=== PATIENT | male | born 1940 | race Caucasian/White ===

== ENCOUNTER 2020-06-06 09:36 | Observation (INO) | payer MEDICARE, OTHER, SELFPAY ==
[2020-06-06] VITALS (10 sets, daily range): BP systolic 130–154; BP diastolic 60–77; PULSE 53–58; RESP 15–18; TEMP 36.5–36.8; O2SAT 95–100; BMI 28.3; BMI 27.9
--- NOTE | 2020-06-06 10:01 | ED_ITS ---
HPI - Neuro Symptoms/Deficit General Chief Complaint: Eye Problems Stated Complaint: [facility]ST TIA Time Seen by Provider: 06/06/20 10:01 Source: patient Mode of arrival: ambulatory Limitations: no limitations History of Present Illness HPI Narrative: at home around 9am the patient noted he could not read the hour part on digital clock/watches, it lasted 5 minutes and it reminded him of a prior TIA, he took 324mg ASA prior to arrival, he denies any complaints now Onset (ago): hour(s) (1) Location: other (could not read the hour part on clocks) History of same: Yes Severity: moderate Relieving factors: none Exacerbating factors: none Context: sudden onset On Anticoagulants: No Associated symptoms: denies other symptoms Treatments Prior to Arrival: Aspirin (324mg) Related Data Allergies Allergy/AdvReac Type Severity Reaction Status Date / Time codeine Allergy Unknown Verified 06/25/19 00:00 No Known Allergies Allergy Unverified 05/18/20 19:02 [No Known Allergies*] Review of Systems Review of Systems: Constitutional : No Fever, No Chills, No Fatigue ENT/Mouth : No sore throat, No Rhinorrhea Eyes: No Eye Pain, No Swelling, No Redness, brief loss of vision Cardiovascular : No Chest Pain, No SOB, No Dyspnea on Exertion Respiratory : No Cough, No Sputum Gastrointestinal : No Nausea, No Vomiting, No Diarrhea, No abdominal Pain Genitourinary : No Dysuria, No Urinary Frequency, No Hematuria, Musculoskeletal : No joint pain, No Myalgias, No Joint Swelling Skin : No Skin Lesions, No rash Neuro : No Weakness, No Numbness, No Dizziness, no Headache Psych : No Anxiety/Panic, No Depression Heme/Lymph: No Bruising, No Bleeding,No Lymphadenopathy Endocrine : No Polyuria, No Polydipsia All other systems reviewed and are negative PMFSH Past Medical History Attestation statement: The following information was validated with the patient. Medical History (Updated 06/06/20 @ 11:49 by Ghada Soria DO) HTN (hypertension) Hx of cataract Migraine Prostate cancer TIA (transient ischemic attack) Surgical History (Updated 06/06/20 @ 09:48 by Teena Hernandez) Hx of bilateral hip replacements Hx of hernia repair Hx of right knee surgery Social History Social History (Updated 06/06/20 @ 10:05 by Ghada Soria DO) Alcohol intake: current Alcohol intake frequency: a few times a month Smoking Status: Never smoker Smoked in Last 30 Days: No Use of substances other than those prescribed or required for medical reasons: No Advance Directives: No Advance Directives Information Provided: Yes Physical Exam Vital Signs and I&O and Narrative: Vital Signs and I&O: Vital Signs Temp 97.7 F 06/06/20 11:20 Pulse 55 06/06/20 11:20 Resp 15 06/06/20 11:20 BP 130/66 06/06/20 11:20 Pulse Ox 95 06/06/20 11:20 Intake & Output 06/05/20 06/06/20 06/06/20 18:59 06:59 18:59 Weight 97.522 kg Body Mass Index 28.3 Appearance: Alert. Oriented X3. No acute distress. Eyes: Pupils equal, round and reactive to light. ENT: Pharynx normal. Neck: Normal inspection. Neck supple. CVS: Normal heart rate and rhythm. Pulses normal. Respiratory: No respiratory distress. Breath sounds normal. Abdomen: Soft and nontender. Skin: Skin warm and dry. Normal skin color. Normal skin turgor. Extremities: No lower extremity edema. Normal range of motion Neuro: Oriented X 3. No motor deficit. No sensory deficit. Course Course Course Narrative: no complaints now no neuro symptoms, already took 324 mg ASA prior to arrival , spoke to hospitalist - Kelly Weldon to admit MDM - Neuro Symptoms/Deficit MDM Narrative Medical decision making narrative: hx of TIA remotely here with loss of vision where he couldn't see the hour on digital watches but could read minutes, no other symptoms, only lasted 5 minutes and reminded him of a prior TIA, doing well recently, took 324mg ASA prior to arrival, all symptoms started at 9am Lab Data Result diagrams: 06/06/20 10:29 06/06/20 10:29 Labs: Lab Results 06/06/20 06/06/20 06/06/20 Range/Units 10:29 10:29 10:29 WBC 5.9 (4.8-10.8) X10*3/uL RBC 4.36 L (4.60-5.80) X10*6/uL Hgb 12.9 L (14.0-18.0) g/dl Hct 39.3 L (42-52) % MCV 90.1 (80-98) fL MCH 29.6 (27.0-33.0) pg MCHC 32.8 (31.0-36.0) g/dl RDW 12.7 (11.0-16.0) % Plt Count 189 (160-400) X10*3/uL MPV 10.5 (9.4-12.4) fL Immature Gran % (Auto) 0.2 (0.0-0.4) % Neut % (Auto) 72.1 (45-73) % Lymph % (Auto) 14.5 L (20-40) % [place] % (Auto) 7.8 (2-11) % Eos % (Auto) 4.9 H (0-4) % Baso % (Auto) 0.5 (0-2) % Neut # (Auto) 4.2 (2.0-8.3) X10*3/uL Lymph # (Auto) 0.9 L (1.2-4.9) X10*3/uL [place] # (Auto) 0.5 (0.1-1.2) X10*3/uL Eos # (Auto) 0.3 (0.0-0.4) X10*3/uL Baso # (Auto) 0.0 (0.0-0.2) X10*3/uL Abs Immat Gran (auto) 0.01 (0.00-0.03) X10*3/uL Absolute Nucleated RBC 0.000 (0.0-0.012) X10*3/uL Nucleated RBC % (auto) 0.0 (0.0-0.2) /100WBC PT 11.9 (10.8-13.0) SEC INR 1.0 (0.9-1.1) APTT 33.2 (24.1-38.0) SEC Sodium 140 (135-145) mmol/L Potassium 4.6 (3.3-5.1) mmol/l Chloride 107 (96-108) mmol/L Carbon Dioxide 24 (22-29) mmol/L Anion Gap 14 (12-20) BUN 23 H (9-16) mg/dL Creatinine 1.17 (0.5-1.4) mg/dL Estim Creat Clear Calc 65.0 Estimated GFR > 60 Random Glucose 134 H (60-115) mg/dL Calcium 9.0 (8.4-10.2) mg/dL Magnesium 2.0 (1.6-2.6) mg/dL Total Bilirubin 0.4 (0.0-1.0) mg/dL Direct Bilirubin 0.2 (0.0-0.5) mg/dL AST 34 (5-37) U/L ALT 43 H (0-40) U/L Alkaline Phosphatase 71 (39-117) U/L Troponin I High Sens (<3.5-35.0) ng/L Total Protein 7.0 (6.5-8.0) g/dL Albumin 4.1 (3.5-5.0) g/dL 06/06/20 Range/Units 10:29 WBC (4.8-10.8) X10*3/uL RBC (4.60-5.80) X10*6/uL Hgb (14.0-18.0) g/dl Hct (42-52) % MCV (80-98) fL MCH (27.0-33.0) pg MCHC (31.0-36.0) g/dl RDW (11.0-16.0) % Plt Count (160-400) X10*3/uL MPV (9.4-12.4) fL Immature Gran % (Auto) (0.0-0.4) % Neut % (Auto) (45-73) % Lymph % (Auto) (20-40) % [place] % (Auto) (2-11) % Eos % (Auto) (0-4) % Baso % (Auto) (0-2) % Neut # (Auto) (2.0-8.3) X10*3/uL Lymph # (Auto) (1.2-4.9) X10*3/uL [place] # (Auto) (0.1-1.2) X10*3/uL Eos # (Auto) (0.0-0.4) X10*3/uL Baso # (Auto) (0.0-0.2) X10*3/uL Abs Immat Gran (auto) (0.00-0.03) X10*3/uL Absolute Nucleated RBC (0.0-0.012) X10*3/uL Nucleated RBC % (auto) (0.0-0.2) /100WBC PT (10.8-13.0) SEC INR (0.9-1.1) APTT (24.1-38.0) SEC Sodium (135-145) mmol/L Potassium (3.3-5.1) mmol/l Chloride (96-108) mmol/L Carbon Dioxide (22-29) mmol/L Anion Gap (12-20) BUN (9-16) mg/dL Creatinine (0.5-1.4) mg/dL Estim Creat Clear Calc Estimated GFR Random Glucose (60-115) mg/dL Calcium (8.4-10.2) mg/dL Magnesium (1.6-2.6) mg/dL Total Bilirubin (0.0-1.0) mg/dL Direct Bilirubin (0.0-0.5) mg/dL AST (5-37) U/L ALT (0-40) U/L Alkaline Phosphatase (39-117) U/L Troponin I High Sens 8.6 (<3.5-35.0) ng/L Total Protein (6.5-8.0) g/dL Albumin (3.5-5.0) g/dL ECG Data ECG interpretation date: 06/06/20 ECG interpretation time: 10:23 Interpretation: Rate: 55 Rhythm: sinus bradycardia Baldwin: normal Normal P waves. 1st degree AVB Normal QRS complex. ST T wave : nonspecific qTC: normal The study has been interpreted contemporaneously by me. . Discharge Plan Discharge Clinical Impression: TIA (transient ischemic attack)
--- NOTE | 2020-06-06 10:01 | CT_ITS ---
EXAMINATION: CT HEAD WITHOUT CONTRAST CLINICAL INFORMATION: Resolved left side visual loss COMPARISON: None TECHNIQUE: Contiguous axial imaging was performed from the skull base to vertex without intravenous administration of contrast. This CT examination was performed using dose optimization techniques as appropriate, variously including the following: *Automated exposure control *Adjustment of mA and/or kV according to patient size (this includes techniques or standardized protocols for targeted exams where dose is matched to indication/reason for exam; i.e. extremities or head) *Use of iterative reconstruction technique DLP: 846 mGy-cm FINDINGS: There is no evidence of acute intracranial hemorrhage or territorial infarction. No abnormal mass effect or midline shift is seen. Kay to white matter differentiation is well preserved. No extra-axial fluid collections are identified. Mild periventricular deep white matter hypodensities most suggestive of chronic microangiopathic changes. No acute calvarial fracture. The mastoid air cells and visualized portions of the paranasal sinuses are well aerated. IMPRESSION: No CT evidence of acute intracranial pathology.
--- NOTE | 2020-06-06 10:02 | ECG_ITS ---
Test Reason : DIZZ Blood Pressure : / mmHG Vent. Rate : 055 BPM Atrial Rate : 055 BPM P-R Int : 268 ms QRS Dur : 096 ms QT Int : 400 ms P-R-T Axes : 065 014 068 degrees QTc Int : 382 ms Sinus bradycardia with 1st degree A-V block Nonspecific T wave abnormality Abnormal ECG When compared with ECG of 24-NOV-2017 06:57, T wave inversion now evident in Anterior leads Referred By: Ghada Soria Electronically Signed By:FABIÁN CHU
[2020-06-06 10:41] LABS: MANUAL DIFF FLAG NO
[2020-06-06 10:48] LABS: Basophils Percent Auto 0.5 % (0-2); Eosinophils Absolute Auto 0.3 X10*3/uL (0.0-0.4); Eosinophils Percent Auto 4.9 % (0-4); Hematocrit 39.3 % (42-52); Hemoglobin 12.9 g/dl (14.0-18.0); Imm Gran Abs Auto 0.01 X10*3/uL (0.00-0.03); Imm Gran Pct Auto 0.2 % (0.0-0.4); Lymphocytes Absolute Auto 0.9 X10*3/uL (1.2-4.9); Lymphocytes Percent Auto 14.5 % (20-40); Mean Corpuscular HGB Conc 32.8 g/dl (31.0-36.0); Mean Corpuscular Hemoglobin 29.6 pg (27.0-33.0); Mean Corpuscular Volume 90.1 fL (80-98); Mean Platelet Volume 10.5 fL (9.4-12.4); Monocytes Absolute Auto 0.5 X10*3/uL (0.1-1.2); Monocytes Percent Auto 7.8 % (2-11); Neutrophils Absolute Auto 4.2 X10*3/uL (2.0-8.3); Neutrophils Percent Auto 72.1 % (45-73); Platelet Count 189 X10*3/uL (160-400); Red Blood Count 4.36 X10*6/uL (4.60-5.80); Red Cell Distribution Width 12.7 % (11.0-16.0); White Blood Count 5.9 X10*3/uL (4.8-10.8)
[2020-06-06 11:04] LABS: Prothrombin Time 11.9 SEC (10.8-13.0)
[2020-06-06 11:07] LABS: Partial Thromboplastin Time 33.2 SEC (24.1-38.0)
[2020-06-06 11:15] LABS: Alanine Aminotransferase 43 U/L (0-40); Albumin Level 4.1 g/dL (3.5-5.0); Alkaline Phosphatase 71 U/L (39-117); Anion Gap 14 (12-20); Aspartate Amino Transferase 34 U/L (5-37); Bilirubin Direct 0.2 mg/dL (0.0-0.5); Bilirubin Total 0.4 mg/dL (0.0-1.0); Blood Urea Nitrogen 23 mg/dL (9-16); Carbon Dioxide 24 mmol/L (22-29); Chloride 107 mmol/L (96-108); Estimated Glomerular Filt Rate > 60; Glucose Random 134 mg/dL (60-115); Potassium 4.6 mmol/l (3.3-5.1); Sodium 140 mmol/L (135-145)
[2020-06-06 11:18] LABS: Troponin-I High Sensitivity 8.6 ng/L (<3.5-35.0)
--- NOTE | 2020-06-06 11:55 | PC.NURSE ---
PT UPRIGHT IN BED WATCHING TV, RR EVEN UNLABORED, SKIN PWD, AOX3. PT REPORTS ACUTE ONSET OF DIFFICULTY SEEING WATCH HANDS THIS AM WHILE AT REST AT HOME, STS EPISODE LASTED ~10 MIN W/ FULL RESOLUTION, DENIES ANY ASSOCIATED SX, NEUROS GROSSLY INTACT UPON THIS RN'S INITIAL EVAL. PT STS HAD SIMILAR EPISODE ~35 YEARS AGO W/ NO FINDINGS. PT SB ON TELE, VSS, NAD. PROVIDER AT BEDSIDE, PT AWARE/AGREEABLE TO PENDING ADMISSION.
--- NOTE | 2020-06-06 13:53 | PC.NURSE ---
[facility] CALLED FOR REPORT
--- NOTE | 2020-06-06 13:58 | PC.NURSE ---
REPORT GIVEN TO C YUMIKO BAGLEY
--- NOTE | 2020-06-06 14:58 | HP_ITS ---
DATE OF SERVICE: 06/06/2020 CHIEF COMPLAINT: Visual change. HISTORY OF PRESENT ILLNESS: 79-year-old man, presented to the ER with complaints of left-sided peripheral vision change. He reports that he woke up at 7 fine and then around 9 a.m., he was looking at his watch and he could only see the minute hand and not the hour or numbers. He reports this went on for about 5 to 10 minutes. In between that time, he took a full dose of aspirin and because of his history of TIA approximately 30 years ago, he decided to come in to be evaluated. He also reports a headache, but denies any nausea, vomiting, or diarrhea. He denied any chest pain, shortness of breath. He reports that he is pretty active at home. In the ER, his vital signs were stable. All labs within acceptable limits including normal troponin. He also had a brain CT, which was negative for any acute abnormality. He is currently resting comfortably in bed and will be placed on observation for possible TIA. PAST MEDICAL HISTORY: 1. TIA 30 years ago. 2. Hypertension. 3. Hyperlipidemia. 4. Prostate cancer, status post prostatectomy. 5. Hernia repair. 6. Knee surgery. 7. Bilateral hip repair. 8. Cataract extraction. 9. Sphincterotomy. 10. Migraine headaches. FAMILY HISTORY: Father had a fatal stroke at age of 77. Mother lived to the age of 103. SOCIAL HISTORY: Lives with his . Denies any alcohol, tobacco, or illicit drug use. Is retired and quite active at home. ALLERGIES: TO CODEINE. MEDICATIONS: 1. Amlodipine 10 mg p.o. daily. 2. Lorazepam 0.5 mg q.8 hours as needed for anxiety. 3. Losartan 50 mg p.o. daily. 4. Metoprolol 25 mg p.o. daily. 5. Simvastatin 20 mg p.o. at bedtime. 6. Aimovig 1 injection subcu monthly. REVIEW OF SYSTEMS: CONSTITUTIONAL: Denies any recent fever, chills, or decrease in appetite. RESPIRATORY: Denies any shortness of breath, cough, or sputum production. CARDIOVASCULAR: Denies any chest pain, orthopnea, PND, or edema. GASTROINTESTINAL: Denies any dysphagia, abdominal pain, nausea, vomiting, or diarrhea. GENITOURINARY: Denies any dysuria, frequency, or hematuria. MUSCULOSKELETAL: Denies any joint pain or swelling. NEUROPSYCH: Denies any weakness or seizures. See HPI. All other systems are reviewed and are negative. PHYSICAL EXAMINATION: CONSTITUTIONAL: Resting in bed, appearing in no acute distress. VITAL SIGNS: 97.7, 55, 15, 130/66, 95% on room air. SKIN: Intact without rash or open sores. HEENT: Head is normocephalic, atraumatic. Eyes: Pupils are PERRLA. Sclerae anicteric. Mouth: Mucous membranes are intact and moist. NECK: Supple. No lymphadenopathy. No JVD noted. CHEST: Clear to auscultation without wheezes, rhonchi, or rales. HEART: Regular rate and rhythm. Clear S1, S2. No murmurs, rubs, or gallops. ABDOMEN: Positive bowel sounds. Soft, nontender. No hepatomegaly or splenomegaly noted. NEURO: The patient is alert and oriented x3. No focal deficits noted. LABORATORY DATA: WBC 5.9, hemoglobin 12.9, hematocrit 39.3, platelets 189. Sodium is 140, potassium 4.6, chloride is 107, BUN is 23, creatinine is 1.17, glucose is 134. Troponin is 8.6. ASSESSMENT AND PLAN: A 79-year-old man, admitted with possible symptoms of transient ischemic attack with previous transient ischemic attack in the past. 1. Transient ischemic attack. We will obtain MRI, Neurology consultation, monitor on telemetry, continue aspirin and statin. Place physical therapy evaluation if needed. 2. Hypertension. Continue home medications. 3. Hyperlipidemia. Continue aspirin and statin. 4. Deep vein thrombosis prophylaxis with Lovenox. 5. Case discussed with Dr. Valadez. 6. Full code. NINI Yun MD JR/GEORGIE / [id number]
--- NOTE | 2020-06-06 15:18 | MR_ITS ---
EXAMINATION: MR BRAIN WITHOUT CONTRAST CLINICAL INFORMATION: Transient ischemic attack. COMPARISON: CT head from 06/06/2020. TECHNIQUE: MRI of the brain was obtained using routine sequences without contrast. FINDINGS: No focal restricted diffusion is demonstrated to suggest acute or subacute cerebral ischemia. No evidence of acute or chronic hemorrhagic products on heme-sensitive imaging. Scattered periventricular and deep white matter T2 FLAIR hyperintensities consistent with mild to moderate underlying microangiopathy. Proportional prominence of the ventricles and sulcal spaces without evidence of obstructive hydrocephalus. No abnormal mass effect. No midline shift. Normal appearance of the pituitary gland. No abnormalities of the posterior fossa with normal appearance of the brainstem and cerebellum. Normal arterial and venous vascular flow voids are present. Normal, homogeneous marrow signal. Mild mucosal thickening of the paranasal sinuses. Rightward nasal septal deviation. No signal abnormalities within the mastoids. Bilateral lens extractions. IMPRESSION: 1. No acute intracranial abnormalities. 2. Mild to moderate underlying microangiopathy and generalized cerebral volume loss.
[2020-06-06] MEDS: Enoxaparin Sodium 40 MG/0.4 ML SYRINGE SUBCUT (15:51)
--- NOTE | 2020-06-06 19:04 | PM.EVENT ---
Event Note Event Note: Patient seen and examined independently and was present during salcedo portion of E/M service. Agree with midlevel's history, physical, assessment, and plan. 79-year-old gentleman presented with transient left-sided vision loss lasting 5-10 minutes all symptoms resolved prior to coming to the emergency room due to multiple risk factors for stroke including hypertension hyperlipidemia H and prior history of TIA patient was admitted for close neurological monitoring. On exam patient is resting comfortably neuro examination is unremarkable assessment and plan transient neurological deficit all symptoms resolved CT brain negative will await neurological evaluation likely patient has migraine related symptoms with prior history of migraine.
[2020-06-06] MEDS: Atorvastatin Calcium 10 MG TABLET PO (21:39)
[2020-06-07 03:57] VITALS: BP 126/62; PULSE 67; RESP 18; TEMP 37; O2SAT 96
[2020-06-07 04:00] VITALS: O2SAT 96
[2020-06-07] MEDS: Omeprazole 20 MG CAPSULE.DR PO (06:33)
[2020-06-07 06:37] LABS: MANUAL DIFF FLAG NO
[2020-06-07 06:52] LABS: Basophils Percent Auto 0.6 % (0-2); Eosinophils Absolute Auto 0.3 X10*3/uL (0.0-0.4); Eosinophils Percent Auto 5.2 % (0-4); Hematocrit 39.2 % (42-52); Hemoglobin 12.8 g/dl (14.0-18.0); Imm Gran Abs Auto 0.03 X10*3/uL (0.00-0.03); Imm Gran Pct Auto 0.5 % (0.0-0.4); Lymphocytes Absolute Auto 1.4 X10*3/uL (1.2-4.9); Lymphocytes Percent Auto 21.6 % (20-40); Mean Corpuscular HGB Conc 32.7 g/dl (31.0-36.0); Mean Corpuscular Hemoglobin 29.2 pg (27.0-33.0); Mean Corpuscular Volume 89.5 fL (80-98); Mean Platelet Volume 10.8 fL (9.4-12.4); Monocytes Absolute Auto 0.7 X10*3/uL (0.1-1.2); Monocytes Percent Auto 10.3 % (2-11); Neutrophils Percent Auto 61.8 % (45-73); Platelet Count 190 X10*3/uL (160-400); Red Blood Count 4.38 X10*6/uL (4.60-5.80); Red Cell Distribution Width 12.6 % (11.0-16.0); White Blood Count 6.5 X10*3/uL (4.8-10.8)
[2020-06-07 07:16] LABS: Cholesterol 139 mg/dL; HDL Cholesterol 39 mg/dL; LDL Cholesterol Calculated 86 mg/dl; Triglycerides 73 mg/dL
[2020-06-07 07:20] LABS: Anion Gap 11 (12-20); Blood Urea Nitrogen 20 mg/dL (9-16); Calcium 8.7 mg/dL (8.4-10.2); Carbon Dioxide 27 mmol/L (22-29); Chloride 107 mmol/L (96-108); Creatinine Clr Calc Pharmacy 71.3; Estimated Glomerular Filt Rate > 60; Glucose Random 87 mg/dL (60-115); Sodium 141 mmol/L (135-145)
[2020-06-07 07:26] VITALS: BP 154/73; PULSE 64; RESP 18; TEMP 37.1; O2SAT 96
[2020-06-07 08:00] VITALS: O2SAT 96
[2020-06-07] MEDS: Aspirin 81 MG TAB.CHEW PO (08:58)
--- NOTE | 2020-06-07 09:08 | PM.NEUROCN ---
History of Present Illness Data of Consult Primary Care Provider: Azar Griffin MD Review of Systems Review of Systems: General: no loss of weight, or fever Neuro: no active issue reported Psych: no active issues reported Heart: no SOB or chest pain Lungs: no cough or SOB Extremiteis: no edema Musculoskeletal: no joint pains Sleep: no sleep issues reported skin: no rashes ENT: no URI symptoms Neck: no neck pain PMFSH Past Medical History Medical History (Updated 06/07/20 @ 09:19 by Jennifer Hammond MD) HTN (hypertension) Hx of cataract Migraine Prostate cancer TIA (transient ischemic attack) Surgical History Surgical History (Updated 06/06/20 @ 09:48 by Teena Hernandez) Hx of bilateral hip replacements Hx of hernia repair Hx of right knee surgery Social History Social History (Updated 06/06/20 @ 10:05 by Ghada Soria DO) Household Members: Spouse Housing: [facility] Do you presently have visiting nurse or other home services: No Alcohol intake: current Alcohol intake frequency: a few times a month Smoking Status: Never smoker Smoked in Last 30 Days: No Use of substances other than those prescribed or required for medical reasons: No Have you been hit, kicked, punched, or otherwise hurt by someone within the past year? If so, by whom?: No Do you feel safe in your current relationship?: Yes Is there a partner from a previous relationship who is making you feel unsafe now?: No Are you made to feel afraid or neglected: No Advance Directives: No Advance Directives Information Provided: Yes Do you have thoughts of harming others: None Do you have a plan to hurt others: No Plan Recently lost weight without trying: No Meds Allergies Allergy/AdvReac Type Severity Reaction Status Date / Time codeine Allergy Unknown Verified 06/25/19 00:00 No Known Allergies Allergy Unverified 05/18/20 19:02 [No Known Allergies*] Home Medications Medication Instructions Recorded Confirmed Type Aimovig Autoinjector 06/06/20 History amlodipine 10 mg PO DAILY 06/06/20 06/06/20 History aspirin [Adult Aspirin] 81 mg PO DAILY 06/06/20 06/06/20 History losartan 50 mg PO DAILY 06/06/20 06/06/20 History metoprolol tartrate 25 mg PO BID 06/06/20 06/06/20 History multivitamin 1 tab PO DAILY 06/06/20 06/06/20 History omeprazole [Prilosec] 20 mg PO DAILY 06/06/20 06/06/20 History simvastatin 20 mg PO BEDTIME 06/06/20 06/06/20 History Physical Exam Vital Signs and I&O and Narrative: Vital Signs and I&O: Vital Signs Temp 98.7 F 06/07/20 07:26 Pulse 64 06/07/20 07:26 Resp 18 06/07/20 07:26 BP 154/73 H 06/07/20 07:26 Pulse Ox 96 06/07/20 07:26 Intake & Output 06/06/20 06/07/20 06/07/20 18:59 06:59 18:59 Output Total Balance - Urine Output (Aver age ml/kg/hr) 0.00 Weight 96.162 kg Output: Output, Urine Am ount Other: Meal Refused No NPO No Dinner % Eaten 75% Urine Bathroom Stool Bathroom Body Mass Index 27.9 Mental status examination: Normal attention, orientation, memory and affect Cranial Nerve examination: Pupils are equal, round and reactive to light. External ocular muscles are intact. Visual munguia are full. Face is symmetrical. Facial sensations are normal. Tongue is midline. Palate elevates symmetrically. Shoulder shrugging is normal. Hearing to bedside conversation is normal. Motor examination: Normal muscle tone, bulk and strength, Deep tendon reflexes are 2+. Plantar reflexes are flexor bilaterally. Sensory examination: Normal light touch, pain, vibration and joint position senses. Cerebellar examination: Finger to nose is normal. Gait: Within normal limits. Speech: Normal. Extrapyramidal system: Within normal limits. Involuntary movements: None. Results Labs CBC & Chem 7: 06/07/20 05:38 06/07/20 05:38 Labs: Short CBC 06/06/20 06/07/20 Range/Units 10:29 05:38 WBC 5.9 6.5 (4.8-10.8) X10*3/uL Hgb 12.9 L 12.8 L (14.0-18.0) g/dl Hct 39.3 L 39.2 L (42-52) % Plt Count 189 190 (160-400) X10*3/uL BMP 06/06/20 06/07/20 10:29 05:38 Sodium 140 141 Potassium 4.6 4.0 Chloride 107 107 Carbon Dioxide 24 27 BUN 23 H 20 H Creatinine 1.17 1.06 Calcium 9.0 8.7 Liver Function 06/06/20 Range/Units 10:29 Total Bilirubin 0.4 (0.0-1.0) mg/dL Direct Bilirubin 0.2 (0.0-0.5) mg/dL AST 34 (5-37) U/L ALT 43 H (0-40) U/L Alkaline Phosphatase 71 (39-117) U/L Albumin 4.1 (3.5-5.0) g/dL Assessment and Plan (1) Migraine: Status: Acute Impression: a: 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
--- NOTE | 2020-06-07 09:23 | MHC.CM.PN ---
met with pt dc plan is to return home no servceis are indicated pts will transport pt home
--- NOTE | 2020-06-07 10:08 | MHC.CM.PN ---
dc plan home no servceis
--- NOTE | 2020-06-07 12:08 | PM.DS ---
DS: Providers Provider Date of admission: 06/06/20 12:33 Primary care physician: Azar Griffin MD Consults: 06/06/20 15:18 Consult to Neurology Routine Consulting Provider: [facility] Reason for consultation: tia Has provider been notified: No DS: Diagnosis Discharge Diagnosis (1) Migraine: Status: Acute (2) Cerebral microvascular disease: Status: Acute DS: Summary Hospital Course Hospital Course: 79-year-old gentleman with past medical history significant for hypertension, hyperlipidemia, prostate cancer status post prostatectomy, history of migraine presented to [facility] with left-sided a peripheral vision loss symptoms lasting for 5 minutes without any associated weakness numbness loss of vision nausea vomiting he did admit he had some arm headache with it, patient took full-dose of aspirin because of a prior history of TIA approximately 30 years ago with negative workup in the emergency room CT scan of the brain was unremarkable patient all symptoms were resolved prior to coming to the hospital patient was admitted to [facility] due to transient neurological deficit. Transient neurological deficit. During the course of hospitalization patient did not have recurrence of symptoms is speech remain clear neuro examination remained benign patient blood pressure was stable a lipid profile showed an LDL of 86 with a total cholesterol of 139 patient was evaluated by Dr. Hammond he felt patient's symptoms were related to migraine therefore he recommended patient to be placed on verapamil 40 mg twice daily and metoprolol has been discontinued since patient is on simvastatin there is interaction between simvastatin and calcium channel nia so recommended patient to follow-up with PCP and switch Zocor to Pravachol, all other baseline medications has been continued. Patient and has been informed about above plan patient will be seen by neurology in next 2-3 weeks. Time Spent with Patient Time attestation: Total time spent providing and/or coordinating discharge services: Time spent: Greater than 30 minutes Physical Exam Vital Signs and I&O and Narrative: Vital Signs and I&O: Vital Signs Temp 98.7 F 06/07/20 07:26 Pulse 64 06/07/20 07:26 Resp 18 06/07/20 07:26 BP 154/73 H 06/07/20 07:26 Pulse Ox 96 06/07/20 08:00 Intake & Output 06/06/20 06/07/20 06/07/20 18:59 06:59 18:59 Intake Total 240 / 240 Output Total Balance - 240 / 240 Urine Output (Aver age ml/kg/hr) 0.00 0.00 Weight 96.162 kg Intake: Intake, Oral [place] unt 240 / 240 Output: Output, Urine Am ount Other: Meal Refused No NPO No Breakfast % Eate n 100% Dinner % Eaten 75% Urine Bathroom Stool Bathroom Body Mass Index 27.9 General patient resting comfortably in no acute distress. Neck is supple no JVD. CVS regular rate rhythm, Respiratory lungs clear to auscultation, no respiratory distress, no wheeze, no rhonchi. Gastrointestinal abdomen soft, nontender, bowel sounds audible, no no guarding , no rigidity. Extremities no clubbing cyanosis or edema. Neuro nonfocal patient moving all 4 extremity speech clear. Skin no rash DS: Data Data Completed and Pending Labs on day of discharge: Labs from last 24 hours 06/07/20 06/07/20 06/07/20 05:38 05:38 05:38 WBC 6.5 RBC 4.38 L Hgb 12.8 L Hct 39.2 L MCV 89.5 MCH 29.2 MCHC 32.7 RDW 12.6 Plt Count 190 MPV 10.8 Immature Gran % (Auto) 0.5 H Neut % (Auto) 61.8 Lymph % (Auto) 21.6 Bates % (Auto) 10.3 Eos % (Auto) 5.2 H Baso % (Auto) 0.6 Neut # (Auto) 4.0 Lymph # (Auto) 1.4 Bates # (Auto) 0.7 Eos # (Auto) 0.3 Baso # (Auto) 0.0 Abs Immat Gran (auto) 0.03 Absolute Nucleated RBC 0.000 Nucleated RBC % (auto) 0.0 Sodium 141 Potassium 4.0 Chloride 107 Carbon Dioxide 27 Anion Gap 11 L BUN 20 H Creatinine 1.06 Estim Creat Clear Calc 71.3 Estimated GFR > 60 Random Glucose 87 D Calcium 8.7 Triglycerides 73 Cholesterol 139 LDL Cholesterol, Calc 86 HDL Cholesterol 39 Discharge Plan Discharge Patient Disposition: Home, Self-Care Referrals: Azar Griffin MD [Primary Care Provider] - Discharge Medications: New verapamil 40 mg tablet 40 mg PO BID Qty: 60 RF: 0 Continued losartan 50 mg Tablet 50 mg PO DAILY RF: 0 omeprazole 20 mg Capsule,Delayed Release(Dr/Ec) 20 mg PO DAILY RF: 0 Aimovig Autoinjector 70 mg/mL auto-injector 1 ml subcut QMONTH RF: 0 multivitamin Tablet 1 tab PO DAILY RF: 0 simvastatin 20 mg Tablet 20 mg PO BEDTIME RF: 0 aspirin 81 mg Tablet 81 mg PO DAILY RF: 0 Changed amlodipine 5 mg Tablet 5 mg PO DAILY Qty: 0 RF: 0 Discontinued metoprolol tartrate 25 mg Tablet 25 mg PO BID RF: 0 Discharge Orders: Discharge Order (Routine); Ordered 06/07/20 Ordered By: Dick Valadez Activity on Discharge: As tolerated Discharge Date/Time: 06/07/20 11:15 Visit Report Forms: Patient Portal Discharge page Care Plan Goals: As per discharge plan Health Concerns: as per discharge plan Plan of Treatment: close outpatient follow-up with Neurology is stop taking metoprolol twice daily and take verapamil in place 40 mg twice daily follow-up with primary care physician.
== END 2020-06-07 11:15 | disposition home or self-care (01) ==
LOC: HO.ED 12:32 → HO.IMC 14:19
PROVIDERS: Admitting Provider Nurse Practitioner Acute Care; Emergency Provider Emergency Medicine; PCP Family Medicine; Visit Provider Hospitalist
DX: G43.909 Migraine, unspecified, not intractable, without status migrainosus (principal); I10 Essential (primary) hypertension; E78.5 Hyperlipidemia, unspecified; R00.1 Bradycardia, unspecified; I44.0 Atrioventricular block, first degree; H54.61 Unqualified visual loss, right eye, normal vision left eye; C61 Malignant neoplasm of prostate; Z88.8 Allergy status to other drugs, medicaments and biological substances; Z79.82 Long term (current) use of aspirin; Z79.899 Other long term (current) drug therapy
CPT/HCPCS: 36415; 70450; 70551; 80048; 80061; 80076; 83735; 84484; 85025; 85610; 85730; 93005; 93010; 96372; 96374; 99219; 99284; 99285; J1650

== ENCOUNTER 2020-07-26 12:48 | Outpatient (REF) | payer SELFPAY ==
[2020-07-26 13:19] LABS: Cholesterol 153 mg/dL
[2020-07-26 13:39] LABS: SARS COV2 IgG Negative (Negative)
== END 2020-07-26 12:49 | disposition home or self-care (01) ==
LOC: HO.LNC 12:48
PROVIDERS: Visit Provider Pathology Anatomic Pathology & Clinical Pathology
DX: Z20.828 Contact with and (suspected) exposure to other viral communicable diseases (principal)
CPT/HCPCS: 82465; 86769

== ENCOUNTER → 2020-09-11 09:00 | Outpatient (REF) | payer MEDICARE, OTHER, SELFPAY ==
--- NOTE | 2020-09-11 09:07 | ECG_ITS ---
Test Reason : HTN Blood Pressure : / mmHG Vent. Rate : 067 BPM Atrial Rate : 067 BPM P-R Int : 328 ms QRS Dur : 102 ms QT Int : 394 ms P-R-T Axes : 054 031 066 degrees QTc Int : 416 ms Sinus rhythm with 1st degree A-V block Minimal voltage criteria for LVH, may be normal variant Nonspecific T wave abnormality Abnormal ECG When compared with ECG of 06-JUN-2020 10:18, No significant change was found Referred By: Jennifer Hammond Electronically Signed By:CARLOS JONES MD
== END ==
LOC: HO.CARD 09:00
PROVIDERS: PCP Family Medicine; Visit Provider Psychiatry & Neurology Neurology
DX: I10 Essential (primary) hypertension (principal)
CPT/HCPCS: 93005

== ENCOUNTER 2020-09-20 11:39 | Outpatient (REF) | payer SELFPAY ==
[2020-09-20 13:15] LABS: Cholesterol 158 mg/dL
== END 2020-09-20 11:40 | disposition home or self-care (01) ==
LOC: HO.LNC 11:39
PROVIDERS: Visit Provider Pathology Anatomic Pathology & Clinical Pathology
DX: Z13.89 Encounter for screening for other disorder (principal)
CPT/HCPCS: 36415; 82465

== ENCOUNTER 2020-11-13 16:32 | Outpatient (REF) | payer MEDICARE, OTHER, SELFPAY | END 2020-11-13 16:33 | disposition home or self-care (01) | LOC: HO.LNP 16:32 | PROVIDERS: Visit Provider Hospitalist | DX: R30.0 Dysuria (principal) | CPT/HCPCS: 87086 ==

== ENCOUNTER → 2021-06-29 09:35 | Outpatient (BNVA) | payer MEDICARE, OTHER, SELFPAY | PROVIDERS: PCP Family Medicine; Visit Provider Nurse Practitioner Family | DX: M51.36 Other intervertebral disc degeneration, lumbar region (principal); M54.16 Radiculopathy, lumbar region | CPT/HCPCS: 99202 ==

== ENCOUNTER 2021-07-11 08:37 | Outpatient (REF) | payer MEDICARE, OTHER, SELFPAY ==
--- NOTE | ~2021-07-11 | MR_ITS ---
EXAMINATION: MR LUMBAR SPINE WITHOUT CONTRAST CLINICAL INFORMATION: Radiculopathy, lumbar region. COMPARISON: None TECHNIQUE: MRI of the lumbar spine was obtained using routine sequences without contrast. FINDINGS: Lumbar vertebral bodies maintain normal height. There is mild grade 1 anterolisthesis of L4 on L5. No moderate or severe disc height loss is seen. In the lower thoracic spine there is partial fusion across the T11-T12 disc. An inferior endplate Schmorl's node with mild amount of edema is seen at L2. The distal spinal cord appears normal. The conus medullaris terminates normally at the L1 level. The extraspinal soft tissues are within normal limits. SPINAL LEVELS: L1-L2: No posterior disc abnormality. No spinal canal or neural foraminal stenosis. L2-L3: Mild disc bulging with mild facet arthropathy. No spinal canal stenosis. No significant neural foraminal stenosis. L3-L4: Disc bulging with central protrusion, ligamentum flavum infolding, and severe facet arthropathy results in severe spinal canal stenosis with thecal sac compression and compression of the traversing L4 nerve roots. Moderate to severe left neural foraminal stenosis with compression of the exiting left L3 nerve root. Mild to moderate right neural foraminal stenosis with mild compression of exiting right L3 nerve root. L4-L5: Disc bulging with ligamentum flavum infolding and severe facet arthropathy result in moderate spinal canal stenosis and compression of the bilateral traversing L5 nerve roots. Moderate left and mild right neural foraminal stenosis with mild compression of the exiting left L4 nerve root. L5-S1: Disc bulging with severe facet arthropathy. Left annular fissuring. No spinal canal or neural foraminal stenosis. MR/MR lumbar spine wo con IMPRESSION: At L3-L4 there are multifactorial degenerative changes resulting in severe spinal canal stenosis with thecal sac compression and compression of the traversing L4 nerve root. Moderate to severe left and [id number] right neural foraminal stenosis with compression of the exiting left more than right L3 nerve roots. At L4-L5 there is moderate spinal canal stenosis with compression of the traversing L5 nerve roots in mild compression of the exiting left L4 nerve root.
== END 2021-07-11 08:38 | disposition home or self-care (01) ==
LOC: HO.MRI 08:37
PROVIDERS: Visit Provider Nurse Practitioner Family
DX: M54.16 Radiculopathy, lumbar region (principal); M51.36 Other intervertebral disc degeneration, lumbar region
CPT/HCPCS: 72148

== ENCOUNTER → 2021-07-25 11:45 | Outpatient (BNVA) | payer MEDICARE, OTHER, SELFPAY | PROVIDERS: PCP Family Medicine; Visit Provider Nurse Practitioner Family | DX: M51.36 Other intervertebral disc degeneration, lumbar region (principal); M54.16 Radiculopathy, lumbar region; M48.061 Spinal stenosis, lumbar region without neurogenic claudication | CPT/HCPCS: Q3014 ==

== ENCOUNTER → 2021-08-20 12:24 | Outpatient (BNVA) | payer OTHER, SELFPAY | PROVIDERS: PCP Family Medicine; Visit Provider Physician Assistant Medical | DX: S60.572D Other superficial bite of hand of left hand, subsequent encounter (principal); W54.0XXD Bitten by dog, subsequent encounter; Z23 Encounter for immunization | CPT/HCPCS: 90715; 99203 ==

== ENCOUNTER → 2021-08-23 14:23 | Outpatient (BNVA) | payer OTHER, SELFPAY | PROVIDERS: PCP Family Medicine; Visit Provider Physician Assistant | DX: S60.572A Other superficial bite of hand of left hand, initial encounter (principal); W54.0XXA Bitten by dog, initial encounter | CPT/HCPCS: 99213 ==

== ENCOUNTER 2021-09-25 11:53 | Outpatient (REF) | payer MEDICARE, OTHER, SELFPAY ==
[2021-09-25 13:07] LABS: MANUAL DIFF FLAG NO
[2021-09-25 13:28] LABS: Basophils Percent Auto 0.4 % (0-2); Eosinophils Absolute Auto 0.3 X10*3/uL (0.0-0.4); Eosinophils Percent Auto 3.6 % (0-4); Hematocrit 42.8 % (42.0-52.0); Hemoglobin 14.2 g/dl (14.0-18.0); Imm Gran Abs Auto 0.01 X10*3/uL (0.00-0.03); Imm Gran Pct Auto 0.1 % (0.0-0.4); Lymphocytes Absolute Auto 1.2 X10*3/uL (1.2-4.9); Lymphocytes Percent Auto 16.6 % (20-40); Mean Corpuscular HGB Conc 33.2 g/dl (31.0-36.0); Mean Corpuscular Hemoglobin 29.8 pg (27.0-33.0); Mean Corpuscular Volume 89.7 fL (80.0-98.0); Mean Platelet Volume 10.1 fL (9.4-12.4); Monocytes Absolute Auto 0.9 X10*3/uL (0.1-1.2); Monocytes Percent Auto 12.3 % (2-11); Neutrophils Absolute Auto 4.7 x10*3/uL (2.0-8.3); Platelet Count 197 X10*3/uL (160-400); Red Blood Count 4.77 X10*6/uL (4.60-5.80); Red Cell Distribution Width 11.9 % (11.0-16.0)
[2021-09-25 13:30] LABS: Appearance Urine CLOUDY; Color Urine YELLOW; Glucose Urine UA NEG (NEG); Leukocyte Esterase Urine 3+ (NEG); Nitrite Urine POS (NEG); PH 7.5 (5.0-8.0); UACC Culture Trigger YES; Urine Blood NEG (NEG); Urine Ketones NEG (NEG); Urine Protein TRACE MG/DL (NEG-TRACE)
[2021-09-25 14:01] LABS: Alanine Aminotransferase 28 U/L (0-40); Albumin Level 4.4 g/dL (3.5-5.0); Alkaline Phosphatase 99 U/L (39-117); Anion Gap 12 (12-20); Aspartate Amino Transferase 26 U/L (5-37); Bilirubin Total 0.3 mg/dL (0.0-1.0); Blood Urea Nitrogen 19 mg/dL (9-16); Calcium 9.9 mg/dL (8.4-10.2); Carbon Dioxide 27 mmol/L (22-29); Chloride 104 mmol/L (96-108); Estimated Glomerular Filt Rate > 60; Glucose Random 108 mg/dL (60-115); Potassium 4.4 mmol/L (3.3-5.1); Sodium 139 mmol/L (135-145); Total Protein 7.6 g/dL (6.5-8.0)
[2021-09-25 14:23] LABS: Bacteria Urine 3+ /LPF; RBC Urine 0 /HPF (0); WBC Clumps Urine NOTED; WBC Urine 30-49 /HPF (0-4)
== END 2021-09-25 11:54 | disposition home or self-care (01) ==
LOC: HO.LAB 11:53
PROVIDERS: PCP Family Medicine; Referring Provider Family Medicine; Visit Provider Nurse Practitioner
DX: R35.0 Frequency of micturition (principal); D12.6 Benign neoplasm of colon, unspecified
CPT/HCPCS: 36415; 80053; 81001; 85025; 87086; 87088; 87186; 99202

== ENCOUNTER 2021-11-05 11:05 | Day surgery (SDC) | payer MEDICARE, OTHER, SELFPAY ==
[2021-10-30 14:42] VITALS: BMI 28.3
[2021-11-05 11:18] VITALS: BMI 27.7
--- NOTE | 2021-11-05 11:25 | P.CONAN_ITS ---
[facility] Active Problems Active Problems: All Active Problems (Updated 10/30/21 @ 14:35 by Ariane Crawford RN) Dysuria (Acute) Left lumbar radiculopathy (Acute) Disc degeneration, lumbar (Acute) Stenosis, spinal, lumbar (Acute) Tubular adenoma of colon (Acute) Urinary frequency (Acute) Mitral murmur (Acute) Migraine (Acute) Past Medical History Medical History (Updated 10/30/21 @ 14:35 by Ariane Crawford RN) COVID-19 vaccine series completed HTN (hypertension) Migraine Prostate cancer TIA (transient ischemic attack) Family History Family history of problems with anesthesia: No Surgical History Surgical History (Updated 10/30/21 @ 14:37 by Ariane Crawford RN) H/O colonoscopy H/O lumbar discectomy History of bladder suspension procedure History of esophagogastroduodenoscopy (EGD) Hx of bilateral hip replacements Hx of cataract extraction Hx of hernia repair Hx of prostatectomy Status post total right knee replacement History of Problems with Anesthesia: No Social History Social History (System 08/03/21 @ 09:04 by Susie Maldonado) Household Members: Spouse Housing: Condominium Do you presently have visiting nurse or other home services: No Alcohol intake: current Alcohol intake frequency: a few times a month Patient Tobacco Use Status: Tobacco use Unknown Advance Directives Information Provided: Yes (brochure mailed) Advance Directives on File: No Nutrition Risks: Surgical patient >75years Meds Allergies Allergy/AdvReac Type Severity Reaction Status Date / Time codeine Allergy Unknown unknown Verified 09/25/21 11:58 Home Medications Medication Instructions Recorded Confirmed Last Taken Type aspirin 81 mg tablet 81 mg PO DAILY 06/07/20 10/30/21 Unknown History multivitamin 1 tab PO DAILY 06/07/20 10/30/21 Unknown History simvastatin 20 mg tablet 20 mg PO BEDTIME 06/07/20 10/30/21 Unknown History amlodipine 10 mg tablet 10 mg PO DAILY 11/13/20 10/30/21 Unknown History atorvastatin 10 mg tablet 10 mg PO DAILY 11/13/20 10/30/21 Unknown History losartan 50 mg tablet 50 mg PO DAILY 11/13/20 10/30/21 Unknown History omeprazole magnesium 20 mg 20 mg PO DAILY 11/13/20 10/30/21 Unknown History tablet,delayed release (Prilosec OTC) verapamil 120 mg 24 hr 120 mg PO DAILY 11/13/20 10/30/21 Unknown History capsule,extended release Exam Exam Date and Time: November 05, 2021 1125 Height,Weight and Vital Signs: Height 6 ft 1 in Weight 97.522 kg Airway Mallampati Class: II TM Dist: >3cm Neck ROM: Full Heart: rrr Lungs: cta Assessment and Plan Assessment Anesthesia Assessment: Anesthesia Plan Discussed and Chart Reviewed Final Anesthetic Review Family History of Problems with Anesthesia: No History of Problems with Anesthesia: No NPO: Yes ASA Class: II Final Preanesthetic Review: No Changes in Pt Med Stat, Meds/Allgs Chart Reviewed and Consent Obtained/Reviewed Patient Risk: Intermediate Procedure Risk: Intermediate Anesthetic Plan Anesthetic Plan: MAC: Disposition: Standard PACU
[2021-11-05 11:44] VITALS: BP 143/75; PULSE 60; RESP 16; TEMP 36.4; O2SAT 96
--- NOTE | 2021-11-05 11:55 | MHC.SHP ---
Pre-Procedural Eval Section A Date of Service: 11/05/21 The patient is an INPATIENT: No The History & Physical has been completed within 30 days and I have reviewed it.: No Section B Chief Complaint: benign neoplasm of colon Relevant Family History (Specify if Yes): No Relevant Social History: None Present Medications: see Short Stay Collaborative assessment Medical History: Significant History (HTN (hypertension) Hx of cataract Migraine Prostate cancer TIA (transient ischemic attack)) History of Previous Operations: Relevant previous surgery/procedure and date(s) (H/O lumbar discectomy History of bladder suspension procedure Hx of bilateral hip replacements Hx of hernia repair Status post total right knee replacement) Allergies: Allergies Allergy/AdvReac Type Severity Reaction Status Date / Time codeine Allergy Unknown unknown Verified 09/25/21 11:58 Review of Systems Sugical H&P ROS: Negative: Cardiovascular, Respiratory and Gastrointestinal Exam Surgical H&P Exam: Normal: Heart, Normal: Lungs and Normal: Extremities Plan Diagnosis/Plan: Unchanged I have reviewed the history and physical and performed a pertinent physical examination on my patient. No changes have occurred unless specified.
--- NOTE | 2021-11-05 11:57 | P.OP_ITS ---
Operative Note Operative Note Date of Service: 11/05/21 Narrative: Pre-op diagnosis: Colon cancer screening, follow-up of colon polyps - (01/2021 30 mm flat polyp removed piecemeal from proximal AC and polypectomy site closed with hemoclips) Post-op diagnosis:?other (Colon polyp, diverticulosis, hemorrhoids) Procedure: COLONOSCOPY TILL CECUM WITH SNARE POLYPECTOMY,? SUBMUCOSAL INJECTION AND APC TREATMENT Consent: Indications for the procedure and potential complications of bleeding, perforation, reaction to medications and missed diagnosis were discussed with the patient and informed consent was obtained. Instrument: Olympus PCF H 190 L variable stiffness pediatric colonoscope Monitoring: Vital signs and clinical assessment, intermittent blood pressure monitoring, continuous EKG monitoring, Pulse oximetry and Carbon Dioxide monitoring were done throughout the procedure. Colon withdrawl time was 50 minutes. Procedure: The patient was placed in the left lateral decubitis position and pre-procedure medications were administered. After a digital rectal examination of the ano-rectum, the video colonoscope was inserted into the rectum and advanced through the colon to the cecum. The colonoscope was slowly withdrawn in a retrograde panoramic fashion and the colon mucosa was carefully examined including a retroflexed view of the rectum. Findings and interventions are described below. Procedure Difficulty:? Colon was long and tortuous and there was some loop formation.? LLQ pressure applied to intubate the ascending colon/cecum Pt was placed in a supine position during removal of AC polyp. Findings: Terminal Ileum: Not evaluated Cecum:? Normal Ascending Colon:? A 3 cms elongated polyp overlying a fold in the proximnal AC (Likely recurrent at the site of the previous polyp).? Polyp was raised with 3 cc of Orise solution and removed piecemeal with a hot snare.? Polypectomy site was treated with cautery using APC and marked with Carole ink. Transverse Colon:? Normal Descending Colon:? Moderate diverticulosis Sigmoid Colon:? Moderate diverticulosis Rectum:? Normal Ano-rectum:? Moderate internal hemorrhoids Colon preparation:? Good after some irrigation Impression and Post Procedure Diagnosis: Colonoscopy Findings: A 3 cms elongated polyp overlying a fold in the proximnal AC (Likely recurrent at the site of the previous polyp).? Polyp was raised with 3 cc of Orise solution and removed piecemeal with a hot snare.? Polypectomy site was treated with cautery using APC and marked with Carole ink. Moderate diverticulosis seen in the left colon Moderate hemorrhoids on retroflexed exam. Plan: Await pathology results Patient has an appointment on 11/19/21 in the GI Clinic with? Ingrid Cotto NP . Repeat Colonoscopy interval based on path results - in 6 months to check polypectomy site in the proximal AC (adult colonoscopy for future colonoscopies). Above findings were reviewed with the patient and colon polyps and diverticulosis handouts were given in the discharge area Surgeon: Analy Lyons MD Anesthesia:?MAC (Dr Rizo) Was an Design Engineering Intern used for this Procedure?:?Yes Design Engineering Intern:?Aleena Livingston Estimated blood loss (mL):?0 Pathology:?other (A. ascending colon polyp with Orise) Condition:?stable Disposition:?PACU
[2021-11-05 13:47] VITALS: BP 105/52; PULSE 52; RESP 16; TEMP 36.4; O2SAT 97
[2021-11-05 14:00] VITALS: BP 122/62; PULSE 57; RESP 18; TEMP 36.2; O2SAT 98
== END 2021-11-05 14:47 | disposition home or self-care (01) ==
PROVIDERS: PCP Family Medicine; Visit Provider Internal Medicine Gastroenterology
PROC: 0DJD8ZZ Inspection of Lower Intestinal Tract, Via Natural or Artificial Opening Endoscopic (ICD-10-PCS; CPT 45378; principal; 2021-11-05 12:20)
DX: Z12.11 Encounter for screening for malignant neoplasm of colon (principal); Z86.010 Personal history of colon polyps; D12.2 Benign neoplasm of ascending colon; K57.30 Diverticulosis of large intestine without perforation or abscess without bleeding; K64.8 Other hemorrhoids; I10 Essential (primary) hypertension; Z86.73 Personal history of transient ischemic attack (TIA), and cerebral infarction without residual deficits; Z85.46 Personal history of malignant neoplasm of prostate; Z96.643 Presence of artificial hip joint, bilateral; Z96.651 Presence of right artificial knee joint
CPT/HCPCS: 45385; 45381; 88305

== ENCOUNTER → 2021-11-19 13:54 | Outpatient (BNVA) | payer MEDICARE, OTHER, SELFPAY | PROVIDERS: PCP Family Medicine; Referring Provider Family Medicine; Visit Provider Nurse Practitioner | DX: D12.6 Benign neoplasm of colon, unspecified (principal); R35.0 Frequency of micturition; I10 Essential (primary) hypertension; C61 Malignant neoplasm of prostate; Z86.73 Personal history of transient ischemic attack (TIA), and cerebral infarction without residual deficits; Z09 Encounter for follow-up examination after completed treatment for conditions other than malignant neoplasm; Z98.890 Other specified postprocedural states | CPT/HCPCS: 99212 ==

== ENCOUNTER → 2022-06-18 12:53 | Outpatient (BNVA) | payer MEDICARE, OTHER, SELFPAY | PROVIDERS: PCP Family Medicine; Visit Provider Nurse Practitioner | DX: D12.6 Benign neoplasm of colon, unspecified (principal) | CPT/HCPCS: 99212 ==

== ENCOUNTER 2022-06-27 08:30 | Outpatient (RCR) | payer MEDICARE, OTHER, SELFPAY ==
[2022-06-26 10:04] VITALS: BP 124/60; PULSE 54
== END 2022-07-30 08:46 | disposition home or self-care (01) ==
LOC: HO.PT 08:30
PROVIDERS: PCP Family Medicine; Visit Provider Family Medicine
DX: R42 Dizziness and giddiness (principal)
CPT/HCPCS: 95992; 97112; 97161

== ENCOUNTER → 2022-11-29 08:20 | Outpatient (BNVA) | payer MEDICARE, OTHER, SELFPAY | PROVIDERS: PCP Family Medicine; Visit Provider Nurse Practitioner Family | DX: M96.1 Postlaminectomy syndrome, not elsewhere classified (principal); M51.36 Other intervertebral disc degeneration, lumbar region; M47.816 Spondylosis without myelopathy or radiculopathy, lumbar region; M25.562 Pain in left knee; M19.049 Primary osteoarthritis, unspecified hand | CPT/HCPCS: 99212 ==

== ENCOUNTER 2022-12-03 12:01 | Outpatient (REF) | payer MEDICARE, OTHER, SELFPAY ==
--- NOTE | ~2022-12-03 | XR_ITS ---
EXAMINATION: XR LUMBOSACRAL SPINE WITH OBLIQUES CLINICAL INFORMATION: Postlaminectomy syndrome. COMPARISON: Portions of the MRI lumbar spine dated 07/11/2021. TECHNIQUE: AP, both oblique, and lateral (neutral, flexion and extension) views of the lumbar spine. Lateral view of the lumbosacral junction. FINDINGS: There is bony demineralization. There is a mild to moderate lumbar dextroscoliosis. There is mild disc space narrowing at L3-L4. At L4-L5, there is a 6 mm anterolisthesis. At L5-S1, there is mild disc space narrowing. No acute fracture or spondylolisthesis is seen. There is no significant instability with flexion or extension. There is multi-level thoracolumbar spondylosis and facet arthropathy. There are aortoiliac atherosclerotic calcifications. XR/XR lumbar spine 6V w bending IMPRESSION: 1. There is moderate degenerative disc disease at L4-L5, and mild degenerative disease is seen at L3-L4 and L5-S1. 2. There is multi-level thoracolumbar spondylosis and facet arthropathy. 3. There is no significant instability with flexion or extension.
== END 2022-12-03 12:02 | disposition home or self-care (01) ==
LOC: HO.XRAY 12:01
PROVIDERS: Visit Provider Nurse Practitioner Family
DX: M51.36 Other intervertebral disc degeneration, lumbar region (principal); M96.1 Postlaminectomy syndrome, not elsewhere classified; M47.816 Spondylosis without myelopathy or radiculopathy, lumbar region
CPT/HCPCS: 72114

== ENCOUNTER 2022-12-06 06:24 | Day surgery (SDC) | payer MEDICARE, OTHER, SELFPAY ==
[2022-12-06 06:39] VITALS: BP 130/69; PULSE 58; RESP 18; TEMP 36.5; BMI 28.3
[2022-12-06 06:43] VITALS: BMI 28.3
[2022-12-06] MEDS: Lactated Ringers 1,000 ML 50 ML IVCONT (07:06)
[2022-12-06] MEDS: Sodium Phosphate,Mono-Dibasic 133 ML ENEMA PR (07:07)
--- NOTE | 2022-12-06 07:12 | MHC.SHP ---
Pre-Procedural Eval Section A Date of Service: 12/06/22 The patient is an INPATIENT: No The History & Physical has been completed within 30 days and I have reviewed it.: No Section B Chief Complaint: screening, Benign neoplasm of colon Details of Present Illness: Colon cancer screening, fu of colon polyps Relevant Family History (Specify if Yes): No Relevant Social History: None Present Medications: see Short Stay Collaborative assessment Medical History: Significant History (HTN (hypertension) Migraine Prostate cancer TIA (transient ischemic attack)) History of Previous Operations: Relevant previous surgery/procedure and date(s) (H/O colonoscopy H/O lumbar discectomy History of bladder suspension procedure History of esophagogastroduodenoscopy (EGD) Hx of bilateral hip replacements Hx of cataract extraction Hx of hernia repair Hx of prostatectomy Status post total right knee replacement) Allergies: Allergies Allergy/AdvReac Type Severity Reaction Status Date / Time codeine Allergy Unknown unknown Verified 11/29/22 08:29 Review of Systems Sugical H&P ROS: Negative: Constitution, Cardiovascular, Respiratory and Gastrointestinal Exam Surgical H&P Exam: Normal: Heart, Normal: Lungs, Normal: Extremities and Normal: Abdomen Plan Diagnosis/Plan: Unchanged I have reviewed the history and physical and performed a pertinent physical examination on my patient. No changes have occurred unless specified. Time Spent With Patient Time: Total time managing care of this patient today ____ minutes.
--- NOTE | 2022-12-06 07:19 | HO.ANESPROP2 ---
[facility] Active Problems Active Problems: All Active Problems (Updated 11/29/22 @ 09:06 by MIKE Lopez) Arthritis pain of hand (Acute) Left knee pain (Acute) Lumbar spondylosis (Acute) Disc degeneration, lumbar (Acute) Lumbar post-laminectomy syndrome (Acute) Dysuria (Acute) Left lumbar radiculopathy (Acute) Stenosis, spinal, lumbar (Acute) Tubular adenoma of colon (Acute) Urinary frequency (Acute) Mitral murmur (Acute) Migraine (Acute) Past Medical History Medical History (Updated 11/29/22 @ 09:06 by MIKE Lopez) COVID-19 vaccine series completed HTN (hypertension) Migraine Prostate cancer TIA (transient ischemic attack) Family History Family history of problems with anesthesia: No Surgical History Surgical History (Updated 11/29/22 @ 20:22 by MIKE Lopez) H/O colonoscopy H/O lumbar discectomy History of bladder suspension procedure History of esophagogastroduodenoscopy (EGD) Hx of bilateral hip replacements Hx of cataract extraction Hx of hernia repair Hx of prostatectomy Status post total right knee replacement History of Problems with Anesthesia: No Social History Social History Household Members: Spouse Housing: Condominium Do you presently have visiting nurse or other home services: No Alcohol intake: current Alcohol intake frequency: holidays/special occasions only Patient Tobacco Use Status: Never used Tobacco Use of substances other than those prescribed or required for medical reasons: No Are you DNR?: No Advance Directives: No Advance Directives Information Provided: No Meds Allergies Allergy/AdvReac Type Severity Reaction Status Date / Time codeine Allergy Unknown unknown Verified 11/29/22 08:29 Active Medications: Current Medications Lactated Ringer's (Lr) 1,000 mls @ 50 mls/hr IVCONT .Q20H MUMTAZ Last Admin: 12/06/22 07:06 Dose: 50 mls/hr Sodium Biphosphate/Sodium Phosphate (Sodium Phosphate,Mchenry-Dibasic 133 Ml Enema) 133 ml NM ONCE PRN PRN Reason: Poor Colonoscopy Prep Results Last Admin: 12/06/22 07:07 Dose: 133 ml Home Medications Medication Instructions Recorded Confirmed Last Taken Type amlodipine 10 mg tablet 10 mg PO DAILY 11/13/20 12/06/2223 History atorvastatin 10 mg tablet 10 mg PO DAILY 11/13/20 12/06/22 12/05/22 History losartan 50 mg tablet 50 mg PO DAILY 11/13/20 12/06/22 12/05/22 History omeprazole magnesium 20 mg 20 mg PO DAILY 11/13/20 12/06/22 12/05/22 History tablet,delayed release (Prilosec OTC) verapamil 360 mg 24 hr 360 mg PO DAILY 06/18/22 12/06/22 12/05/22 History capsule,extended release Exam Exam Date and Time: December 06, [id number] Height,Weight and Vital Signs: Height 6 ft 1 in Weight 97.522 kg Last Vital Signs Temp 97.7 F 12/06/22 06:39 Pulse 58 12/06/22 06:39 Resp 18 12/06/22 06:39 BP 130/69 12/06/22 06:39 Airway Mallampati Class: II TM Dist: >3cm Neck ROM: Limited Heart: rrr Lungs: cta Assessment and Plan Assessment Anesthesia Assessment: Anesthesia Plan Discussed and Chart Reviewed Final Anesthetic Review Family History of Problems with Anesthesia: No History of Problems with Anesthesia: No NPO: Yes ASA Class: II Final Preanesthetic Review: No Changes in Pt Med Stat, Meds/Allgs Chart Reviewed, Consent Obtained/Reviewed and Anes Risks/Benef Reviewed Patient Risk: Low Procedure Risk: Low Anesthetic Plan Anesthetic Plan: MAC: Disposition: Standard PACU
--- NOTE | 2022-12-06 07:41 | P.OP_ITS ---
Operative Note Operative Note Date of Service: 12/06/22 Narrative: COLONOSCOPY TILL CECUM WITH SNARE POLYPECTOMY AND SUBMUCOSAL INJECTION Pre-op diagnosis: Colon cancer screening, follow-up of colon polyps Post-op diagnosis:? Colon polyp, diverticulosis, hemorrhoids Endoscopist:? Analy Lyons MD Anesthesia:?MAC Consent: Indications for the procedure and potential complications of bleeding, perforation, reaction to medications and missed diagnosis were discussed with the patient and informed consent was obtained. Instrument: Olympus CF H 190 L variable stiffness adult colonoscope Monitoring: Vital signs and clinical assessment, intermittent blood pressure monitoring, continuous EKG monitoring, Pulse oximetry and Carbon Dioxide monitoring were done throughout the procedure. Please see anesthesia flowsheet. Colon withdrawl time was 25 minutes. Procedure: The patient was placed in the left lateral decubitis position and pre-procedure medications were administered. After a digital rectal examination of the ano-rectum, the video colonoscope was inserted into the rectum and advanced through the colon to the cecum. The colonoscope was slowly withdrawn in a retrograde panoramic fashion and the colon mucosa was carefully examined including a retroflexed view of the rectum. Findings and interventions are described below. Procedure Difficulty: Colon was long and tortuous and there was some loop formation. LLQ pressure applied to intubate the ascending colon Findings: Terminal Ileum: Not evaluated Cecum: Partially evaluated due to poor prep Ascending Colon: A 10-12 mm sessile polyp in the proximal AC raised with 3 cc of normal saline and removed with a hot snare. Previous polypectomy site could not be visualized due to poor prep despite copious irrigation. Partially evaluated due to poor prep despite copious irrigation Transverse Colon: Normal- Partially evaluated due to fair prep despite copious irrigation Descending Colon: Partially evaluated due to fair prep despite copious irrigation Moderate diverticulosis Sigmoid Colon: Partially evaluated due to fair prep despite copious irrigation. Moderate diverticulosis Rectum: Normal Ano-rectum: Moderate internal hemorrhoids Colon preparation: Fair despite copious irrigation and poor in the right colon Impression and Post Procedure Diagnosis: Colonoscopy Findings: one medium sized polyp removed Moderate diverticulosis seen in the left colon Moderate hemorrhoids on retroflexed exam. Partially evaluated due to fair prep despite copious irrigation Plan: I will send a letter with pathology results Repeat Colonoscopy interval based on path results - in 6 to 12 months for FU of large colon polyps. Needs adult colonoscope and dulcolax 2 tablets daily starting 3 days (in addition to Miralax or GoLYTELY prep) before colonoscopy for colon prep. Above findings were reviewed with the patient and colon polyps handouts was giv en in the discharge area
[2022-12-06 08:44] VITALS: BP 127/73; PULSE 56; RESP 16; TEMP 36.5; O2SAT 96
[2022-12-06 08:59] VITALS: BP 136/71; PULSE 54; RESP 18; TEMP 36.5; O2SAT 96
== END 2022-12-06 09:31 | disposition home or self-care (01) ==
PROVIDERS: PCP Family Medicine; Visit Provider Internal Medicine Gastroenterology
PROC: 0DJD8ZZ Inspection of Lower Intestinal Tract, Via Natural or Artificial Opening Endoscopic (ICD-10-PCS; CPT 45378; principal; 2022-12-06 07:30)
DX: Z12.11 Encounter for screening for malignant neoplasm of colon (principal); Z86.010 Personal history of colon polyps; K63.5 Polyp of colon; K57.30 Diverticulosis of large intestine without perforation or abscess without bleeding; K64.8 Other hemorrhoids; I10 Essential (primary) hypertension; G43.909 Migraine, unspecified, not intractable, without status migrainosus; Z79.899 Other long term (current) drug therapy; Z88.8 Allergy status to other drugs, medicaments and biological substances; Z85.46 Personal history of malignant neoplasm of prostate; Z86.73 Personal history of transient ischemic attack (TIA), and cerebral infarction without residual deficits
CPT/HCPCS: 45385; 45381; 88305; 88341; 88342; 88360

== ENCOUNTER → 2022-12-24 15:11 | Outpatient (BNVA) | payer MEDICARE, OTHER, SELFPAY | PROVIDERS: PCP Internal Medicine; Visit Provider Nurse Practitioner Family | DX: M19.049 Primary osteoarthritis, unspecified hand (principal); M47.816 Spondylosis without myelopathy or radiculopathy, lumbar region; M51.36 Other intervertebral disc degeneration, lumbar region; M96.1 Postlaminectomy syndrome, not elsewhere classified; M25.511 Pain in right shoulder; I70.0 Atherosclerosis of aorta; I70.8 Atherosclerosis of other arteries | CPT/HCPCS: 99212 ==

== ENCOUNTER 2022-12-31 10:46 | Outpatient (REF) | payer MEDICARE, OTHER, SELFPAY ==
[2022-12-31 13:17] LABS: C Reactive Protein < 0.10 mg/dL (< or = 0.50); Rheumatoid Factor < 13.0 IU/mL (<15.0)
[2022-12-31 13:29] LABS: Erythrocyte Sedimentation Rate 6 MM/HR (0-15)
[2023-01-06 12:53] LABS: Cyclic Citrullinated Peptide <16 UNITS
== END 2022-12-31 10:47 | disposition home or self-care (01) ==
LOC: HO.LAB 10:46
PROVIDERS: PCP Internal Medicine; Visit Provider Internal Medicine Rheumatology
DX: M19.041 Primary osteoarthritis, right hand (principal); M19.042 Primary osteoarthritis, left hand; M17.12 Unilateral primary osteoarthritis, left knee; M48.061 Spinal stenosis, lumbar region without neurogenic claudication; G89.29 Other chronic pain; Z96.651 Presence of right artificial knee joint; Z96.643 Presence of artificial hip joint, bilateral; Z79.899 Other long term (current) drug therapy
CPT/HCPCS: 36415; 85652; 86140; 86200; 86431; 99202

== ENCOUNTER 2023-01-17 10:59 | Outpatient (REF) | payer MEDICARE, OTHER, SELFPAY ==
--- NOTE | ~2023-01-17 | US_ITS ---
EXAMINATION: US RETROPERITONEAL LIMITED (AORTA) CLINICAL INFORMATION: Atherosclerotic disease. COMPARISON: None available. TECHNIQUE: Kay-scale, color Doppler and spectral Doppler evaluation of the abdominal aorta. FINDINGS: The abdominal aorta is difficult to visualize due to overlying bowel gas and patient body habitus. There is evidence of atherosclerotic disease with vessel wall. The measurements of the aorta in maximum AP and transverse dimensions respectively are as follows: Proximal : 3.5 x 3.5 cm. Mid: 2.1 x 2.7 cm. Distal: 2 x 2.7 cm. PSV: 119 cm/s. The measurements of the common iliac arteries in maximum AP and TRV dimensions are as follows: Right Common Iliac Artery: 1.6 cm. Left Common Iliac Artery: 2 cm. 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 Ultrasound follow-up every 2 years recommended.
--- NOTE | ~2023-01-17 | XR_ITS ---
EXAMINATION: XR SHOULDER, RIGHT CLINICAL INFORMATION: Right shoulder pain. COMPARISON: None available. TECHNIQUE: AP external rotation, Grashey, scapular Y, and axillary views of the right shoulder. FINDINGS: Mild hypertrophic changes of the acromioclavicular joint. Glenohumeral joint space is maintained. No displaced fracture or dislocation. No abnormal soft tissue calcifications. XR/XR shoulder RT min 2V IMPRESSION: No acute abnormality.
== END 2023-01-17 11:00 | disposition home or self-care (01) ==
LOC: HO.US 10:59
PROVIDERS: PCP Internal Medicine; Visit Provider Nurse Practitioner Family
DX: M25.511 Pain in right shoulder (principal); I70.0 Atherosclerosis of aorta; I70.8 Atherosclerosis of other arteries
CPT/HCPCS: 73030; 76775

== ENCOUNTER 2023-02-03 14:30 | Outpatient (RCR) | payer MEDICARE, OTHER, SELFPAY ==
--- NOTE | 2023-02-03 15:40 | MHC.OT.DC ---
[address] [phone] F: [phone] Occupational Therapy Discharge Note Patient Name: Reyes Claire Pascual Provider: Myles Santos Diagnosis: Bilateral hand OA Date of Surgery: Date of Evaluation: 01/15/23 Date of Discharge: Treatments to Date: 2 Cancellations to Date: No Shows to Date: 1 Discharge Status: Achieved Goals Improved Function Independent with HEP Discharge Summary: Good improvement in pain and ROM. Good improvement in ROM with heat and passive stretch Pt is indep in use of thermal modalities for pain and softening tissue prior to ther ex and demonstrate awareness of joint protection techniques Pt is unavailable for further treatment Electronically Signed By: Nikki Rausch OT CHT CLT Reviewed/agree with student documentation: Therapist: Please Sign and return to therapist, thank you for your referral.
== END 2024-01-27 14:52 | disposition home or self-care (01) ==
LOC: HO.OT 14:30
PROVIDERS: PCP Internal Medicine; Visit Provider Internal Medicine Rheumatology
DX: M19.041 Primary osteoarthritis, right hand (principal); G89.29 Other chronic pain
CPT/HCPCS: 29130; 97035; 97110; 97166; 97760

== ENCOUNTER 2023-06-23 10:10 | Outpatient (AMB) | payer MEDICARE, OTHER, SELFPAY ==
[2023-06-23 10:11] VITALS: BP 140/60; PULSE 69; O2SAT 98; BMI 27.2
--- NOTE | 2023-06-23 10:11 | MHC.PC.OV ---
Vital Signs 06/23/23 10:11 Height 6 ft 1 in Weight 206 lb BMI 27.2 BP 140/60 H Blood Pressure Location Lt brachial Position Sitting Pulse 69 Pulse Source Pulse Oximeter Pulse Oximetry (%) 98 Oxygen Delivery Method Room Air Intake Visit Reasons: New patient-High BP, Chronic back pain Allergies codeine Allergy (Unknown, Verified 06/23/23 10:19) Nausea Medication List - Last Reconciled 06/23/23 by Sujatha Triana MD amlodipine 10 mg PO DAILY atorvastatin 10 mg PO DAILY lidocaine 5% 2 patches topical DAILY PRN losartan 50 mg PO DAILY omega 8-eev-kut-fish oil 60-90-500 mg (Fish Oil) 1 cap PO DAILY omeprazole magnesium (Prilosec OTC) 20 mg PO DAILY verapamil ER 360 mg PO DAILY Tobacco use date assessed: 06/23/23 Fall risk assessment: No Falls in past year Last assessed Fall Risk: 06/23/23 Dental Screening Dental Screen Date: 06/23/23 Did you have a dental visit in the last 12 months?: Yes Did you have a dental problem in the last 6 months where you did not have access to dental care?: No Was dental information given to patient?: Patient has dentist HPI New patient-High BP, Chronic back pain HPI Details Patient presents for new patient visit. Past medical history includes hypertension hyperlipidemia and chronic lower back pain. [facility] Medical History COVID-19 vaccine series completed HTN (hypertension) Migraine Prostate cancer TIA (transient ischemic attack) Surgical History History of esophagogastroduodenoscopy (EGD) Hx of cataract extraction H/O colonoscopy Hx of prostatectomy Status post total right knee replacement H/O lumbar discectomy History of bladder suspension procedure Hx of hernia repair Hx of bilateral hip replacements Family History Mother Arthritis Father Hypertension Sister Breast cancer Social History (Updated 06/23/23 @ 10:51 by Sujatha Triana MD) Household Members: Spouse Household Members Other:: , rides a bike 12-14 mile a day, Housing: Condominium Do you presently have visiting nurse or other home services: No Alcohol intake: current Alcohol intake frequency: holidays/special occasions only Patient Tobacco Use Status: Never used Tobacco e-Cigarette/Vaping Use: Never Used Current occupational status: retired Cognitive needs: No Hearing needs: No Vision needs: No Questionnaire PHQ-9 Over the last 2 weeks, how often have you been bothered by any of the following problems? 1. Little interest or pleasure in doing things: not at all 2. Feeling down, depressed, or hopeless: not at all 3. Trouble falling or staying asleep, or sleeping too much: not at all 4. Feeling tired or having little energy: not at all 5. Poor appetite or overeating: not at all 6. Feeling bad about yourself - or that you are a failure or have let yourself or your family down: not at all 7. Trouble concentrating on things, such as reading the newspaper or watching television: not at all 8. Moving or speaking so slowly that other people could have noticed. Or the opposite - being so fidgety or restless that you have been moving around a lot more than usual: not at all 9. Thoughts that you would be better off or of hurting yourself in some way: not at all Total score: 0 Depression Screening Interpretation: Negative Depression Screening Done: Yes Source: Developed by Drs. Jacobo Rene, Annabelle Fierro, Luigi Fonseca and colleagues, with an educational lindsay from [employer]. AUDIT C Alcohol Use Questionnaire (AUDIT-C) 1. How often do you have a drink containing alcohol?: 2-3 times a week 2. How many drinks containing alcohol do you have on a typical day when you are drinking?: 1 or 2 3. How often do you have six or more drinks on one occasion?: Never Total Score: 3 AKASH-7 AMB Questionnaire AKASH-7 Feeling nervous, anxious, or on edge: 0 = Not at all Not being able to stop or control worryin = Not at all Worrying too much about different things: 0 = Not at all Trouble relaxin = Not at all Being so restless that it is hard to sit still: 0 = Not at all Becoming easily annoyed or irritable: 0 = Not at all Feeling afraid as if something awful might happen: 0 = Not at all Total AKASH-7 score (0-4 normal; 5-9 mild; 10-14 moderate; 15-21 severe): 0 Source: Developed by Drs. Jacobo Rene, Annabelle Fierro, Luigi Fonseca and colleagues, with an educational lindsay from [employer]. Review of Systems Const All systems reviewed & are unremarkable except as noted in HPI and below Reports no additional complaints Eyes Reports no additional complaints ENT Reports no additional complaints Card Reports no additional complaints Resp Reports no additional complaints GI Reports no additional complaints Reports no additional complaints Physical exam (Primary Care) Vital Signs: Last Vital Signs Pulse 69 06/23/23 10:11 BP 140/60 H 06/23/23 10:11 Pulse Ox 98 06/23/23 10:11 Oxygen Delivery Method Room Air 06/23/23 10:11 BMI result Body Mass Index 27.2 Tobacco/Smoking Status: Tobacco use Status Tobacco use date assessed 06/23/23 06/23/23 10:25 Patient Tobacco Use Status Never used Tobacco 06/23/23 10:51 e-Cigarette/Vaping Use Never Used 06/23/23 10:51 PHQ-9: PHQ-9 Score PHQ-9: Total score 0 06/23/23 10:51 Depression Screening Interpretation: Negative Const General: no acute distress HENMT Head: Yes normal to inspection General nose exam: Normal external nose present Face and sinus: Yes normal facial exam Mouth: Normal oral and palatal mucosa present Throat: Yes posterior oropharynx normal Neck Neck: Yes no lymphadenopathy and Yes supple Resp Effort & Inspection: normal respiratory effort Auscultation: clear to auscultation bilaterally Cardio Rhythm: regular rhythm Heart sounds: S1 normal heart sound present and S2 normal heart sound present GI Inspection: Yes normal to inspection Palpation (GI): Soft to palpation Percussion: Yes normal to percussion Auscultation: normal bowel sounds Assessment and Plan Assessment & Plan (1) Migraine: Comment: f/u Dr. Hammond, on Verapamil prophylaxis Code(s): G43.909 - Migraine, unspecified, not intractable, without status migrainosus (2) Tubular adenoma of colon: Comment: 10/2021 TA repeat 6 mos as was quite large, 12/22 ?polyps, recheck [address] Lyons Code(s): D12.6 - Benign neoplasm of colon, unspecified (3) Hx of prostatectomy: Comment: 2011, prostate ca, Dr. Becerra Code(s): Z90.79 - Acquired absence of other genital organ(s) (4) Hyperlipemia: Code(s): E78.5 - Hyperlipidemia, unspecified Plan: cont statin (5) HTN (hypertension): Code(s): I10 - Essential (primary) hypertension Plan: cont meds, f/u 6 months, check Echo result from [facility] (6) Dysplastic nevi: Comment: back Code(s): D23.9 - Other benign neoplasm of skin, unspecified Orders: Orders Lipid Panel Today D23.9 - Other benign neoplasm of skin, unspecified, E78.5 - Hyperlipidemia, unspecified, I10 - Essential (primary) hypertension Complete Blood Count Auto Diff Today D23.9 - Other benign neoplasm of skin, unspecified, E78.5 - Hyperlipidemia, unspecified, I10 - Essential (primary) hypertension Comprehensive Dwight. Panel Fast Today D23.9 - Other benign neoplasm of skin, unspecified, E78.5 - Hyperlipidemia, unspecified, I10 - Essential (primary) hypertension, Z90.79 - Acquired absence of other genital organ(s) PSA,Total (Free>4and<10) Today D23.9 - Other benign neoplasm of skin, unspecified, E78.5 - Hyperlipidemia, unspecified, I10 - Essential (primary) hypertension Referrals Urology Referral Z90.79 - Acquired absence of other genital organ(s) Dermatology Referral D23.9 - Other benign neoplasm of skin, unspecified Medications: Changed From lidocaine 5% 2 patches topical DAILY 30 days 60 ea 1RF pain M25.562 - Pain in left knee, M47.816 - Spondylosis without myelopathy or radiculopathy, lumbar region, M51.36 - Other intervertebral disc degeneration, lumbar region, M96.1 - Postlaminectomy syndrome, not elsewhere classified To lidocaine 5% 2 patches topical DAILY PRN M25.562 - Pain in left knee, M47.816 - Spondylosis without myelopathy or radiculopathy, lumbar region, M51.36 - Other intervertebral disc degeneration, lumbar region, M96.1 - Postlaminectomy syndrome, not elsewhere classified Coding Level of Care Code New Pt Level 4 (39916) Diagnoses Migraine G43.909 Tubular adenoma of colon D12.6 Hx of prostatectomy Z90.79 Hyperlipemia E78.5 HTN (hypertension) I10 Dysplastic nevi D23.9
== END 2023-06-23 11:25 | disposition home or self-care (01) ==
PROVIDERS: Visit Provider Internal Medicine
DX: G43.909 Migraine, unspecified, not intractable, without status migrainosus (principal); D12.6 Benign neoplasm of colon, unspecified; Z90.79 Acquired absence of other genital organ(s); E78.5 Hyperlipidemia, unspecified; I10 Essential (primary) hypertension; D23.9 Other benign neoplasm of skin, unspecified
CPT/HCPCS: 99204; 99214

== ENCOUNTER 2023-06-24 07:29 | Outpatient (REF) | payer MEDICARE, OTHER, SELFPAY ==
[2023-06-24 11:27] LABS: MANUAL DIFF FLAG NO
[2023-06-24 11:40] LABS: Basophils Percent Auto 0.6 % (0-2); Eosinophils Absolute Auto 0.3 X10*3/uL (0.0-0.4); Eosinophils Percent Auto 4.8 % (0-4); Hematocrit 45.3 % (42.0-52.0); Hemoglobin 14.9 g/dl (14.0-18.0); Imm Gran Abs Auto 0.01 X10*3/uL (0.00-0.03); Imm Gran Pct Auto 0.2 % (0.0-0.4); Lymphocytes Absolute Auto 1.4 X10*3/uL (1.2-4.9); Lymphocytes Percent Auto 26.5 % (20-40); Mean Corpuscular HGB Conc 32.9 g/dl (31.0-36.0); Mean Corpuscular Hemoglobin 30.4 pg (27.0-33.0); Mean Corpuscular Volume 92.4 fL (80.0-98.0); Mean Platelet Volume 10.5 fL (9.4-12.4); Monocytes Absolute Auto 0.7 X10*3/uL (0.1-1.2); Monocytes Percent Auto 13.5 % (2-11); Neutrophils Absolute Auto 2.9 x10*3/uL (2.0-8.3); Neutrophils Percent Auto 54.4 % (45-73); Platelet Count 194 X10*3/uL (160-400); Red Cell Distribution Width 11.9 % (11.0-16.0); White Blood Count 5.4 X10*3/uL (4.8-10.8)
[2023-06-24 12:09] LABS: Alanine Aminotransferase 33 U/L (0-40); Albumin Level 4.3 g/dL (3.5-5.0); Alkaline Phosphatase 89 U/L (39-117); Anion Gap 12 (12-20); Aspartate Amino Transferase 25 U/L (5-37); Bilirubin Total 0.4 mg/dL (0.0-1.0); Blood Urea Nitrogen 21 mg/dL (9-16); Calcium 9.8 mg/dL (8.4-10.2); Carbon Dioxide 27 mmol/L (22-29); Chloride 107 mmol/L (96-108); Cholesterol 155 mg/dL (<200); Estimated Glomerular Filt Rate > 60; Glucose Fasting 88 mg/dL (60-99); HDL Cholesterol 44 mg/dL (>40); LDL Cholesterol Calculated 95 mg/dL (<100); Potassium 4.1 mmol/L (3.3-5.1); Sodium 142 mmol/L (135-145); Total Protein 7.4 g/dL (6.5-8.0); Triglycerides 80 mg/dL (<150)
[2023-06-24 12:21] LABS: PSA,Total (Free>4and<10) < 0.10 ng/mL (0.00-4.00)
== END 2023-06-24 07:30 | disposition home or self-care (01) ==
LOC: HO.HMGCLDS 07:29
PROVIDERS: PCP Internal Medicine; Visit Provider Internal Medicine
DX: D23.9 Other benign neoplasm of skin, unspecified (principal); E78.5 Hyperlipidemia, unspecified; I10 Essential (primary) hypertension; Z12.5 Encounter for screening for malignant neoplasm of prostate; Z90.79 Acquired absence of other genital organ(s)
CPT/HCPCS: 36415; 80053; 80061; 84153; 85025

== ENCOUNTER 2023-08-12 12:48 | Outpatient (AMB) | payer MEDICARE, OTHER, SELFPAY ==
--- NOTE | 2023-08-12 13:08 | A.OFFVIS_ITS ---
Intake Intake Visit Reasons: Acquired absence of other genital organ Intake Note: New Patient presents for initial visit for history of prostate cancer/erectile disfunction Urology Medications: none Blood Thinner: none Furnace Fitter Required: No Accompanied by: Self / Same As Patient Allergies codeine Allergy (Unknown, Verified 08/12/23 15:23) Nausea Medication List - Last Reconciled 08/12/23 by BRAD Rendon amlodipine 10 mg PO DAILY atorvastatin 10 mg PO DAILY losartan 50 mg PO DAILY omega 5-wte-bdm-fish oil 60-90-500 mg (Fish Oil) 1 cap PO DAILY omeprazole magnesium (Prilosec OTC) 20 mg PO DAILY tadalafil (Cialis) 5 mg PO DAILY 90 days verapamil ER 360 mg PO DAILY HPI HPI Comments History of Present Illness Details Reyes is a very pleasant 82-year-old male patient of Dr. Mcfarland. He has a past medical history of hypertension, migraines, prostate cancer, and TIAs. He presents to the office today as a new patient for his longstanding history of erectile dysfunction in the setting of previous prostatectomy over 12 years ago. He reports having followed up with a urologist in the past regarding his erectile dysfunction and has currently been on TriMix injectable therapy for ED. He reports having failed off of oral therapies having tried Cialis and Viagra in the past with no improvement and or success. He reports having had great improvement with ED on his TriMix therapy however has noticed over the last few months and or year erections have weakened He reports noting at times he will obtain erection upon administration of TriMix however than with position changing erection will diminish. When asked he does report a longstanding history of urinary incontinence at which time he underwent a sling procedure with Dr. Boyd in the past and has had significant improvement in urinary incontinence however he does at times have urinary dribbling. However, he does not find this bothersome at this time. He discusses having trialed extensive pelvic floor therapy in the past with no improvement. In office urinalysis results reviewed with the patient today. He otherwise denies any bothersome issues or concerns at this time. PSA 06/23 <0.10. PFSH Medical History COVID-19 vaccine series completed HTN (hypertension) Migraine Prostate cancer TIA (transient ischemic attack) Surgical History History of esophagogastroduodenoscopy (EGD) Hx of cataract extraction H/O colonoscopy Hx of prostatectomy Status post total right knee replacement H/O lumbar discectomy History of bladder suspension procedure Hx of hernia repair Hx of bilateral hip replacements Family History Mother Arthritis Father Hypertension Sister Breast cancer Social History Household Members: Spouse Household Members Other:: , rides a bike 12-14 mile a day, Housing: Condominium Do you presently have visiting nurse or other home services: No Alcohol intake: current Alcohol intake frequency: holidays/special occasions only Patient Tobacco Use Status: Never used Tobacco e-Cigarette/Vaping Use: Never Used Current occupational status: retired Cognitive needs: No Hearing needs: No Vision needs: No Review of Systems Const Reports as per HPI Eyes Reports no additional complaints ENT Reports no additional complaints Card Reports as per HPI Resp Reports no additional complaints GI Reports no additional complaints Reports as per HPI Musc Reports no additional complaints Neuro Reports as per HPI Psych Reports no additional complaints Endo Reports no additional complaints Jairo/Lymph Reports no additional complaints Aller/Immun Reports no additional complaints Physical Exam Const General: cooperative, healthy appearing, comfortable, no acute distress, well developed, alert and awake Orientation/consciousness: patient oriented x3 Limitations: no limitations HEENT Head: Yes normal to inspection, Yes normocephalic and Yes atraumatic Ears: hearing grossly normal bilaterally Eyes General: appearance normal, both eyes and all related structures Neck Neck: Yes normal visual inspection and Yes trachea midline Chest Chest palpation & inspection: normal inspection of the chest Resp Effort & Inspection: normal respiratory effort and able to speak in complete sentences Cardio Rate: regular rate GI Inspection: Yes normal to inspection General: Yes no CVA tenderness Back/Spine/Pelvis Back: no CVA tenderness Skin General skin exam: no rashes or lesions noted Neuro General: patient oriented x3 Extrem General: Yes normal to inspection Psych Appearance: grossly normal and well kempt Mental Status: mental status grossly normal Speech and movement: Normal speech and movement present and Clear speech present Affect: normal affect Attitude: cooperative Thought process: Normal thought process present Thought content: Normal thought content present Insight: Fair insight present (Psych) Judgement: Fair judgement present (Psych) Results AMB Urinalysis, Automated UA Leukoctes 0 Bora/uL Last Edit by Veronique Finch on 08/12/23 13:24 UA Nitrite Negative Last Edit by Veronique Finch on 08/12/23 13:24 UA Urobilinogen 0.2 mg/dL Last Edit by Veronique Finch on 08/12/23 13:24 UA Protein 15 mg/dL Last Edit by Veronique Finch on 08/12/23 13:24 UA pH 6.5 Last Edit by Veronique Finch on 08/12/23 13:24 UA Blood 0 Kaiden/uL Last Edit by Veronique Finch on 08/12/23 13:24 UA Specific [place] 1.010 Last Edit by Veronique Finch on 08/12/23 13:24 UA Ketone Negative Last Edit by Veronique Finch on 08/12/23 13:24 UA Bilirubin 0 mg/dL Last Edit by Veronique Finch on 08/12/23 13:24 UA Glucose 0 mg/dL Last Edit by Veronique Finch on 08/12/23 13:24 Results Reviewed Results Reviewed: Laboratory Last Values Urine pH (Auto) 6.5 08/12/23 13:11 Specific [place] (Auto) 1.010 08/12/23 13:11 Urine Protein (Auto) 15 mg/dL 08/12/23 13:11 Glucose (UA)(Auto) 0 mg/dL 08/12/23 13:11 Urine Ketones (Auto) Negative 08/12/23 13:11 Urine Blood (Auto) 0 Kaiden/uL 08/12/23 13:11 Urine Nitrite (Auto) Negative 08/12/23 13:11 Urine Bilirubin (Auto) 0 mg/dL 08/12/23 13:11 Urine Urobilinogen (Auto) 0.2 mg/dL 08/12/23 13:11 Leukocyte Esterase (Auto) 0 Bora/uL 08/12/23 13:11 Assessment & Plan Assessment & Plan (1) Erectile dysfunction: Code(s): N52.9 - Male erectile dysfunction, unspecified (2) History of prostate cancer: Code(s): Z85.46 - Personal history of malignant neoplasm of prostate (3) Urinary incontinence: Code(s): R32 - Unspecified urinary incontinence Plan In office urinalysis results reviewed with the patient today; as noted above. Recent PSA results reviewed with the patient today; as noted above. Prescription provided for TriMix therapy Educational pamphlet provided for penile injection therapy Start 5 mg Cialis daily as discussed and prescribed. Discussed at length lifestyle modifications to assist with erectile dysfunction Patient denies any bothersome urinary issues or concerns at this time. Follow-up in 3 months if not sooner with any issues, concerns, and or questions. Orders: Orders AMB Urinalysis Automated Today Z13.9 - Encounter for screening, unspecified Medications: New tadalafil (Cialis) [id number] [facility] [id number] Member [id number] 5 mg PO DAILY 90 days 90 tabs 0RF Patient Instructions: The patient had an opportunity to ask questions regarding the treatment plan. All questions were answered. Physical exam, labs, and imaging were discussed and reviewed in detail. As well as risks, benefits, and discussion of treatment ch oices. No major barriers to understanding were identified. The patient expressed understanding and agreement with the above treatment plan. The patient was made aware they should contact our office by phone for worsening of their current condition, the appearance of new symptoms, or with any questions or concerns. Compliance is encouraged with any medications and follow up testing that is ordered. It is a privilege to be allowed the opportunity to participate in? your urological care.? Again, if you have any questions or concerns If you have any questions or concerns please do not hesitate to contact me. The office is [phone]. This note is constructed using voice recognition software. While every effort has been made to ensure accuracy pediatric psychiatrist errors may have been included. Yours sincerely, BRAD Rendon Coding Level of Care Code New Pt Level 4 (35635) Diagnoses Erectile dysfunction N52.9 History of prostate cancer Z85.46 Urinary incontinence R32
== END 2023-08-12 14:07 | disposition home or self-care (01) ==
PROVIDERS: PCP Internal Medicine; Visit Provider Nurse Practitioner Family
DX: N52.9 Male erectile dysfunction, unspecified (principal); Z85.46 Personal history of malignant neoplasm of prostate; R32 Unspecified urinary incontinence
CPT/HCPCS: 99204; 99214

== ENCOUNTER → 2023-08-12 12:48 | Outpatient (BNVA) | payer MEDICARE, OTHER, SELFPAY | PROVIDERS: PCP Internal Medicine; Visit Provider Nurse Practitioner Family | DX: N52.9 Male erectile dysfunction, unspecified (principal); R32 Unspecified urinary incontinence; Z85.46 Personal history of malignant neoplasm of prostate | CPT/HCPCS: 81003; 99202 ==

== ENCOUNTER 2023-10-03 11:40 | Outpatient (AMB) | payer MEDICARE, OTHER, SELFPAY ==
[2023-10-03 12:19] VITALS: BP 140/66; PULSE 64; O2SAT 97; BMI 28.6
--- NOTE | 2023-10-03 12:19 | A.OFFPC_ITS ---
Vital Signs 10/03/23 12:19 Height 6 ft 1 in Weight 217 lb BMI 28.6 BP 140/66 H Blood Pressure Location Lt brachial Position Sitting Pulse 64 Pulse Source Pulse Oximeter Pulse Oximetry (%) 97 Oxygen Delivery Method Room Air Intake Visit Reasons: Followup chronic headaches, GERD Intake Note: Pt is here today for a follow up visit. Pt c/o headaches, chest pain arm pain. Allergies codeine Allergy (Unknown, Verified 10/03/23 12:22) Nausea Medication List - Last Reconciled 10/03/23 by Sujatha Triana MD amlodipine 10 mg PO DAILY atorvastatin 10 mg PO DAILY losartan 50 mg PO DAILY omega 3-ojw-eud-fish oil 60-90-500 mg (Fish Oil) 1 cap PO DAILY omeprazole magnesium (Prilosec OTC) 20 mg PO DAILY tadalafil (Cialis) 5 mg PO DAILY 90 days verapamil ER 360 mg PO DAILY Tobacco use date assessed: 10/03/23 Fall risk assessment: No Falls in past year Last assessed Fall Risk: 10/03/23 Dental Screening Dental Screen Date: 10/03/23 Did you have a dental visit in the last 12 months?: Yes Did you have a dental problem in the last 6 months where you did not have access to dental care?: No Was dental information given to patient?: Patient has dentist HPI Followup chronic headaches, GERD HPI Details PATIENT PRESENTS FOR THE FOLLOW-UP ON HYPERTENSION HYPERLIPIDEMIA CHRONIC GERD STABLE ON CURRENT MEDICATIONS. Patient is due for repeat colonoscopy in November for the history of large colon polyp and has not current appointment with GI yet. Patient is going to [place] on a biking trip in November and then spends the summer in [place]. [facility] Medical History COVID-19 vaccine series completed HTN (hypertension) Migraine Prostate cancer TIA (transient ischemic attack) Surgical History History of esophagogastroduodenoscopy (EGD) Hx of cataract extraction H/O colonoscopy Hx of prostatectomy Status post total right knee replacement H/O lumbar discectomy History of bladder suspension procedure Hx of hernia repair Hx of bilateral hip replacements Family History Mother Arthritis Father Hypertension Sister Breast cancer Social History Household Members: Spouse Household Members Other:: , rides a bike 12-14 mile a day, [facility] Do you presently have visiting nurse or other home services: No Alcohol intake: current Alcohol intake frequency: holidays/special occasions only Patient Tobacco Use Status: Never used Tobacco e-Cigarette/Vaping Use: Never Used Current occupational status: retired Cognitive needs: No Hearing needs: No Vision needs: Yes Questionnaire PHQ-9 Over the last 2 weeks, how often have you been bothered by any of the following problems? 1. Little interest or pleasure in doing things: not at all 2. Feeling down, depressed, or hopeless: not at all 3. Trouble falling or staying asleep, or sleeping too much: not at all 4. Feeling tired or having little energy: not at all 5. Poor appetite or overeating: not at all 6. Feeling bad about yourself - or that you are a failure or have let yourself or your family down: not at all 7. Trouble concentrating on things, such as reading the newspaper or watching television: not at all 8. Moving or speaking so slowly that other people could have noticed. Or the opposite - being so fidgety or restless that you have been moving around a lot more than usual: not at all 9. Thoughts that you would be better off or of hurting yourself in some way: not at all Total score: 0 Depression Screening Interpretation: Negative Depression Screening Done: Yes Source: Developed by Drs. Jacobo Rene, Annabelle Fierro, Luigi Fonseca and colleagues, with an educational lindsay from [employer]. AUDIT C Alcohol Use Questionnaire (AUDIT-C) 1. How often do you have a drink containing alcohol?: 2-4 times a month 2. How many drinks containing alcohol do you have on a typical day when you are drinking?: 1 or 2 3. How often do you have six or more drinks on one occasion?: Never Total Score: 2 AKASH-7 AMB Questionnaire AKASH-7 Feeling nervous, anxious, or on edge: 0 = Not at all Not being able to stop or control worryin = Not at all Worrying too much about different things: 0 = Not at all Trouble relaxin = Not at all Being so restless that it is hard to sit still: 0 = Not at all Becoming easily annoyed or irritable: 0 = Not at all Feeling afraid as if something awful might happen: 0 = Not at all Total AKASH-7 score (0-4 normal; 5-9 mild; 10-14 moderate; 15-21 severe): 0 Source: Developed by Drs. Jacobo Rene, Annabelle Fierro, Luigi Fonseca and colleagues, with an educational lindsay from [employer]. Review of Systems Const All systems reviewed & are unremarkable except as noted in HPI and below Reports no additional complaints Eyes Reports no additional complaints ENT Reports no additional complaints Card Reports no additional complaints Resp Reports no additional complaints GI Reports no additional complaints Reports no additional complaints Physical exam (Primary Care) Vital Signs: Last Vital Signs Pulse 64 10/03/23 12:19 BP 140/66 H 10/03/23 12:19 Pulse Ox 97 10/03/23 12:19 Oxygen Delivery Method Room Air 10/03/23 12:19 BMI result Body Mass Index 28.6 Tobacco/Smoking Status: Tobacco use Status Tobacco use date assessed 10/03/23 10/03/23 12:25 Patient Tobacco Use Status Never used Tobacco 10/03/23 12:25 e-Cigarette/Vaping Use Never Used 10/03/23 12:25 Depression Screening Interpretation: Negative Const General: no acute distress HENMT Throat: Yes posterior oropharynx normal Resp Effort & Inspection: normal respiratory effort Auscultation: clear to auscultation bilaterally Cardio Rhythm: regular rhythm Heart sounds: S1 normal heart sound present and S2 normal heart sound present GI Inspection: Yes normal to inspection Palpation (GI): Soft to palpation Auscultation: normal bowel sounds Assessment and Plan Assessment & Plan (1) Tubular adenoma of colon: Comment: 10/2021 TA repeat 6 mos as was quite large, 12/22 ?polyps, recheck [address] Lyons Code(s): D12.6 - Benign neoplasm of colon, unspecified Plan: refer to GI a repeat colonoscopy (2) HTN (hypertension): Code(s): I10 - Essential (primary) hypertension Plan: Add 25 mg of losartan to current medications follow-up in 2 weeks for blood pressure check and basic metabolic panel. Patient will return in June (3) Hyperlipemia: Code(s): E78.5 - Hyperlipidemia, unspecified Plan: Continue statin Orders: Orders Basic Metabolic Panel 2 Weeks E78.5 - Hyperlipidemia, unspecified, I10 - Essential (primary) hypertension Referrals Gastroenterology Referral D12.6 - Benign neoplasm of colon, unspecified, Z00.00 - Encounter for general adult medical examination without abnormal findings Medications: New losartan take with Losartan 50 mg 25 mg PO DAILY 90 tabs 2RF Coding Level of Care Code Est Pt Level 4 (60484) Diagnoses Tubular adenoma of colon D12.6 HTN (hypertension) I10 Hyperlipemia E78.5
== END 2023-10-03 13:10 | disposition home or self-care (01) ==
PROVIDERS: PCP Internal Medicine; Visit Provider Internal Medicine
DX: D12.6 Benign neoplasm of colon, unspecified (principal); I10 Essential (primary) hypertension; E78.5 Hyperlipidemia, unspecified
CPT/HCPCS: 99214

== ENCOUNTER 2023-10-28 12:00 | Outpatient (REF) | payer MEDICARE, OTHER, SELFPAY ==
[2023-10-28 14:14] LABS: Anion Gap 10 (12-20); Blood Urea Nitrogen 23 mg/dL (9-16); Calcium 9.6 mg/dL (8.4-10.2); Carbon Dioxide 29 mmol/L (22-29); Chloride 103 mmol/L (96-108); Estimated Glomerular Filt Rate > 60; Glucose Random 132 mg/dL (60-115); Potassium 4.2 mmol/L (3.3-5.1); Sodium 138 mmol/L (135-145)
== END 2023-10-28 12:01 | disposition home or self-care (01) ==
LOC: HO.LAB 12:00
PROVIDERS: PCP Internal Medicine; Visit Provider Internal Medicine
DX: I10 Essential (primary) hypertension (principal)
CPT/HCPCS: 36415; 80048

== ENCOUNTER 2023-11-10 13:38 | Day surgery (SDC) | payer MEDICARE, OTHER, SELFPAY ==
--- NOTE | 2023-11-06 10:53 | P.CONAN_ITS ---
Documented by User: Lizzeth Cleary NP 11/06/23 10:53 HPI - Anesthesia Eval Consult details Narrative: 83yo M for Colonoscopy PMFSH Active Problems Active Problems: All Active Problems (Updated 08/12/23 @ 21:36 by Merlene Cosme [facility]) Urinary incontinence (Acute) History of prostate cancer (Acute) Erectile dysfunction (Acute) Hyperlipemia (Acute) HTN (hypertension) (Acute) Dysplastic nevi (Acute) Hx of prostatectomy (Acute) Muscle spasm of back (Acute) Osteoarthritis of left knee (Acute) Osteoarthritis of hands, bilateral (Acute) Chronic hand pain (Acute) Aorto-iliac atherosclerosis (Acute) Left knee pain (Acute) Lumbar spondylosis (Acute) Lumbar post-laminectomy syndrome (Acute) Left lumbar radiculopathy (Acute) Stenosis, spinal, lumbar (Acute) Tubular adenoma of colon (Acute) Mitral murmur (Acute) Migraine (Acute) Past Medical History Medical History COVID-19 vaccine series completed HTN (hypertension) Migraine Prostate cancer TIA (transient ischemic attack) Family History Family History Mother Arthritis Father Hypertension Sister Breast cancer Family history of problems with anesthesia: No Surgical History Surgical History History of esophagogastroduodenoscopy (EGD) Hx of cataract extraction H/O colonoscopy Hx of prostatectomy Status post total right knee replacement H/O lumbar discectomy History of bladder suspension procedure Hx of hernia repair Hx of bilateral hip replacements History of Problems with Anesthesia: No Social History Social History Household Members: Spouse Household Members Other:: , rides a bike 12-14 mile a day, Housing: Condominium Do you presently have visiting nurse or other home services: No Alcohol intake: current Alcohol intake frequency: does not drink Patient Tobacco Use Status: Never used Tobacco e-Cigarette/Vaping Use: Never Used Are you DNR?: No Advance Directives: No Advance Directives Information Provided: Yes Current occupational status: retired Cognitive needs: No Hearing needs: No Vision needs: Yes Meds Allergies Allergy/AdvReac Type Severity Reaction Status Date / Time codeine Allergy Unknown Nausea Verified 10/20/23 09:34 Home Medications Medication Instructions Recorded Confirmed Last Taken Type amlodipine 10 mg tablet 10 mg PO DAILY 11/13/20 11/10/23 11/10/23 History atorvastatin 10 mg tablet 10 mg PO DAILY 11/13/20 11/10/23 12/05/22 History verapamil 360 mg 24 hr 360 mg PO DAILY 06/18/22 11/10/23 11/10/23 History capsule,extended release omega 8-twp-ogh-fish oil 60 mg-90 1 cap PO DAILY 12/31/22 11/10/23 11/03/23 History mg-500 mg capsule (Fish Oil) omeprazole magnesium 20 mg 20 mg PO DAILY 10/03/23 11/10/23 Unknown History tablet,delayed release (Prilosec OTC) Exam Pertinent Lab Results Pertinent Lab Results: Laboratory Tests 06/24/23 10/28/23 07:33 12:17 WBC 5.4 Hgb 14.9 Hct 45.3 Plt Count 194 Sodium 138 Potassium 4.2 Chloride 103 Carbon Dioxide 29 BUN 23 H Creatinine 1.08 Assessment and Plan Assessment Anesthesia Assessment: Chart Reviewed Final Anesthetic Review Family History of Problems with Anesthesia: No History of Problems with Anesthesia: No Documented by User: Kaylee Gonzalez MD 11/10/23 14:04 [facility] Past Medical History Medical History COVID-19 vaccine series completed HTN (hypertension) Migraine Prostate cancer TIA (transient ischemic attack) Family History Family History Mother Arthritis Father Hypertension Sister Breast cancer Surgical History Surgical History History of esophagogastroduodenoscopy (EGD) Hx of cataract extraction H/O colonoscopy Hx of prostatectomy Status post total right knee replacement H/O lumbar discectomy History of bladder suspension procedure Hx of hernia repair Hx of bilateral hip replacements Social History Social History Household Members: Spouse Household Members Other:: , rides a bike 12-14 mile a day, [facility] Do you presently have visiting nurse or other home services: No Alcohol intake: current Alcohol intake frequency: does not drink Patient Tobacco Use Status: Never used Tobacco e-Cigarette/Vaping Use: Never Used Are you DNR?: No Advance Directives: No Advance Directives Information Provided: Yes Current occupational status: retired Cognitive needs: No Hearing needs: No Vision needs: Yes Meds Allergies Allergy/AdvReac Type Severity Reaction Status Date / Time codeine Allergy Unknown Nausea Verified 10/20/23 09:34 Home Medications Medication Instructions Recorded Confirmed Last Taken Type amlodipine 10 mg tablet 10 mg PO DAILY 11/13/20 11/10/23 11/10/23 History atorvastatin 10 mg tablet 10 mg PO DAILY 11/13/20 11/10/23 12/05/22 History verapamil 360 mg 24 hr 360 mg PO DAILY 06/18/22 11/10/23 11/10/23 History capsule,extended release omega 7-gvl-nma-fish oil 60 mg-90 1 cap PO DAILY 12/31/22 11/10/23 11/03/23 History mg-500 mg capsule (Fish Oil) omeprazole magnesium 20 mg 20 mg PO DAILY 10/03/23 11/10/23 Unknown History tablet,delayed release (Prilosec OTC) Exam Airway Mallampati Class: II TM Dist: >3cm Neck ROM: Full Heart: rrr Lungs: cta Assessment and Plan Assessment Anesthesia Assessment: Anesthesia Plan Discussed Final Anesthetic Review NPO: Yes ASA Class: III Final Preanesthetic Review: No Changes in Pt Med Stat, Meds/Allgs Chart Reviewed and Consent Obtained/Reviewed Patient Risk: Low Procedure Risk: Low Anesthetic Plan Anesthetic Plan: MAC: Disposition: Standard PACU
[2023-11-10 13:40] VITALS: BP 148/65; PULSE 66; RESP 18; TEMP 36.6; O2SAT 98; BMI 27.0
[2023-11-10] MEDS: Lactated Ringers 1,000 ML 100 ML IVCONT (14:06)
--- NOTE | 2023-11-10 14:21 | MHC.SHP ---
Pre-Procedural Eval Section A - 24 Hr Update-Section A only Date of Service: 11/10/23 The patient is an INPATIENT: No The patient has been examined within 24 hours of the surgical procedure. The History & Physical has been completed within 30 days and I have reviewed it.: No Section B - Complete if H&P > 30 days Chief Complaint: Benign neoplasm of colon, unspecified Details of Present Illness: Colon cancer screening, fu of colon polyps Relevant Family History (Specify if Yes): No Relevant Social History: None Present Medications: see Short Stay Collaborative assessment Medical History: Significant History (HTN (hypertension) Migraine Prostate cancer TIA (transient ischemic attack)) History of Previous Operations: Relevant previous surgery/procedure and date(s) (H/O colonoscopy H/O lumbar discectomy History of bladder suspension procedure History of esophagogastroduodenoscopy (EGD) Hx of bilateral hip replacements Hx of cataract extraction Hx of hernia repair Hx of prostatectomy Status post total right knee replacement) Allergies: Allergies Allergy/AdvReac Type Severity Reaction Status Date / Time codeine Allergy Unknown Nausea Verified 10/20/23 09:34 Review of Systems Sugical H&P ROS: Negative: Constitution, Cardiovascular, Respiratory and Gastrointestinal Exam Surgical H&P Exam: Normal: Heart, Normal: Lungs, Normal: Extremities and Normal: Abdomen Plan Diagnosis/Plan: Change (proceed with colonoscopy for polyp surveillance) I have reviewed the history and physical and performed a pertinent physical examination on my patient. No changes have occurred unless specified. Time Spent With Patient Time: Total time managing care of this patient today ____ minutes.
--- NOTE | 2023-11-10 14:22 | W.PM.OPN ---
Operative Note Operative Note Date of Service: 11/10/23 Narrative: COLONOSCOPY TILL CECUM WITH SNARE POLYPECTOMY, SUBMUCOSAL INJECTION AND HEMOCLIP PLACEMENT Pre-op diagnosis: Surveillance of colon polyps. Post-op diagnosis:? Colon polyps, Diverticulosis, hemorrhoids Endoscopist:? Analy Lyons MD Anesthesia:?MAC Consent: Indications for the procedure and potential complications of bleeding, perforation, reaction to medications and missed diagnosis were discussed with the patient and informed consent was obtained. Instrument: Olympus CF H 190 L variable stiffness adult colonoscope Monitoring: Vital signs and clinical assessment, intermittent blood pressure monitoring, continuous EKG monitoring, Pulse oximetry and Carbon Dioxide monitoring were done throughout the procedure. Please see anesthesia flowsheet. Colon withdrawl time was 22 minutes. Procedure: The patient was placed in the left lateral decubitis position and pre-procedure medications were administered. After a digital rectal examination of the ano-rectum, the video colonoscope was inserted into the rectum and advanced through the colon to the cecum. The colonoscope was slowly withdrawn in a retrograde panoramic fashion and the colon mucosa was carefully examined including a retroflexed view of the rectum. Findings and interventions are described below. Procedure Difficulty: without difficulty Findings: Terminal Ileum: Not evaluated Cecum: Normal Ascending Colon: A 2 cms sessile polyp in the proximal ascending colon - close to the site of past polypectomy. Polyp was raised with 5 cc of [place] and removed with a hot snare. Polypectomy site was closed with 1 hemoclip Transverse Colon: A 10 mm sessile polyp in the mid TC - removed with a hot snare. Descending Colon: Moderate diverticulosis Sigmoid Colon: Moderate diverticulosis Rectum: Normal Ano-rectum: Small internal hemorrhoids Colon preparation: Good after some irrigation. There was scattered undigested vegetable matter which could not be suctioned. [place] Bowel Preparation Scale Right colon; 2 Transverse colon: 2 Left colon; 2 (0 = Unprepared colon segment with mucosa not seen due to solid stool that cannot be cleared. 1 = Portion of mucosa of the colon segment seen, but other areas of the colon segment not well seen due to staining, residual stool and/or opaque liquid. 2 = Minor amount of residual staining, small fragments of stool and/or opaque liquid, but mucosa of colon segment seen well. 3 = Entire mucosa of colon segment seen well with no residual staining, small fragments of stool or opaque liquid) Impression and Post Procedure Diagnosis: Colonoscopy Findings: Two medium sized polyps were removed Moderate diverticulosis seen in the left colon Small hemorrhoids on antegrade exam. Plan: Pt has a FU appointment on 11/25/23 with Ingrid Cotto NP Repeat Colonoscopy in 3-5 years if polyps are adenomatous and due to a history of adenomatous colon polyps. Above findings were reviewed with the patient and relevant handouts were given and the discharge area.
[2023-11-10 15:13] VITALS: BP 125/69; PULSE 58; RESP 16; TEMP 36.2; O2SAT 96
[2023-11-10 15:28] VITALS: BP 133/67; PULSE 57; RESP 16; TEMP 36.1; O2SAT 96
== END 2023-11-10 15:51 | disposition home or self-care (01) ==
PROVIDERS: PCP Internal Medicine; Visit Provider Internal Medicine Gastroenterology
PROC: 0DJD8ZZ Inspection of Lower Intestinal Tract, Via Natural or Artificial Opening Endoscopic (ICD-10-PCS; CPT 45378; principal; 2023-11-10 15:10)
DX: Z12.11 Encounter for screening for malignant neoplasm of colon (principal); Z86.010 Personal history of colon polyps; D12.2 Benign neoplasm of ascending colon; K63.5 Polyp of colon; K57.30 Diverticulosis of large intestine without perforation or abscess without bleeding; K64.8 Other hemorrhoids; I10 Essential (primary) hypertension; G43.909 Migraine, unspecified, not intractable, without status migrainosus; Z79.899 Other long term (current) drug therapy; Z88.5 Allergy status to narcotic agent; Z85.46 Personal history of malignant neoplasm of prostate; Z86.73 Personal history of transient ischemic attack (TIA), and cerebral infarction without residual deficits; Z90.79 Acquired absence of other genital organ(s); Z98.890 Other specified postprocedural states
CPT/HCPCS: 45385; 45381; 88305; J2704

== ENCOUNTER → 2023-11-10 13:38 | Outpatient (BNV) | payer MEDICARE, OTHER, SELFPAY | PROVIDERS: PCP Internal Medicine; Visit Provider Internal Medicine Gastroenterology | DX: Z12.11 Encounter for screening for malignant neoplasm of colon (principal); Z86.010 Personal history of colon polyps; D12.4 Benign neoplasm of descending colon; K57.90 Diverticulosis of intestine, part unspecified, without perforation or abscess without bleeding | CPT/HCPCS: 45381; 45385 ==

== ENCOUNTER 2023-11-13 12:50 | Outpatient (AMB) | payer MEDICARE, OTHER, SELFPAY ==
--- NOTE | 2023-11-13 12:54 | MHC.OFFVIS ---
Intake Intake Visit Reasons: 3m Intake Note: Patient presents today for a follow-up Meds- Tadalafil Allergies to Antibiotic- No Known Allergies Blood Thinner- None Post Void Residual: 0ml Patient Symptoms: Patient stated he is been using Tadalafil at bedtime, and he has not seen much effectivity of the medication. 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 Mcfarland. He has a past medical history of hypertension, migraines, prostate cancer, and TIAs. He presents to the office today for follow-up. Of note, patient was seen approximately 3 months ago for his longstanding history of erectile dysfunction in the setting of a previous prostatectomy over 12 years ago. During last office visit patient was trialed on low-dose 5 mg of Cialis daily. In discussion with the patient today he reports noting no improvement in erectile dysfunction. He does continue with good response to TriMix injectable therapy however does discuss noting issues with maintaining erections when lying down in supine position. Discuss trial of penile ring to assist. When asked he does report a longstanding history of urinary incontinence at which time he underwent a sling procedure with Dr. Boyd in the past and has had significant improvement in urinary incontinence however he does at times have urinary dribbling at times. However, he does not find this bothersome at this time. He discusses having trialed extensive pelvic floor therapy in the past with no improvement. In office urinalysis results reviewed with the patient today. He otherwise denies any bothersome issues or concerns at this time. PSA 06/23 <0.10. PFS Medical History COVID-19 vaccine series completed HTN (hypertension) Migraine Prostate cancer TIA (transient ischemic attack) Surgical History History of esophagogastroduodenoscopy (EGD) Hx of cataract extraction H/O colonoscopy Hx of prostatectomy Status post total right knee replacement H/O lumbar discectomy History of bladder suspension procedure Hx of hernia repair Hx of bilateral hip replacements Family History Mother Arthritis Father Hypertension Sister Breast cancer Social History Household Members: Spouse Household Members Other:: , rides a bike 12-14 mile a day, Housing: [facility] Do you presently have visiting nurse or other home services: No Alcohol intake: current Alcohol intake frequency: does not drink Patient Tobacco Use Status: Never used Tobacco e-Cigarette/Vaping Use: Never Used Current occupational status: retired Cognitive needs: No Hearing needs: No Vision needs: Yes Review of Systems Const Reports as per HPI Eyes Reports no additional complaints ENT Reports no additional complaints Card Reports as per HPI Resp Reports no additional complaints GI Reports no additional complaints Reports as per HPI Musc Reports no additional complaints Neuro Reports as per HPI Psych Reports no additional complaints Endo Reports no additional complaints Jairo/Lymph Reports no additional complaints Aller/Immun Reports no additional complaints Physical Exam Const General: cooperative, healthy appearing, comfortable, no acute distress, well developed, alert and awake Orientation/consciousness: patient oriented x3 Limitations: no limitations HEENT Head: Yes normal to inspection, Yes normocephalic and Yes atraumatic Ears: hearing grossly normal bilaterally Eyes General: appearance normal, both eyes and all related structures Neck Neck: Yes normal visual inspection and Yes trachea midline Chest Chest palpation & inspection: normal inspection of the chest Resp Effort & Inspection: normal respiratory effort and able to speak in complete sentences Cardio Rate: regular rate GI Inspection: Yes normal to inspection General: Yes no CVA tenderness Back/Spine/Pelvis Back: no CVA tenderness Skin General skin exam: no rashes or lesions noted Neuro General: patient oriented x3 Extrem General: Yes normal to inspection Psych Appearance: grossly normal and well kempt Mental Status: mental status grossly normal Speech and movement: Normal speech and movement present and Clear speech present Affect: normal affect Attitude: cooperative Thought process: Normal thought process present Thought content: Normal thought content present Insight: Fair insight present (Psych) Judgement: Fair judgement present (Psych) Office Procedures Post Void Residual Post Residual Void Post Void Residual (PVR): 0 [id number] Void Residual by ultrasound Results AMB Urinalysis, Automated UA Leukoctes 15 Bora/uL Last Edit by [facility] on 11/13/23 13:13 UA Nitrite Negative Last Edit by [facility] on 11/13/23 13:13 UA Urobilinogen 0.2 mg/dL Last Edit by [facility] on 11/13/23 13:13 UA Protein 30 mg/dL Last Edit by [facility] on 11/13/23 13:13 UA pH 6.[address] [facility] on 11/13/23 13:13 UA Blood 0 Kaiden/uL Last Edit by [facility] on 11/13/23 13:13 UA Specific Worden 1.[address] [facility] on 11/13/23 13:13 UA Ketone Positive Last Edit by [facility] on 11/13/23 13:13 5mg/dl [facility] 11/13/23 13:13 UA Bilirubin 1 mg/dL Last Edit by [facility] on 11/13/23 13:13 mg/dl [facility] 11/13/23 13:13 UA Glucose 0 mg/dL Last Edit by [facility] on 11/13/23 13:13 Results Reviewed Results Reviewed: Laboratory Last Values Urine pH (Auto) 6.0 11/13/23 13:00 Specific Worden (Auto) 1.020 11/13/23 13:00 Urine Protein (Auto) 30 mg/dL 11/13/23 13:00 Glucose (UA)(Auto) 0 mg/dL 11/13/23 13:00 Urine Ketones (Auto) Positive 11/13/23 13:00 Urine Blood (Auto) 0 Kaiden/uL 11/13/23 13:00 Urine Nitrite (Auto) Negative 11/13/23 13:00 Urine Bilirubin (Auto) 1 mg/dL 11/13/23 13:00 Urine Urobilinogen (Auto) 0.2 mg/dL 11/13/23 13:00 Leukocyte Esterase (Auto) 15 Bora/uL 11/13/23 13:00 Assessment & Plan Assessment & Plan (1) History of prostate cancer: Code(s): Z85.46 - Personal history of malignant neoplasm of prostate (2) Erectile dysfunction: Code(s): N52.9 - Male erectile dysfunction, unspecified (3) Urinary incontinence: Code(s): R32 - Unspecified urinary incontinence Plan In office urinalysis results reviewed with the patient today; as noted above. Continue TriMix therapy Stop Cialis as patient reports no improvement in ED Discussed at length lifestyle modifications to assist with erectile dysfunction Patient denies any bothersome urinary issues or concerns at this time. Will obtain PSA in 6 months Follow-up in 6 months if not sooner with any issues, concerns, and or questions. Orders: Orders AMB Post Void Residual by ultrasound Today R33.9 - Retention of urine, unspecified AMB Urinalysis Automated Today R33.9 - Retention of urine, unspecified Prostate Specific Antigen 6 Months Z85.46 - Personal history of malignant neoplasm of prostate Medications: Discontinued tadalafil (Cialis) [id number] [facility] [id number] Member [id number] Discontinued Reason: Doctor's Order 5 mg PO DAILY 90 days 90 tabs 0RF Patient Instructions: The patient had an opportunity to ask questions regarding the treatment plan. All questions were answered. Physical exam, labs, and imaging were discussed and reviewed in detail. As well as risks, benefits, and discussion of treatment choices. No major barriers to understanding were identified. The patient expressed understanding and agreement with the above treatment plan. The patient was made aware they should contact our office by phone for worsening of their current condition, the appearance of new symptoms, or with any questions or concerns. Compliance is encouraged with any medications and follow up testing that is ordered. It is a privilege to be allowed the opportunity to participate in? your urological care.? Again, if you have any questions or concerns If you have any questions or concerns please do not hesitate to contact me. The office is [phone]. This note is constructed using voice recognition software. While every effort has been made to ensure accuracy police magistrate errors may have been included. Yours sincerely, MIKE Rendon-JIGNESH Coding Level of Care Code Est Pt Level 3 (37378) Diagnoses History of prostate cancer Z85.46 Erectile dysfunction N52.9 Urinary incontinence R32 CPT Codes Post Residual Void - PVR CPT Code: 25047-Bdhj Void Residual by ultrasound ([id number])
== END 2023-11-13 13:32 | disposition home or self-care (01) ==
PROVIDERS: PCP Internal Medicine; Visit Provider Nurse Practitioner Family
DX: Z85.46 Personal history of malignant neoplasm of prostate (principal); N52.9 Male erectile dysfunction, unspecified; R32 Unspecified urinary incontinence
CPT/HCPCS: 99213

== ENCOUNTER → 2023-11-13 12:50 | Outpatient (BNVA) | payer MEDICARE, OTHER, SELFPAY | PROVIDERS: PCP Internal Medicine; Visit Provider Nurse Practitioner Family | DX: R33.9 Retention of urine, unspecified (principal); N52.9 Male erectile dysfunction, unspecified; Z79.899 Other long term (current) drug therapy; Z85.46 Personal history of malignant neoplasm of prostate; Z86.73 Personal history of transient ischemic attack (TIA), and cerebral infarction without residual deficits; R32 Unspecified urinary incontinence | CPT/HCPCS: 51798; 81003; 99212 ==

== ENCOUNTER 2023-12-11 10:33 | Outpatient (REF) | payer MEDICARE, OTHER, SELFPAY ==
[2023-12-11 12:18] LABS: Anion Gap 11 (12-20); Blood Urea Nitrogen 28 mg/dL (9-16); Calcium 9.6 mg/dL (8.4-10.2); Carbon Dioxide 30 mmol/L (22-29); Chloride 102 mmol/L (96-108); Estimated Glomerular Filt Rate 56; Glucose Random 98 mg/dL (60-115); Potassium 4.3 mmol/L (3.3-5.1); Sodium 139 mmol/L (135-145)
== END 2023-12-11 10:34 | disposition home or self-care (01) ==
LOC: HO.LAB 10:33
PROVIDERS: PCP Internal Medicine; Visit Provider Internal Medicine
DX: I10 Essential (primary) hypertension (principal)
CPT/HCPCS: 36415; 80048

== ENCOUNTER 2023-12-18 12:26 | Outpatient (AMB) | payer MEDICARE, OTHER, SELFPAY ==
--- NOTE | 2023-12-18 12:43 | A.OFFVIS_ITS ---
Vital Signs 12/18/23 12:45 Height 6 ft 2 in Weight 213 lb 13.574 oz BMI 27.5 BP 139/59 L Blood Pressure Location Lt brachial Position Sitting Pulse 58 Intake Visit Reasons: S/p colon Intake Note: Reyes presents in the office as a follow up colonoscopy. CC: States he is just here for the results to his colonoscopy. 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 He is very allergic to black flies. He is agreeable to having the colonoscopy rescheduled. He did not like the taste and the amt of the prep, but otherwise is ok. We discuss strategies. He denies any bowel problems or upper GI problems. There are no prior problems with anesthesia or sedation. He denies any cardiac or respiratory problems. No ID problems. ROV after procedures. Medications: New peg 3350-electrolytes 236-22.74-6.74 -5.86 gram (Golytely) until fecal effluent is clear; do not exceed a total volume of 2,000 mL 240 mL PO Q10M 1 day 4,000 mL 0RF Z12.11 - Encounter for screening for malignant neoplasm of colon COLONOSCOPY 11/11/23 Findings: Terminal Ileum: Not evaluated Cecum: Normal Ascending Colon: A 2 cms sessile polyp in the proximal ascending colon - close to the site of past polypectomy. Polyp was raised with 5 cc of Eleview and removed with a hot snare. Polypectomy site was closed with 1 hemoclip Transverse Colon: A 10 mm sessile polyp in the mid TC - removed with a hot snare. Descending Colon: Moderate diverticulosis Sigmoid Colon: Moderate diverticulosis Rectum: Normal Ano-rectum: Small internal hemorrhoids Impression and Post Procedure Diagnosis: Colonoscopy Findings: Two medium sized polyps were removed Moderate diverticulosis seen in the left colon Small hemorrhoids on antegrade exam. Plan: Pt has a FU appointment on 11/25/23 with Ingrid Cotto NP Repeat Colonoscopy in 3-5 years if polyps are adenomatous and due to a history of adenomatous colon polyps. BIOPSY Received: 11/11/23 Diagnosis A. Colon, proximal ascending, polyp: Tubular adenoma with serrated features; negative for high-grade dysplasia and carcinoma. B. Colon, transverse, polyp: Polypoid colonic mucosa with lymphoid aggregates and prominent submucosal vessels; no adenomatous dysplasia seen. TODAY'S VISIT THE PATIENT HAD A COLONOSCOPY IN 2022 AND THEN WAS DIRECT BOOKED FOR REPEAT [place] [address] WALKER. PROCEDURE CAN BE REPEATED in 5 years because of the smaller ascending colon polyp that was a tubular adenoma. The procedure was well tolerated. The results were explained and the patient is agreeable to the follow-up interval as stated. The bowel pattern has returned to normal. Education was provided to tell any 1st degree relatives about their findings to be sure that they are screened by age 45. Educated that they will be put on a recall list when it is time for their repeat scope but should they move out of state or away from the hospital they will need to remember along with their primary to repeat the procedure in a timely fashion to avoid any adverse complications. [facility] Medical History COVID-19 vaccine series completed HTN (hypertension) Migraine Prostate cancer TIA (transient ischemic attack) Surgical History History of esophagogastroduodenoscopy (EGD) Hx of cataract extraction H/O colonoscopy Hx of prostatectomy Status post total right knee replacement H/O lumbar discectomy History of bladder suspension procedure Hx of hernia repair Hx of bilateral hip replacements Family History Mother Arthritis Father Hypertension Sister Breast cancer Social History Household Members: Spouse Household Members Other:: , rides a bike 12-14 mile a day, Housing: Condominium Do you presently have visiting nurse or other home services: No Alcohol intake: current Alcohol intake frequency: does not drink Patient Tobacco Use Status: Never used Tobacco e-Cigarette/Vaping Use: Never Used Current occupational status: retired Cognitive needs: No Hearing needs: No Vision needs: Yes Review of Systems ENT Reports Normal hearing present Neuro Reports Normal hearing present and Denies Abnormal speech present Physical Exam Vital Signs: Last Vital Signs Pulse 58 12/18/23 12:45 BP 139/59 L 12/18/23 12:45 BMI result Body Mass Index 27.5 Const General: cooperative, no acute distress, well developed and well groomed Nutritional Appearance: average body habitus and well nourished Orientation/consciousness: oriented to person, oriented to place and oriented to time Limitations: No language barrier HEENT Head: Yes normocephalic and Yes atraumatic Eyes General: appearance normal, both eyes and all related structures Pupils: Equal, round and reactive pupils present Neck Neck: Yes normal visual inspection and Yes no lymphadenopathy Thyroid: Thyroid normal Resp Effort & Inspection: normal respiratory effort and able to speak in complete sen tences Neuro General: oriented to person, oriented to place and oriented to time Cranial nerves: Yes Equal, round and reactive pupils present and Yes Normal hearing present Speech: No Abnormal speech present Extrem General: Yes normal to inspection Psych Appearance: grossly normal and well kempt Mental Status: mental status grossly normal Speech and movement: Normal speech and movement present Affect: Hostile affect present Attitude: Belligerent attititude/behavior present Thought process: Normal thought process present and not confabulating Thought content: Normal thought content present Insight: Other insight findings present (Psych) Judgement: Other judgement findings present (Psych) Results Reviewed Results Reviewed: COLONOSCOPY 11/11/23 Findings: Terminal Ileum: Not evaluated Cecum: Normal Ascending Colon: A 2 cms sessile polyp in the proximal ascending colon - close to the site of past polypectomy. Polyp was raised with 5 cc of Eleview and removed with a hot snare. Polypectomy site was closed with 1 hemoclip Transverse Colon: A 10 mm sessile polyp in the mid TC - removed with a hot sn are. Descending Colon: Moderate diverticulosis Sigmoid Colon: Moderate diverticulosis Rectum: Normal Ano-rectum: Small internal hemorrhoids Impression and Post Procedure Diagnosis: Colonoscopy Findings: Two medium sized polyps were removed Moderate diverticulosis seen in the left colon Small hemorrhoids on antegrade exam. Plan: Pt has a FU appointment on 11/25/23 with Ingrid Cotto NP Repeat Colonoscopy in 3-5 years if polyps are adenomatous and due to a history of adenomatous colon polyps. BIOPSY Received: 11/11/23 Diagnosis A. Colon, proximal ascending, polyp: Tubular adenoma with serrated features; negative for high-grade dysplasia and carcinoma. B. Colon, transverse, polyp: Polypoid colonic mucosa with lymphoid aggregates and prominent submucosal vessels; no adenomatous dysplasia seen. Assessment & Plan Assessment & Plan (1) Tubular adenoma of colon: Comment: 10/2023 equaled 1 TA repeat in 5 years; 10/2021 TA repeat 6 mos as was quite large, 12/22 ?polyps, recheck [address] Walker Code(s): D12.6 - Benign neoplasm of colon, unspecified Category: Medical Plan THE PATIENT HAD A COLONOSCOPY IN 2022 AND THEN WAS DIRECT BOOKED FOR REPEAT IN [address] WALKER. PROCEDURE CAN BE REPEATED in 5 years because of the smaller ascending colon polyp that was a tubular adenoma. The procedure was well tolerated. The results were explained and the patient is agreeable to the follow-up interval as stated. The bowel pattern has returned to normal. Education was provided to tell any 1st degree relatives about their findings to be sure that they are screened by age 45. Educated that they will be put on a recall list when it is time for their repeat scope but should they move out of state or away from the hospital they will need to remember along with their primary to repeat the procedure in a timely fashion to avoid any adverse complications.
[2023-12-18 12:45] VITALS: BP 139/59; PULSE 58; BMI 27.5
== END 2023-12-18 13:28 | disposition home or self-care (01) ==
PROVIDERS: PCP Internal Medicine; Visit Provider Nurse Practitioner
DX: D12.6 Benign neoplasm of colon, unspecified (principal)
CPT/HCPCS: 99213

== ENCOUNTER → 2023-12-18 12:26 | Outpatient (BNVA) | payer MEDICARE, OTHER, SELFPAY | PROVIDERS: PCP Internal Medicine; Visit Provider Nurse Practitioner | DX: D12.6 Benign neoplasm of colon, unspecified (principal) | CPT/HCPCS: 99212 ==

== ENCOUNTER 2024-01-12 14:08 | Outpatient (AMB) | payer MEDICARE, OTHER, SELFPAY ==
[2024-01-12 14:13] VITALS: BP 120/64; PULSE 54; O2SAT 98; BMI 27.3
--- NOTE | 2024-01-12 14:13 | A.OFFPC_ITS ---
Vital Signs 01/12/24 14:13 Height 6 ft 2 in Weight 213 lb BMI 27.3 BP 120/64 Blood Pressure Location Lt brachial Position Sitting Pulse 54 Pulse Source Pulse Oximeter Pulse Oximetry (%) 98 Oxygen Delivery Method Room Air Intake Visit Reasons: BP followup Intake Note: Pt is here today for a follow up visit on BP. Allergies codeine Allergy (Unknown, Verified 01/12/24 14:14) Nausea Medication List - Last Reconciled 01/12/24 by Sujatha Triana MD amlodipine 10 mg PO DAILY atorvastatin 10 mg PO DAILY latanoprost 0.005% drps ophthalmic (eye) olmesartan-hydrochlorothiazide 40-25 mg 1 tab PO DAILY omega 9-yys-zin-fish oil 60-90-500 mg (Fish Oil) 1 cap PO DAILY omeprazole magnesium (Prilosec OTC) 20 mg PO DAILY simethicone (Gas Relief (simethicone)) 125 mg PO ONCE sumatriptan succinate 50 mg PO verapamil ER 360 mg PO DAILY Tobacco use date assessed: 01/12/24 Fall risk assessment: No Falls in past year Last assessed Fall Risk: 01/12/24 Dental Screening Dental Screen Date: 01/12/24 HPI BP followup HPI Details Patient presents for the follow-up on hypertension and hyperlipidemia. He is going to [place] for the summer. Patient has been riding his bike every day 10-14 miles and denies exercise induced chest pain or shortness of breath PFSH Medical History COVID-19 vaccine series completed HTN (hypertension) Migraine Prostate cancer TIA (transient ischemic attack) Surgical History History of esophagogastroduodenoscopy (EGD) Hx of cataract extraction H/O colonoscopy Hx of prostatectomy Status post total right knee replacement H/O lumbar discectomy History of bladder suspension procedure Hx of hernia repair Hx of bilateral hip replacements Family History Mother Arthritis Father Hypertension Sister Breast cancer Social History Household Members: Spouse Household Members Other:: , rides a bike 12-14 mile a day, Housing: Condominium Do you presently have visiting nurse or other home services: No Alcohol intake: current Alcohol intake frequency: does not drink Patient Tobacco Use Status: Never used Tobacco e-Cigarette/Vaping Use: Never Used service: No Current occupational status: retired Cognitive needs: No Hearing needs: No Vision needs: Yes Review of Systems Const All systems reviewed & are unremarkable except as noted in HPI and below ENT Reports no additional complaints Card Reports no additional complaints Resp Reports no additional complaints GI Reports no additional complaints Reports no additional complaints Physical exam (Primary Care) Vital Signs: Last Vital Signs Pulse 54 01/12/24 14:13 BP 120/64 01/12/24 14:13 Pulse Ox 98 01/12/24 14:13 Oxygen Delivery Method Room Air 01/12/24 14:13 BMI result Body Mass Index 27.3 Tobacco/Smoking Status: Tobacco use Status Tobacco use date assessed 01/12/24 01/12/24 14:17 Patient Tobacco Use Status Never used Tobacco 01/12/24 14:17 e-Cigarette/Vaping Use Never Used 01/12/24 14:17 Const General: no acute distress HENMT Head: Yes normal to inspection Eyes General: appearance normal, both eyes and all related structures Resp Effort & Inspection: normal respiratory effort Auscultation: clear to auscultation bilaterally Cardio Rhythm: regular rhythm Heart sounds: S1 normal heart sound present, S2 normal heart sound present and Murmur heart sound present systolic III/ GI Inspection: Yes normal to inspection Palpation (GI): Soft to palpation Percussion: Yes normal to percussion Auscultation: normal bowel sounds Assessment and Plan Assessment & Plan (1) Heart murmur: Code(s): R01.1 - Cardiac murmur, unspecified Plan: check Echo (2) HTN (hypertension): Code(s): I10 - Essential (primary) hypertension Plan: Blood pressure is well controlled but heart rate is slow. verapamil will be decreased to 240 mg, patient will continue the rest of the medications. He will follow-up in June after she returns from [place] (3) Hyperlipemia: Code(s): E78.5 - Hyperlipidemia, unspecified Plan: Continue statin (4) Tubular adenoma of colon: Comment: 10/2023 equaled 1 TA repeat in 5 years; 10/2021 TA repeat 6 mos as was quite large, 12/22 ?polyps, recheck [address] Lyons Code(s): D12.6 - Benign neoplasm of colon, unspecified Plan: Follow-up with GI (5) History of prostate cancer: Code(s): Z85.46 - Personal history of malignant neoplasm of prostate Plan: Follow-up with urology (6) Migraine: Comment: f/u Dr. Hammond, on Verapamil prophylaxis Code(s): G43.909 - Migraine, unspecified, not intractable, without status migrainosus Orders: Orders CA echo transthoracic complete 5 Months E78.5 - Hyperlipidemia, unspecified, G43.909 - Migraine, unspecified, not intractable, without status migrainosus, I10 - Essential (primary) hypertension, R01.1 - Cardiac murmur, unspecified Comprehensive [place]. Panel Fast 5 Months E78.5 - Hyperlipidemia, unspecified, G43.909 - Migraine, unspecified, not intractable, without status migrainosus, I10 - Essential (primary) hypertension Lipid Panel 5 Months E78.5 - Hyperlipidemia, unspecified, G43.909 - Migraine, unspecified, not intractable, without status migrainosus, I10 - Essential (primary) hypertension Complete Blood Count Auto Diff 5 Months E78.5 - Hyperlipidemia, unspecified, G43.909 - Migraine, unspecified, not intractable, without status migrainosus, I10 - Essential (primary) hypertension Medications: New amlodipine 10 mg PO DAILY 90 tabs 3RF atorvastatin 10 mg PO DAILY 90 tabs 3RF verapamil ER 240 mg PO DAILY 90 caps 0RF Refilled olmesartan-hydrochlorothiazide 40-25 mg 1 tab PO DAILY 90 tabs 3RF Coding Level of Care Code Est Pt Level 4 (95949) Diagnoses Heart murmur R01.1 HTN (hypertension) I10 Hyperlipemia E78.5 Tubular adenoma of colon D12.6 History of prostate cancer Z85.46 Migraine G43.909
== END 2024-01-12 14:56 | disposition home or self-care (01) ==
PROVIDERS: PCP Internal Medicine; Visit Provider Internal Medicine
DX: R01.1 Cardiac murmur, unspecified (principal); I10 Essential (primary) hypertension; E78.5 Hyperlipidemia, unspecified; D12.6 Benign neoplasm of colon, unspecified; Z85.46 Personal history of malignant neoplasm of prostate; G43.909 Migraine, unspecified, not intractable, without status migrainosus
CPT/HCPCS: 99214

== ENCOUNTER 2024-06-08 10:03 | Outpatient (AMB) | payer MEDICARE, OTHER, SELFPAY ==
--- NOTE | 2024-06-08 10:05 | A.OFFVIS_ITS ---
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 He was last seen in our office in November 2022. Patient reports one week ago he developed significant left sided low back pain with radiation into his left buttock and left calf with numbness, tingling, weakness and imbalance. He reports saddle anesthesia on the left but no bladder or bowel dysfunction. Patient reports he spent summer in [place] and has been doing 10 miles biking. He denies any exertion, trauma, injury or falls. Patient was managing his symptoms with lidocaine patches, Tylenol, heat and occasional NSAID for past one week with partial relief in his symptoms. Patient denies any abdominal or groin pain. He reports stable hardware s/p previous bilateral hip replacements and right TKA with no acute findings per his Orthopedic surgeon at [facility] over a year ago. Denies any recent cough, cold, infection, fever, or any other significant changes in her medical history, medications or recent hospitalizations. PRIOR 12/24/22: Patient presents today to review lumbar spine results. He reports his back pain is minimal and rates it today at 2/10. He continues to stay active and has been doing a lot of bicycle riding. However, he reports intermittent episodes of left sided sciatica pain last week which was relieved with activity modification, rest, heat therapy and lidocaine patches. 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 Denies any fever, abdominal or groin pain, radicular pain, weakness, bladder or bowel incontinence or saddle anesthesia. Lumbar spine xray is noted for mild to moderate lumbar dextroscoliosis. Moderate degenerative disc disease at L4-L5, and mild degenerative disease is seen at L3- L4 and L5-S1. There is multi-level thoracolumbar spondylosis and facet arthropathy. There is no significant instability with flexion or extension. There are aortoiliac atherosclerotic calcifications. Patient reports his main pain generators are joint pain in his hands and right shoulder. He presents with full range of motion of right shoulder and mild tenderness over anterior and posterior aspect of right shoulder. Patient reports his initial evaluation by [facility] Rheumatology provider is not until this March and would appreciate an earlier appointment. PRIOR: Patient is a very pleasant 82 years old male presents today for follow up for chronic back pain. Patient was last seen by Amanda MCKEON on 07/25/21 for lumbar spine MRI results review and was referred to neurosurgery. He underwent lumbar decompression left L3-L4 and L4-L5 on 08/13/[address] Meyer and has had nearly complete relief from his left leg pain. Patient reports his lower back restarted about 4 weeks ago and he made a follow up visit with our office. He notes that his back pain has been better with rest, heat therapy, Tylenol and Ibuprofen treatments. Patient denies any inciting events. He also reports left knee pain and has been followed by [facility] for this. Denies any recent trauma, injury or falls. 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 Patient denies any fever, chills, abdominal or groin pain, weakness, numbness or tingling, bladder or bowel incontinence or saddle anesthesia. Patient also reports left hand 2nd and 3rd digits with swollen joint pain and throbbing, worse at night. He is interested for referral to Rheumatology provider for further evaluation for his chronic hand pain. PRIOR 06/29/21 Amanda MCKEON: PRIOR: Reyes is a pleasant 80 year old male who presents to the office with complaints of low back pain. He states he has had longstanding low back pain but has been noticeably worse since January. His pain is mostly left sided and radiates down the left leg with associated numbness and tingling as well as burning and pinching. He states that most of the pain radiates posteriorly. He also notes that his left foot tends to slap the ground as he is walking, but denies any overt weakness. He denies any saddle anesthesia or bowel/bladder dysfunction. His pain is exacerbated by standing and walking and moderately alleviated by rest and laying down. He has been using tylenol and ibuprofen as well as topicals but only offers some relief. His PCP recently started him on gabapentin 100 mg TID. Unfortunately, he had an increase in headaches and attributed it to the gabapentin. Since then, he his headaches have persisted and he has a history of migraines, so is willing to retry to gabapentin. He has attended physical therapy in the past and has been doing HEP which he states have exacerbated his pain. He has also had chiropractic manipulation, acupuncture with minimal relief. He has had what sounds like epidural steroid injections in the past but can not recall if they were helpful. He was evaluated by a neurosurgeon many years ago and offered surgery but has not seen one recently,. He expresses frustration as he reports not being able to play golf or walk his dog since this pain started. He had a lumbar spine xray which revealed severe multilevel degenerative changes but has not had a MRI for further evaluation. [facility] Medical History COVID-19 vaccine series completed HTN (hypertension) Migraine Prostate cancer TIA (transient ischemic attack) Surgical History History of esophagogastroduodenoscopy (EGD) Hx of cataract extraction H/O colonoscopy Hx of prostatectomy Status post total right knee replacement H/O lumbar discectomy History of bladder suspension procedure Hx of hernia repair Hx of bilateral hip replacements Family History Mother Arthritis Father Hypertension Sister Breast cancer Social History Household Members: Spouse Household Members Other:: , rides a bike 12-14 mile a day, [facility]: [facility] Do you presently have visiting nurse or other home services: No Alcohol intake: current Alcohol intake frequency: does not drink Patient Tobacco Use Status: Never used Tobacco e-Cigarette/Vaping Use: Never Used service: No Current occupational status: retired Cognitive needs: No Hearing needs: No Vision needs: Yes Review of Systems Const All systems reviewed & are unremarkable except as noted in HPI and below Physical Exam Vital Signs: Last Vital Signs Pulse 54 06/08/24 10:08 BP 146/66 H 06/08/24 10:08 Pulse Ox 98 06/08/24 10:08 Oxygen Delivery Method Room Air 06/08/24 10:08 BMI result Body Mass Index 27.1 General: Appears afebrile. No acute distress. Alert and oriented. Mood and affect appropriate. Follows and participates in conversation appropriately. Respiratory effort is unlabored. Able to transition from sit to stand unassisted. Ambulates with bilaterally normal heel strike and toe off, reports LLE weakness with pain. General: Yes no CVA tenderness Back/Spine/Pelvis Other: Limited lumbar ROM due to pain. Well healed midline back incision. Lumbar extension reproduces mild low axial back pain. Moderate pain with lumbar flexion or bending. Back: no CVA tenderness Cervical Spine: cervical ROM normal, No Cervical spine tenderness and No step off deformity Thoracic/Lumbar Spine: thoracic and lumbar spine normal to inspection, Thoracic/lumbar spine scar(s), Lasegue's sign positive on the left and localized, paraspinal muscle tenderness on the left, thoraco-lumbar ROM limited, No thoraco-lumbar spasm, No thoracic spinal tenderness, lumbar spinal tenderness (L4-S1) and straight leg raise positive left at 40 degrees (L5-S1 distribution) Pelvis: buttock tenderness on the left and sciatic notch tenderness on the left Sacroiliac joints: bilaterally tender to palpation Extrem General: Yes capillary refill normal, Yes no clubbing, cyanosis or edema and Yes no calf tenderness Results Reviewed Results Reviewed: XR LUMBOSACRAL SPINE WITH OBLIQUES 12/03/22 CLINICAL INFORMATION: Postlaminectomy syndrome. COMPARISON: Portions of the MRI lumbar spine dated 07/11/2021. FINDINGS: There is bony demineralization. There is a mild to moderate lumbar dextroscoliosis. There is mild disc space narrowing at L3-L4. At L4-L5, there is a 6 mm anterolisthesis. At L5-S1, there is mild disc space narrowing. No acute fracture or spondylolisthesis is seen. There is no significant instability with flexion or extension. There is multi-level thoracolumbar spondylosis and facet arthropathy. There are aortoiliac atherosclerotic calcifications. IMPRESSION: 1. There is moderate degenerative disc disease at L4-L5, and mild degenerative disease is seen at L3-L4 and L5-S1. 2. There is multi-level thoracolumbar spondylosis and facet arthropathy. 3. There is no significant instability with flexion or extension. MR LUMBAR SPINE WITHOUT CONTRAST 07/11/21 CLINICAL INFORMATION: Radiculopathy, lumbar region. FINDINGS: Lumbar vertebral bodies maintain normal height. There is mild grade 1 anterolisthesis of L4 on L5. No moderate or severe disc height loss is seen. In the lower thoracic spine there is partial fusion across the T11-T12 disc. An inferior endplate Schmorl's node with mild amount of edema is seen at L2. The distal spinal cord appears normal. The conus medullaris terminates normally at the L1 level. The extraspinal soft tissues are within normal limits. SPINAL LEVELS: L1-L2: No posterior disc abnormality. No spinal canal or neural foraminal stenosis. L2-L3: Mild disc bulging with mild facet arthropathy. No spinal canal stenosis. No significant neural foraminal stenosis. L3-L4: Disc bulging with central protrusion, ligamentum flavum infolding, and severe facet arthropathy results in severe spinal canal stenosis with thecal sac compression and compression of the traversing L4 nerve roots. Moderate to severe left neural foraminal stenosis with compression of the exiting left L3 nerve root. Mild to moderate right neural foraminal stenosis with mild compression of exiting right L3 nerve root. L4-L5: Disc bulging with ligamentum flavum infolding and severe facet arthropathy result in moderate spinal canal stenosis and compression of the bilateral traversing L5 nerve roots. Moderate left and mild right neural foraminal stenosis with mild compression of the exiting left L4 nerve root. L5-S1: Disc bulging with severe facet arthropathy. Left annular fissuring. No spinal canal or neural foraminal stenosis. IMPRESSION: At L3-L4 there are multifactorial degenerative changes resulting in severe spinal canal stenosis with thecal sac compression and compression of the traversing L4 nerve root. Moderate to severe left and [id number] right neural foraminal stenosis with compression of the exiting left more than right L3 nerve roots. At L4-L5 there is moderate spinal canal stenosis with compression of the traversing L5 nerve roots in mild compression of the exiting left L4 nerve root. Assessment & Plan Assessment & Plan (1) Left lumbar radiculopathy: Code(s): M54.16 - Radiculopathy, lumbar region Category: Medical (2) Stenosis, spinal, lumbar: Comment: Decompressive surgery, 08/2021 Code(s): M48.061 - Spinal stenosis, lumbar region without neurogenic claudication Category: Medical (3) Lumbar post-laminectomy syndrome: Code(s): M96.1 - Postlaminectomy syndrome, not elsewhere classified Category: Medical (4) Lumbar spondylosis: Code(s): M47.816 - Spondylosis without myelopathy or radiculopathy, lumbar region Category: Medical (5) Spondylolisthesis of lumbar region: Code(s): M43.16 - Spondylolisthesis, lumbar region Category: Medical Plan MRI of the lumbar spine to assess for neural integrity and compression to addr ess left sided radiculopathy and follow up on previous xray and MRI findings. Patient will return to the clinic to discuss results of the MRI findings when it is done and consider interventional therapy vs neurosurgical evaluation as indicated. Patient is aware to call if pain worsens or if he develops any red flag symptoms to seek emergency care. All questions and concerns have been answered and patient agreed with the treatment plan. Follow up for MRI results and sooner as needed. Orders: Orders MR lumbar spine wo/w con Today M43.16 - Spondylolisthesis, lumbar region, M47.816 - Spondylosis without myelopathy or radiculopathy, lumbar region, M48.061 - Spinal stenosis, lumbar region without neurogenic claudication, M54.16 - Radiculopathy, lumbar region, M96.1 - Postlaminectomy syndrome, not elsewhere classified Coding Level of Care Code Est Pt Level 4 (64900) Complex EM visit Add On G2211 Diagnoses Left lumbar radiculopathy M54.16 Stenosis, spinal, lumbar M48.061 Lumbar post-laminectomy syndrome M96.1 Lumbar spondylosis M47.816 Spondylolisthesis of lumbar region M43.16
[2024-06-08 10:08] VITALS: BP 146/66; PULSE 54; O2SAT 98; BMI 27.1
== END 2024-06-08 10:52 | disposition home or self-care (01) ==
PROVIDERS: PCP Internal Medicine; Visit Provider Nurse Practitioner Family
DX: M54.16 Radiculopathy, lumbar region (principal); M48.061 Spinal stenosis, lumbar region without neurogenic claudication; M96.1 Postlaminectomy syndrome, not elsewhere classified; M47.816 Spondylosis without myelopathy or radiculopathy, lumbar region; M43.16 Spondylolisthesis, lumbar region
CPT/HCPCS: 99214; G2211

== ENCOUNTER → 2024-06-08 10:03 | Outpatient (BNVA) | payer MEDICARE, OTHER, SELFPAY | PROVIDERS: PCP Internal Medicine; Visit Provider Nurse Practitioner Family | DX: M54.16 Radiculopathy, lumbar region (principal); M48.061 Spinal stenosis, lumbar region without neurogenic claudication; M96.1 Postlaminectomy syndrome, not elsewhere classified; M47.816 Spondylosis without myelopathy or radiculopathy, lumbar region; M43.16 Spondylolisthesis, lumbar region | CPT/HCPCS: 99212 ==

== ENCOUNTER → 2024-06-15 08:01 | Outpatient (REF) | payer MEDICARE, OTHER, SELFPAY ==
--- NOTE | 2024-06-15 08:03 | CA_ITS ---
Transthoracic Echocardiogram Patient (Last, First, Middle): Reeys Garner R Gender: Male Date of : 1940 Age: 83 Procedure Date: 06/15/2024 Procedure Type: Transthoracic Echocardiogram Location: OP Height: 185. cm Weight: 95.26 kg BSA: 2.19 m2 Heart Rate: 55 bpm BP: 130 / 60 mmHg R&D Engineer: GABBY Referring MD: Sujatha Triana MD Symptoms: R01.1 - Cardiac murmur, unspecified Study Quality: Fair ECG Rhythm: Bradycardia Conclusions: - The left ventricular systolic function is hyperdynamic. The visually estimated ejection fraction is >70%. - There is moderately increased left ventricular wall thickness. - There is moderate calcification of the aortic valve. There is no aortic valve stenosis. 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 Findings Left Ventricle Normal left ventricular cavity size. There is moderately increased left ventricular wall thickness. The left ventricular systolic function is hyperdynamic. The visually estimated ejection fraction is >70%. There is no evidence of regional wall motion abnormalities. Evidence suggests grade II (moderate) diastolic dysfunction. Right Ventricle Mildly increased right ventricular cavity size. There is normal right ventricular systolic function. Atria The left atrium is mildly dilated. The right atrium is normal in size. Aortic Valve There is moderate calcification of the aortic valve. There is no aortic valve stenosis. There is trace (trivial) aortic valve regurgitation. Mitral Valve The mitral valve appears normal. There is trace mitral valve regurgitation. There is no mitral valve stenosis. Pulmonic Valve The pulmonic valve is likely normal. Tricuspid Valve Normal tricuspid valve structure. There is mild tricuspid valve regurgitation. There is no evidence of pulmonary hypertension. Great Vessels The aortic annulus and aortic arch are normal in size. 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 Venous The inferior vena cava is normal in size and collapses greater than 50% with inspiration. Pericardium/Pleural There is no evidence of pericardial effusion. Prior Study Comparison Changes noted compared to prior study dated: 11/24/2017. Increase in ascending aortic size. Measurements 2D Linear Measurements IVSd: 1.53 0.6-0.9/0.6-1.0 cm LVIDd: 4.30 3.9-5.3/4.2-5.9 cm LVIDd Index: 1.96 2.4-3.2/2.2-3.1 cm/m2 LVIDs: 2.44 2.0-3.6 cm LVPWd: 1.41 0.7-1.1 cm LA Diam: 4.30 2.7-3.8/3.0-4.0 cm LAIDs Index: 1.96 1.5-2.3 cm/m2 LV Mass: 312.00 67-162/88-224 g LV Mass Index: 142.46 43-95/49-115 g/m2 LVOT Diam: 2.20 3.0+(-)1.3 cm 2D Systolic Function EF 4C: 80.70 >55% EF 2C: 72.80 >55% EF BiP: 76.90 >55% Mitral Valve MV VTI: 0.38 MV Pk Shreyas: 1.12 MV Mn Shreyas: 0.66 MV Pk Grad: 5.00 MV Mn Grad: 2.00 MV Pk E: 1.04 MV PK A: 0.70 MV Decel Time: 286.00 E/A: 1.50 E'Lateral: 7.18 E'Medial: 5.44 E/E' Med: 19.10 E/E' Lat: 14.50 PHT: 84.00 MVA PHT: 2.62 MVA Continuity: 3.42 Decel [place]: 3.65 Aortic Valve AoV Pk Shreyas: 2.44 AoV Mn Shreyas: 1.74 AoV VTI: 0.53 AoV Pk Grad: 24.00 Aov Mn Grad: 14.00 CHARLY Cont.VTI: 2.46 AI Pk Shreyas: 3.21 AI [place]: 1.32 LVOT LVOT Pk Shreyas: 1.44 LVOT Mn Shreyas: 0.97 LVOT VTI: 0.34 LVOT Pk Grad: 8.00 LVOT Mn Grad: 4.00 LVOT Diam: 2.20 LVOT Area: 3.80 Diastolic Function MV Pk E: 1.04 MV Pk A: 0.70 E/A: 1.50 E'Medial: 5.44 E/E' Med: 19.10 E' Laterial: 7.18 E/E' Lat: 14.50 Right Ventricle TAPSE (mm): 25.80 TVS' Shreyas: 15.10 Tricuspid Valve TR Pk Shreyas: 2.28 TR Pk Grad: 21.00 RA Press: 3.00 RVSP: 24.00 Great Vessels Aorta Sinus of Valsalva: 3.90 2.0-3.5 cm Ao Asc: 4.50 2.1-3.4 cm Ao Arch: 3.60 Pulmonary Valve PV Pk Shreyas: 1.48 Peak PV Grad: 9.00 Updated in Other Vendor System with Status of Final Jorge Salazar MD electronically signed on 06/15/2024 4:02:05 PM with status of Final
== END ==
LOC: HO.CARD 08:01
PROVIDERS: PCP Internal Medicine; Visit Provider Internal Medicine
DX: R01.1 Cardiac murmur, unspecified (principal); E78.5 Hyperlipidemia, unspecified; I10 Essential (primary) hypertension
CPT/HCPCS: 93306

== ENCOUNTER → 2024-06-15 08:03 | Outpatient (BNV) | payer MEDICARE, OTHER, SELFPAY | PROVIDERS: PCP Internal Medicine; Visit Provider Internal Medicine | DX: I36.1 Nonrheumatic tricuspid (valve) insufficiency (principal); I35.8 Other nonrheumatic aortic valve disorders | CPT/HCPCS: 93306 ==

== ENCOUNTER 2024-06-24 13:25 | Outpatient (AMB) | payer MEDICARE, OTHER, SELFPAY ==
[2024-06-24 13:28] VITALS: BP 122/66; PULSE 56; O2SAT 97; BMI 27.5
--- NOTE | 2024-06-24 13:28 | MHC.PC.OV ---
Vital Signs 06/24/24 13:28 Height 6 ft 2 in Weight 214 lb BMI 27.5 BP 122/66 Blood Pressure Location Lt brachial Position Sitting Pulse 56 Pulse Source Pulse Oximeter Pulse Oximetry (%) 97 Oxygen Delivery Method Room Air Intake Visit Reasons: Follow up Intake Note: Pt is here today for a follow up visit. Allergies codeine Allergy (Unknown, Verified 06/24/24 13:35) Nausea Medication List - Last Reconciled 06/24/24 by Sujatha Triana MD amlodipine 10 mg PO DAILY atorvastatin 10 mg PO DAILY latanoprost 0.005% drps ophthalmic (eye) olmesartan-hydrochlorothiazide 40-25 mg 1 tab PO DAILY omega 0-vgn-sja-fish oil 60-90-500 mg (Fish Oil) 1 cap PO DAILY omeprazole magnesium (Prilosec OTC) 20 mg PO DAILY simethicone (Gas Relief (simethicone)) 125 mg PO ONCE sumatriptan succinate 50 mg PO verapamil ER 240 mg PO DAILY Tobacco use date assessed: 06/24/24 Fall risk assessment: No Falls in past year Last assessed Fall Risk: 06/24/24 Dental Screening Dental Screen Date: 01/12/24 HPI Follow up HPI Details Patient presents for the follow-up on hypertension hyperlipidemia stable on current medications PFSH Medical History (Updated 06/24/24 @ 14:18 by Sujatha Triana MD) COVID-19 vaccine series completed HTN (hypertension) Migraine Prostate cancer TIA (transient ischemic attack) Surgical History History of esophagogastroduodenoscopy (EGD) Hx of cataract extraction H/O colonoscopy Hx of prostatectomy Status post total right knee replacement H/O lumbar discectomy History of bladder suspension procedure Hx of hernia repair Hx of bilateral hip replacements Family History Mother Arthritis Father Hypertension Sister Breast cancer Social History Household Members: Spouse Household Members Other:: , rides a bike 12-14 mile a day, Housing: Condominium Do you presently have visiting nurse or other home services: No Alcohol intake: current Alcohol intake frequency: does not drink Patient Tobacco Use Status: Never used Tobacco e-Cigarette/Vaping Use: Never Used service: No Current occupational status: retired Cognitive needs: No Hearing needs: No Vision needs: Yes Questionnaire PHQ-9 Over the last 2 weeks, how often have you been bothered by any of the following problems? 1. Little interest or pleasure in doing things: not at all 2. Feeling down, depressed, or hopeless: not at all 3. Trouble falling or staying asleep, or sleeping too much: not at all 4. Feeling tired or having little energy: not at all 5. Poor appetite or overeating: not at all 6. Feeling bad about yourself - or that you are a failure or have let yourself or your family down: not at all 7. Trouble concentrating on things, such as reading the newspaper or watching television: not at all 8. Moving or speaking so slowly that other people could have noticed. Or the opposite - being so fidgety or restless that you have been moving around a lot more than usual: not at all 9. Thoughts that you would be better off or of hurting yourself in some way: not at all Total score: 0 Depression Screening Interpretation: Negative Depression Screening Done: Yes 62537 - PHQ-9 Billing: Yes Source: Developed by Drs. Jacobo Rene, Annabelle Feirro, Luigi Fonseca and colleagues, with an educational lindsay from [employer]. Thrive Questionnaire I am a: Patient What is your living situation today?: I have a steady place to live Within the past 12 months, did the food you bought not last and you didn't have the money to get more?: Often true Within the past 12 months, did you worry whether your food would run out before you got money to buy more?: Never true Do you have trouble paying for medicines?: No Do you have trouble getting transportation to medical appointments?: No Do you have trouble paying your heating and electricity bill?: No Do you have trouble taking care of your child, family member or friend?: No Do you have trouble with day-to-day activities such as bathing, preparing meals, shopping, managing finances, etc.?: No Are you currently unemployed and looking for a job?: No Are you interested in more education?: No Please select the resources that you would like help with: None Currently or been in a relationship where the following occur: No concerns reported THRIVE Score: 1 AUDIT C Alcohol Use Questionnaire (AUDIT-C) 1. How often do you have a drink containing alcohol?: 2-4 times a month 2. How many drinks containing alcohol do you have on a typical day when you are drinking?: 1 or 2 3. How often do you have six or more drinks on one occasion?: Never Total Score: 2 AKASH-7 AMB Questionnaire AKASH-7 Feeling nervous, anxious, or on edge: 0 = Not at all Not being able to stop or control worryin = Not at all Worrying too much about different things: 0 = Not at all Trouble relaxin = Not at all Being so restless that it is hard to sit still: 0 = Not at all Becoming easily annoyed or irritable: 0 = Not at all Feeling afraid as if something awful might happen: 0 = Not at all Total AKASH-7 score (0-4 normal; 5-9 mild; 10-14 moderate; 15-21 severe): 0 Source: Developed by Drs. Jacobo Rene, Annabelle Fierro, Luigi Fonseca and colleagues, with an educational lindsay from [employer]. Review of Systems Const All systems reviewed & are unremarkable except as noted in HPI and below Eyes Reports no additional complaints Card Reports no additional complaints Resp Reports no additional complaints GI Reports no additional complaints Reports no additional complaints Physical exam (Primary Care) Vital Signs: Last Vital Signs Pulse 56 06/24/24 13:28 BP 122/66 06/24/24 13:28 Pulse Ox 97 06/24/24 13:28 Oxygen Delivery Method Room Air 06/24/24 13:28 BMI result Body Mass Index 27.5 Tobacco/Smoking Status: Tobacco use Status Tobacco use date assessed 06/24/24 06/24/24 13:36 Patient Tobacco Use Status Never used Tobacco 06/24/24 13:28 e-Cigarette/Vaping Use Never Used 06/24/24 13:28 PHQ-9: PHQ-9 Score PHQ-9: Total score 0 06/24/24 13:28 Depression Screening Interpretation: Negative Currently or been in a relationship where the following occur: No concerns reported Const General: no acute distress HENMT Head: Yes normal to inspection Mouth: Normal oral and palatal mucosa present Eyes General: appearance normal, both eyes and all related structures Neck Neck: Yes supple Resp Effort & Inspection: normal respiratory effort Auscultation: clear to auscultation bilaterally Cardio Rhythm: regular rhythm Heart sounds: S1 normal heart sound present and S2 normal heart sound present Coding Level of Care Code Est Pt Level 4 (76578) Diagnoses Hyperlipemia E78.5 HTN (hypertension) I10 Heart murmur R01.1 History of prostate cancer Z85.46 Assessment & Plan Assessment & Plan (1) Hyperlipemia: Code(s): E78.5 - Hyperlipidemia, unspecified Category: Medical Plan: Continue statin, return for fasting blood work (2) HTN (hypertension): Code(s): I10 - Essential (primary) hypertension Category: Medical Plan: Continue current medications (3) Heart murmur: Comment: Echo 06/2024 left ventricular systolic function hyperdynamic more than 70%, moderate increase left ventricle wall thickness, moderate aortic valve calcification no stenosis, moderate dilatation of ascending aorta at 4.5 cm Code(s): R01.1 - Cardiac murmur, unspecified Category: Medical Plan: Continue current medications (4) History of prostate cancer: Comment: Follow-up with urology Code(s): Z85.46 - Personal history of malignant neoplasm of prostate Category: Medical Plan: Follow-up with Urology Orders: Orders Lipid Panel 6 Months E78.5 - Hyperlipidemia, unspecified, I10 - Essential (primary) hypertension IRON PROFILE 6 Months E78.5 - Hyperlipidemia, unspecified, I10 - Essential (primary) hypertension Comprehensive [place]. Panel Fast 6 Months E78.5 - Hyperlipidemia, unspecified, I10 - Essential (primary) hypertension Complete Blood Count Auto Diff 6 Months E78.5 - Hyperlipidemia, unspecified, I10 - Essential (primary) hypertension Vitamin B12 and Folate 6 Months E78.5 - Hyperlipidemia, unspecified, I10 - Essential (primary) hypertension
== END 2024-06-24 14:20 | disposition home or self-care (01) ==
PROVIDERS: PCP Internal Medicine; Visit Provider Internal Medicine
DX: E78.5 Hyperlipidemia, unspecified (principal); I10 Essential (primary) hypertension; R01.1 Cardiac murmur, unspecified; Z85.46 Personal history of malignant neoplasm of prostate

== ENCOUNTER → 2024-06-24 13:25 | Outpatient (BNVA) | payer MEDICARE, OTHER, SELFPAY | PROVIDERS: PCP Internal Medicine; Visit Provider Internal Medicine ==

== ENCOUNTER 2024-06-24 14:03 | Outpatient (REF) | payer MEDICARE, OTHER, SELFPAY ==
[2024-06-24 17:11] LABS: Prostate Specific Antigen < 0.10 ng/mL (<0.05-4.0)
== END 2024-06-24 14:04 | disposition home or self-care (01) ==
LOC: HO.HMGCLDS 14:03
PROVIDERS: PCP Internal Medicine; Visit Provider Nurse Practitioner Family
DX: I10 Essential (primary) hypertension (principal); E78.5 Hyperlipidemia, unspecified; R01.1 Cardiac murmur, unspecified; Z85.46 Personal history of malignant neoplasm of prostate; Z79.899 Other long term (current) drug therapy; Z12.5 Encounter for screening for malignant neoplasm of prostate
CPT/HCPCS: 36415; 84153; 96127; 99212

== ENCOUNTER 2024-06-28 08:12 | Outpatient (AMB) | payer MEDICARE, OTHER, SELFPAY ==
--- NOTE | 2024-06-28 08:20 | A.OFFVIS_ITS ---
Intake Visit Reasons: 7m/PSA Intake Note: Patient presents today for follow up on: erectile dysfunction and history of prostate cancer PSA: <0.10 Urology Medications: Trimex injection Allergies to Antibiotic- No Known Allergies Blood Thinner- None Machine Shorthand Teacher Required: No Accompanied by: Self / Same As Patient Allergies codeine Allergy (Unknown, Verified 06/28/24 08:58) Nausea Medication List - Last Reconciled 06/28/24 by MIKE Rendon- amlodipine 10 mg PO DAILY atorvastatin 10 mg PO DAILY latanoprost 0.005% quintin ophthalmic (eye) olmesartan-hydrochlorothiazide 40-25 mg 1 tab PO DAILY omega 9-ctv-cro-fish oil 60-90-500 mg (Fish Oil) 1 cap PO DAILY omeprazole magnesium (Prilosec OTC) 20 mg PO DAILY simethicone (Gas Relief (simethicone)) 125 mg PO ONCE sumatriptan succinate 50 mg PO verapamil ER 240 mg PO DAILY HPI Comments Details: Reyes is a very pleasant 83-year-old male patient of Dr. Mcfarland. He has a past medical history of hypertension, migraines, prostate cancer s/p prostatectomy 2010, and TIAs. He presents to the office today for follow-up of his erectile dysfunction and history of prostate cancer. Recent PSA results reviewed with the patient today as noted and trended below. In discussion with the patient today he reports to be doing and feeling well. He reports no bothersome urinary issues since his last office visit here approximately 7 months ago. He does however discuss his frustration with compounding pharmacy r egarding his ED medication. He discusses spenidng half the year in [place] and upon requesting refill of his TriMix it was unable to be shipped there. He reports previously he had been using [facility] with previous urology group in the past and this was not an issue. He does continue with good response to TriMix injectable therapy however does discuss noting issues with maintaining erections when lying down in supine position. Discuss trial of penile ring to assist. Information provided. When asked he does report a longstanding history of urinary incontinence at which time he underwent a sling procedure with Dr. Boyd in the past and has had significant improvement in urinary incontinence however he does at times have urinary dribbling at times. However, he does not find this bothersome at this time. He discusses having trialed extensive pelvic floor therapy in the past with no improvement. In office urinalysis results reviewed with the patient today. He otherwise denies any bothersome issues or concerns at this time. PSAs: 06/23 <0.10, 06/24 <0.10 PFSH Medical History COVID-19 vaccine series completed HTN (hypertension) Migraine Prostate cancer TIA (transient ischemic attack) Surgical History History of esophagogastroduodenoscopy (EGD) Hx of cataract extraction H/O colonoscopy Hx of prostatectomy Status post total right knee replacement H/O lumbar discectomy History of bladder suspension procedure Hx of hernia repair Hx of bilateral hip replacements Family History Mother Arthritis Father Hypertension Sister Breast cancer Social History Household Members: Spouse Household Members Other:: , rides a bike 12-14 mile a day, Housing: Condominium Do you presently have visiting nurse or other home services: No Alcohol intake: current Alcohol intake frequency: does not drink Patient Tobacco Use Status: Never used Tobacco e-Cigarette/Vaping Use: Never Used service: No Current occupational status: retired Cognitive needs: No Hearing needs: No Vision needs: Yes Review of Systems Const Reports as per HPI Eyes Reports no additional complaints ENT Reports no additional complaints Card Reports as per HPI Resp Reports no additional complaints GI Reports no additional complaints Reports as per HPI Musc Reports no additional complaints Neuro Reports as per HPI Psych Reports no additional complaints Endo Reports no additional complaints Jairo/Lymph Reports no additional complaints Aller/Immun Reports no additional complaints Physical Exam Const General: cooperative, healthy appearing, comfortable, no acute distress, well developed, alert and awake Orientation/consciousness: patient oriented x3 Limitations: no limitations HEENT Head: Yes normal to inspection, Yes normocephalic and Yes atraumatic Ears: hearing grossly normal bilaterally Eyes General: appearance normal, both eyes and all related structures Neck Neck: Yes normal visual inspection and Yes trachea midline Chest Chest palpation & inspection: normal inspection of the chest Resp Effort & Inspection: normal respiratory effort and able to speak in complete sentences Cardio Rate: regular rate GI Inspection: Yes normal to inspection General: Yes no CVA tenderness Back/Spine/Pelvis Back: no CVA tenderness Skin General skin exam: no rashes or lesions noted Neuro General: patient oriented x3 Extrem General: Yes normal to inspection Psych Appearance: grossly normal and well kempt Mental Status: mental status grossly normal Speech and movement: Normal speech and movement present and Clear speech present Affect: normal affect Attitude: cooperative Thought process: Normal thought process present Thought content: Normal thought content present Insight: Fair insight present (Psych) Judgement: Fair judgement present (Psych) Results AMB Urinalysis, Automated UA Leukoctes 0 Bora/uL Last Edit by [facility] on 06/28/24 08:43 UA Nitrite Negative Last Edit by [facility] on 06/28/24 08:43 UA Urobilinogen 0.2 mg/dL Last Edit by [facility] on 06/28/24 08:43 UA Protein 15 mg/dL Last Edit by [facility] on 06/28/24 08:43 UA pH 6.0 Last Edit by [facility] on 06/28/24 08:43 UA Blood 0 Kaiden/uL Last Edit by [facility] on 06/28/24 08:43 UA Specific [place] 1.020 Last Edit by [facility] on 06/28/24 08:43 UA Ketone Negative Last Edit by [facility] on 06/28/24 08:43 UA Bilirubin 0 mg/dL Last Edit by [facility] on 06/28/24 08:43 UA Glucose 0 mg/dL Last Edit by [facility] on 06/28/24 08:43 Results Reviewed Results Reviewed: Laboratory Last Values Urine pH (Auto) 6.0 06/28/24 08:41 Specific [place] (Auto) 1.020 06/28/24 08:41 Urine Protein (Auto) 15 mg/dL 06/28/24 08:41 Glucose (UA)(Auto) 0 mg/dL 06/28/24 08:41 Urine Ketones (Auto) Negative 06/28/24 08:41 Urine Blood (Auto) 0 Kaiden/uL 06/28/24 08:41 Urine Nitrite (Auto) Negative 06/28/24 08:41 Urine Bilirubin (Auto) 0 mg/dL 06/28/24 08:41 Urine Urobilinogen (Auto) 0.2 mg/dL 06/28/24 08:41 Leukocyte Esterase (Auto) 0 Bora/uL 06/28/24 08:41 Assessment & Plan Assessment & Plan (1) History of prostate cancer: Comment: Follow-up with urology Code(s): Z85.46 - Personal history of malignant neoplasm of prostate Category: Medical (2) Erectile dysfunction: Code(s): N52.9 - Male erectile dysfunction, unspecified Category: Medical (3) Urinary incontinence: Code(s): R32 - Unspecified urinary incontinence Category: Medical Plan In office urinalysis results reviewed with the patient today; as noted above. Continue TriMix therapy; will attempt to send prescription to [facility] per patient request. Recent PSA results reviewed with the patient today; as noted above. Information provided regarding penile rings/penile pumps. Discussed at length lifestyle modifications to assist with erectile dysfunction Patient denies any bothersome urinary issues or concerns at this time. Will obtain PSA in 1 year Follow-up in 1 year with PSA to be completed prior; or sooner with any issues, concerns, and or questions. Orders: Orders AMB Urinalysis Automated Today Z13.9 - Encounter for screening, unspecified Prostate Specific Antigen 1 Year Z85.46 - Personal history of malignant neoplasm of prostate Coding Level of Care Code Est Pt Level 3 (12768) Complex EM visit Add On G2211 Diagnoses History of prostate cancer Z85.46 Erectile dysfunction N52.9 Urinary incontinence R32
== END 2024-06-28 08:58 | disposition home or self-care (01) ==
PROVIDERS: PCP Internal Medicine; Visit Provider Nurse Practitioner Family
DX: Z85.46 Personal history of malignant neoplasm of prostate (principal); N52.9 Male erectile dysfunction, unspecified; R32 Unspecified urinary incontinence; Z13.9 Encounter for screening, unspecified
CPT/HCPCS: 99213; G2211

== ENCOUNTER → 2024-06-28 08:12 | Outpatient (BNVA) | payer MEDICARE, OTHER, SELFPAY | PROVIDERS: PCP Internal Medicine; Visit Provider Nurse Practitioner Family | DX: N52.9 Male erectile dysfunction, unspecified (principal); R32 Unspecified urinary incontinence; Z85.46 Personal history of malignant neoplasm of prostate | CPT/HCPCS: 81003; 99212 ==

== ENCOUNTER 2024-06-29 08:16 | Outpatient (REF) | payer MEDICARE, OTHER, SELFPAY ==
--- NOTE | ~2024-06-29 | MR_ITS ---
EXAMINATION: MR LUMBAR SPINE WITHOUT AND WITH CONTRAST CLINICAL INFORMATION: Spinal stenosis, lumbar region without neurogenic claudication COMPARISON: MRI lumbar spine on 07/11/2021 TECHNIQUE: MRI of the lumbar spine was obtained using routine sequences with and without contrast. Intravenous contrast: Gadavist 10 mL FINDINGS: Mild dextrocurvature of the lumbar spine. Preservation of the normal lumbar lordosis. Grade 1 anterolisthesis at L4-5. Diffusely heterogeneous bone marrow signal is likely degenerative. The vertebral body heights are preserved. Multilevel disc desiccation and disc height loss, worsening severe at L2-3. Multilevel endplate osteophytosis. Subacute Schmorl's node at L2 inferior endplate. The visualized spinal cord is normal in caliber. No abnormal cord signal or enhancement. The conus medullaris terminates at L1. T12-L1: No significant spinal canal or neural foraminal narrowing. L1-2: Bilateral facet arthrosis. No significant spinal canal and neural foraminal narrowing. L2-3: Diffuse disc bulge and bilateral facet arthrosis. No significant spinal canal or neural foraminal narrowing. L3-4: Suggestion of left hemilaminectomy. Diffuse disc bulge and bilateral facet arthrosis. Patchy edema and enhancement surrounding the left greater than right facet joints, likely reactive. Mild to moderate spinal canal stenosis, improved from prior. Severe left and moderate right neural foraminal narrowing, progressed on the left with impingement of the left exiting L3 nerve roots. The disc also abuts the exiting nerve roots on the right. L4-5: Suggestion of left hemilaminectomy. Diffuse disc bulge, bilateral facet arthrosis, and ligamentum flavum hypertrophy. No significant residual spinal canal stenosis. Moderate to severe left and mild right neural foraminal narrowing with the disc abutting the exiting L4 nerve roots bilaterally, unchanged. L5-S1: Shallow disc bulge and bilateral facet arthrosis. No significant spinal canal or neural foraminal narrowing. The paravertebral soft tissues are unremarkable. Left renal cyst. MR/MR lumbar spine wo/w con IMPRESSION: 1. Multilevel lumbar spondylosis as described above, most notable at L3-L4 where there is improved, now mild to moderate spinal canal stenosis. Severe left and moderate right neural foraminal narrowing at this level with impingement of the left exiting L3 nerve roots, progressed on the left. 2. At L4-L5, there is unchanged moderate to severe left and mild right neural foraminal narrowing with the disc abutting the exiting L4 nerve roots bilaterally. No significant residual spinal canal stenosis at this level. Electronically signed by: Tracie Barnes MD 06/29/2024 02:35 PM EDT RP
[2024-06-29] MEDS: gadobutroL 10 ML VIAL IVPUSH (08:53)
== END 2024-06-29 08:17 | disposition home or self-care (01) ==
LOC: HO.MRI 08:16
PROVIDERS: PCP Internal Medicine; Visit Provider Nurse Practitioner Family
DX: M48.061 Spinal stenosis, lumbar region without neurogenic claudication (principal); M47.816 Spondylosis without myelopathy or radiculopathy, lumbar region; M96.1 Postlaminectomy syndrome, not elsewhere classified; M54.16 Radiculopathy, lumbar region; M43.16 Spondylolisthesis, lumbar region
CPT/HCPCS: 72158; A9585

== ENCOUNTER 2024-06-30 07:47 | Outpatient (REF) | payer MEDICARE, OTHER, SELFPAY ==
[2024-06-30 10:04] LABS: MANUAL DIFF FLAG NO
[2024-06-30 10:08] LABS: Basophils Absolute Auto 0.1 X10*3/uL (0.0-0.2); Eosinophils Absolute Auto 0.3 X10*3/uL (0.0-0.4); Eosinophils Percent Auto 5.3 % (0-4); Hemoglobin 13.4 g/dl (14.0-18.0); Imm Gran Abs Auto 0.02 X10*3/uL (0.00-0.03); Imm Gran Pct Auto 0.3 % (0.0-0.4); Lymphocytes Absolute Auto 1.4 X10*3/uL (1.2-4.9); Lymphocytes Percent Auto 23.6 % (20-40); Mean Corpuscular HGB Conc 33.5 g/dl (31.0-36.0); Mean Corpuscular Hemoglobin 30.9 pg (27.0-33.0); Mean Corpuscular Volume 92.4 fL (80.0-98.0); Mean Platelet Volume 10.4 fL (9.4-12.4); Monocytes Absolute Auto 0.7 X10*3/uL (0.1-1.2); Monocytes Percent Auto 10.8 % (2-11); Neutrophils Absolute Auto 3.6 x10*3/uL (2.0-8.3); Platelet Count 188 X10*3/uL (160-400); Red Blood Count 4.33 X10*6/uL (4.60-5.80); Red Cell Distribution Width 11.9 % (11.0-16.0)
[2024-06-30 10:39] LABS: Alanine Aminotransferase 35 U/L (0-40); Albumin Level 4.1 g/dL (3.5-5.0); Alkaline Phosphatase 69 U/L (39-117); Anion Gap 13 (12-20); Aspartate Amino Transferase 34 U/L (5-37); Bilirubin Total 0.3 mg/dL (0.0-1.0); Blood Urea Nitrogen 27 mg/dL (9-16); Calcium 9.1 mg/dL (8.4-10.2); Carbon Dioxide 28 mmol/L (22-29); Chloride 104 mmol/L (96-108); Cholesterol 153 mg/dL (<200); Estimated Glomerular Filt Rate 50; Glucose Fasting 104 mg/dL (60-99); HDL Cholesterol 49 mg/dL (>40); LDL Cholesterol Calculated 89 mg/dL (<100); Potassium 3.8 mmol/L (3.3-5.1); Sodium 141 mmol/L (135-145); Total Protein 7.2 g/dL (6.5-8.0); Triglycerides 79 mg/dL (<150)
== END 2024-06-30 07:48 | disposition home or self-care (01) ==
LOC: HO.HMGCLDS 07:47
PROVIDERS: PCP Internal Medicine; Visit Provider Internal Medicine
DX: E78.5 Hyperlipidemia, unspecified (principal); I10 Essential (primary) hypertension; G43.909 Migraine, unspecified, not intractable, without status migrainosus
CPT/HCPCS: 36415; 80053; 80061; 85025

== ENCOUNTER 2024-07-08 08:47 | Outpatient (AMB) | payer MEDICARE, OTHER, SELFPAY ==
--- NOTE | 2024-07-08 08:49 | A.OFFVIS_ITS ---
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 Denies any recent cough, cold, infection, fever, or any other significant changes in her medical history, medications or recent hospitalizations. PRIOR: Patient presents today for follow up for acute on chronic low back pain with left radiculopathy. He was last seen in our office in November 2022. Patient re ports one week ago he developed significant left sided low back pain with radiation into his left buttock and left calf with numbness, tingling, weakness and imbalance. He reports saddle anesthesia on the left but no bladder or bowel dysfunction. Patient reports he spent summer in [place] and has been doing 10 miles biking. He denies any exertion, trauma, injury or falls. Patient was managing his symptoms with lidocaine patches, Tylenol, heat and occasional NSAID for past one week with partial relief in his symptoms. Patient denies any abdominal or groin pain. He reports stable hardware s/p previous bilateral hip replacements and right TKA with no acute findings per his Orthopedic surgeon at [facility] over a year ago. Denies any recent cough, cold, infection, fever, or any other significant changes in her medical history, medications or recent hospitalizations. PRIOR 12/24/22: Patient presents today to review lumbar spine results. He reports his back pain is minimal and rates it today at 2/10. He continues to stay active and has been doing a lot of bicycle riding. However, he reports intermittent episodes of left sided sciatica pain last week which was relieved with activity modification, rest, heat therapy and lidocaine patches. 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 Denies any fever, abdominal or groin pain, radicular pain, weakness, bladder or bowel incontinence or saddle anesthesia. Lumbar spine xray is noted for mild to moderate lumbar dextroscoliosis. Moderate degenerative disc disease at L4-L5, and mild degenerative disease is seen at L3- L4 and L5-S1. There is multi-level thoracolumbar spondylosis and facet arthropathy. There is no significant instability with flexion or extension. There are aortoiliac atherosclerotic calcifications. Patient reports his main pain generators are joint pain in his hands and right shoulder. He presents with full range of motion of right shoulder and mild tenderness over anterior and posterior aspect of right shoulder. Patient reports his initial evaluation by [facility] Rheumatology provider is not until this March and would appreciate an earlier appointment. PRIOR: Patient is a very pleasant 82 years old male presents today for follow up for chronic back pain. Patient was last seen by Amanda MCKEON on 07/25/21 for lumbar spine MRI results review and was referred to neurosurgery. He underwent lumbar decompression left L3-L4 and L4-L5 on 08/13/[address] Meyer and has had nearly complete relief from his left leg pain. Patient reports his lower back restarted about 4 weeks ago and he made a follow up visit with our office. He notes that his back pain has been better with rest, heat therapy, Tylenol and Ibuprofen treatments. Patient denies any inciting events. He also reports left knee pain and has been followed by [facility] for this. Denies any recent trauma, injury or falls. 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 Patient denies any fever, chills, abdominal or groin pain, weakness, numbness or tingling, bladder or bowel incontinence or saddle anesthesia. Patient also reports left hand 2nd and 3rd digits with swollen joint pain and throbbing, worse at night. He is interested for referral to Rheumatology provider for further evaluation for his chronic hand pain. PRIOR 06/29/21 Amanda MKCEON: PRIOR: Reyes is a pleasant 80 year old male who presents to the office with complaints of low back pain. He states he has had longstanding low back pain but has been noticeably worse since January. His pain is mostly left sided and radiates down the left leg with associated numbness and tingling as well as burning and pinching. He states that most of the pain radiates posteriorly. He also notes that his left foot tends to slap the ground as he is walking, but denies any overt weakness. He denies any saddle anesthesia or bowel/bladder dysfunction. His pain is exacerbated by standing and walking and moderately alleviated by rest and laying down. He has been using tylenol and ibuprofen as well as topicals but only offers some relief. His PCP recently started him on gabapentin 100 mg TID. Unfortunately, he had an increase in headaches and attributed it to the gabapentin. Since then, he his headaches have persisted and he has a history of migraines, so is willing to retry to gabapentin. He has attended physical therapy in the past and has been doing HEP which he states have exacerbated his pain. He has also had chiropractic manipulation, acupuncture with minimal relief. He has had what sounds like epidural steroid injections in the past but can not recall if they were helpful. He was evaluated by a neurosurgeon many years ago and offered corrales rgery but has not seen one recently,. He expresses frustration as he reports not being able to play golf or walk his dog since this pain started. He had a lumbar spine xray which revealed severe multilevel degenerative changes but has not had a MRI for further evaluation. [facility] Medical History COVID-19 vaccine series completed HTN (hypertension) Migraine Prostate cancer TIA (transient ischemic attack) Surgical History History of esophagogastroduodenoscopy (EGD) Hx of cataract extraction H/O colonoscopy Hx of prostatectomy Status post total right knee replacement H/O lumbar discectomy History of bladder suspension procedure Hx of hernia repair Hx of bilateral hip replacements Family History Mother Arthritis Father Hypertension Sister Breast cancer Social History Household Members: Spouse Household Members Other:: , rides a bike 12-14 mile a day, Housing: Condominium Do you presently have visiting nurse or other home services: No Alcohol intake: current Alcohol intake frequency: does not drink Patient Tobacco Use Status: Never used Tobacco e-Cigarette/Vaping Use: Never Used service: No Current occupational status: retired Cognitive needs: No Hearing needs: No Vision needs: Yes Review of Systems Const All systems reviewed & are unremarkable except as noted in HPI and below Physical Exam Vital Signs: Last Vital Signs Pulse 56 07/08/24 08:51 BP 132/60 07/08/24 08:51 Pulse Ox 97 07/08/24 08:51 Oxygen Delivery Method Room Air 07/08/24 08:51 BMI result Body Mass Index 27.6 General: Appears afebrile. No acute distress. Alert and oriented. Mood and affect appropriate. Follows and participates in conversation appropriately. Respiratory effort is unlabored. Able to transition from sit to stand unassisted. Ambulates with bilaterally normal heel strike and toe off, reports LLE weakness with pain. General: Yes no CVA tenderness Back/Spine/Pelvis Other: Limited lumbar ROM due to pain. Well healed midline back incision. Lumbar extension reproduces mild low axial back pain. Mild pain with lumbar flexion or bending. Reports hamstring stretching with SLR testing. Back: no CVA tenderness Cervical Spine: cervical ROM normal, cervical muscular tenderness, No Cervical spine tenderness and No step off deformity Thoracic/Lumbar Spine: thoracic and lumbar spine normal to inspection, Thoracic/lumbar spine scar(s), Lasegue's sign negative, straight leg raise negative bilaterally, paraspinal muscle tenderness on the left, thoraco-lumbar ROM limited, No thoraco-lumbar spasm, No thoracic spinal tenderness and lumbar spinal tenderness (L4-S1) Pelvis: buttock tenderness on the left and sciatic notch tenderness on the left Sacroiliac joints: bilaterally nontender Extrem General: Yes capillary refill normal, Yes no clubbing, cyanosis or edema and Yes no calf tenderness Results Reviewed Results Reviewed: MR LUMBAR SPINE WITHOUT AND WITH CONTRAST 06/29/24 CLINICAL INFORMATION: Spinal stenosis, lumbar region without neurogenic claudication COMPARISON: MRI lumbar spine on 07/11/2021 TECHNIQUE: MRI of the lumbar spine was obtained using routine sequences with and without contrast. Intravenous contrast: Gadavist 10 mL FINDINGS: Mild dextrocurvature of the lumbar spine. Preservation of the normal lumbar lordosis. Grade 1 anterolisthesis at L4-5. Diffusely heterogeneous bone marrow signal is likely degenerative. The vertebral body heights are preserved. Multilevel disc desiccation and disc height loss, worsening severe at L2-3. Multilevel endplate osteophytosis. Subacute Schmorl's node at L2 inferior endplate. The visualized spinal cord is normal in caliber. No abnormal cord signal or enhancement. The conus medullaris terminates at L1. T12-L1: No significant spinal canal or neural foraminal narrowing. L1-2: Bilateral facet arthrosis. No significant spinal canal and neural foraminal narrowing. L2-3: Diffuse disc bulge and bilateral facet arthrosis. No significant spinal canal or neural foraminal narrowing. L3-4: Suggestion of left hemilaminectomy. Diffuse disc bulge and bilateral facet arthrosis. Patchy edema and enhancement surrounding the left greater than right facet joints, likely reactive. Mild to moderate spinal canal stenosis, improved from prior. Severe left and moderate right neural foraminal narrowing, progressed on the left with impingement of the left exiting L3 nerve roots. The disc also abuts the exiting nerve roots on the right. L4-5: Suggestion of left hemilaminectomy. Diffuse disc bulge, bilateral facet arthrosis, and ligamentum flavum hypertrophy. No significant residual spinal canal stenosis. Moderate to severe left and mild right neural foraminal narrowing with the disc abutting the exiting L4 nerve roots bilaterally, unchanged. L5-S1: Shallow disc bulge and bilateral facet arthrosis. No significant spinal canal or neural foraminal narrowing. The paravertebral soft tissues are unremarkable. Left renal cyst. IMPRESSION: 1. Multilevel lumbar spondylosis as described above, most notable at L3-L4 where there is improved, now mild to moderate spinal canal stenosis. Severe left and moderate right neural foraminal narrowing at this level with impingement of the left exiting L3 nerve roots, progressed on the left. 2. At L4-L5, there is unchanged moderate to severe left and mild right neural foraminal narrowing with the disc abutting the exiting L4 nerve roots bilaterally. No significant residual spinal canal stenosis at this level. Assessment & Plan Assessment & Plan (1) Left lumbar radiculopathy: Code(s): M54.16 - Radiculopathy, lumbar region Category: Medical (2) Stenosis, spinal, lumbar: Comment: Decompressive surgery, 08/2021 Code(s): M48.061 - Spinal stenosis, lumbar region without neurogenic claudication Category: Medical (3) Lumbar post-laminectomy syndrome: Code(s): M96.1 - Postlaminectomy syndrome, not elsewhere classified Category: Medical (4) Lumbar spondylosis: Code(s): M47.816 - Spondylosis without myelopathy or radiculopathy, lumbar region Category: Medical (5) Spondylolisthesis of lumbar region: Code(s): M43.16 - Spondylolisthesis, lumbar region Category: Medical Plan MRI of the lumbar spine imaging results were reviewed with patient today. His back pain has been minimal for the past 2 weeks. He continues to bike 10-15 miles daily and occasionally 30-40 miles. His back pain and stenosis related symptoms on the left side are mostly flare up with heavy lifting or pulling. 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 Patient is highly recommended to avoid heavy lifting, pulling or twisting. Denies any red flags today. Patient is aware to call if pain worsens or if he develops any red flag symptoms to seek emergency care. All questions and concerns have been answered and patient agreed with the treatment plan. Follow up as needed. Coding Level of Care Code Est Pt Level 3 (54212) Complex EM visit Add On G2211 Diagnoses Left lumbar radiculopathy M54.16 Stenosis, spinal, lumbar M48.061 Lumbar post-laminectomy syndrome M96.1 Lumbar spondylosis M47.816 Spondylolisthesis of lumbar region M43.16
[2024-07-08 08:51] VITALS: BP 132/60; PULSE 56; O2SAT 97; BMI 27.6
== END 2024-07-08 09:12 | disposition home or self-care (01) ==
LOC: HO.PMC 08:48
PROVIDERS: PCP Internal Medicine; Visit Provider Nurse Practitioner Family
DX: M54.16 Radiculopathy, lumbar region (principal); M48.061 Spinal stenosis, lumbar region without neurogenic claudication; M96.1 Postlaminectomy syndrome, not elsewhere classified; M47.816 Spondylosis without myelopathy or radiculopathy, lumbar region; M43.16 Spondylolisthesis, lumbar region
CPT/HCPCS: 99213; G2211

== ENCOUNTER → 2024-07-08 08:47 | Outpatient (BNVA) | payer MEDICARE, OTHER, SELFPAY | PROVIDERS: PCP Internal Medicine; Visit Provider Nurse Practitioner Family | DX: M54.16 Radiculopathy, lumbar region (principal); M48.061 Spinal stenosis, lumbar region without neurogenic claudication; M47.816 Spondylosis without myelopathy or radiculopathy, lumbar region; M43.16 Spondylolisthesis, lumbar region; M96.1 Postlaminectomy syndrome, not elsewhere classified | CPT/HCPCS: 99212 ==

== ENCOUNTER 2024-08-10 08:50 | Outpatient (AMB) | payer MEDICARE, OTHER, SELFPAY ==
--- NOTE | 2024-08-10 09:31 | MHC.OFFWIV ---
Intake Vital Signs 08/10/24 09:35 Weight 217 lb BP 136/82 Blood Pressure Location Rt brachial Position Sitting Pulse 64 Pulse Source Pulse Oximeter Temp 97.4 F Temp Source Oral Pulse Oximetry (%) 97 Oxygen Delivery Method Room Air Intake Visit Reasons: EP Cough, congestion, fever Intake Note: Patient here fort cough,fever and congestion that has been present for over 1 week. Patient Tobacco Use Status: Never used Tobacco Allergies codeine Allergy (Unknown, Verified 08/10/24 09:35) Nausea Do you need a note to return to daycare/school/sports/work: No HPI HPI Comments History of Present Illness Details History The patient is an 83-year-old male presenting with a sore throat and increased episodes of sleep apnea. He reports experiencing a sore throat for the past week, accompanied by episodes of significant coughing. The patient denies any shortness of breath or wheezing while awake. He has undergone testing for COVID-19 on three separate occasions, each yielding negative results. The patient mentions that his voice has been absent for the last five days. Last night, he experienced 15 instances of apnea with his sleep apnea machine, which deviates from his usual patterns. The patient reported low-grade fever last night, although his temperature has been mostly normal until then. He denies any history of asthma, chronic obstructive pulmonary disease, head congestion, sinus pain, ear pain, nausea, vomiting, or diarrhea. Of note, there have been no other illnesses reported within the household except that his had COVID-19 a few weeks prior, from which he was spared. He has a history of having contracted COVID-19 once in the past. His hearing is noted to be impaired, necessitating the use of hearing aids. The patient has been managing his symptoms with Tylenol and frequent use of cough drops; however, no other medications or treatments have been tried so far. Physical Exam General: Cooperative, healthy appearing, comfortable and no acute distress Orientation/consciousness: Patient oriented x3 Limitations: No limitations Head: Normal to inspection Ears: Hearing grossly normal bilaterally, external ears normal and TM's normal bilaterally, cerumen present bilaterally Nose: Normal external nose present, Normal nares present and No nasal discharge present Face and sinus: Normal facial exam and Yes sinuses nontender Mouth: Normal oral and palatal mucosa present and moist mucous membranes Throat: Yes tonsils normal, Yes uvula midline. Posterior oropharynx erythema Eyes: Appearance normal, both eyes and all related structures Neck: Normal visual inspection Respiratory: Clear but slightly dim to auscultation bilaterally. Normal respiratory effort, able to speak in complete sentences, no respiratory distress, not tachypneic, no tripod positioning and no use of accessory muscles Cardiovascular: Regular rate and rhythm. Normal S1 and S2 Skin: No rashes or lesions noted Neuro: Patient oriented x3 Extremities: Normal to inspection and Yes no clubbing, cyanosis or edema PFSH Medical History COVID-19 vaccine series completed HTN (hypertension) Migraine Prostate cancer TIA (transient ischemic attack) Surgical History History of esophagogastroduodenoscopy (EGD) Hx of cataract extraction H/O colonoscopy Hx of prostatectomy Status post total right knee replacement H/O lumbar discectomy History of bladder suspension procedure Hx of hernia repair Hx of bilateral hip replacements Family History Mother Arthritis Father Hypertension Sister Breast cancer Social History Household Members: Spouse Household Members Other:: , rides a bike 12-14 mile a day, [facility] Do you presently have visiting nurse or other home services: No Alcohol intake: current Alcohol intake frequency: does not drink Patient Tobacco Use Status: Never used Tobacco e-Cigarette/Vaping Use: Never Used service: No Current occupational status: retired Cognitive needs: No Hearing needs: No Vision needs: Yes Review of Systems Const All systems reviewed & are unremarkable except as noted in HPI and below Physical Exam Vital Signs: Last Vital Signs Temp 97.4 F 08/10/24 09:35 Pulse 64 08/10/24 09:35 BP 136/82 08/10/24 09:35 Pulse Ox 97 08/10/24 09:35 Oxygen Delivery Method Room Air 08/10/24 09:35 Assessment & Plan Assessment & Plan (1) URI (upper respiratory infection): Code(s): J06.9 - Acute upper respiratory infection, unspecified Qualifiers: URI type: unspecified URI Qualified Code(s): J06.9 - Acute upper respiratory infection, unspecified Plan: Plan - A viral panel test was performed to rule out Influenza, Covid, and Respiratory Syncytial Virus RSV due to the symptoms and age of the patient. - A chest x-ray is ordered to evaluate for potential pneumonia, particularly considering the significant number of apnea episodes reported. - Start azithromycin to combat potential bacterial pathogens and reduce lung inflammation, potentially improving apnea episodes. - Encourage the patient to use decongestants like Mucinex for symptomatic management of cough. - If pneumonia is confirmed on x-ray, a second antibiotic will be considered to ensure comprehensive treatment. Patient was informed and verbally consented to the use of an ambient scribe for clinic note documentation during this visit Orders: Orders XR chest 2V Today R05.9 - Cough, unspecified SARS-CoV2/FLU/RSV Today J06.9 - Acute upper respiratory infection, unspecified Medications: New azithromycin For 250 mg dose pack: take 500 mg today (day 1), then 250 mg for 4 days (days 2-5) PO 6 tabs 0RF Coding Level of Care Code Est Pt Level 4 (91789) Diagnoses Upper respiratory tract infection, unspecified type J06.9 URI type: unspecified URI
[2024-08-10 09:35] VITALS: BP 136/82; PULSE 64; TEMP 36.3; O2SAT 97
== END 2024-08-10 11:09 | disposition home or self-care (01) ==
PROVIDERS: PCP Internal Medicine; Visit Provider Physician Assistant
DX: J06.9 Acute upper respiratory infection, unspecified (principal)

== ENCOUNTER 2024-08-10 08:50 | Outpatient (REF) | payer MEDICARE, OTHER, SELFPAY ==
[2024-08-10 16:22] LABS: Influenza A PCR NEGATIVE (Negative); Influenza B PCR NEGATIVE (Negative); Resp Syncy Virus RNA Qual PCR NEGATIVE (Negative); SARS COV2 PCR INHOUSE NEGATIVE (Negative)
== END 2024-08-10 08:51 | disposition home or self-care (01) ==
LOC: HO.LNP 08:50
PROVIDERS: Physician Assistant; PCP Internal Medicine; Visit Provider Internal Medicine
DX: Z13.89 Encounter for screening for other disorder (principal)
CPT/HCPCS: 0241U; 99212

== ENCOUNTER 2024-08-10 09:57 | Outpatient (REF) | payer MEDICARE, OTHER, SELFPAY ==
--- NOTE | ~2024-08-10 | XR_ITS ---
EXAMINATION: XR CHEST CLINICAL INFORMATION: Cough. COMPARISON: CTA chest dated 11/23/2017. TECHNIQUE: 2 views of the chest were obtained. FINDINGS: Faint, patchy retrocardiac opacity, which could represent atelectasis versus a very early infiltrate. No pleural effusion or pneumothorax. Stable cardiomediastinal silhouette. XR/XR chest 2V IMPRESSION: Faint, patchy retrocardiac opacity, which could represent atelectasis versus a very early infiltrate. Electronically signed by: Asif Castillo MD 08/10/2024 02:17 PM [facility]
== END 2024-08-10 09:58 | disposition home or self-care (01) ==
LOC: HO.HMGCX 09:57
PROVIDERS: PCP Internal Medicine; Visit Provider Physician Assistant
DX: J06.9 Acute upper respiratory infection, unspecified (principal); R05.9 Cough, unspecified
CPT/HCPCS: 0241U; 71046; 99212

== ENCOUNTER 2024-08-14 09:48 | Outpatient (AMB) | payer MEDICARE, OTHER, SELFPAY ==
[2024-08-14 09:48] VITALS: BP 122/64; PULSE 68; TEMP 36.5; O2SAT 97; BMI 27.9
--- NOTE | 2024-08-14 09:48 | AM.OFFWIN_ITS ---
Intake Vital Signs 08/14/24 09:48 Height 6 ft 2 in Weight 217 lb BMI 27.9 BP 122/64 Blood Pressure Location Lt brachial Position Sitting Pulse 68 Pulse Source Pulse Oximeter Temp 97.7 F Temp Source Temporal Artery Scan Pulse Oximetry (%) 97 Intake Visit Reasons: EP vision off/feeling off balance Patient Tobacco Use Status: Never used Tobacco Allergies codeine Allergy (Unknown, Verified 08/14/24 09:48) Nausea Do you need a note to return to daycare/school/sports/work: No HPI HPI Comments History of Present Illness Details Patient is an 83yo M who presents with with dizziness Unbalanced with difficulty walking Difficulty focusing as well He said not immediately upon waking but shortly after; can not give exact time. Denies room spinning, vertigo symptoms (which he has had in the past) No similar symptoms to this in past No HT or LOC No blood thinners He denies double vision No confusion but slight be slower than usual when responding per He Denies unilateral weakness or nausea/vomiting No CP or SOB PFSH Medical History COVID-19 vaccine series completed HTN (hypertension) Migraine Prostate cancer TIA (transient ischemic attack) Surgical History History of esophagogastroduodenoscopy (EGD) Hx of cataract extraction H/O colonoscopy Hx of prostatectomy Status post total right knee replacement H/O lumbar discectomy History of bladder suspension procedure Hx of hernia repair Hx of bilateral hip replacements Family History Mother Arthritis Father Hypertension Sister Breast cancer Social History Household Members: Spouse Household Members Other:: , rides a bike 12-14 mile a day, Housing: Condominium Do you presently have visiting nurse or other home services: No Alcohol intake: current Alcohol intake frequency: does not drink Patient Tobacco Use Status: Never used Tobacco e-Cigarette/Vaping Use: Never Used service: No Current occupational status: retired Cognitive needs: No Hearing needs: No Vision needs: Yes Review of Systems Const Denies body aches, Denies chills, Denies fatigue, Denies fever(s), Reports frequent falls and Denies headache(s) Eyes Reports blurry vision, Denies diplopia and Denies loss of vision ENT Reports dizziness, Denies ear discharge, Denies headache(s), Reports nasal congestion and Denies sinus pain Card Denies chest pain and Denies syncope Resp Reports cough (current tx with antibiotics for infection) GI Denies abdominal pain, Denies nausea and Denies vomiting Musc Denies numbness Neuro Denies confusion, Reports dizziness, Denies syncope, Reports frequent falls, Denies headache(s), Denies loss of vision and Denies numbness Psych Denies confusion Endo Denies fatigue Physical Exam Vital Signs: Last Vital Signs Temp 97.7 F 08/14/24 09:48 Pulse 68 08/14/24 09:48 BP 122/64 08/14/24 09:48 Pulse Ox 97 08/14/24 09:48 BMI result Body Mass Index 27.9 General: Non-toxic, NAD. Speaking full sentences. Skin: Warm dry throughout Eye: EOMI HENT: Airway patent. Uvula midline. No pharyngeal erythema or edema. No INSPECTOR CONVEYOR LINE. Bilateral canals clear. TM non-erythematous, non-bulging. No TM perforation or hemotympanum noted. Respiratory: CTA bilaterally. No wheezes, rales or rhonchi Cardiac: RRR. No murmur MSK: Sitting upright in chair Neurology: A/O. CN 2-12 grossly intact. Negative pronator drift. + finger to nose tracing bilaterally. Pt abulating across room with shortened gait and slight instability. No falls. No aphasia or facial droop. Psych: Good mood and affect Const General: No confusion Orientation/consciousness: No confusion Neuro General: No confusion Assessment & Plan Assessment & Plan (1) Dizziness: Code(s): R42 - Dizziness and giddiness Plan: Pt seen and evaluated Discussed with pt and that he needs to go to ER for head scan and cerebrlla CVA work up He is aware and expect called to [facility] and I spoke with attending there Refused ambulance and will bring. Coding Level of Care Code Est Pt Level 5 (69360) Diagnoses Dizziness R42
== END 2024-08-14 12:07 | disposition home or self-care (01) ==
PROVIDERS: PCP Internal Medicine; Visit Provider Physician Assistant
DX: R42 Dizziness and giddiness (principal)

== ENCOUNTER 2024-08-14 10:28 | Observation (INO) | payer MEDICARE, OTHER, SELFPAY ==
[2024-08-14] VITALS (10 sets, daily range): BP systolic 115–135; BP diastolic 56–69; PULSE 57–67; RESP 15–20; TEMP 36.6–37.1; O2SAT 96–98; BMI 20.3
--- NOTE | ~2024-08-14 | MR_ITS ---
EXAMINATION: MR BRAIN WITHOUT CONTRAST COMPARISON: CTA head and neck on 08/14/2024, brain MRI on 06/06/2020. INDICATION: Ataxia and dizziness TECHNIQUE: - Multiplanar multisequence imaging of the brain was performed without the administration of intravenous contrast. - A routine protocol was utilized. FINDINGS: There is mild-moderate periventricular and subcortical white matter hyperintensity most likely representing microangiopathic disease. There is no focus of reduced diffusivity or abnormal susceptibility artifact within the brain parenchyma. The midline structures including the corpus callosum, cerebellar vermis, and pituitary gland are normal in appearance. There is no acute intracranial hemorrhage, acute ischemic changes, mass, mass effect, or extra-axial fluid collection. There is no midline shift or hydrocephalus. The basal subarachnoid cisterns and cerebral sulci are not effaced. The major intracranial flow voids are present, and grossly unremarkable. MR/MR head/brain wo con IMPRESSION: No acute intracranial abnormality. Electronically signed by: Edna Evans MD 08/14/2024 04:50 PM EST
--- NOTE | ~2024-08-14 | XR_ITS ---
EXAMINATION: XR CHEST CLINICAL INFORMATION: weakness cough COMPARISON: CXR on 06/10/24 TECHNIQUE: Frontal view of the chest was obtained. FINDINGS: No significant abnormality is noted involving the heart, lungs, mediastinum, bony thorax or soft tissues. XR/XR chest 1V IMPRESSION: Unremarkable examination. Electronically signed by: Edna Evans MD 08/14/2024 11:40 AM [facility]
--- NOTE | ~2024-08-14 | CT_ITS ---
EXAMINATION: CTA NECK WITH CONTRAST (STROKE) CTA BRAIN WITH CONTRAST (STROKE) CLINICAL INFORMATION: Suspect acute stroke. Assess for major vessel occlusion. COMPARISON: None available. TECHNIQUE: CTA of the head and neck was performed after the administration of intravenous contrast according to the departmental protocol. MIP 3D angiographic rendering was then performed at the scanner. Evaluation for stenosis of the carotid arteries was made based on NASCET criteria, with evaluation of any areas of focal narrowing relative to the distal vessel (using minimal luminal diameter). Measurement of the distal internal carotid artery diameter was used as the denominator for stenosis measurement. Contrast was administered given the patient's clinical history. 70mL Omnipaque [address] exams at this location are performed using dose optimization techniques as appropriate to a performed exam including at least one of the following: * Automated exposure control * Adjustment of the mA and/or kV according to patient size (this includes techniques or standardized protocols for targeted exams where dose is matched to indication / reason for exam; i/e/ extremities or head) * Use of iterative reconstructive technique DLP: 1723 mGy-cm COMPARISON: None FINDINGS: CTA Head: Atherosclerotic calcified plaque is noted involving the supraclinoid portions of the internal carotid arteries, without significant stenosis. The anterior and middle cerebral arteries are patent with normal contrast enhancement and branching pattern. There is a normal anterior communicating artery complex. The vertebral and basilar arteries demonstrate normal enhancement without stenosis or occlusion. The posterior cerebral arteries have a normal caliber and branching pattern. The posterior communicating arteries are visualized. There is no evidence of stenosis, occlusion, aneurysm or arteriovenous malformation. CTA Neck: The visualized aortic arch and origins of the major vessels are unremarkable. Mild atheromatous plaque is noted at the right carotid bulb, without significant stenosis by NASCET criteria. The right common, internal and external carotid arteries are normal in appearance. There is no evidence of a significant stenosis by NASCET criteria or a dissection. Mild atheromatous plaque is noted at the left carotid bulb, without significant stenosis by NASCET criteria. The left common, internal and external carotid arteries are normal in appearance. There is no evidence of a significant stenosis by NASCET criteria or a dissection. The cervical portions of the vertebral arteries demonstrate normal enhancement. There is no evidence of a significant stenosis or a dissection. The visualized soft tissues are unremarkable. A hypodense nodule is noted within the left lobe of the thyroid gland. Pleural-parenchymal scarring at the apices. Mild degenerative disease of the cervical spine. CT/CT angio head neck STROKE IMPRESSION: 1. No large vessel occlusions or acute abnormality. 2. 1.0 cm right thyroid nodule. Consider nonemergent thyroid ultrasound if warranted. Electronically signed by: Edna Evans MD 08/14/2024 11:39 AM [facility]
--- NOTE | ~2024-08-14 | CT_ITS ---
EXAMINATION: CT HEAD WITHOUT CONTRAST (STROKE PROTOCOL) CLINICAL INFORMATION: Stroke protocol. Ataxia and headache. COMPARISON: MRI brain 06/06/2020 TECHNIQUE: Contiguous axial imaging was performed from the skull base to vertex without intravenous administration of contrast. This CT examination was performed using dose optimization techniques as appropriate, variously including the following: *Automated exposure control *Adjustment of mA and/or kV according to patient size (this includes techniques or standardized protocols for targeted exams where dose is matched to indication/reason for exam; i.e. extremities or head) *Use of iterative reconstruction technique DLP: 869 mGy-cm FINDINGS: There is no acute intra-axial, extra-axial bleed, masses or midline shift. There is no acute infarction evolution. There is no edema. The horvath to white matter differentiation is maintained normal. The lateral ventricles are symmetrical in size and configuration without enlargement. Bone windows reveal no calvarial abnormality. There is minimal mucoperiosteal thickening bilateral frontal, ethmoid and right maxillary sinuses. There is a large 1 cm calcified lesion likely osteoma or sinolith left posterior ethmoid sinus. CT/CT head for STROKE IMPRESSION: No acute intracranial process seen This critical result was discussed with Dr. Silvestre currently at 11:14 am on 08/14/2024. It was ascertained that the content and urgency of the report was understood at the time of direct communication. Electronically signed by: Mnia Gotti MD 08/14/2024 11:17 AM [facility]
--- NOTE | 2024-08-14 10:49 | ECG_ITS ---
Test Reason : dizziness Blood Pressure : / mmHG Vent. Rate : 067 BPM Atrial Rate : 067 BPM P-R Int : 242 ms QRS Dur : 094 ms QT Int : 340 ms P-R-T Axes : 054 005 077 degrees QTc Int : 359 ms Sinus rhythm with 1st degree A-V block Otherwise normal ECG When compared with ECG of 11-SEP-2020 09:23, QT has shortened Referred By: Madiha Soria Electronically Signed By:CARLOS JONES MD
--- NOTE | 2024-08-14 11:05 | ED_ITS ---
HPI - Neuro Symptoms/Deficit General Chief Complaint: Stroke Stated Complaint: dizziness, off balanced Time Seen by Provider: 08/14/24 10:48 Source: patient, family and old records reviewed Mode of arrival: ambulatory Limitations: no limitations History of Present Illness ED Provider: CHARLA HPI Narrative: 83 yo male not on thinners, recent pneumonia on amoxicillin day 4 - last dose tomorrow, HTN, HLD, arthritis, migraine, prostate cancer s/p prostatectomy here with c/o waking up at 7am and felt fine no issues went to bathroom then drank coffee. Around 8am started to feel different with frontal headache and then when walking felt like he was having a hard time and swaying. He denies any recent trauma. He went to urgent care and they referred him here. He has no CP/SOB, GI bleed symptoms, he has no ringing in the ear. No vision changes. Onset (ago): hour(s) (8am) Time: 08:00 Last Observed Normal: 08:00 Timing confirmed by: family member Location: ataxia History of same: No Severity: mild Quality: constant Relieving factors: rest Exacerbating factors: other (walking) Context: sudden onset On Anticoagulants: No Associated symptoms: headaches Treatments Prior to Arrival: none Related Data Home Medications ?Medication ?Instructions ?Recorded ?Confirmed omega 9-quo-hcc-fish oil 60 mg-90 1 cap PO DAILY 12/31/22 06/24/24 mg-500 mg capsule (Fish Oil) omeprazole magnesium 20 mg 20 mg PO DAILY 10/03/23 06/24/24 tablet,delayed release (Prilosec OTC) latanoprost 0.005 % eye drops drp ophthalmic (eye) 12/18/23 06/24/24 sumatriptan succinate 50 mg tablet 50 mg PO 12/18/23 06/24/24 brimonidine 0.2 % eye drops drp ophthalmic (eye) 07/08/24 meloxicam 7.5 mg tablet 7.5 mg PO DAILY 07/08/24 Previous Rx's ?Medication ?Instructions ?Recorded simethicone 125 mg capsule (Gas 125 mg PO ONCE abdominal 11/04/23 Relief (simethicone)) distention #4 caps amlodipine 10 mg tablet 10 mg PO DAILY #90 tabs 01/12/24 atorvastatin 10 mg tablet 10 mg PO DAILY #90 tabs 01/12/24 olmesartan 40 1 tab PO DAILY #90 tabs 01/12/24 mg-hydrochlorothiazide 25 mg tablet verapamil 240 mg 24 hr 240 mg PO DAILY #90 caps 06/16/24 capsule,extended release amoxicillin 875 mg-potassium 1 tab PO Q12H #10 tabs 08/11/24 clavulanate 125 mg tablet Allergies Allergy/AdvReac Type Severity Reaction Status Date / Time codeine Allergy Unknown Nausea Verified 08/14/24 10:47 Review of Systems 2 Review of Systems: Constitutional : No Fever, No Chills, No Fatigue ENT/Mouth : No sore throat, No Rhinorrhea Eyes: No Eye Pain, No Swelling, No Redness Cardiovascular : No Chest Pain, No SOB, No Dyspnea on Exertion Respiratory : No Cough, No Sputum Gastrointestinal : No Nausea, No Vomiting, No Diarrhea, No abdominal Pain Genitourinary : No Dysuria, No Urinary Frequency, No Hematuria, Musculoskeletal : No joint pain, No Myalgias, No Joint Swelling Skin : No Skin Lesions, No rash Neuro : No Weakness, No Numbness, No Dizziness, positive Headache Psych : No Anxiety/Panic, No Depression All other systems reviewed and are negative [facility] Past Medical History Attestation statement: The following information was validated with the patient. Source: old records reviewed Medical History COVID-19 vaccine series completed HTN (hypertension) Migraine Prostate cancer TIA (transient ischemic attack) Surgical History History of esophagogastroduodenoscopy (EGD) Hx of cataract extraction H/O colonoscopy Hx of prostatectomy Status post total right knee replacement H/O lumbar discectomy History of bladder suspension procedure Hx of hernia repair Hx of bilateral hip replacements Family History Family History Mother Arthritis Father Hypertension Sister Breast cancer Social History Social History Household Members: Spouse Household Members Other:: , rides a bike 12-14 mile a day, Housing: Condominium Do you presently have visiting nurse or other home services: No Alcohol intake: current Alcohol intake frequency: does not drink Patient Tobacco Use Status: Never used Tobacco Smoked in Last 30 Days: No e-Cigarette/Vaping Use: Never Used Use of substances other than those prescribed or required for medical reasons: No Advance Directives: Yes Advance Directives Information Provided: No Advance Directives on File: No service: No Current occupational status: retired Cognitive needs: No Hearing needs: No Vision needs: Yes Physical Exam 2 Vital Signs: Vital Signs: Last Vital Signs Temp 97.8 F 08/14/24 15:47 Pulse 58 08/14/24 15:47 Resp 16 08/14/24 15:47 BP 128/61 08/14/24 15:47 Pulse Ox 98 08/14/24 15:47 O2 Del Method Room Air 08/14/24 15:47 BMI result Body Mass Index 20.3 Appearance: Alert. Oriented X3. No acute distress. Eyes: Pupils equal, round and reactive to light. no nystagmus ENT: Pharynx normal. TMs normal Neck: Normal inspection. Neck supple. CVS: Normal heart rate and rhythm. Pulses normal. Respiratory: No respiratory distress. Breath sounds normal. Abdomen: Soft and nontender. Skin: Skin warm and dry. Normal skin color. Normal skin turgor. Extremities: No lower extremity edema. No calf ttp Neuro: Oriented X 3. No motor deficit. No sensory deficit. CN2-12 intact, no drift, he has neg rhomberg, I did watch him walk and ?possible unsteadiness but no wavering ataxia, heel to felder testing worse when standing on R leg Course Course Course Narrative: call to Neurology 1116am for stroke work up given low score and really he has almost no swaying on my exam and was able to perform heel to felder testing in both legs with min instability on the right plan to hold TNK for now and get MRI and patient aware and agreeable with plan Reevaluation(s) Reevaluation #1: now notes he has had headaches for years and sometimes bouts of feeling off but never to this extremia. Reevaluation #2: lactic acidosis likely due to dehydration and not infection or severe sepsis Reevaluation #3: called radiology multiple times and they note they have no one able to read MRI but are trying to get someone Additional Reevaluation(s): repeated calls to radiology about MRI still they cannot tell us when it will be read patient is asymptomatic has steady gait to bathroom I did discuss with Manish who was able to view some of the MRI via images sent by me to his tiger and at this time he would recommend aspirin and admission until this can be sorted out patient aware and hesitant to stay he and his are discussing it 355pm Medications Administered Discontinued Medications Generic Name Dose Route Start Last Admin Trade Name Julio C PRN Reason Stop Dose Admin Acetaminophen 650 mg 08/14/24 16:01 08/14/24 16:05 Acetaminophen 325 Mg Tablet PO 08/14/24 16:02 650 mg ONCE ONE Administration Aspirin 81 mg 08/14/24 15:49 08/14/24 16:03 Aspirin 81 Mg Tab.Chew PO 08/14/24 15:50 81 mg ONCE ONE Administration Sodium Chloride 500 mls @ 500 mls/hr 08/14/24 13:18 08/14/24 15:02 Ns IV 08/14/24 14:17 Infused .Q1H ONE Infusion Medical Decision Making Medical Decision Making [facility] Narrative: 83 yo male not on thinners, recent pneumonia on amoxicillin day 4 - last dose tomorrow, HTN, HLD, arthritis, migraine, prostate cancer s/p prostatectomy now here with difficulty walking starting 8am. He is presenting 3 hours after onset at this time his NIH score is very low and not debilitating he walked well but did lean with heel to felder at this time given the low score and non debilitating symptoms would not admin TNK - I ordered stroke protocol on arrival he denies risk factors for bleeding or concerns if we gave TNK. If dry CT scan negative I highly doubt LVO based off symptoms will discuss with neuro and send to MRI. Will discuss TNK with neuro as well Differential Diagnosis Differential Diagnoses: The differential diagnosis associated with the presentation includes related to recent pneumonia - lyte derangement, anemia posterior stroke - MRI ordered given his gait is very minimally involved Admission/Observation Consideration of admission/observation: Escalation of care including admission/observation considered patient agrees to stay as recommended by Neurology aspirin ordered Consult Healthcare Provider Management of the patient was discussed with: [employer] Dr. Hammond regarding care and lack of MRI reads for the night Lab Data [facility] Lab Attestation statement: I reviewed the patient's lab results. 08/14/24 10:49 08/14/24 10:49 Labs: Lab Results 08/14/24 08/14/24 08/14/24 Range/Units 10:49 11:05 11:27 WBC 4.4 L (4.8-10.8) X10*3/uL RBC 4.42 L (4.60-5.80) X10*6/uL Hgb 13.3 L (14.0-18.0) g/dl Hct 39.5 L (42.0-52.0) % MCV 89.4 (80.0-98.0) fL MCH 30.1 (27.0-33.0) pg MCHC 33.7 (31.0-36.0) g/dl RDW 12.1 (11.0-16.0) % Plt Count 176 (160-400) X10*3/uL MPV 9.9 (9.4-12.4) fL Immature Gran % (Auto) 0.2 (0.0-0.4) % Neut % (Auto) 66.1 (45-73) % Lymph % (Auto) 18.0 L (20-40) % [place] % (Auto) 13.2 H (2-11) % Eos % (Auto) 1.8 (0-4) % Baso % (Auto) 0.7 (0-2) % Lymph # (Auto) 0.8 L (1.2-4.9) X10*3/uL [place] # (Auto) 0.6 (0.1-1.2) X10*3/uL Eos # (Auto) 0.1 (0.0-0.4) X10*3/uL Baso # (Auto) 0.0 (0.0-0.2) X10*3/uL Abs Immat Gran (auto) 0.01 (0.00-0.03) X10*3/uL Absolute Neuts (auto) 2.9 (2.0-8.3) x10*3/uL Absolute Nucleated RBC 0.000 (0.0-0.012) X10*3/uL Nucleated RBC % (auto) 0.0 (0.0-0.2) /100WBC PT 11.4 (10.9-12.4) SEC Whole Blood PT 12.3 (11.1-13.5) sec INR 1.0 (0.9-1.1) Whole Blood INR 1.0 (0.9-1.1) APTT 31.0 (26.0-36.8) SEC Hold Blue Top SEE NOTE Sodium 138 (135-145) mmol/L Potassium 3.8 (3.3-5.1) mmol/L Chloride 99 (96-108) mmol/L Carbon Dioxide 28 (22-29) mmol/L Anion Gap 15 (12-20) BUN 25 H (9-16) mg/dL Creatinine 1.28 (0.5-1.4) mg/dL Estim Creat Clear Calc 45.8 Estimated GFR 54 POC Glucose 125 H (60-115) mg/dL Random Glucose 116 H (60-115) mg/dL Lactic Acid 2.3 H* (0.5-2.0) mmol/L Lactic Acid F/U @ 2Hr (0.5-2.0) mmol/L Calcium 9.5 (8.4-10.2) mg/dL Magnesium 2.4 (1.6-2.6) mg/dL Total Bilirubin 0.4 (0.0-1.0) mg/dL Direct Bilirubin 0.1 (0.0-0.5) mg/dL AST 34 (5-37) U/L ALT 40 (0-40) U/L Alkaline Phosphatase 75 (39-117) U/L Troponin I High Sens 14.4 (<3.5-35.0) ng/L B-Natriuretic Peptide 40 (<100) pg/mL Total Protein 7.7 (6.5-8.0) g/dL Albumin 4.3 (3.5-5.0) g/dL Urine Color Urine Appearance Urine pH (5.0-9.0) Ur Specific [place] (1.005-1.025) Urine Protein (Neg-Trace) mg/dL Urine Glucose (UA) (Negative) mg/dL Urine Ketones (Negative) mg/dL Urine Blood (Negative) Urine Nitrite (Negative) Ur Leukocyte Esterase (Negative) Influenza Type A (PCR) (Negative) Influenza Type B (PCR) (Negative) RSV RNA Qual (PCR) (Negative) SARS-CoV-2 RNA (RT-PCR) (Negative) 08/14/24 08/14/24 Range/Units 13:43 15:35 WBC (4.8-10.8) X10*3/uL RBC (4.60-5.80) X10*6/uL Hgb (14.0-18.0) g/dl Hct (42.0-52.0) % MCV (80.0-98.0) fL MCH (27.0-33.0) pg MCHC (31.0-36.0) g/dl RDW (11.0-16.0) % Plt Count (160-400) X10*3/uL MPV (9.4-12.4) fL Immature Gran % (Auto) (0.0-0.4) % Neut % (Auto) (45-73) % Lymph % (Auto) (20-40) % [place] % (Auto) (2-11) % Eos % (Auto) (0-4) % Baso % (Auto) (0-2) % Lymph # (Auto) (1.2-4.9) X10*3/uL [place] # (Auto) (0.1-1.2) X10*3/uL Eos # (Auto) (0.0-0.4) X10*3/uL Baso # (Auto) (0.0-0.2) X10*3/uL Abs Immat Gran (auto) (0.00-0.03) X10*3/uL Absolute Neuts (auto) (2.0-8.3) x10*3/uL Absolute Nucleated RBC (0.0-0.012) X10*3/uL Nucleated RBC % (auto) (0.0-0.2) /100WBC PT (10.9-12.4) SEC Whole Blood PT (11.1-13.5) sec INR (0.9-1.1) Whole Blood INR (0.9-1.1) APTT (26.0-36.8) SEC Hold Blue Top Sodium (135-145) mmol/L Potassium (3.3-5.1) mmol/L Chloride (96-108) mmol/L Carbon Dioxide (22-29) mmol/L Anion Gap (12-20) BUN (9-16) mg/dL Creatinine (0.5-1.4) mg/dL Estim Creat Clear Calc Estimated GFR POC Glucose (60-115) mg/dL Random Glucose (60-115) mg/dL Lactic Acid (0.5-2.0) mmol/L Lactic Acid F/U @ 2Hr 1.2 (0.5-2.0) mmol/L Calcium (8.4-10.2) mg/dL Magnesium (1.6-2.6) mg/dL Total Bilirubin (0.0-1.0) mg/dL Direct Bilirubin (0.0-0.5) mg/dL AST (5-37) U/L ALT (0-40) U/L Alkaline Phosphatase (39-117) U/L Troponin I High Sens (<3.5-35.0) ng/L B-Natriuretic Peptide (<100) pg/mL Total Protein (6.5-8.0) g/dL Albumin (3.5-5.0) g/dL Urine Color Yellow Urine Appearance Clear Urine pH 7.5 (5.0-9.0) Ur Specific [place] 1.025 (1.005-1.025) Urine Protein Negative (Neg-Trace) mg/dL Urine Glucose (UA) Negative (Negative) mg/dL Urine Ketones Negative (Negative) mg/dL Urine Blood Negative (Negative) Urine Nitrite Negative (Negative) Ur Leukocyte Esterase Negative (Negative) Influenza Type A (PCR) NEGATIVE (Negative) Influenza Type B (PCR) NEGATIVE (Negative) RSV RNA Qual (PCR) NEGATIVE (Negative) SARS-CoV-2 RNA (RT-PCR) NEGATIVE (Negative) Independent Interpretation I performed an independent interpretation of an: EKG, Plain X-Ray and CT Scan Interpretation: Rate: 67 Rhythm: NSR with 1st degree AVB [place]: left Normal P waves. Normal MONA. Normal QRS complex. ST T wave : flat t waves V1, no GREGORY qTC: 359 prior studies: no acute ischemia The study has been interpreted contemporaneously by me. . Radiology Impression Discussion of test interpretation with radiology: I discussed test interpretation with the radiologist and I have reviewed the radiologist's reading. Radiologist Impression: 1114am call from Radiology non con no ICH CTA negative Independent Historian Clinical information obtained from an independent historian. History obtained from or confirmed by: Spouse External Record Review External record reviewed: Outpatient record NIH Stroke Scale Internal: Initial- Upon Arrival Level of Consciousness: Alert Level of Consciousness Questions: Answers both questions correctly Level of Consciousness Commands: Performs both tasks correctly Best Gaze: Normal Visual: No visual loss Facial Palsy: Normal Motor Arm (Right): No drift Motor Arm (Left): No drift Motor Leg (Right): No drift Motor Leg (Left): No drift Limb Ataxia: Present in one limb Sensory: Normal Best Language: No aphasia Dysarthia: Normal Extinction and Inattention: No abnormality Score: 1 Discharge Plan Discharge Clinical Impression: Gait disturbance Patient Disposition: Admitted As Inpatient Additional Instructions: CT/CT angio head neck STROKE IMPRESSION: 1. No large vessel occlusions or acute abnormality. 2. 1.0 cm right thyroid nodule. Consider nonemergent thyroid ultrasound if warranted Prescriptions: No Action simethicone [Gas Relief (simethicone)] 125 mg capsule 125 mg PO ONCE Qty: 4 0RF Rx Instructions: take 2 at noon the day before colonoscopy and last 2 pills once you finish drinking second half of prep verapamil 240 mg capsule,ext rel. pellets 24 hr 240 mg PO DAILY Qty: 90 3RF amoxicillin-pot clavulanate 875-125 mg tablet 1 tab PO Q12H Qty: 10 0RF omeprazole magnesium [Prilosec OTC] 20 mg tablet,delayed release (DR/EC) 20 mg PO DAILY Rx Instructions: every other day amlodipine 10 mg tablet 10 mg PO DAILY Qty: 90 3RF atorvastatin 10 mg tablet 10 mg PO DAILY Qty: 90 3RF olmesartan-hydrochlorothiazide 40-25 mg tablet 1 tab PO DAILY Qty: 90 3RF meloxicam 7.5 mg tablet 7.5 mg PO DAILY brimonidine 0.2 % drops ophthalmic (eye) omega 9-kpl-plc-fish oil [Fish Oil] 60-90-500 mg capsule 1 cap PO DAILY sumatriptan succinate 50 mg tablet 50 mg PO latanoprost 0.005 % drops ophthalmic (eye) Print Language: Occitan
[2024-08-14 11:32] LABS: Prothrombin Time Whole Bld POC 12.3 sec (11.1-13.5)
[2024-08-14 11:33] LABS: Glucose, Whole Blood 125 mg/dL (60-115)
[2024-08-14 11:34] LABS: Prothrombin Time 11.4 SEC (10.9-12.4)
--- NOTE | 2024-08-14 11:40 | MHC.EDTECH ---
delay on EKG and PT INR Test as well as glucose do to patient being in CT nurse aware
--- NOTE | 2024-08-14 12:37 | MHC.EDTECH ---
EKG Was done at 11:24
[2024-08-14 12:38] LABS: Basophils Percent Auto 0.7 % (0-2); Eosinophils Absolute Auto 0.1 X10*3/uL (0.0-0.4); Eosinophils Percent Auto 1.8 % (0-4); Hematocrit 39.5 % (42.0-52.0); Hemoglobin 13.3 g/dl (14.0-18.0); Imm Gran Abs Auto 0.01 X10*3/uL (0.00-0.03); Imm Gran Pct Auto 0.2 % (0.0-0.4); Lymphocytes Absolute Auto 0.8 X10*3/uL (1.2-4.9); MANUAL DIFF FLAG NO; Mean Corpuscular HGB Conc 33.7 g/dl (31.0-36.0); Mean Corpuscular Hemoglobin 30.1 pg (27.0-33.0); Mean Corpuscular Volume 89.4 fL (80.0-98.0); Mean Platelet Volume 9.9 fL (9.4-12.4); Monocytes Absolute Auto 0.6 X10*3/uL (0.1-1.2); Monocytes Percent Auto 13.2 % (2-11); Neutrophils Absolute Auto 2.9 x10*3/uL (2.0-8.3); Neutrophils Percent Auto 66.1 % (45-73); Platelet Count 176 X10*3/uL (160-400); Red Blood Count 4.42 X10*6/uL (4.60-5.80); Red Cell Distribution Width 12.1 % (11.0-16.0); White Blood Count 4.4 X10*3/uL (4.8-10.8)
[2024-08-14 13:01] LABS: B Type Natriuretic Peptide 40 pg/mL (<100)
[2024-08-14 13:12] LABS: Alanine Aminotransferase 40 U/L (0-40); Albumin Level 4.3 g/dL (3.5-5.0); Alkaline Phosphatase 75 U/L (39-117); Anion Gap 15 (12-20); Aspartate Amino Transferase 34 U/L (5-37); Bilirubin Direct 0.1 mg/dL (0.0-0.5); Bilirubin Total 0.4 mg/dL (0.0-1.0); Blood Urea Nitrogen 25 mg/dL (9-16); Calcium 9.5 mg/dL (8.4-10.2); Carbon Dioxide 28 mmol/L (22-29); Chloride 99 mmol/L (96-108); Creatinine Clr Calc Pharmacy 45.8; Estimated Glomerular Filt Rate 54; Glucose Random 116 mg/dL (60-115); Magnesium 2.4 mg/dL (1.6-2.6); Potassium 3.8 mmol/L (3.3-5.1); Sodium 138 mmol/L (135-145); Total Protein 7.7 g/dL (6.5-8.0)
--- NOTE | 2024-08-14 13:14 | MHC.EDTECH ---
was told my nurse all labs were drawn orders are still showing
[2024-08-14 13:15] LABS: Lactic Acid 2.3 mmol/L (0.5-2.0)
[2024-08-14 13:18] LABS: Troponin-I High Sensitivity 14.4 ng/L (<3.5-35.0)
[2024-08-14] MEDS: 0.9 % Sodium Chloride 500 ML IV (13:26)
[2024-08-14 13:51] LABS: Appearance Urine Clear; Color Urine Yellow; Glucose Urine UA Negative (Negative); Leukocyte Esterase Urine Negative (Negative); Nitrite Urine Negative (Negative); PH 7.5 (5.0-9.0); Specific Gravity - Urine 1.025 (1.005-1.025); Urine Blood Negative (Negative); Urine Ketones Negative (Negative); Urine Protein Negative (Neg-Trace)
[2024-08-14 14:30] LABS: Influenza A PCR NEGATIVE (Negative); Influenza B PCR NEGATIVE (Negative); Resp Syncy Virus RNA Qual PCR NEGATIVE (Negative); SARS COV2 PCR INHOUSE NEGATIVE (Negative)
--- NOTE | 2024-08-14 14:33 | MHC.EDTECH ---
PT INR was done on patient at 11:28 am INR 1.0 PT was 12.3 machine used was [id number] nurse aware
[2024-08-14 14:59] LABS: Reflex Lactate? Lactic Acid Added
[2024-08-14 15:56] LABS: ~Lactic Acid-LAB USE ONLY 1.2 mmol/L (0.5-2.0)
[2024-08-14] MEDS: Aspirin 81 MG TAB.CHEW PO (16:03)
[2024-08-14] MEDS: Acetaminophen 325 MG TABLET 650 MG PO (16:05)
--- NOTE | 2024-08-14 17:06 | P.HPHOSP_ITS ---
History of Present Illness Date of Service: 08/14/24 Attending physician on admission: Ame Warner Chief Complaint: tia vs cva 83 y/o M recent pneumonia on amoxicillin day 4 - last dose tomorrow, HTN, HLD, arthritis, migraine, prostate cancer s/p prostatectomy came with c/o waking up at 7am and felt fine no issues went to bathroom then drank coffee. Around 8am started to feel different with having ataxia , as per ed note also had headaches.workp with ct and mri done -seems neagtive but ed physician sent mri video to neuro-seems has small area of stroke. ed started him on aspirin his NIH was so low no TNK given. He denies any recent trauma. He went to urgent care and they referred him here. He has no CP/SOB, GI bleed symptoms, he has no ringing in the ear. No vision change. patient seems to be improved significantly -getting admitted for possible cva workup and managment. labs ,imaging ,ekg reviewed: bun/cr : 25/1.28 ct head ,mri-reported neg -please see hpi above. ekg -nsr. Review of Systems 2 Review of Systems: as above. Yes all other systems are reviewed and are negative [facility] Medical History COVID-19 vaccine series completed HTN (hypertension) Migraine Prostate cancer TIA (transient ischemic attack) Family History Mother Arthritis Father Hypertension Sister Breast cancer Surgical History History of esophagogastroduodenoscopy (EGD) Hx of cataract extraction H/O colonoscopy Hx of prostatectomy Status post total right knee replacement H/O lumbar discectomy History of bladder suspension procedure Hx of hernia repair Hx of bilateral hip replacements Social History Household Members: Spouse Household Members Other:: , rides a bike 12-14 mile a day, [facility] Do you presently have visiting nurse or other home services: No Alcohol intake: current Alcohol intake frequency: does not drink Patient Tobacco Use Status: Never used Tobacco Smoked in Last 30 Days: No e-Cigarette/Vaping Use: Never Used Use of substances other than those prescribed or required for medical reasons: No Advance Directives: Yes Advance Directives Information Provided: No Advance Directives on File: No service: No Current occupational status: retired Cognitive needs: No Hearing needs: No Vision needs: Yes Meds Allergies Allergy/AdvReac Type Severity Reaction Status Date / Time codeine Allergy Unknown Nausea Verified 08/14/24 10:47 Active Medications: Current Medications Acetaminophen (Acetaminophen 325 Mg Tablet) 650 mg PO Q6H PRN PRN Reason: Pain, Mild (Pain Scale 1-3), fever or headache Calcium Carbonate (Calcium Carbonate 750 Mg Tab.Chew) 750 mg PO Q4H PRN PRN Reason: Heartburn Magnesium Hydroxide (Milk Of Magnesia 30 Ml Oral.Susp) 30 ml PO DAILY PRN PRN Reason: Constipation Melatonin (Melatonin 3 Mg Tablet) 6 mg PO BEDTIME PRN PRN Reason: Insomnia Sodium Chloride (0.9 % Sodium Chloride Flush 3 Ml Syringe) 3 [facility] Medications ?Medication ?Instructions ?Recorded ?Confirmed ?Last Taken ?Type brimonidine 0.2 % eye drops 1 drp ophthalmic (eye) BID 07/08/24 08/14/24 08/14/24 09:00 History olmesartan 40 1 tab PO BEDTIME 08/14/24 08/14/24 Unknown History mg-hydrochlorothiazide 25 mg tablet verapamil 240 mg 24 hr 240 mg PO BEDTIME 08/14/24 08/14/24 Unknown History capsule,extended release Physical Exam 2 Vital Signs and Narrative: Vital Signs: Last Vital Signs Temp 97.8 F 08/14/24 15:47 Pulse 58 08/14/24 15:47 Resp 16 08/14/24 15:47 BP 128/61 08/14/24 15:47 Pulse Ox 98 08/14/24 15:47 O2 Del Method Room Air 08/14/24 15:47 BMI result Body Mass Index 20.3 Appearance: Alert.? Oriented X3.? Eyes: Pupils equal, round and reactive to light.? Sclera nonicteric.? ENT: Pharynx normal.? Moist mucous membranes. cvs: rrr, [id number] . res: clear to auscultation ,no rhonchii or wheezing abd: no rebound or guarding ,nt, bs present. ext pulses present , no cyanosis . neuro: axo3 , moves all ext able to walk few steps , no ataxia Results Labs 08/14/24 10:49 08/14/24 10:49 Labs: Laboratory Results - last 24 hr 08/14/24 08/14/24 08/14/24 10:49 11:05 11:27 MCV 89.4 MCH 30.1 MCHC 33.7 RDW 12.1 Plt Count 176 MPV 9.9 Immature Gran % (Auto) 0.2 Neut % (Auto) 66.1 Lymph % (Auto) 18.0 L [place] % (Auto) 13.2 H Eos % (Auto) 1.8 Baso % (Auto) 0.7 Lymph # (Auto) 0.8 L [place] # (Auto) 0.6 Eos # (Auto) 0.1 Baso # (Auto) 0.0 Abs Immat Gran (auto) 0.01 Absolute Neuts (auto) 2.9 Absolute Nucleated RBC 0.000 Nucleated RBC % (auto) 0.0 PT 11.4 Whole Blood PT 12.3 INR 1.0 Whole Blood INR 1.0 APTT 31.0 Hold Blue Top SEE NOTE Anion Gap 15 Estim Creat Clear Calc 45.8 Estimated GFR 54 POC Glucose 125 H Random Glucose 116 H Lactic Acid 2.3 H* Lactic Acid F/U @ 2Hr Calcium 9.5 Magnesium 2.4 Total Bilirubin 0.4 Direct Bilirubin 0.1 AST 34 ALT 40 Alkaline Phosphatase 75 Troponin I High Sens 14.4 B-Natriuretic Peptide 40 Total Protein 7.7 Albumin 4.3 Urine Color Urine Appearance Urine pH Ur Specific [place] Urine Protein Urine Glucose (UA) Urine Ketones Urine Blood Urine Nitrite Ur Leukocyte Esterase Influenza Type A (PCR) Influenza Type B (PCR) RSV RNA Qual (PCR) SARS-CoV-2 RNA (RT-PCR) 08/14/24 08/14/24 13:43 15:35 MCV MCH MCHC RDW Plt Count MPV Immature Gran % (Auto) Neut % (Auto) Lymph % (Auto) [place] % (Auto) Eos % (Auto) Baso % (Auto) Lymph # (Auto) [place] # (Auto) Eos # (Auto) Baso # (Auto) Abs Immat Gran (auto) Absolute Neuts (auto) Absolute Nucleated RBC Nucleated RBC % (auto) PT Whole Blood PT INR Whole Blood INR APTT Hold Blue Top Anion Gap Estim Creat Clear Calc Estimated GFR POC Glucose Random Glucose Lactic Acid Lactic Acid F/U @ 2Hr 1.2 Calcium Magnesium Total Bilirubin Direct Bilirubin AST ALT Alkaline Phosphatase Troponin I High Sens B-Natriuretic Peptide Total Protein Albumin Urine Color Yellow Urine Appearance Clear Urine pH 7.5 Ur Specific [place] 1.025 Urine Protein Negative Urine Glucose (UA) Negative Urine Ketones Negative Urine Blood Negative Urine Nitrite Negative Ur Leukocyte Esterase Negative Influenza Type A (PCR) NEGATIVE Influenza Type B (PCR) NEGATIVE RSV RNA Qual (PCR) NEGATIVE SARS-CoV-2 RNA (RT-PCR) NEGATIVE Imaging Radiologist's Impressions: Impressions Head/Neck CTA 08/14/24 10:48 IMPRESSION: 1. No large vessel occlusions or acute abnormality. 2. 1.0 cm right thyroid nodule. Consider nonemergent thyroid ultrasound if warranted. Electronically signed by: Edna Evans MD 08/14/2024 11:39 AM EST RP Head CT 08/14/24 10:57 IMPRESSION: No acute intracranial process seen This critical result was discussed with Dr. Silvestre currently at 11:14 am on 08/14/2024. It was ascertained that the content and urgency of the report was understood at the time of direct communication. Electronically signed by: Mina Gotti MD 08/14/2024 11:17 AM EST RP Brain MRI 08/14/24 11:04 IMPRESSION: No acute intracranial abnormality. Electronically signed by: Edna Evans MD 08/14/2024 04:50 PM EST RP Chest X-Ray 08/14/24 11:22 IMPRESSION: Unremarkable examination. Electronically signed by: Edna Evans MD 08/14/2024 11:40 AM EST RP Assessment and Plan (1) Dizziness: Status: Acute (2) Gait disturbance: Status: Acute Plan 83 y/o M recent pneumonia on amoxicillin day 4 - last dose tomorrow, HTN, HLD, arthritis, migraine, prostate cancer s/p prostatectomy : came with possible ataxia possible cva mri -? possible cva moniter on tele lipid panel done in ,will add lipid panel for am. continue asa ,statin,neurology eval staff toxicologist,pt eval. recent pneumonia continue augmentin HTn: meds reconcilliation pending hlp:meds reconcilliation pending Incidenatl finding on neck cta : thyroid nodule, will check tsh and consider outpatient thyriod sono. dvtprophylax: s/v lovenox. Patient will benefit from 2 midnight stays considering possible new cva symptoms -need monitering for tele , neurochecks ,neurology eval . Quality Stroke Does the patient have a stroke diagnosis?: Yes Reason for No Anti-thrombotic by Day Two: N/A - Med Ordered VTE Prior VTE?: No VTE Risk Level:: Medical - low VTE Device Contraindication: N/A - Device Ordered VTE Drug Contraindication: N/A - Med Ordered
--- NOTE | 2024-08-14 17:40 | PHA.MEDREC ---
Addendum entered by Iman Morley [facility] 08/14/24 17:54: REVIEWED Original Note: Pharmacy Consult ? Medication Reconciliation Pharmacy has completed the medication reconciliation. Spoke to pt to confirm meds. Per pt, not taking meloxicam or fish oil.
[2024-08-14] MEDS: Amoxicillin/Potassium Clav 875 MG TABLET PO (17:56)
[2024-08-14] MEDS: Enoxaparin Sodium 40 MG/0.4 ML SYRINGE SUBCUT (17:58)
[2024-08-14] MEDS: Valsartan 160 MG, hydroCHLOROthiazide 25 MG PO (22:20)
[2024-08-14] MEDS: VerapamiL HCL SR 240 MG TABLET.ER PO (22:21)
[2024-08-15] VITALS: BP 105/54; PULSE 55; RESP 18; TEMP 36.5; O2SAT 97; BMI 20.3
[2024-08-15 03:57] VITALS: BP 102/56; PULSE 48; RESP 18; TEMP 36.6; O2SAT 96
[2024-08-15 03:58] VITALS: BP 102/56; BP 102/57; BP 103/51; PULSE 48; PULSE 54; PULSE 59
[2024-08-15] MEDS: Amoxicillin/Potassium Clav 875 MG TABLET PO (06:41)
[2024-08-15 07:09] VITALS: BP 120/60; PULSE 51; RESP 18; TEMP 36.2; O2SAT 96
[2024-08-15 07:53] VITALS: BP 123/61; PULSE 53
[2024-08-15 07:54] VITALS: BP 128/68; BP 135/68; PULSE 52; PULSE 57
[2024-08-15 08:51] LABS: Cholesterol 138 mg/dL (<200); HDL Cholesterol 34 mg/dL (>40); LDL Cholesterol Calculated 85 mg/dL (<100); Triglycerides 95 mg/dL (<150)
[2024-08-15] MEDS: Acetaminophen 325 MG TABLET 650 MG PO (09:07)
[2024-08-15] MEDS: Atorvastatin Calcium 10 MG TABLET PO (09:07)
[2024-08-15] MEDS: amLODIPine Besylate 10 MG TABLET PO (09:07)
[2024-08-15] MEDS: Aspirin Enteric Coated 81 MG TABLET.DR PO (09:08)
[2024-08-15] MEDS: 0.9 % Sodium Chloride Flush 3 ML SYRINGE IVFLUSH (09:08)
[2024-08-15] MEDS: Brimonidine Tartrate 0.2% Oph 5 ML BOTTLE 1 DROP EYE-BOTH (09:08)
--- NOTE | 2024-08-15 09:28 | PM.NEUROCN ---
History of Present Illness Data of Consult Service Date: 08/15/24 Primary Care Provider: Sujatha Triana MD HPI Reason for consult: Dizziness 83 years old man with underlying history of migraine came to hospital with new onset of dizziness. He woke up yesterday fine but after sometime he noticed that he was dizzy like unsteady. He was also having bitemporal headache. There was no recent fever chills but he was taking amoxicillin for some reason. He came to emergency room and was initially evaluated for possible ischemic stroke. Because of minimal symptoms he was not considered a candidate for TNK or any aggressive treatment. CTA did not reveal any acute abnormality. Later an MRI of brain was done which seem to show a small ischemic infarct in brainstem on small screen on my phone but when I see it now on law on a larger screen no acute abnormalities noted. He was feeling fine stating that headache was milder now. Unsteadiness or dizziness has disappeared. Review of Systems Review of Systems: As per HPI [facility] Past Medical History Medical History COVID-19 vaccine series completed HTN (hypertension) Migraine Prostate cancer TIA (transient ischemic attack) Family History Family History Mother Arthritis Father Hypertension Sister Breast cancer Surgical History Surgical History History of esophagogastroduodenoscopy (EGD) Hx of cataract extraction H/O colonoscopy Hx of prostatectomy Status post total right knee replacement H/O lumbar discectomy History of bladder suspension procedure Hx of hernia repair Hx of bilateral hip replacements Social History Social History Household Members: Spouse Household Members Other:: , rides a bike 12-14 mile a day, Housing: House Do you presently have visiting nurse or other home services: No Alcohol intake: current Alcohol intake frequency: does not drink Patient Tobacco Use Status: Never used Tobacco e-Cigarette/Vaping Use: Never Used Second Hand Smoke Exposure: No Advance Directives Date on File: 08/15/24 service: No Current occupational status: retired Cognitive needs: No Hearing needs: No Vision needs: Yes Meds Allergies Allergy/AdvReac Type Severity Reaction Status Date / Time codeine Allergy Unknown Nausea Verified 08/14/24 10:47 Active Medications: Current Medications Acetaminophen (Acetaminophen 325 Mg Tablet) 650 mg PO Q6H PRN PRN Reason: Pain, Mild (Pain Scale 1-3), fever or headache Last Admin: 08/15/24 09:07 Dose: 650 mg Amlodipine Besylate (Amlodipine Besylate 10 Mg Tablet) 10 mg PO DAILY [facility]; Protocol Last Admin: 08/15/24 09:07 Dose: 10 mg Amoxicillin/Clavulanate Potassium (Amoxicillin/Potassium Clav 875 Mg Tablet) 875 mg PO Q12H [facility] Last Admin: 08/15/24 06:41 Dose: 875 mg Aspirin (Aspirin Enteric Coated 81 Mg Tablet.Dr) 81 mg PO DAILY [facility] Last Admin: 08/15/24 09:08 Dose: 81 mg Atorvastatin Calcium (Atorvastatin Calcium 10 Mg Tablet) 10 mg PO DAILY [facility] Last Admin: 08/15/24 09:07 Dose: 10 mg Brimonidine Tartrate (Brimonidine Tartrate 0.2% Oph 5 Ml Bottle) 1 drop EYE-BOTH BID [facility] Last Admin: 08/15/24 09:08 Dose: 1 drop Calcium Carbonate (Calcium Carbonate 750 Mg Tab.Chew) 750 mg PO Q4H PRN PRN Reason: Heartburn Valsartan 160 mg/ (Hydrochlorothiazide 25 mg) 0 mg PO BEDTIME [facility] Last Admin: 08/14/24 22:20 Dose: 2 tablet Enoxaparin Sodium (Enoxaparin Sodium 40 Mg/0.4 Ml Syringe) 40 mg SUBCUT Q24H [facility] Last Admin: 08/14/24 17:58 Dose: 40 mg Magnesium Hydroxide (Milk Of Magnesia 30 Ml Oral.Susp) 30 ml PO DAILY PRN PRN Reason: Constipation Melatonin (Melatonin 3 Mg Tablet) 6 mg PO BEDTIME PRN PRN Reason: Insomnia Sodium Chloride (0.9 % Sodium Chloride Flush 3 Ml Syringe) 3 ml IVFLUSH QSHIFT [facility] Last Admin: 08/15/24 09:08 Dose: 3 ml Verapamil HCl (Verapamil Hcl Sr 240 Mg Tablet.Er) 240 mg PO BEDTIME [facility]; Protocol Last Admin: 08/14/24 22:21 Dose: 240 mg Home Medications ?Medication ?Instructions ?Recorded ?Confirmed ?Last Taken ?Type brimonidine 0.2 % eye drops 1 drp ophthalmic (eye) BID 07/08/24 08/14/24 08/14/24 09:00 History olmesartan 40 1 tab PO BEDTIME 08/14/24 08/14/24 Unknown History mg-hydrochlorothiazide 25 mg tablet verapamil 240 mg 24 hr 240 mg PO BEDTIME 08/14/24 08/14/24 Unknown History capsule,extended release Physical Exam Vital Signs: Vital Signs: Last Vital Signs Temp 97.2 F 08/15/24 07:09 Pulse 57 08/15/24 07:54 Resp 18 08/15/24 07:09 BP 128/68 08/15/24 07:54 Pulse Ox 96 08/15/24 07:09 O2 Del Method Room Air 08/15/24 07:09 BMI result Body Mass Index 20.3 Neuro: Other: He was alert and awake with normal spontaneity of speech fluency comprehension and slightly dysphasic speech. Comprehension was intact. Face was symmetrical. Visual munguia are full. Rstsrd-dy-jaje testing was normal. Deep tendon reflexes were trace to absent with flexor plantars. He was able to get up and walk around without difficulty. Results Labs 08/14/24 10:49 08/14/24 10:49 Labs: Short CBC 08/14/24 Range/Units 10:49 WBC 4.4 L (4.8-10.8) X10*3/uL Hgb 13.3 L (14.0-18.0) g/dl Hct 39.5 L (42.0-52.0) % Plt Count 176 (160-400) X10*3/uL BMP 08/14/24 10:49 Sodium 138 Potassium 3.8 Chloride 99 Carbon Dioxide 28 BUN 25 H Creatinine 1.28 Calcium 9.5 Liver Function 08/14/24 Range/Units 10:49 Total Bilirubin 0.4 (0.0-1.0) mg/dL Direct Bilirubin 0.1 (0.0-0.5) mg/dL AST 34 (5-37) U/L ALT 40 (0-40) U/L Alkaline Phosphatase 75 (39-117) U/L Albumin 4.3 (3.5-5.0) g/dL Urine 08/14/24 Range/Units 13:43 Urine Color Yellow Urine Appearance Clear Urine pH 7.5 (5.0-9.0) Ur Specific [place] 1.025 (1.005-1.025) Urine Protein Negative (Neg-Trace) mg/dL Urine Glucose (UA) Negative (Negative) mg/dL MRI of brain did not reveal any acute abnormality. [id number] chronic microvascular ischemic changes on brain MRI were noted. CTA did not reveal any significant abnormality. Assessment and Plan (1) Dizziness: Status: Acute 83 years old man with complaint of sudden onset of dizziness described as unsteadiness while he was having bitemporal headache. Exam now was nonfocal and MRI of brain did not reveal any acute abnormality. He was also taking antibiotic for some reasons. Differential diagnosis would include migraine equivalent syndrome, transient ischemic attack, or vestibular dysfunction from common infection. The 1st 1 seems more likely. 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 Procedures Date of Service Date of Service: 08/15/24
--- NOTE | 2024-08-15 10:39 | PM.DS ---
DS: Providers Provider Date of Service: 08/15/24 Date of admission: 08/14/24 17:11 Date of discharge: 08/15/24 Primary care physician: Sujatha Triana MD Consults: 08/14/24 17:28 Consult to Neurology Routine Consulting Provider: [facility] Reason for consultation: cva Attending physician on discharge: Ame Warner Discharging clinician: Ame Warner DS: Diagnosis Discharge Diagnosis (1) Dizziness: Status: Acute DS: Summary Hospital Course Hospital Course: HPI: 83 y/o M recent pneumonia on amoxicillin day 4 - last dose tomorrow, HTN, HLD, arthritis, migraine, prostate cancer s/p prostatectomy came with c/o waking up at 7am and felt fine no issues went to bathroom then drank coffee. Around 8am started to feel different with having ataxia , as per ed note also had headaches.workp with ct and mri done -seems neagtive but ed physician sent mri video to neuro-seems has small area of stroke. ed started him on aspirin his NIH was so low no TNK given. He denies any recent trauma. He went to urgent care and they referred him here. He has no CP/SOB, GI bleed symptoms, he has no ringing in the ear. No vision change. patient seems to be improved significantly -getting admitted for possible cva workup and managment. labs ,imaging ,ekg reviewed: bun/cr : 25/09. ct head ,mri-reported neg -please see hpi above. ekg -nsr. Hospital course; 83 y/o M recent pneumonia on amoxicillin day 4 - last dose tomorrow, HTN, HLD, arthritis, migraine, prostate cancer s/p prostatectomy - patient was admitted for ataxia: Workup with CTa and MRI brain negative-patient was seen by Neurology: Differential diagnosis would include migraine equivalent syndrome, transient ischemic attack, or vestibular dysfunction from common infection.The 1st 1 seems more likely. 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 Patient's symptoms resolved completely. Further management out patiently . Patient is walking fine, tolerating diet. Telemetry seems mostly fine has some junctional beat-consider outpatient Holter with PCP. Patient is asymptomatic. CTA shows incidental finding of thyroid nodule: TSH normal, consider outpatient thyroid ultrasound. plan: Complete antibiotics today-last day today. Please repeat chest imaging study in 3-4 weeks to see resolution of pneumonia. Consider Holter monitoring outpatient with PCP. Also consider repeating lipid panel and may need statin adjustment accordingly outpatient. CTA shows thyroid nodule-TSH normal, consider outpatient thyroid ultrasound. Above management discussed with the patient in detail length he understand and in agreement with the above plan, time spent 40 minute. Time Attestation Total time managing care of this patient today: 40 mintues. Discharge Coordination Time (in mins): 40 minute Quality: Safe Use of Opioids Does Pt have an Active Cancer Diagnosis on the Problem List?: No Quality: Stroke Does the patient have a stroke diagnosis?: No Physical Exam Vital Signs: Vital Signs: Last Vital Signs Temp 97.2 F 08/15/24 07:09 Pulse 57 08/15/24 07:54 Resp 18 08/15/24 07:09 BP 128/68 08/15/24 07:54 Pulse Ox 96 08/15/24 07:09 O2 Del Method Room Air 08/15/24 07:09 BMI result Body Mass Index 20.3 Appearance: Alert.? Oriented X3.? not in distress.? Eyes: Pupils equal, round and reactive to light.? cvs: rrr, [id number] . res: clear to auscultation ,no rhonchii or wheezing abd: no rebound or guarding ,nt, bs present. ext pulses present , no cyanosis . neuro: axo3 , nonfocal. DS: Data Data Completed and Pending Labs on day of discharge: Laboratory Results - last 24 hr 08/14/24 08/14/24 08/14/24 10:49 11:05 11:27 WBC 4.4 L RBC 4.42 L Hgb 13.3 L Hct 39.5 L MCV 89.4 MCH 30.1 MCHC 33.7 RDW 12.1 Plt Count 176 MPV 9.9 Immature Gran % (Auto) 0.2 Neut % (Auto) 66.1 Lymph % (Auto) 18.0 L Vil[place] % (Auto) 13.2 H Eos % (Auto) 1.8 Baso % (Auto) 0.7 Lymph # (Auto) 0.8 L [place] # (Auto) 0.6 Eos # (Auto) 0.1 Baso # (Auto) 0.0 Abs Immat Gran (auto) 0.01 Absolute Neuts (auto) 2.9 Absolute Nucleated RBC 0.000 Nucleated RBC % (auto) 0.0 PT 11.4 Whole Blood PT 12.3 INR 1.0 Whole Blood INR 1.0 APTT 31.0 Hold Blue Top SEE NOTE Sodium 138 Potassium 3.8 Chloride 99 Carbon Dioxide 28 Anion Gap 15 BUN 25 H Creatinine 1.28 Estim Creat Clear Calc 45.8 Estimated GFR 54 POC Glucose 125 H Random Glucose 116 H Lactic Acid 2.3 H* Lactic Acid F/U @ 2Hr Calcium 9.5 Magnesium 2.4 Total Bilirubin 0.4 Direct Bilirubin 0.1 AST 34 ALT 40 Alkaline Phosphatase 75 Troponin I High Sens 14.4 B-Natriuretic Peptide 40 Total Protein 7.7 Albumin 4.3 Triglycerides Cholesterol LDL Cholesterol, Calc HDL Cholesterol TSH 1.10 Urine Color Urine Appearance Urine pH Ur Specific [place] Urine Protein Urine Glucose (UA) Urine Ketones Urine Blood Urine Nitrite Ur Leukocyte Esterase Influenza Type A (PCR) Influenza Type B (PCR) RSV RNA Qual (PCR) SARS-CoV-2 RNA (RT-PCR) 08/14/24 08/14/24 08/15/24 13:43 15:35 08:05 WBC RBC Hgb Hct MCV MCH MCHC RDW Plt Count MPV Immature Gran % (Auto) Neut % (Auto) Lymph % (Auto) Vil[place] % (Auto) Eos % (Auto) Baso % (Auto) Lymph # (Auto) [place] # (Auto) Eos # (Auto) Baso # (Auto) Abs Immat Gran (auto) Absolute Neuts (auto) Absolute Nucleated RBC Nucleated RBC % (auto) PT Whole Blood PT INR Whole Blood INR APTT Hold Blue Top Sodium Potassium Chloride Carbon Dioxide Anion Gap BUN Creatinine Estim Creat Clear Calc Estimated GFR POC Glucose Random Glucose Lactic Acid Lactic Acid F/U @ 2Hr 1.2 Calcium Magnesium Total Bilirubin Direct Bilirubin AST ALT Alkaline Phosphatase Troponin I High Sens B-Natriuretic Peptide Total Protein Albumin Triglycerides 95 Cholesterol 138 LDL Cholesterol, Calc 85 HDL Cholesterol 34 L TSH Urine Color Yellow Urine Appearance Clear Urine pH 7.5 Ur Specific [place] 1.025 Urine Protein Negative Urine Glucose (UA) Negative Urine Ketones Negative Urine Blood Negative Urine Nitrite Negative Ur Leukocyte Esterase Negative Influenza Type A (PCR) NEGATIVE Influenza Type B (PCR) NEGATIVE RSV RNA Qual (PCR) NEGATIVE SARS-CoV-2 RNA (RT-PCR) NEGATIVE Imaging Chest x-ray: Radiologist's impression: ITS Impressions Head/Neck CTA 08/14/24 10:48 IMPRESSION: 1. No large vessel occlusions or acute abnormality. 2. 1.0 cm right thyroid nodule. Consider nonemergent thyroid ultrasound if warranted. Electronically signed by: Edna Evans MD 08/14/2024 11:39 AM EST RP Head CT 08/14/24 10:57 IMPRESSION: No acute intracranial process seen This critical result was discussed with Dr. Silvestre currently at 11:14 am on 08/14/2024. It was ascertained that the content and urgency of the report was understood at the time of direct communication. Electronically signed by: Mina Gotti MD 08/14/2024 11:17 AM EST RP Brain MRI 08/14/24 11:04 IMPRESSION: No acute intracranial abnormality. Electronically signed by: Edna Evans MD 08/14/2024 04:50 PM EST RP Chest X-Ray 08/14/24 11:22 IMPRESSION: Unremarkable examination. Electronically signed by: Edna Evans MD 08/14/2024 11:40 AM EST RP Discharge Plan Discharge Anticipated Discharge Date/Time: 08/15/24 10:30 Patient Disposition: Home, Self-Care Discharge Diagnosis: migraine equivalent syndrome vs transient ischemic attack Referrals: Sujatha Triana MD [Primary Care Provider] - 1 Week Discharge Medications: New aspirin 81 mg Tablet,Delayed Release (Dr/Ec) 81 mg PO DAILY Qty: 90 0RF Continued amoxicillin-pot clavulanate 875-125 mg tablet 1 tab PO Q12H Qty: 10 0RF Rx Instructions: LAST DOSES END DATE: 08/15/24 verapamil 240 mg capsule,ext rel. pellets 24 hr 240 mg PO BEDTIME olmesartan-hydrochlorothiazide 40-25 mg tablet 1 tab PO BEDTIME amlodipine 10 mg tablet 10 mg PO DAILY Qty: 90 3RF atorvastatin 10 mg tablet 10 mg PO DAILY Qty: 90 3RF brimonidine 0.2 % drops 1 drp ophthalmic (eye) BID Discharge Orders: Discharge Order (Routine); Ordered 08/15/24 Ordered By: Ame Warner Diet: Advance to usual diet Activity on Discharge: As tolerated Stand Alone Forms: Patient Portal Discharge page Print Language: Filipino Activity Restrictions/Additional Instructions: CT/CT angio head neck STROKE IMPRESSION: 1. No large vessel occlusions or acute abnormality. 2. 1.0 cm right thyroid nodule. Consider nonemergent thyroid ultrasound if warranted Care Plan Goals: 83 y/o M recent pneumonia on amoxicillin day 4 - last dose tomorrow, HTN, HLD, arthritis, migraine, prostate cancer s/p prostatectomy - patient was admitted for ataxia: Workup with CTa and MRI brain negative-patient was seen by Neurology: Differential diagnosis would include migraine equivalent syndrome, transient ischemic attack, or vestibular dysfunction from common infection.The 1st 1 seems more likely. 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 Telemetry seems mostly fine has some junctional beat-consider outpatient Holter with PCP. Patient is asymptomatic. CTA shows incidental finding of thyroid nodule: TSH normal, consider outpatient thyroid ultrasound. plan: Complete antibiotics today-last day today. Please repeat chest imaging study in 3-4 weeks to see resolution of pneumonia. Consider Holter monitoring outpatient with PCP. Also consider repeating lipid panel and may need statin adjustment accordingly outpatient. CTA shows thyroid nodule-TSH normal, consider outpatient thyroid ultrasound. Above management discussed with the patient in detail length he understand and in agreement with the above plan, time spent 40 minute. Health Concerns: As above. Plan of Treatment: Complete antibiotics today-last day today. Please repeat chest imaging study in 3-4 weeks to see resolution of pneumonia. Consider Holter monitoring outpatient with PCP. Also consider repeating lipid panel and may need statin adjustment accordingly outpatient. CTA shows thyroid nodule-TSH normal, consider outpatient thyroid ultrasound. Assessment: As above.
--- NOTE | 2024-08-15 11:08 | MHC.CM.PN ---
RAVEN 08/15. Pt self-care, lives at home with his . Pts will transport him home at discharge, he will be discharging home today. PCP: Dr. Sujatha Triana
== END 2024-08-15 12:07 | disposition home or self-care (01) ==
LOC: HO.ED 16:23 → HO.EDOVER 17:44 → HO.IMC 19:49
PROVIDERS: Admitting Provider Internal Medicine; Emergency Provider Emergency Medicine; PCP Internal Medicine; Visit Provider Internal Medicine
DX: R27.0 Ataxia, unspecified (principal); E78.5 Hyperlipidemia, unspecified; R51.9 Headache, unspecified; R05.9 Cough, unspecified; I10 Essential (primary) hypertension; Z85.46 Personal history of malignant neoplasm of prostate; Z86.73 Personal history of transient ischemic attack (TIA), and cerebral infarction without residual deficits; Z90.79 Acquired absence of other genital organ(s); Z03.818 Encounter for observation for suspected exposure to other biological agents ruled out
CPT/HCPCS: 0241U; 36415; 70450; 70496; 70498; 70551; 71045; 80048; 80061; 80076; 81003; 82947; 83605; 83735; 83880; 84443; 84484; 85025; 85610; 85730; 87040; 93005; 96360; 96361; 96372; 99212; 99222; 99285; J1650

== ENCOUNTER → 2024-08-14 10:49 | Outpatient (BNV) | payer MEDICARE, OTHER, SELFPAY | PROVIDERS: Admitting Provider Internal Medicine; Emergency Provider Emergency Medicine; PCP Internal Medicine; Visit Provider Internal Medicine Cardiovascular Disease | DX: R42 Dizziness and giddiness (principal) | CPT/HCPCS: 93010 ==

== ENCOUNTER → 2024-08-14 17:11 | Outpatient (BNV) | payer MEDICARE, OTHER, SELFPAY | PROVIDERS: Admitting Provider Internal Medicine; Emergency Provider Emergency Medicine; PCP Internal Medicine; Visit Provider Psychiatry & Neurology Neurology | DX: R42 Dizziness and giddiness (principal) | CPT/HCPCS: 99222 ==

== ENCOUNTER → 2024-08-14 17:11 | Outpatient (BNV) | payer MEDICARE, OTHER, SELFPAY | PROVIDERS: Admitting Provider Internal Medicine; Emergency Provider Emergency Medicine; PCP Internal Medicine; Visit Provider Internal Medicine | DX: R42 Dizziness and giddiness (principal); R26.9 Unspecified abnormalities of gait and mobility | CPT/HCPCS: 99222 ==

== ENCOUNTER 2024-08-16 09:48 | Outpatient (AMB) | payer MEDICARE, OTHER, SELFPAY ==
--- NOTE | 2024-08-16 09:50 | AM.OFFVISNUR ---
Intake Visit Reasons: PCV 20 Allergies codeine Allergy (Unknown, Verified 08/14/24 10:47) Nausea Immunizations pneumoc 20-reginald conj-dip cr(PF) 0.5 mL IM syringe Performing Provider: Sujatha Triana MD Performing Location: [facility] [place] [facility] Administered by: MINE Kellogg on 08/16/24 10:03 Dose Route Admin Location Dispensed Lot Number Expiration Date [facility] Forensic Social Worker 0.5 mL IM Left Deltoid 0.5 mL [id number] 01/29/26 [id number] [employer] VIS Given Date VIS Provided VIS Publication Date 08/16/24 Single Vaccine 21 Eligibility Eligibility Date Funding Source Not [facility] Eligible 08/16/24 Private Assessment & Plan Assessment & Plan Orders: Orders Pneumococcal 20 Immunization Today Z23 - Encounter for immunization Medications: New pneumoc 20-reginald conj-dip cr(PF) 0.5 mL IM ONCE 0.5 mL 0RF Z23 - Encounter for immunization
== END 2024-08-16 10:04 | disposition home or self-care (01) ==
PROVIDERS: PCP Internal Medicine; Visit Provider Internal Medicine
DX: Z23 Encounter for immunization (principal)

== ENCOUNTER → 2024-08-16 09:48 | Outpatient (BNVA) | payer MEDICARE, OTHER, SELFPAY | PROVIDERS: PCP Internal Medicine; Visit Provider Internal Medicine | CPT/HCPCS: 90471; 90677 ==

== ENCOUNTER 2024-08-20 08:18 | Outpatient (REF) | payer MEDICARE, OTHER, SELFPAY ==
[2024-08-20 14:40] LABS: Anion Gap 16 (12-20); Blood Urea Nitrogen 47 mg/dL (9-16); Calcium 9.6 mg/dL (8.4-10.2); Carbon Dioxide 27 mmol/L (22-29); Chloride 101 mmol/L (96-108); Estimated Glomerular Filt Rate 33; Glucose Random 120 mg/dL (60-115); Iron 95 mcg/dL (45-160); Percent Iron Saturation 36 % (15-50); Potassium 4.7 mmol/L (3.3-5.1); Sodium 139 mmol/L (135-145); Total Iron Binding Capacity 264 mcg/dL (228-428); Unsaturated Iron Binding 169 ug/dL
[2024-08-20 15:19] LABS: Vitamin B12 706 pg/mL (200-900)
== END 2024-08-20 08:19 | disposition home or self-care (01) ==
LOC: HO.HMGCLDS 08:18
PROVIDERS: PCP Internal Medicine; Visit Provider Internal Medicine
DX: E78.5 Hyperlipidemia, unspecified (principal); I10 Essential (primary) hypertension; R42 Dizziness and giddiness; E04.1 Nontoxic single thyroid nodule
CPT/HCPCS: 36415; 80048; 82607; 82746; 83540; 99212

== ENCOUNTER 2024-08-20 08:18 | Outpatient (AMB) | payer MEDICARE, OTHER, SELFPAY ==
[2024-08-20 08:27] VITALS: BP 106/58; PULSE 70; O2SAT 99; BMI 27.6
--- NOTE | 2024-08-20 08:27 | MHC.PC.OV ---
Vital Signs 08/20/24 08:27 Height 6 ft 2 in Weight 215 lb BMI 27.6 BP 106/58 L Blood Pressure Location Lt brachial Position Sitting Pulse 70 Pulse Source Pulse Oximeter Pulse Oximetry (%) 99 Oxygen Delivery Method Room Air Intake Visit Reasons: Hospital Follow up Intake Note: Pt is here today for Hospital follow up visit. Allergies codeine Allergy (Unknown, Verified 08/20/24 08:38) Nausea Tobacco use date assessed: 08/20/24 Fall risk assessment: No Falls in past year Last assessed Fall Risk: 08/20/24 Dental Screening Dental Screen Date: 01/12/24 [facility] Hospital Follow up HPI Details Patient presents for the follow-up. He was admitted to the hospital for episode of lightheadedness and feeling off balanced. Neuro and cardiac workup were negative. Patient rides bike 10 miles every day and has been walking a lot in the hospital volunteering. COUNTS INCLUDE 234 BEDS AT THE [facility] Medical History (Updated 08/20/24 @ 09:42 by Sujatha Triana MD) COVID-19 vaccine series completed HTN (hypertension) Migraine Prostate cancer TIA (transient ischemic attack) Surgical History History of esophagogastroduodenoscopy (EGD) Hx of cataract extraction H/O colonoscopy Hx of prostatectomy Status post total right knee replacement H/O lumbar discectomy History of bladder suspension procedure Hx of hernia repair Hx of bilateral hip replacements Family History Mother Arthritis Father Hypertension Sister Breast cancer Social History Household Members: Spouse Household Members Other:: , rides a bike 12-14 mile a day, Housing: House Do you presently have visiting nurse or other home services: No Alcohol intake: current Alcohol intake frequency: does not drink Patient Tobacco Use Status: Never used Tobacco e-Cigarette/Vaping Use: Never Used Second Hand Smoke Exposure: No Advance Directives Date on File: 08/15/24 service: No Current occupational status: retired Cognitive needs: No Hearing needs: No Vision needs: Yes Questionnaire Thrive Questionnaire Date Thrive assessed: 06/24/24 I am a: Patient What is your living situation today?: I have a steady place to live Within the past 12 months, did the food you bought not last and you didn't have the money to get more?: Often true Within the past 12 months, did you worry whether your food would run out before you got money to buy more?: Never true Do you have trouble paying for medicines?: No Do you have trouble getting transportation to medical appointments?: No Do you have trouble paying your heating and electricity bill?: No Do you have trouble taking care of your child, family member or friend?: No Do you have trouble with day-to-day activities such as bathing, preparing meals, shopping, managing finances, etc.?: No Are you currently unemployed and looking for a job?: No Are you interested in more education?: No Please select the resources that you would like help with: None Currently or been in a relationship where the following occur: No concerns reported THRIVE Score: 1 Review of Systems Const All systems reviewed & are unremarkable except as noted in HPI and below ENT Reports no additional complaints Card Reports no additional complaints Resp Reports no additional complaints GI Reports no additional complaints Reports no additional complaints Physical exam (Primary Care) Vital Signs: Last Vital Signs Pulse 70 08/20/24 08:27 BP 106/58 L 08/20/24 08:27 Pulse Ox 99 08/20/24 08:27 Oxygen Delivery Method Room Air 08/20/24 08:27 BMI result Body Mass Index 27.6 Tobacco/Smoking Status: Tobacco use Status Tobacco use date assessed 08/20/24 08/20/24 08:40 Patient Tobacco Use Status Never used Tobacco 08/20/24 08:28 e-Cigarette/Vaping Use Never Used 08/20/24 08:28 Thrive Assessment: Date of Thrive Assessment Date Thrive assessed 06/24/24 08/20/24 08:28 Currently or been in a relationship where the following occur: No concerns reported Const General: no acute distress HENMT Head: Yes normal to inspection Mouth: Normal oral and palatal mucosa present Throat: Yes posterior oropharynx normal Neck Neck: Yes supple Resp Effort & Inspection: normal respiratory effort Auscultation: clear to auscultation bilaterally Cardio Rhythm: regular rhythm Heart sounds: S1 normal heart sound present and S2 normal heart sound present GI Inspection: Yes normal to inspection Palpation (GI): Soft to palpation Percussion: Yes normal to percussion Auscultation: normal bowel sounds Neuro Cranial nerves: Yes CN's II-XII intact bilaterally Gait exam (Neuro): Normal gait present Motor exam (neuro): 5/5 motor strength present throughout Romberg Test: Negative Coding Level of Care Code Est Pt Level 4 (20799) Diagnoses Dizziness R42 HTN (hypertension) I10 Hyperlipemia E78.5 Thyroid nodule E04.1 Assessment & Plan Assessment & Plan (1) Dizziness: Comment: hospitalized [facility] [place] 08/2024 negative CTA and brain MRI, 08/2024 Code(s): R42 - Dizziness and giddiness Category: Medical Plan: Blood pressure is low patient was advised to take a half a tablet of amlodipine continue the rest of the medication return in 1 month (2) HTN (hypertension): Code(s): I10 - Essential (primary) hypertension Category: Medical Plan: See above decrease amlodipine to half a tablet (3) Hyperlipemia: Code(s): E78.5 - Hyperlipidemia, unspecified Category: Medical Plan: Continue statin (4) Thyroid nodule: Comment: [address] neck 08/2024 check US Code(s): E04.1 - Nontoxic single thyroid nodule Category: Medical Plan: Obtain thyroid ultrasound to evaluate for 1 cm nodule Orders: Orders IRON PROFILE Today E78.5 - Hyperlipidemia, unspecified, I10 - Essential (primary) hypertension, R42 - Dizziness and giddiness Basic Metabolic Panel Today E78.5 - Hyperlipidemia, unspecified, I10 - Essential (primary) hypertension, R42 - Dizziness and giddiness US thyroid Today E04.1 - Nontoxic single thyroid nodule, E78.5 - Hyperlipidemia, unspecified, I10 - Essential (primary) hypertension, R42 - Dizziness and giddiness Vitamin B12 and Folate Today E78.5 - Hyperlipidemia, unspecified, I10 - Essential (primary) hypertension, R42 - Dizziness and giddiness
== END 2024-08-20 09:16 | disposition home or self-care (01) ==
PROVIDERS: PCP Internal Medicine; Visit Provider Internal Medicine
DX: R42 Dizziness and giddiness (principal); I10 Essential (primary) hypertension; E78.5 Hyperlipidemia, unspecified; E04.1 Nontoxic single thyroid nodule

== ENCOUNTER 2024-08-27 09:23 | Outpatient (REF) | payer MEDICARE, OTHER, SELFPAY ==
[2024-08-27 11:59] LABS: Anion Gap 14 (12-20); Blood Urea Nitrogen 30 mg/dL (9-16); Calcium 9.5 mg/dL (8.4-10.2); Carbon Dioxide 23 mmol/L (22-29); Chloride 104 mmol/L (96-108); Estimated Glomerular Filt Rate 49; Glucose Random 123 mg/dL (60-115); Potassium 3.9 mmol/L (3.3-5.1); Sodium 137 mmol/L (135-145)
== END 2024-08-27 09:24 | disposition home or self-care (01) ==
LOC: HO.LAB 09:23
PROVIDERS: PCP Internal Medicine; Visit Provider Internal Medicine
DX: N18.32 Chronic kidney disease, stage 3b (principal)
CPT/HCPCS: 36415; 80048

== ENCOUNTER 2024-09-02 15:15 | Outpatient (REF) | payer MEDICARE, OTHER, SELFPAY ==
--- NOTE | ~2024-09-02 | US_ITS ---
EXAMINATION: US THYROID CLINICAL INFORMATION: Dizziness and Guidiness COMPARISON: None available. TECHNIQUE: Linear transducer grayscale and color Doppler examination with attention to the region of the thyroid. FINDINGS: SIZE: Measurements of the thyroid lobes and nodules are given in sagittal, anteroposterior and transverse dimensions respectively. Right Thyroid Lobe: 5.4 x 2.0 x 1.7 cm, volume 9.7 mL. Parenchyma: The gland echotexture is homogeneous. Thyroid vascularity is normal. Left Thyroid Lobe: 5.7 x 2.0 x 1.6 cm, volume 9.6 mL. Parenchyma: The gland echotexture is homogeneous. Thyroid vascularity is normal. Isthmus: 0.60 cm in maximum AP dimension. Estimated total number of nodules greater than or equal to 1 cm: None.. Sourcing Coordinator nodules are described as follows: 1. Location: Left mid pole. Size: 1.2 x 0.65 x 0.80 cm, volume 0.32 mL. Nodule characteristics: Composition: Cystic Echogenicity: None Shape: Wider Margins: Well-defined and smooth Echogenic Foci: None (0). ACR TI-RADS total points: 0 ACR TI-RADS category: 1 NODES: No lymphadenopathy is seen in the tissue surrounding the thyroid gland. US/US thyroid IMPRESSION: Simple cyst mid pole left lobe. Otherwise unremarkable ultrasound thyroid gland. ACR TI-RADS RECOMMENDATION REFERENCE: Ultrasound-guided fine-needle aspiration, followup ultrasound, no further follow up. * TR1 (0 point) and TR2 (2 points): No FNA or follow up. * TR3 (3 points): FNA if more than or equal to 2.5 cm in maximum dimension, followup ultrasound in 1, 3 and 5 years if 1.5 to 2.4 cm in maximum dimension. * TR4 (4-6 points): FNA if more than or equal to 1.5 cm in maximum dimension, followup ultrasound in 1, 2, 3 and 5 years if 1 to 1.4 cm in maximum dimension. * TR5 (more than or equal to 7 points): FNA if more than or equal to 1 cm in maximum dimension, followup ultrasound every year for 5 years if 0.5 to 0.9 cm in maximum dimension. * TR3, TR4 or TR5 nodules that are below the size threshold for followup receive no follow up. Electronically signed by: Mina Gotti MD 09/09/2024 02:56 PM EST RP
== END 2024-09-02 15:16 | disposition home or self-care (01) ==
LOC: HO.US 15:15
PROVIDERS: PCP Internal Medicine; Visit Provider Internal Medicine
DX: E04.1 Nontoxic single thyroid nodule (principal); R42 Dizziness and giddiness; I10 Essential (primary) hypertension; E78.5 Hyperlipidemia, unspecified
CPT/HCPCS: 76536

== ENCOUNTER → 2024-09-02 15:17 | Outpatient (BNV) | payer MEDICARE, OTHER, SELFPAY | PROVIDERS: PCP Internal Medicine; Visit Provider Radiology Diagnostic Radiology | DX: R42 Dizziness and giddiness (principal) | CPT/HCPCS: 76536 ==

== ENCOUNTER 2024-09-07 14:16 | Outpatient (AMB) | payer MEDICARE, OTHER, SELFPAY ==
--- NOTE | 2024-09-07 14:35 | MHC.OFFWIV ---
Intake Vital Signs 09/07/24 14:37 Height 6 ft 2 in Weight 217 lb BMI 27.9 BP 126/50 L Blood Pressure Location Rt brachial Position Sitting Pulse 66 Pulse Source Pulse Oximeter Temp 98.2 F Temp Source Oral Pulse Oximetry (%) 99 Oxygen Delivery Method Room Air Intake Visit Reasons: EP-lower abd pain Intake Note: Pt is here today c/o lower abd pain Patient Tobacco Use Status: Never used Tobacco Allergies codeine Allergy (Unknown, Verified 09/07/24 14:38) Nausea HPI HPI Comments History of Present Illness Details He presents to office with LLQ pain Hx of diveritculaHe presents to office with abdominal pain Friday morning onset as a 2/10 Friday getting worse and progressive Pain level now LLQ is 3/10. Movement makes worse Worse with palpation now No nausea, vomiting, diarrhea or blood/melena Few weeks of smaller bowel movements compared to normal He said hx of pneumonia recently with some lingering SOB. Cough improved No fever or chills PFSH Medical History COVID-19 vaccine series completed HTN (hypertension) Migraine Prostate cancer TIA (transient ischemic attack) Surgical History History of esophagogastroduodenoscopy (EGD) Hx of cataract extraction H/O colonoscopy Hx of prostatectomy Status post total right knee replacement H/O lumbar discectomy History of bladder suspension procedure Hx of hernia repair Hx of bilateral hip replacements Family History Mother Arthritis Father Hypertension Sister Breast cancer Social History Household Members: Spouse Household Members Other:: , rides a bike 12-14 mile a day, Housing: House Do you presently have visiting nurse or other home services: No Alcohol intake: current Alcohol intake frequency: does not drink Patient Tobacco Use Status: Never used Tobacco e-Cigarette/Vaping Use: Never Used Second Hand Smoke Exposure: No Advance Directives Date on File: 08/15/24 service: No Current occupational status: retired Cognitive needs: No Hearing needs: No Vision needs: Yes Review of Systems Const Denies chills and Denies fever(s) ENT Denies nasal discharge Card Denies chest pain and Reports dyspnea Resp Reports cough and Reports dyspnea GI Reports abdominal pain, Denies melena, Denies hematochezia, Reports change in stool character (smaller x 3 weeks than usual), Denies fecal incontinence, Denies nausea and Denies vomiting Musc Denies myalgias Physical Exam Vital Signs: Last Vital Signs Temp 98.2 F 09/07/24 14:37 Pulse 66 09/07/24 14:37 BP 126/50 L 09/07/24 14:37 Pulse Ox 99 09/07/24 14:37 Oxygen Delivery Method Room Air 09/07/24 14:37 BMI result Body Mass Index 27.9 General: Non-toxic, NAD. Speaking full sentences. Skin: Warm dry throughout Respiratory: CTA bilaterally. No wheezes, rales or rhonchi Cardiac: RRR. No murmur Abdominal: BS present x 4. + reducible umbilical hernia. + ttp LLQ. No rebound or guarding. Negative Psoas sign. MSK: Full ROM extremities. Neurology: Alert. No aphasia or facial droop. Gait without abnormality Psych: Good mood and affect Assessment & Plan Assessment & Plan (1) Abdominal pain: Code(s): R10.9 - Unspecified abdominal pain Qualifiers: Abdominal location: left lower quadrant Qualified Code(s): R10.32 - Left lower quadrant pain Plan: Patient seen and evaluated. + TTP LLQ on exam Expect given to [facility] Pt agrees and ivonne go down for evaluation Patient gave verbal understanding and had no additional questions or concerns at time of discharge All questions answered Coding Level of Care Code Est Pt Level 4 (22625) Diagnoses Left lower quadrant abdominal pain R10.32 Abdominal location: left lower quadrant
[2024-09-07 14:37] VITALS: BP 126/50; PULSE 66; TEMP 36.8; O2SAT 99; BMI 27.9
== END 2024-09-07 15:01 | disposition home or self-care (01) ==
PROVIDERS: PCP Internal Medicine; Visit Provider Physician Assistant
DX: R10.32 Left lower quadrant pain (principal)

== ENCOUNTER → 2024-09-07 17:55 | Outpatient (BNV) | payer MEDICARE, OTHER, SELFPAY | PROVIDERS: PCP Internal Medicine; Visit Provider Radiology Neuroradiology | DX: R10.9 Unspecified abdominal pain (principal) | CPT/HCPCS: 74176 ==

== ENCOUNTER 2024-10-04 12:32 | Outpatient (REF) | payer MEDICARE, OTHER, SELFPAY ==
--- OUTSIDE RECORDS SUMMARY | 2024-10-04 14:59 | XMS_ITS | Clinical Summary ---
Author Organization [facility] Address [facility] [place] [address] Care Team Providers Care Sleep Lab Technician Name Role Phone Inactive, Pcp External Primary [...] left hip intraoperative radiologic examination (CPT code 50411) Surgeon: Jaycob Chery MD Implants Used: Femoral Stem: DePuy [place], Size 11 [place] Femoral Head: CoCr, Size 36+5 Acetabulum: DePuy [place] Sector II Gription, Size 54mm Adjuvant screw [...] Dr. Rene Easley replaced right hip at [facility] in [place], [place] Prostate cancer 10/01/2011 Overview (05/31/2012): 5/4 [...] Name Administration Dates Next Due Influenza (Novel [id number]) Injectable 08/17/2009 Influenza Trivalent, Preservative Free 3,07/09/2012 [...] Sigmoidoscopy Discontinued Medical Devices Implanted Type Area Traffic Superintendent Device Identifier Shelf Expiration Date Model / Serial / Lot Cup,Actbr,Grpt n,Sector,54mm ([id number]) (Autoreq) - [id number] Implanted:Qty: 1 on 07/08/2012 at [facility] IMPLANTS Left: Hip DO NOT USE Depuy Architect In Training - 3527 05/31/2022 [id number] Screw,Cacls,Pn ncl,6.5x35mm ([id number]) (Autoreq) - [id number] Implanted:Qty: 1 on 07/08/2012 at [facility] IMPLANTS Left: Hip DO NOT USE Depuy Architect In Training - 3527 04/30/2022 0 / / [id number] Liner,Actbr,+4 mm,Ntrl,36x54m m ([id number]) (Autoreq) - [id number] Implanted:Qty: 1 on 07/08/2012 at [facility] IMPLANTS Left: Hip DO NOT USE Depuy Architect In Training - 3527 05/31/2017 4 / / [id number] Stem,Fmrl,Clrd ,11,135deg,145 mm ([id number]) (Autoreq) - [id number] Implanted:Qty: 1 on 07/08/2012 at [facility] IMPLANTS DO NOT USE Depuy Architect In Training - 3527 05/31/2017 [id number] / / [id number] Head,Fmrl,+5mm ,12-14,36mm ([id number]) (Autoreq) - [id number] Implanted:Qty: 1 on 07/08/2012 at [facility] IMPLANTS DO NOT USE Depuy Architect In Training - 3527 05/01/2017 0 / / [id number] Procedures Procedure Name Priority Date/Time Associated Diagnosis Comments COLONOSCOPY Routine 01/26/2021 3:49 PM EDT from Last 3 Months or Most Recently Relevant to Health Maintenance Results * COLONOSCOPY (01/26/2021 3:49 PM EDT) [facility] COLONOSCOPY [facility] Endoscopy Procedure Date: 01/26/2021 3:49 PM ? Patient Name: Reyes Garner ? Date of : 1940 ? Age: 80 ? Order #: [id number] ? Instrument Name: [id number] ? Procedure: ? Colonoscopy Indications: ? Iron [...] Documents on File Type Date Recorded Patient Coordinator Mining Products Expl 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 Care Teams Sleep Lab Technician Relationship Specialty Start Date End Date Inactive, Pcp External PCP - General 09/17/24
[2024-10-04 16:01] LABS: MANUAL DIFF FLAG NO
[2024-10-04 16:07] LABS: Basophils Percent Auto 0.5 % (0-2); Eosinophils Absolute Auto 0.3 X10*3/uL (0.0-0.4); Eosinophils Percent Auto 4.9 % (0-4); Hematocrit 37.9 % (42.0-52.0); Imm Gran Abs Auto 0.01 X10*3/uL (0.00-0.03); Imm Gran Pct Auto 0.2 % (0.0-0.4); Lymphocytes Absolute Auto 1.1 X10*3/uL (1.2-4.9); Lymphocytes Percent Auto 18.9 % (20-40); Mean Corpuscular HGB Conc 34.3 g/dl (31.0-36.0); Mean Corpuscular Hemoglobin 30.7 pg (27.0-33.0); Mean Corpuscular Volume 89.6 fL (80.0-98.0); Mean Platelet Volume 10.6 fL (9.4-12.4); Monocytes Absolute Auto 0.8 X10*3/uL (0.1-1.2); Monocytes Percent Auto 13.1 % (2-11); Neutrophils Absolute Auto 3.7 x10*3/uL (2.0-8.3); Neutrophils Percent Auto 62.4 % (45-73); Platelet Count 202 X10*3/uL (160-400); Red Blood Count 4.23 X10*6/uL (4.60-5.80); Red Cell Distribution Width 12.7 % (11.0-16.0); White Blood Count 5.9 X10*3/uL (4.8-10.8)
[2024-10-04 16:33] LABS: Anion Gap 13 (12-20); Blood Urea Nitrogen 26 mg/dL (9-16); Calcium 9.6 mg/dL (8.4-10.2); Carbon Dioxide 27 mmol/L (22-29); Chloride 104 mmol/L (96-108); Estimated Glomerular Filt Rate 55; Glucose Random 87 mg/dL (60-115); Potassium 3.8 mmol/L (3.3-5.1); Sodium 140 mmol/L (135-145)
[2024-10-07 12:18] LABS: IgA 243 mg/dL (70-320); IgG 1274 mg/dL (600-1540); IgM 149 mg/dL (50-300)
== END 2024-10-04 12:33 | disposition home or self-care (01) ==
LOC: HO.HMGCLDS 12:32
PROVIDERS: PCP Internal Medicine; Visit Provider Internal Medicine
DX: I12.9 Hypertensive chronic kidney disease with stage 1 through stage 4 chronic kidney disease, or unspecified chronic kidney disease (principal); N18.32 Chronic kidney disease, stage 3b; D63.1 Anemia in chronic kidney disease; C61 Malignant neoplasm of prostate; E78.5 Hyperlipidemia, unspecified; Z79.899 Other long term (current) drug therapy
CPT/HCPCS: 36415; 80048; 82784; 85025; 86334; 96127; 99212

== ENCOUNTER 2024-10-04 12:32 | Outpatient (AMB) | payer MEDICARE, OTHER, SELFPAY ==
--- NOTE | 2024-10-04 12:34 | A.OFFPC_ITS ---
Vital Signs 10/04/24 12:52 Height 6 ft 1 in Weight 218 lb BMI 28.8 BP 120/70 Blood Pressure Location Rt brachial Position Sitting Respiration 18 Pulse 67 Pulse Source Pulse Oximeter Temp 97.8 F Temp Source Oral Pulse Oximetry (%) 97 Intake Visit Reasons: 1 months f/up Intake Note: Pt is here today for 1 month follow up visit. Allergies codeine Allergy (Unknown, Verified 10/04/24 12:35) Nausea Medication List - Last Reconciled 10/04/24 by Sujatha Triana MD amlodipine 10 mg PO DAILY aspirin 81 mg PO DAILY atorvastatin 10 mg PO DAILY brimonidine 0.2% 1 drp ophthalmic (eye) BID olmesartan-hydrochlorothiazide 40-25 mg 1 tab PO BEDTIME verapamil ER 240 mg PO BEDTIME Tobacco use date assessed: 10/04/24 Last assessed Fall Risk: 10/04/24 Dental Screening Dental Screen Date: 10/04/24 HPI 1 months f/up HPI Details Pt presents for f/u HTN, hyperlipid, CKD 3, stable on meds. Pt had a episode of diverticulitis in Aug, resolved. Patient has been taking ibuprofen a few days a month for chronic severe headaches for many years. Patient tried different preventive medications and was established with neurologist for years for chronic headaches. [facility] Medical History (Updated 10/04/24 @ 13:45 by Sujatha Triana MD) COVID-19 vaccine series completed HTN (hypertension) Migraine Prostate cancer TIA (transient ischemic attack) Surgical History History of esophagogastroduodenoscopy (EGD) Hx of cataract extraction H/O colonoscopy Hx of prostatectomy Status post total right knee replacement H/O lumbar discectomy History of bladder suspension procedure Hx of hernia repair Hx of bilateral hip replacements Family History Mother Arthritis Father Hypertension Sister Breast cancer Social History Household Members: Spouse Household Members Other:: , rides a bike 12-14 mile a day, Housing: House Do you presently have visiting nurse or other home services: No Alcohol intake: current Alcohol intake frequency: holidays/special occasions only Patient Tobacco Use Status: Never used Tobacco e-Cigarette/Vaping Use: Never Used Second Hand Smoke Exposure: No Advance Directives Date on File: 08/15/24 service: No Current occupational status: retired Cognitive needs: No Hearing needs: No Vision needs: Yes Questionnaire PHQ-9 Over the last 2 weeks, how often have you been bothered by any of the following problems? 1. Little interest or pleasure in doing things: not at all 2. Feeling down, depressed, or hopeless: not at all 3. Trouble falling or staying asleep, or sleeping too much: not at all 4. Feeling tired or having little energy: not at all 5. Poor appetite or overeating: not at all 6. Feeling bad about yourself - or that you are a failure or have let yourself or your family down: not at all 7. Trouble concentrating on things, such as reading the newspaper or watching television: not at all 8. Moving or speaking so slowly that other people could have noticed. Or the opposite - being so fidgety or restless that you have been moving around a lot more than usual: not at all 9. Thoughts that you would be better off or of hurting yourself in some way: not at all Total score: 0 Depression Screening Interpretation: Negative Depression Screening Done: Yes 08223 - PHQ-9 Billing: Yes Source: Developed by Drs. Jacobo Rene, Annabelle Fierro, Luigi Fonseca and colleagues, with an educational lindsay from [employer]. Thrive Questionnaire Date Thrive assessed: 10/04/24 I am a: Patient What is your living situation today?: I have a steady place to live Within the past 12 months, did the food you bought not last and you didn't have the money to get more?: Never true Within the past 12 months, did you worry whether your food would run out before you got money to buy more?: Never true Do you have trouble paying for medicines?: No Do you have trouble getting transportation to medical appointments?: No Do you have trouble paying your heating and electricity bill?: No Do you have trouble taking care of your child, family member or friend?: No Do you have trouble with day-to-day activities such as bathing, preparing meals, shopping, managing finances, etc.?: No Are you currently unemployed and looking for a job?: No Are you interested in more education?: No Please select the resources that you would like help with: None Currently or been in a relationship where the following occur: No concerns r eported THRIVE Score: 0 AUDIT C Alcohol Use Questionnaire (AUDIT-C) 1. How often do you have a drink containing alcohol?: 2-4 times a month 2. How many drinks containing alcohol do you have on a typical day when you are drinking?: 1 or 2 3. How often do you have six or more drinks on one occasion?: Never Total Score: 2 AKASH-7 AMB Questionnaire AKASH-7 Date AKASH - 7 assessed: 10/04/24 Feeling nervous, anxious, or on edge: 0 = Not at all Not being able to stop or control worryin = Not at all Worrying too much about different things: 0 = Not at all Trouble relaxin = Not at all Being so restless that it is hard to sit still: 0 = Not at all Becoming easily annoyed or irritable: 0 = Not at all Feeling afraid as if something awful might happen: 0 = Not at all Total AKASH-7 score (0-4 normal; 5-9 mild; 10-14 moderate; 15-21 severe): 0 Source: Developed by Drs. Jacobo Rene, Annabelle Fierro, Luigi Fonseca and colleagues, with an educational lindsay from [employer]. AKASH-7 Assessment Billing AKASH-7 Assessment Tool: AKASH-7 Assessment 22347 Review of Systems Const All systems reviewed & are unremarkable except as noted in HPI and below Eyes Reports no additional complaints ENT Reports no additional complaints Card Reports no additional complaints Resp Reports no additional complaints GI Reports no additional complaints Reports no additional complaints Physical exam (Primary Care) Vital Signs: Last Vital Signs Temp 97.8 F 10/04/24 12:52 Pulse 67 10/04/24 12:52 Resp 18 10/04/24 12:52 BP 120/70 10/04/24 12:52 Pulse Ox 97 10/04/24 12:52 BMI result Body Mass Index 28.8 Tobacco/Smoking Status: Tobacco use Status Tobacco use date assessed 10/04/24 10/04/24 12:37 Patient Tobacco Use Status Never used Tobacco 10/04/24 12:37 e-Cigarette/Vaping Use Never Used 10/04/24 12:35 PHQ-9: PHQ-9 Score PHQ-9: Total score 0 10/04/24 12:37 Depression Screening Interpretation: Negative Thrive Assessment: Date of Thrive Assessment Date Thrive assessed 10/04/24 10/04/24 12:37 Currently or been in a relationship where the following occur: No concerns reported Const General: no acute distress HENMT Face and sinus: Yes normal facial exam Throat: Yes posterior oropharynx normal Neck Neck: Yes supple Resp Effort & Inspection: normal respiratory effort Auscultation: clear to auscultation bilaterally Cardio Rhythm: regular rhythm Heart sounds: S1 normal heart sound present and S2 normal heart sound present GI Inspection: Yes normal to inspection Palpation (GI): Soft to palpation Percussion: Yes normal to percussion Auscultation: normal bowel sounds Coding Level of Care Code Est Pt Level 4 (21036) Complex EM visit Add On G2211 Diagnoses CKD stage 3b, GFR 30-44 ml/min N18.32 Anemia D64.9 HTN (hypertension) I10 Prostate cancer C61 Additional Codes AKASH-7 Assessment Billing - AKASH-7 Assessment Tool: AKASH-7 Assessment 56036 ([id number]) PHQ-9 - 83914 - PHQ-9 Billing: Yes ([id number]) Assessment & Plan Assessment & Plan (1) CKD stage 3b, GFR 30-44 ml/min: Code(s): N18.32 - Chronic kidney disease, stage 3b Category: Medical Plan: Will monitor renal function patient was advised to avoid NSAIDs and dehydration (2) Anemia: Comment: Normal iron and B12, most likely secondary to chronic kidney disease Code(s): D64.9 - Anemia, unspecified Category: Medical Plan: Monitor CBC (3) HTN (hypertension): Code(s): I10 - Essential (primary) hypertension Category: Medical Plan: Continue current medications (4) Prostate cancer: Comment: Established with urologist Dr. Becerra, status post prostatectomy 2011 Code(s): C61 - Malignant neoplasm of prostate Category: Medical Plan: Follow-up with Urology Orders: Orders Basic Metabolic Panel Today D64.9 - Anemia, unspecified, N18.32 - Chronic kidney disease, stage 3b Complete Blood Count Auto Diff 6 Months D64.9 - Anemia, unspecified, E78.5 - Hyperlipidemia, unspecified, I10 - Essential (primary) hypertension, N18.32 - Chronic kidney disease, stage 3b Lipid Panel 6 Months D64.9 - Anemia, unspecified, E78.5 - Hyperlipidemia, unspecified, I10 - Essential (primary) hypertension, N18.32 - Chronic kidney disease, stage 3b Complete Blood Count Auto Diff Today D64.9 - Anemia, unspecified, N18.32 - Chronic kidney disease, stage 3b Immunofixation Pnl, Serum Today D64.9 - Anemia, unspecified, N18.32 - Chronic kidney disease, stage 3b Comprehensive [place]. Panel Fast 6 Months D64.9 - Anemia, unspecified, E78.5 - Hyperlipidemia, unspecified, I10 - Essential (primary) hypertension, N18.32 - Chronic kidney disease, stage 3b TSH reflex Free T4 6 Months D64.9 - Anemia, unspecified, E78.5 - Hyperlipidemia, unspecified, I10 - Essential (primary) hypertension, N18.32 - Chronic kidney disease, stage 3b Medications: New olmesartan-hydrochlorothiazide 40-25 mg 1 tab PO BEDTIME 90 tabs 3RF verapamil ER 240 mg PO BEDTIME 90 caps 3RF Refilled atorvastatin 10 mg PO DAILY 90 tabs 3RF amlodipine 10 mg PO DAILY 90 tabs 3RF
[2024-10-04 12:52] VITALS: BP 120/70; PULSE 67; RESP 18; TEMP 36.6; O2SAT 97; BMI 28.8
--- OUTSIDE RECORDS SUMMARY | 2024-10-04 13:52 | XMS_ITS | Clinical Summary ---
Author Organization [facility] Address [facility] [place] [address] Care Team Providers Care Security Infrastructure Engineer Name Role Phone Inactive, Pcp External Primary Care Provider Anabella vailable Allergies Active Allergy Reactions Criticality Noted Date Comments Codeine Phosphate Nausea And Vomiting Medium Medications Medication Sig Dispensed Refills Start Date End Date Status omeprazole (PRILOSEC OTC) 20 mg tablet 20MG = 1 Tablet(s), PO, Every other day 09/10/2010 Active aspirin 81 mg chewable tablet Take 81 mg by mouth daily. Active acetaminophen (TYLENOL) 500 mg tablet Take 2 tablets by mouth every 8 hours as needed for Pain. 07/09/2012 Active LEVITRA 20 mg tablet 06/16/2012 Active UNABLE TO FIND 0.1 mLs by Intracavernosal route as needed (triple p for injections). One dose in 24 hours. No more than three doses in one week. 2.5 mL 6 03/24/2015 Active Syringe with Needle, Disp, (MONOJECT TB SAFETY SYRINGE) 1 mL 25 x 5/8 Syringe Use with triple p solution 50 Syringe 3 05/12/2015 Active Syringe with Needle, Disp, (MONOJECT TB SAFETY SYRINGE) 1 mL 25 x 5/8 Syringe Use with triple p solution no more than 3 times week 25 Syringe 3 05/12/2015 Active Syringe with Needle, Disp, (MONOJECT TB SAFETY SYRINGE) 1 mL 25 gauge x 5/8 Syringe To be used no more than 3 times a week 25 Syringe 3 04/11/2016 Active Syringe with Needle, Disp, (MONOJECT TB SAFETY SYRINGE) 1 mL 25 gauge x 5/8 Syringe The patient uses with triple p solutio 25 Syringe 11 05/29/2016 Active Syringe with Needle, Disp, (MONOJECT TB SAFETY SYRINGE) 1 mL 25 gauge x 5/8 Syringe Use no more than 3 times a week 25 Syringe 3 01/08/2017 Active amLODIPine (NORVASC) 5 mg Tablet Take 10 mg by mouth daily. Active Iron 18 mg Tablet Take 18 mg by mouth three times a week. Active atorvastatin (Lipitor) 10 mg Tablet Take 10 mg by mouth daily. Active verapamiL (Calan) 120 mg Tablet Take 120 mg by mouth 2 times daily. Active losartan (Cozaar) 50 mg Tablet Take 50 mg by mouth daily. Active UNABLE TO FINDIndications:E rectile dysfunction, unspecified erectile dysfunction type 0.3 mLs by Intracavernosal route daily as needed (do not exceed more than 1 dose in a 24 hour period). by Intracavernosal route. Papaverine 30mg/ml, Phentolamine 1mg/ml, and Alprostadil 10mcg/ml 5 mL 5 08/08/2021 Active Active Problems Problem Noted Date Diagnosed Date Malignant neoplasm of prostate 10/14/2012 Urinary incontinence 07/15/2012 Urinary stress incontinence, male 04/22/2012 ED (erectile dysfunction) 04/22/2012 Left anterior total hip arthroplasty 07/08 Miri 04/22/2012 Overview (08/04/2012): Case Date: 07/08/2012 Procedure Performed: left Total Hip Arthroplasty left hip intraoperative radiologic examination (CPT code 59107) Surgeon: Jaycob Chery MD Implants Used: Femoral Stem: DePuy [place], Size 11 KS Femoral Head: CoCr, Size 36+5 Acetabulum: DePuy [place] Sector II Gription, Size 54mm Adjuvant screw fixation x 1 x 6.5mm (35mm) Liner: Altrx polyethylene, Size 54x36 +4 neutral Healthcare maintenance 04/17/2012 Overview (04/17/2012): Colonoscopy 10/26/04 Immunization History Administered Date(s) Administered ? ? H1n1 08/17/2009 ? ? Influenza Whole 07/02/2005, 07/05/2007, 06/23/2008 ? ? Pneumococcal Polyvalent 23 11/11/2007 ? ? Td 04/20/1995, 10/02/2003 ? ? Zoster 02/17/2009 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 Rene Easley replaced right hip at [facility] in [place], [place] Prostate cancer 10/01/2011 Overview (05/31/2012): 5/4 S/P LAPAROSCOPIC PROSTATECTOMY, ROBOTICS ASSISTED @LYMPHADENECTOMY, PELVIC, INCLUDING MULTIPLE NODES-MABEL Elevated PSA 10/01/2011 SNHL (sensory-neural hearing loss), asymmetrical 03/27/2011 Impairment of auditory discrimination 03/27/2011 Dizziness and giddiness 03/27/2011 Skin lesion 03/26/2011 S/P hernia surgery-left 01/24/2010 Right knee valgus osteoarthritis 11/05/2006 Benign essential hypertension 11/05/2006 Benign prostate hyperplasia 11/05/2006 Hyperlipidemia 11/05/2006 Transient ischemic attack 11/05/2006 Partial recent retinal detachment with single de fect 09/01/1980 Resolved Problems Problem Noted Date Diagnosed Date Resolved Date Sensorineural hearing loss, asymmetrical 03/27/2011 11/27/2011 Immunizations Name Administration Dates Next Due Influenza (Novel G0I1-39) Injectable 08/17/2009 Influenza Trivalent, Preservative Free 3,07/09/2012 Influenza Vaccine, Whole 06/23/2008,07/05/2007,1 09/01/2004 Pneumococcal 23-Valent Polys accharide (Pneumovax 23) 11/11/2007 Td Adult (not absorbed) 10/02/2003,04/20/1995 Tdap (Adacel, Boostrix) 04/17/2012 Zoster LIVE (Zostavax) 02/17/2009 Family History Medical History Relation Comments High Blood Pressure Father Stroke Father Relation Status Comments Father Social History Tobacco Use Types Packs/Day Years Used Date Smoking Tobacco: Never Smokeless Tobacco: Never Alcohol Use Standard Drinks/Week Comments Yes 0 (1 standard drink = 0.6 oz pur e alcohol) 1-4 per week Sex and Gender Information Value Date Recorded Sex Assigned at Male 01/22/2021 1:05 PM EDT Gender Identity Not on file Sexual Orientation Not on file Last Filed Vital Signs Vital Sign Reading Time Taken Comments Blood Pressure 124/65 01/26/2021 5:30 PM EDT Pulse 65 01/26/2021 5:20 PM EDT Temperature 36.2 ??C (97.1 ??F) 01/26/2021 3:26 PM ED T Respiratory Rate 19 01/26/2021 5:05 PM EDT Oxygen Saturation 97% 01/26/2021 5:45 PM EDT Inhaled Oxygen Concentration - - Weight 95.3 kg (210 lb) 06/09/2023 10:43 AM EDT Height 185.4 cm (6' 1 ) 06/09/2023 10:43 AM EDT Body Mass Index 27.71 06/09/2023 10:43 AM EDT Plan of Treatment Health Maintenance Due Date Last Done Comments Pneumoccocal Vaccine: 50+ (2 of 2 - PCV) 11/10/2008 11/11/2007 Zoster vaccine (2 of 3) 04/14/2009 02/17/2009 RSV Vaccine (1 - 1-dose 75+ series) 2017 Tetanus/Diphtheria/Pertussis Vaccines (2 - Td or Tdap) 04/17/2022 04/17/2012, 10/02/2003, 04/20/1995 Covid-19 Vaccine ( - 2023-2 5 season) 2024 Influenza (Flu) vaccine (1 o f 1 - Influenza standard series) 05/02/2024 06/15/2013, 07/09/2012, 08/17/2009, Additional history exists Colonoscopy Discontinued 01/26/2021, 12/31, 10/26/2004 (Report in eD) Colorectal Cancer Screening Discontinued Sigmoidoscopy (10 year) with FIT yearly Discontinued 01/26/2021, 01/26/2021 CT Colonography Discontinued FIT DNA Discontinued FIT Discontinued Sigmoidoscopy Discontinued Medical Devices Implanted Type Area Call Center Support Representative Device Identifier Shelf Expiration Date Model / Serial / Lot Cup,Actbr,Grpt n,Sector,54mm ([id number]) (Autoreq) - [id number] Implanted:Qty: 1 on 07/08/2012 at [facility] IMPLANTS Left: Hip DO NOT USE Depuy Accountancy Professor - 3527 05/31/2022 [id number] Screw,Cacls,Pn ncl,6.5x35mm ([id number]) (Autoreq) - [id number] Implanted:Qty: 1 on 07/08/2012 at [facility] IMPLANTS Left: Hip DO NOT USE Depuy Accountancy Professor - 3527 04/30/2022 0 / / [id number] Liner,Actbr,+4 mm,Ntrl,36x54m m ([id number]) ([employer]oreq) - [id number] Implanted:Qty: 1 on 07/08/2012 at [facility] IMPLANTS Left: Hip DO NOT USE Depuy Accountancy Professor - 3527 05/31/2017 4 / / [id number] Stem,Fmrl,Clrd ,11,135deg,145 mm ([id number]) (Autoreq) - [id number] Implanted:Qty: 1 on 07/08/2012 at [facility] IMPLANTS DO NOT USE Depuy Accountancy Professor - 3527 05/31/2017 [id number] / / [id number] Head,Fmrl,+5mm ,12-14,36mm ([id number]) (Autoreq) - [id number] Implanted:Qty: 1 on 07/08/2012 at [facility] IMPLANTS DO NOT USE Depuy Accountancy Professor - 3527 05/01/2017 0 / / [id number] Procedures Procedure Name Priority Date/Time Associated Diagnosis Comments COLONOSCOPY Routine 01/26/2021 3:49 PM EDT from Last 3 Months or Most Recently Relevant to Health Maintenance Results * COLONOSCOPY (01/26/2021 3:49 PM EDT) [facility] COLONOSCOPY [facility] Endoscopy Procedure Date: 01/26/2021 3:49 PM ? Patient Name: Reyes Garner ? Date of : 1940 ? Age: 80 ? Order #: [id number] ? Instrument Name: [id number] ? Procedure: ? Colonoscopy Indications: ? Iron deficiency anemia Providers: ? Fortunato Burks Rita ? F. Yamileth Referring MD: ?Azar Griffin MD Medicines: ? Midazolam 2 mg IV, Fentanyl 50 ? micrograms IV Complications: ? No immediate complications. Procedure: ? Pre-Anesthesia Assessment: ? - Prior to the procedure, a History ? and Physical was performed, and ? patient medications and allergies ? were reviewed. The patient is ? competent. The risks and benefits of ? the procedure and the sedation ? options and risks were discussed with ? the patient. All questions were ? answered and informed consent was ? obtained. Patient identification and ? proposed procedure were verified by ? the physician in the pre-procedure ? area. Mental Status Examination: ? alert and oriented. Airway ? Examination: normal oropharyngeal ? airway and neck mobility. Respiratory ? Examination: clear to auscultation. ? CV Examination: normal. Prophylactic ? Antibiotics: The patient does not ? require prophylactic antibiotics. ? Prior Anticoagulants: The patient has ? taken no previous anticoagulant or ? antiplatelet agents. ASA Grade ? Assessment: II - A patient with mild ? systemic disease. After reviewing the ? risks and benefits, the patient was ? deemed in satisfactory condition to ? undergo the procedure. The anesthesia ? plan was to use moderate sedation / ? analgesia (conscious sedation). ? Immediately prior to administration ? of medications, the patient was ? re-assessed for adequacy to receive ? sedatives. The heart rate, ? respiratory rate, oxygen saturations, ? blood pressure, adequacy of pulmonary ? ventilation, and response to care ? were monitored throughout the ? procedure. The physical status of the ? patient was re-assessed after the ? procedure. ? The procedure, indications, benefits, ? risks and alternatives were explained ? to the patient. Specifically ? discussed were potential ? complications including, but not ? limited to, bleeding, perforation, ? infection, missing a cancer, and ? adverse medication reactions. The ? patient was placed in the left ? lateral decubitus position, and a ? digital rectal exam was performed. ? The Colonoscope was inserted in the ? anus and under direct visualization, ? advanced to the terminal ileum. ? Careful inspection was made as the ? colonoscope was withdrawn. The ? patient tolerated the procedure well. ? The quality of the bowel preparation ? was good. ? Findings: ? The terminal ileum appeared normal. ? A 9 mm polyp was found in the cecum. The polyp was ? flat. The polyp was removed with a cold snare. ? Resection and retrieval were complete. ? A 30 mm polyp was found in the proximal ascending ? colon. The polyp was Tamara classification IIa ? (superficial, elevated) and granular lateral ? spreading. Preparations were made for mucosal ? resection. Orise gel was injected to raise the ? lesion. Piecemeal mucosal resection using a snare was ? performed. Resection and retrieval were complete. To ? prevent bleeding post-intervention, five hemostatic ? clips were successfully placed. There was no bleeding ? at the end of the procedure. ? A few small-mouthed diverticula were found in the ? sigmoid colon. ? The retroflexed view of the distal rectum and anal ? verge was normal and showed no anal or rectal ? abnormalities. ? Moderate Sedation: ? Moderate (conscious) sedation was administered by the ? endoscopy nurse and supervised by the endoscopist. ? The following parameters were monitored: oxygen ? saturation, heart rate, blood pressure, and response ? to care. Impression: ?- The examined portion of the ileum ? was normal. ? - One 9 mm polyp in the cecum, ? removed with a cold snare. Resected ? and retrieved. ? - One 30 mm polyp in the proximal ? ascending colon, removed with mucosal ? resection. Resected and retrieved. ? Clips were placed. ? - Diverticulosis in the sigmoid colon. ? - The distal rectum and anal verge ? are normal on retroflexion view. Recommendation: ?- Discharge patient to home. ? - Resume previous diet. ? - Await pathology results. ? - Repeat colonoscopy in 6 months for ? surveillance based on pathology ? results. ? Attending Participation: ? I personally performed the entire procedure. ? Francisco J Chong, 01/26/2021 5:07:11 PM Number of Addenda: 0 Note Initiated On: 01/26/2021 3:49 PM PROVATION 01/26/2021 3:49 PM EDT Azar Griffin MD GENERAL SURGICAL ORD ERABLES PROVATION from Last 3 Months or Most Recently Relevant to Health Maintenance Advance Directives Documents on File Type Date Recorded Patient Pen Tender Expl anation Advance Directives and Livin g Will 10/01/2011 10:30 AM * Full Code (Latest Code Status on File) Date Activated Date Inactivated Comments 07/08/2012 1:08 PM 07/09/2012 4:18 PM * Full Code Date Activated Date Inactivated Comments 01/03/2012 8:10 PM 01/04/2012 6:52 PM Question Answer Comments Order Status: Initial Order Does patient have decision m aking capacity? Yes, Order is based on Patients wishes. Care Teams Security Infrastructure Engineer Relationship Specialty Start Date End Date Inactive, Pcp External PCP - General 09/17/24
== END 2024-10-04 13:34 | disposition home or self-care (01) ==
PROVIDERS: PCP Internal Medicine; Visit Provider Internal Medicine
DX: N18.32 Chronic kidney disease, stage 3b (principal); D64.9 Anemia, unspecified; I10 Essential (primary) hypertension; C61 Malignant neoplasm of prostate

== ENCOUNTER 2024-10-05 10:07 | Emergency (ER) | payer MEDICARE, OTHER, SELFPAY ==
[2024-10-05] VITALS (11 sets, daily range): BP systolic 114–141; BP diastolic 51–85; PULSE 54–86; RESP 12–16; TEMP 36.4–36.9; O2SAT 94–99; BMI 28.4
--- NOTE | ~2024-10-05 | MR_ITS ---
EXAMINATION: MR BRAIN WITHOUT CONTRAST CLINICAL INFORMATION: Dizziness, nausea and vomiting. Rule out posterior CVA. COMPARISON: MR brain 08/14/2024. TECHNIQUE: MRI of the brain was obtained using routine sequences without contrast. FINDINGS: There is no diffusion restriction. There is no intracranial hemorrhage, acute infarction, mass effect, or edema. Ventricles, sulci, and cisterns are mildly diffusely prominent, in keeping with age-appropriate involutional changes. No shift of midline. No abnormal hemosiderin deposition is identified. There are scattered punctate and minimally confluent foci of white matter T2 hyperintensity in the periventricular, subcortical, and hemispheric deep white matter, nonspecific, but statistically most likely on the basis of small vessel ischemia. Midline structures appear normally formed. The pituitary gland appears normal. Posterior fossa structures appear normal. Cerebellar tonsils are appropriately located. Major flow voids are preserved within the skull base. The globes and orbital contents demonstrate no abnormalities. There are lens replacements bilaterally. Paranasal sinuses are clear bilaterally. Nasal septum is midline without spur. The mastoids and tympanic cavities are normally aerated. Extracranial soft tissues demonstrate no abnormalities. No suspicious bone marrow changes are evident. Moderate degenerative changes TM joints. Atlantoaxial joint is normal. MR/MR head/brain wo con IMPRESSION: 1. No evidence of intracranial hemorrhage, acute infarction, mass effect, or edema. 2. Mild changes of small vessel ischemia. 3. Ancillary findings as discussed in the body of the report. Electronically signed by: Roque Cortez MD 10/05/2024 04:40 PM [facility]
--- NOTE | 2024-10-05 10:33 | ECG_ITS ---
Test Reason : DIZZINESS Blood Pressure : */* mmHG Vent. Rate : 50 BPM Atrial Rate : 50 BPM P-R Int : 432 ms QRS Dur : 94 ms QT Int : 446 ms P-R-T Axes : 49 -2 31 degrees QTcB Int : 406 ms Sinus bradycardia with 1st degree A-V block Otherwise normal ECG When compared with ECG of 14-Aug-2024 11:24, No significant change was found Referred By: Generic ED Physician Electronically Signed By: Anuel Castaneda
[2024-10-05 10:59] LABS: MANUAL DIFF FLAG NO
[2024-10-05 11:05] LABS: Basophils Percent Auto 0.5 % (0-2); Eosinophils Absolute Auto 0.2 X10*3/uL (0.0-0.4); Eosinophils Percent Auto 2.6 % (0-4); Hematocrit 36.5 % (42.0-52.0); Hemoglobin 12.7 g/dl (14.0-18.0); Imm Gran Abs Auto 0.01 X10*3/uL (0.00-0.03); Imm Gran Pct Auto 0.2 % (0.0-0.4); Lymphocytes Absolute Auto 0.9 X10*3/uL (1.2-4.9); Lymphocytes Percent Auto 15.8 % (20-40); Mean Corpuscular HGB Conc 34.8 g/dl (31.0-36.0); Mean Platelet Volume 9.9 fL (9.4-12.4); Monocytes Absolute Auto 0.6 X10*3/uL (0.1-1.2); Monocytes Percent Auto 9.6 % (2-11); Neutrophils Absolute Auto 4.1 x10*3/uL (2.0-8.3); Neutrophils Percent Auto 71.3 % (45-73); Platelet Count 174 X10*3/uL (160-400); Red Cell Distribution Width 12.4 % (11.0-16.0); White Blood Count 5.7 X10*3/uL (4.8-10.8)
[2024-10-05 11:13] LABS: Anion Gap 16 (12-20); Blood Urea Nitrogen 24 mg/dL (9-16); Calcium 9.2 mg/dL (8.4-10.2); Carbon Dioxide 25 mmol/L (22-29); Chloride 105 mmol/L (96-108); Creatinine Clr Calc Pharmacy 51.6; Estimated Glomerular Filt Rate 49; Glucose Random 119 mg/dL (60-115); Potassium 3.4 mmol/L (3.3-5.1); Sodium 143 mmol/L (135-145)
--- NOTE | 2024-10-05 11:15 | MHC.EDTECH ---
Could not perform orthostats due to extreme dizziness. Nurse placed hold until after meds.
[2024-10-05] MEDS: Lactated Ringers 1,000 ML 999 ML IV (11:22)
[2024-10-05 11:23] LABS: Troponin-I High Sensitivity 10.1 ng/L (<3.5-35.0)
[2024-10-05] MEDS: ondansetron HCL 4 MG/2 ML VIAL IVPUSH (11:23)
[2024-10-05] MEDS: Meclizine HCl 25 MG TABLET PO (11:23)
[2024-10-05] MEDS: LORazepam 2 MG/ML VIAL 1 MG IVPUSH ×2 (11:23→15:09)
--- NOTE | 2024-10-05 12:03 | ED.DIZZY ---
HPI - Dizziness General Chief Complaint: Dizziness Stated Complaint: SUDDEN DIZZINESS,VOMITING PER EMS Time Seen by Provider: 10/05/24 10:50 Source: patient, family and old records reviewed Mode of arrival: ambulatory Limitations: no limitations History of Present Illness ED Provider: CHARLA FRANCIS Narrative: 83 yo male not on thinners, recent stroke work up 08/24 for dizziness presentation negative MRI and neuro felt it was more migraine equivalent, HTN, HLD, arthritis, migraine, prostate cancer s/p prostatectomy here with c/o being at work then suddenly felt dizzy with n/v and when he opens his eyes he feels everyone is moving. If he holds still it is better. No CP/SOB. He did recently return from a trip to [place] on Friday but denies CP/SOB. He has not had GIB symptoms he has been feeling well. He has these attacks but this is the worst one. 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) Timing: gradual onset and intermittent Severity: severe Description: sense of movement, room spinning and lightheadedness Context: change in body position History of similar symptoms: Yes Exacerbating factors: movement/ambulation, change in body position, keeping eyes open and standing Relieving factors: remaining still, rest and keeping eyes closed Associated symptoms: nausea and vomiting Related Data Home Medications ?Medication ?Instructions ?Recorded ?Confirmed brimonidine 0.2 % eye drops 1 drp ophthalmic (eye) BID 07/08/24 10/04/24 Previous Rx's ?Medication ?Instructions ?Recorded aspirin 81 mg tablet,delayed 81 mg PO DAILY #90 tabs 08/15/24 release amlodipine 10 mg tablet 10 mg PO DAILY #90 tabs 10/04/24 atorvastatin 10 mg tablet 10 mg PO DAILY #90 tabs 10/04/24 olmesartan 40 1 tab PO BEDTIME #90 tabs 10/04/24 mg-hydrochlorothiazide 25 mg tablet verapamil 240 mg 24 hr 240 mg PO BEDTIME #90 caps 10/04/24 capsule,extended release meclizine 25 mg tablet 25 mg PO TID PRN dizziness #20 tabs 10/05/24 Allergies Allergy/AdvReac Type Severity Reaction Status Date / Time codeine Allergy Unknown Nausea Verified 10/05/24 10:36 Review of Systems Review of Systems: Constitutional : No Fever, No Chills, No Fatigue ENT/Mouth : No sore throat, No Rhinorrhea Eyes: No Eye Pain, No Swelling, No Redness Cardiovascular : No Chest Pain, No SOB, No Dyspnea on Exertion Respiratory : No Cough, No Sputum Gastrointestinal : pos Nausea, pos Vomiting, No Diarrhea, No abdominal Pain Genitourinary : No Dysuria, No Urinary Frequency, No Hematuria, Musculoskeletal : No joint pain, No Myalgias, No Joint Swelling Skin : No Skin Lesions, No rash Neuro : No Weakness, No Numbness, pos Dizziness, no Headache Psych : No Anxiety/Panic, No Depression All other systems reviewed and are negative PMFSH Past Medical History Attestation statement: The following information was validated with the patient. Source: old records reviewed Medical History COVID-19 vaccine series completed HTN (hypertension) Migraine Prostate cancer TIA (transient ischemic attack) Surgical History History of esophagogastroduodenoscopy (EGD) Hx of cataract extraction H/O colonoscopy Hx of prostatectomy Status post total right knee replacement H/O lumbar discectomy History of bladder suspension procedure Hx of hernia repair Hx of bilateral hip replacements Family History Family History Mother Arthritis Father Hypertension Sister Breast cancer Social History Social History Household Members: Spouse Household Members Other:: , rides a bike 12-14 mile a day, Housing: House Do you presently have visiting nurse or other home services: No Alcohol intake: current Alcohol intake frequency: does not drink Patient Tobacco Use Status: Never used Tobacco Smoked in Last 30 Days: No e-Cigarette/Vaping Use: Never Used Second Hand Smoke Exposure: No Use of substances other than those prescribed or required for medical reasons: No Advance Directives: No Advance Directives Information Provided: Yes Advance Directives Date on File: 08/15/24 service: No Current occupational status: retired Cognitive needs: No Hearing needs: No Vision needs: Yes Physical Exam Vital Signs: Vital Signs: Last Vital Signs Temp 97.5 F 10/05/24 14:36 Pulse 72 10/05/24 16:27 Resp 16 10/05/24 16:27 BP 129/65 10/05/24 16:27 Pulse Ox 94 10/05/24 16:27 O2 Del Method Room Air 10/05/24 16:27 BMI result Body Mass Index 28.4 Appearance: Alert. Oriented X3. No acute distress. Eyes: Pupils equal, round and reactive to light. ENT: Pharynx normal. Neck: Normal inspection. Neck supple. CVS: Normal heart rate and rhythm. Pulses normal. Respiratory: No respiratory distress. Breath sounds normal. Abdomen: Soft and nontender. Skin: Skin warm and dry. Normal skin color. Normal skin turgor. Extremities: No lower extremity edema. No calf ttp Neuro: Oriented X 3. No motor deficit. No sensory deficit. CN2-12 intact. no focal deficits Course Course Course Narrative: age adjusted ddimer negative Reevaluation(s) Reevaluation #1: he is feeling better after medications - will reassess and sign out to Viraj Hilliard2--on attempt to obtain patient's orthostatic vital signs, sat up in bed became acutely dizzy with nausea and vomiting. Was eventually able to stand, however states his dizziness today is worse than normal. States has been dealing with dizziness for years however today's different. Will obtain MRI to rule out posterior CVA -1630--ED care transferred to AYAAN Pindea pending MR and re-evaluation. Medications Administered Discontinued Medications Generic Name Dose Route Start Last Admin Trade Name Freq PRN Reason Stop Dose Admin Lactated Ringer's 1,000 mls @ 999 mls/hr 10/05/24 11:10 10/05/24 13:08 Lr IV 10/05/24 12:10 Infused .Q1H1M ONE Infusion Lorazepam 1 mg 10/05/24 11:10 10/05/24 11:23 Lorazepam 2 Mg/Ml Vial IVPUSH 10/05/24 11:11 1 mg STAT STA Administration Lorazepam 1 mg 10/05/24 14:51 10/05/24 15:09 Lorazepam 2 Mg/Ml Vial IVPUSH 10/05/24 14:52 1 mg STAT STA Administration Meclizine HCl 25 mg 10/05/24 11:10 10/05/24 11:23 Meclizine Hcl 25 Mg Tablet PO 10/05/24 11:11 25 mg ONCE ONE Administration Ondansetron HCl 4 mg 10/05/24 11:10 10/05/24 11:23 Ondansetron Hcl 4 Mg/2 Ml Vial IVPUSH 10/05/24 11:11 4 mg ONCE ONE Administration Medical Decision Making Medical Decision Making [facility] Narrative: 83 yo male not on thinners, recent stroke work up 08/24 for dizziness presentation negative MRI and neuro felt it was more migraine equivalent, HTN, HLD, arthritis, migraine, prostate cancer s/p prostatectomy here with c/o dizziness that worsened made worse with movements and opening eyes. On exam has no focal deficits at this time and has had similar symptoms with neg MRI and CTA. No CP/SOB to suggest ACS or VTE. I do not suspect posterior stroke given symptoms and no + stroke signs. Differential Diagnosis Differential Diagnoses: The differential diagnosis associated with the presentation includes dizziness, vertigo, weakness, dehydration Admission/Observation Consideration of admission/observation: Escalation of care including admission/observation considered pending improvement Lab Data [facility] Lab Attestation statement: I reviewed the patient's lab results. 10/05/24 10:53 10/05/24 10:53 Labs: Lab Results 10/05/24 10/05/24 Range/Units 10:53 12:14 WBC 5.7 (4.8-10.8) X10*3/uL RBC 4.10 L (4.60-5.80) X10*6/uL Hgb 12.7 L (14.0-18.0) g/dl Hct 36.5 L (42.0-52.0) % MCV 89.0 (80.0-98.0) fL MCH 31.0 (27.0-33.0) pg MCHC 34.8 (31.0-36.0) g/dl RDW 12.4 (11.0-16.0) % Plt Count 174 (160-400) X10*3/uL MPV 9.9 (9.4-12.4) fL Immature Gran % (Auto) 0.2 (0.0-0.4) % Neut % (Auto) 71.3 (45-73) % Lymph % (Auto) 15.8 L (20-40) % Liberty % (Auto) 9.6 (2-11) % Eos % (Auto) 2.6 (0-4) % Baso % (Auto) 0.5 (0-2) % Lymph # (Auto) 0.9 L (1.2-4.9) X10*3/uL Liberty # (Auto) 0.6 (0.1-1.2) X10*3/uL Eos # (Auto) 0.2 (0.0-0.4) X10*3/uL Baso # (Auto) 0.0 (0.0-0.2) X10*3/uL Abs Immat Gran (auto) 0.01 (0.00-0.03) X10*3/uL Absolute Neuts (auto) 4.1 (2.0-8.3) x10*3/uL Absolute Nucleated RBC 0.000 (0.0-0.012) X10*3/uL Nucleated RBC % (auto) 0.0 (0.0-0.2) /100WBC D-Dimer High Sensitivty 247 NG/ML Sodium 143 (135-145) mmol/L Potassium 3.4 (3.3-5.1) mmol/L Chloride 105 (96-108) mmol/L Carbon Dioxide 25 (22-29) mmol/L Anion Gap 16 (12-20) BUN 24 H (9-16) mg/dL Creatinine 1.38 (0.5-1.4) mg/dL Estim Creat Clear Calc 51.6 Estimated GFR 49 Random Glucose 119 H (60-115) mg/dL Calcium 9.2 (8.4-10.2) mg/dL Troponin I High Sens 10.1 10.2 (<3.5-35.0) ng/L Independent Interpretation I performed an independent interpretation of an: EKG Interpretation: Rate: 50 Rhythm: sinus bradycardia 1st degree AVB Minto: normal Normal P waves. Normal MONA. Normal QRS complex. ST T wave : no GREGORY, nonspecific qTC: 406 prior studies: no acute ischemia The study has been interpreted contemporaneously by me. . Independent Historian Clinical information obtained from an independent historian. History obtained from or confirmed by: Spouse External Record Review External record reviewed: Inpatient record and Outpatient record Discharge Plan Discharge Clinical Impression: Dizziness Patient Disposition: Home, Self-Care Instructions: Dizziness (ED) Additional Instructions: Your MRI did not show any findings to explain your dizziness. This is likely related to vertigo. You may use meclizine as needed for further dizziness. Follow-up with your primary doctor, return for new or worsening symptoms Prescriptions: New meclizine 25 mg tablet 25 mg PO TID PRN (Reason: dizziness) Qty: 20 0RF No Action aspirin 81 mg Tablet,Delayed Release (Dr/Ec) 81 mg PO DAILY Qty: 90 0RF brimonidine 0.2 % drops 1 drp ophthalmic (eye) BID amlodipine 10 mg tablet 10 mg PO DAILY Qty: 90 3RF atorvastatin 10 mg tablet 10 mg PO DAILY Qty: 90 3RF olmesartan-hydrochlorothiazide 40-25 mg tablet 1 tab PO BEDTIME Qty: 90 3RF verapamil 240 mg capsule,ext rel. pellets 24 hr 240 mg PO BEDTIME Qty: 90 3RF Print Language: Occitan
--- OUTSIDE RECORDS SUMMARY | 2024-10-05 12:20 | XMS_ITS | Clinical Summary ---
Author Organization [facility] Address [facility] [place] [address] Care Team Providers Care Travel Ot Name Role Phone Inactive, Pcp External Primary [...] left hip intraoperative radiologic examination (CPT code 72526) Surgeon: Jaycob Chery MD Implants Used: Femoral Stem: DePuy Corail, Size 11 KS Femoral Head: CoCr, Size 36+5 Acetabulum: DePuy [place] Sector II Gription, Size 54mm Adjuvant screw [...] Dr. Rene Easley replaced right hip at [facility] in [place], [place] Prostate cancer 10/01/2011 Overview (05/31/2012): 5/4 [...] Name Administration Dates Next Due Influenza (Novel [id number]) Injectable 08/17/2009 Influenza Trivalent, Preservative Free 3,07/09/2012 [...] Sigmoidoscopy Discontinued Medical Devices Implanted Type Area Water Main Pipe Layer Device Identifier Shelf Expiration Date Model / Serial / Lot Cup,Actbr,Grpt n,Sector,54mm ([id number]) (Autoreq) - [id number] Implanted:Qty: 1 on 07/08/[address] 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 IMPLANTS Left: Hip DO NOT USE Depuy [employer] Machine Operator - 3527 04/30/2022 0 / / [id number] Liner,Actbr,+4 mm,Ntrl,36x54m m ([id number]) (Autoreq) - [id number] Implanted:Qty: 1 on 07/08/[address] [facility] IMPLANTS Left: Hip DO NOT USE Depuy [employer] Machine Operator - 3527 05/31/2017 4 / / [id number] Stem,Fmrl,Clrd ,11,135deg,145 mm ([id number]) (Autoreq) - [id number] Implanted:Qty: 1 on 07/08/[address] [facility] IMPLANTS DO NOT USE Depuy [employer] Machine Operator - 3527 05/31/2017 [id number] / / [id number] Head,Fmrl,+5mm ,12-14,36mm ([id number]) (Autoreq) - [id number] Implanted:Qty: 1 on 07/08/[address] [facility] IMPLANTS DO NOT USE Depuy [employer]amfering Machine Operator - 3527 05/01/2017 0 / / [id number] Procedures Procedure Name Priority Date/Time Associated Diagnosis Comments COLONOSCOPY Routine 01/26/2021 3:49 PM EDT from Last 3 Months or Most Recently Relevant to Health Maintenance Results * COLONOSCOPY (01/26/2021 3:49 PM EDT) [facility] COLONOSCOPY [facility] Endoscopy Procedure Date: 01/26/2021 3:49 PM ? Patient Name: Reyes Garner ? Date of : 1940 ? Age: 80 ? Order #: [id number] ? Instrument Name: [id number] ? Procedure: ? Colonoscopy Indications: ? Iron [...] Documents on File Type Date Recorded Patient Insurance Premium Auditor Expl 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 Care Teams Travel Ot Relationship Specialty Start Date End Date Inactive, Pcp External PCP - General 09/17/24
[2024-10-05 12:35] LABS: D Dimer High Sensitivity 247 NG/ML
[2024-10-05 12:47] LABS: Troponin-I High Sensitivity 10.2 ng/L (<3.5-35.0)
--- NOTE | 2024-10-05 15:00 | PC.NURSE ---
Pt stated he was feeling much better. Orthos completed, upon attempting to stand patient became extremely dizzy to the point of vomiting, provider made aware, MRI ordered screening form to be completed.
--- NOTE | 2024-10-05 15:15 | PC.NURSE ---
MRI form completed.
== END 2024-10-05 18:53 | disposition home or self-care (01) ==
PROVIDERS: Emergency Provider Emergency Medicine; PCP Internal Medicine
DX: R42 Dizziness and giddiness (principal); R11.2 Nausea with vomiting, unspecified; R00.1 Bradycardia, unspecified; I44.0 Atrioventricular block, first degree; Z79.899 Other long term (current) drug therapy
CPT/HCPCS: 36415; 70551; 80048; 84484; 85025; 85379; 93005; 96361; 96374; 96375; 96376; 99285; J2060; J2405; J7120

== ENCOUNTER → 2024-10-05 10:33 | Outpatient (BNV) | payer MEDICARE, OTHER, SELFPAY | PROVIDERS: Emergency Provider Emergency Medicine; PCP Internal Medicine; Visit Provider Internal Medicine Cardiovascular Disease | DX: I44.0 Atrioventricular block, first degree (principal); R00.1 Bradycardia, unspecified | CPT/HCPCS: 93010 ==

== ENCOUNTER → 2024-10-05 14:48 | Outpatient (BNV) | payer MEDICARE, OTHER, SELFPAY | PROVIDERS: Emergency Provider Emergency Medicine; PCP Internal Medicine; Visit Provider Radiology Diagnostic Radiology | DX: R42 Dizziness and giddiness (principal); R11.2 Nausea with vomiting, unspecified | CPT/HCPCS: 70551 ==

== ENCOUNTER → 2024-10-11 14:37 | Outpatient (BNVA) | payer MEDICARE, OTHER, SELFPAY | PROVIDERS: PCP Internal Medicine; Visit Provider Internal Medicine | DX: R42 Dizziness and giddiness (principal) | CPT/HCPCS: 99212 ==

== ENCOUNTER 2024-11-09 08:34 | Outpatient (REF) | payer MEDICARE, OTHER, SELFPAY ==
--- NOTE | ~2024-11-09 | XR_ITS ---
EXAMINATION: XR ELBOW 3 VIEWS RIGHT HISTORY: Right elbow injury. COMPARISON: There are no prior studies available for comparison. FINDINGS: Three views of the right elbow are submitted. Osseous mineralization is normal. There is no fracture or dislocation. The joint spaces are preserved. There is calcification of the triceps tendon. XR/XR elbow RT min 3V IMPRESSION: No evidence of fracture of the right elbow. Electronically signed by: Jacobo Cristina MD 11/09/2024 01:18 PM EDT
--- OUTSIDE RECORDS SUMMARY | 2024-11-09 10:20 | XMS_ITS | Clinical Summary ---
Author Organization [facility] Address [facility] [place] [address] Care Team Providers Care Gifted Teacher Name Role Phone Inactive, Pcp External Primary [...] left hip intraoperative radiologic examination (CPT code 10196) Surgeon: Jaycob Chery MD Implants Used: Femoral Stem: DePuy Corail, Size 11 [place] Femoral Head: CoCr, Size 36+5 Acetabulum: DePuy [place] Sector II Gription, Size 54mm Adjuvant screw [...] Dr. Rene Easley replaced right hip at [facility] in [place], [place] Prostate cancer 10/01/2011 Overview (05/31/2012): 5/4 [...] Name Administration Dates Next Due Influenza (Novel H6I7-03) Injectable 08/17/2009 Influenza Trivalent, Preservative Free 3,07/09/2012 [...] Sigmoidoscopy Discontinued Medical Devices Implanted Type Area Hog Trader Device Identifier Shelf Expiration Date Model / Serial / Lot Cup,Actbr,Grpt n,Sector,54mm ([id number]) (Autoreq) - [id number] Implanted:Qty: 1 on 07/08/2012 at [facility] IMPLANTS Left: Hip DO NOT USE Depuy Ergonomics Technician - 3527 05/31/2022 [id number] Screw,Cacls,Pn ncl,6.5x35mm ([id number]) (Autoreq) - [id number] Implanted:Qty: 1 on 07/08/2012 at [facility] IMPLANTS Left: Hip DO NOT USE Depuy Ergonomics Technician - 3527 04/30/2022 0 / / [id number] Liner,Actbr,+4 mm,Ntrl,36x54m m ([id number]) (Autoreq) - [id number] Implanted:Qty: 1 on 07/08/2012 at [facility] IMPLANTS Left: Hip DO NOT USE Depuy Ergonomics Technician - 3527 05/31/2017 4 / / [id number] Stem,Fmrl,Clrd ,11,135deg,145 mm ([id number]) (Autoreq) - [id number] Implanted:Qty: 1 on 07/08/2012 at [facility] IMPLANTS DO NOT USE Depuy Ergonomics Technician - 3527 05/31/2017 [id number] / / [id number] Head,Fmrl,+5mm ,12-14,36mm ([id number]) (Autoreq) - [id number] Implanted:Qty: 1 on 07/08/2012 at [facility] IMPLANTS DO NOT USE Depuy Ergonomics Technician - 3527 05/01/2017 0 / / [id number] Procedures Procedure Name Priority Date/Time Associated Diagnosis Comments COLONOSCOPY Routine 01/26/2021 3:49 PM EDT from Last 3 Months or Most Recently Relevant to Health Maintenance Results * COLONOSCOPY (01/26/2021 3:49 PM EDT) [facility] COLONOSCOPY [facility] Endoscopy Procedure Date: 01/26/2021 3:49 PM ? Patient Name: Reyes Garner ? Date of : 1940 ? Age: 80 ? Order #: [id number] ? Instrument Name: [id number] ? Procedure: ? Colonoscopy Indications: ? Iron [...] Documents on File Type Date Recorded Patient Chief Recordist Expl 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 Care Teams Gifted Teacher Relationship Specialty Start Date End Date Inactive, Pcp External PCP - General 09/17/24
== END 2024-11-09 08:35 | disposition home or self-care (01) ==
LOC: HO.HMGCX 08:34
PROVIDERS: PCP Internal Medicine; Visit Provider Internal Medicine
DX: S59.902A Unspecified injury of left elbow, initial encounter (principal); W00.9XXA Unspecified fall due to ice and snow, initial encounter
CPT/HCPCS: 73080

== ENCOUNTER 2024-11-09 08:34 | Outpatient (AMB) | payer MEDICARE, OTHER, SELFPAY ==
--- NOTE | 2024-11-09 09:00 | AM.OFFWIN_ITS ---
Intake Vital Signs 11/09/24 09:04 Weight 218 lb BP 130/78 Blood Pressure Location Rt brachial Position Sitting Pulse 60 Pulse Source Pulse Oximeter Pulse Oximetry (%) 98 Oxygen Delivery Method Room Air Intake Visit Reasons: EP Fall, Rt elbow injury (Not WC) Intake Note: Patient here for right elbow pain and swelling after he fell on ice yesterday. Patient Tobacco Use Status: Never used Tobacco Allergies codeine Allergy (Unknown, Verified 11/09/24 09:04) Nausea Medication List - Last Reconciled 11/09/24 by Bharath Hammond MD amlodipine 10 mg PO DAILY aspirin 81 mg PO DAILY atorvastatin 10 mg PO DAILY brimonidine 0.2% 1 drp ophthalmic (eye) BID meclizine 25 mg PO TID PRN olmesartan-hydrochlorothiazide 40-25 mg 1 tab PO BEDTIME verapamil ER 240 mg PO BEDTIME Do you need a note to return to daycare/school/sports/work: No HPI EP Fall, Rt elbow injury (Not WC) HPI Details History - The patient is an 84-year-old male pre senting with left elbow pain and swell ing subsequent to a fall. - He experienced the fall while navigati ng icy terrain while walking his dog, leading to significant impact on the left elbow. - The elbow is noted to be swollen with severe pain upon after fall but has improved since. - Initial self-care included applying ic e to manage swelling shortly after the incident. - The patient's active medication list i ncludes amlodipine and atorvastatin, indicative of management for essential hypertension and hyperlipidemia, respectively. X-ray of elbow noted further management after the x-ray report Problem List - Acute swelling and bruising of the lef t elbow - History of fall on ice - Essential Hypertension - Hyperlipidemia Review of Systems - General: No fever no chills - Neurological: No headaches no dizziness - Ear nose throat: No sore throat no hearing difficulty no ear pain - Cardiovascular: No syncope, no chest pain, no palpitations - Gastrointestinal: No nausea vomiting or diarrhea - Endocrine: No polyuria polydipsia no heat intolerance - Genitourinary: No dysuria , no blood in urine Physical Exam General: No acute distress HEENT: No acute findings Neck: Supple Respiratory system: Able to talk in full sentences, no audible wheeze cardiovascular: S1-S2 regular in rate and rhythm Gastrointestinal: No pain Extremities: Mild swelling of right elbow, tender over olecranon process with p alpation and lateral epicondyle no skin changes noted, range of motion of elbow is intact without pain, vascular intact neuro intact CANDY DIPPER: Alert awake oriented x3 motor sensory intact Skin: Normal turgor PFSH Medical History COVID-19 vaccine series completed HTN (hypertension) Migraine Prostate cancer TIA (transient ischemic attack) Surgical History History of esophagogastroduodenoscopy (EGD) Hx of cataract extraction H/O colonoscopy Hx of prostatectomy Status post total right knee replacement H/O lumbar discectomy History of bladder suspension procedure Hx of hernia repair Hx of bilateral hip replacements Family History Mother Arthritis Father Hypertension Sister Breast cancer Social History Household Members: Spouse Household Members Other:: , rides a bike 12-14 mile a day, Housing: House Do you presently have visiting nurse or other home services: No Alcohol intake: current Alcohol intake frequency: does not drink Patient Tobacco Use Status: Never used Tobacco e-Cigarette/Vaping Use: Never Used Second Hand Smoke Exposure: No Advance Directives Date on File: 08/15/24 service: No Current occupational status: retired Cognitive needs: No Hearing needs: No Vision needs: Yes Physical Exam Vital Signs: Last Vital Signs Pulse 60 11/09/24 09:04 BP 130/78 11/09/24 09:04 Pulse Ox 98 11/09/24 09:04 Oxygen Delivery Method Room Air 11/09/24 09:04 Assessment & Plan Assessment & Plan (1) Fall from slipping on ice: Code(s): W00.9XXA - Unspecified fall due to ice and snow, initial encounter Qualifiers: Encounter type: initial encounter Qualified Code(s): W00.9XXA - Unspecified fall due to ice and snow, initial encounter (2) Injury of elbow, left: Code(s): S59.902A - Unspecified injury of left elbow, initial encounter Qualifiers: Encounter type: initial encounter Qualified Code(s): S59.902A - Unspecified injury of left elbow, initial encounter (3) Elbow pain, left: Code(s): M25.522 - Pain in left elbow Plan History - The patient is an 84-year-old male presenting with left elbow pain and swelling subsequent to a fall. - He experienced the fall while navigating icy terrain while walking his dog, leading to significant impact on the left elbow. - The elbow is noted to be swollen with severe pain upon after fall but has improved since. - Initial self-care included applying ice to manage swelling shortly after the incident. - The patient's active medication list includes amlodipine and atorvastatin, indicative of management for essential hypertension and hyperlipidemia, respectively. X-ray of elbow noted further management after the x-ray report Problem List - Acute swelling and bruising of the left elbow - History of fall on ice - Essential Hypertension - Hyperlipidemia Coding Level of Care Code Est Pt Level 3 (16686) Diagnoses Fall due to slipping on ice or snow, initial encounter W00.9XXA Encounter type: initial encounter Injury of left elbow, initial encounter S59.902A Encounter type: initial encounter Elbow pain, left M25.522
[2024-11-09 09:04] VITALS: BP 130/78; PULSE 60; O2SAT 98
--- OUTSIDE RECORDS SUMMARY | 2024-11-09 09:15 | XMS_ITS | Clinical Summary ---
Author Organization [facility] Address [facility] [place] [address] Care Team Providers Care Milk Route Supervisor Name Role Phone Inactive, Pcp External Primary [...] left hip intraoperative radiologic examination (CPT code 25174) Surgeon: Jaycob Chery MD Implants Used: Femoral Stem: DePuy [place], Size 11 KS Femoral Head: CoCr, Size 36+5 Acetabulum: DePuy [place] Sector II Gription, Size 54mm Adjuvant screw [...] Dr. 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 - 3527 05/31/2022 [id number] Screw,Cacls,Pn ncl,6.5x35mm ([id number]) (Autoreq) - [id number] Implanted:Qty: 1 on 07/08/2012 at [facility] IMPLANTS Left: Hip DO NOT USE Depuy Real Estate Assessor - 3527 04/30/2022 0 / / [id number] Liner,Actbr,+4 mm,Ntrl,36x54m m ([id number]) (Autoreq) - [id number] Implanted:Qty: 1 on 07/08/2012 at [facility] IMPLANTS Left: Hip DO NOT USE Depuy Real Estate Assessor - 3527 05/31/2017 4 / / [id number] Stem,Fmrl,Clrd ,11,135deg,145 mm ([id number]) (Autoreq) - [id number] Implanted:Qty: 1 on 07/08/2012 at [facility] IMPLANTS DO NOT USE Depuy Real Estate Assessor - 3527 05/31/2017 [id number] / / [id number] Head,Fmrl,+5mm ,12-14,36mm ([id number]) (Autoreq) - [id number] Implanted:Qty: 1 on 07/08/2012 at [facility] IMPLANTS DO NOT USE Depuy Real Estate Assessor - 3527 05/01/2017 0 / / [id number] Procedures Procedure Name Priority Date/Time Associated Diagnosis Comments COLONOSCOPY Routine 01/26/2021 3:49 PM EDT from Last 3 Months or Most Recently Relevant to Health Maintenance Results * COLONOSCOPY (01/26/2021 3:49 PM EDT) [facility] COLONOSCOPY [facility] Endoscopy Procedure Date: 01/26/2021 3:49 PM ? Patient Name: Reyes Garner ? Date of : 1940 ? Age: 80 ? Order #: [id number] ? Instrument Name: [id number] ? Procedure: ? Colonoscopy Indications: ? Iron [...] Documents on File Type Date Recorded Patient Guest Specialist Expl 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 Care Teams Milk Route Supervisor Relationship Specialty Start Date End Date Inactive, Pcp External PCP - General 09/17/24
== END 2024-11-09 09:19 | disposition home or self-care (01) ==
PROVIDERS: PCP Internal Medicine; Visit Provider Internal Medicine
DX: S59.902A Unspecified injury of left elbow, initial encounter (principal); W00.9XXA Unspecified fall due to ice and snow, initial encounter; M25.522 Pain in left elbow

== ENCOUNTER → 2024-11-09 09:17 | Outpatient (BNV) | payer MEDICARE, OTHER, SELFPAY | PROVIDERS: PCP Internal Medicine; Visit Provider Radiology Diagnostic Radiology | DX: S59.901A Unspecified injury of right elbow, initial encounter (principal) | CPT/HCPCS: 73080 ==

== ENCOUNTER 2024-12-28 12:58 | Outpatient (AMB) | payer MEDICARE, OTHER, SELFPAY ==
--- NOTE | 2024-12-28 13:16 | AM.OFFWIN_ITS ---
Intake Vital Signs 12/28/24 13:17 BP 116/72 Blood Pressure Location Lt brachial Position Sitting Pulse 58 Pulse Source Pulse Oximeter Temp 98 F Temp Source Oral Pulse Oximetry (%) 97 Oxygen Delivery Method Room Air Intake Visit Reasons: EP UTI? Intake Note: Patient here for frequent urination, pain on urination and feels like bladder is full but not empties completely Patient Tobacco Use Status: Never used Tobacco Allergies codeine Allergy (Unknown, Verified 12/28/24 13:17) Nausea Do you need a note to return to daycare/school/sports/work: No HPI HPI Comments History of Present Illness Details History of Present Illness - The patient is an 84-year-old male pre senting with suspected Urinary Tract Infection (UTI) for a few days. - Current symptoms include increased heather quency of urination, burning with urination and feeling like he is an incompletely emptying his bladder. There is an absence of fever, back pain, and blood in his urine. - His symptoms today appear to align wit h earlier episodes, notably a past episode recorded several years ago, suggesting recurrent UTIs. Physical Exam General: Cooperative, healthy appearing, comfortable, no acute distress and well developed Orientation: Patient oriented x3 Limitations: No limitations Head: Normal to inspection Ears: Hearing grossly normal bilaterally Nose: Normal External nose present Face and sinus: Normal facial exam Eyes: Appearance normal, both eyes and all related structures Neck: Normal visual inspection and Yes full ROM Respiratory: Normal respiratory effort and able to speak in complete sentences. Skin: No rashes or lesions noted Neuro: Patient oriented x3 Extremities: Normal to inspection [facility] Medical History (Updated 12/28/24 @ 13:48 by Pamela Rendon PA-C) COVID-19 vaccine series completed HTN (hypertension) Migraine Prostate cancer TIA (transient ischemic attack) Surgical History (Updated 12/14/24 @ 07:43 by Xiomara Stuart) History of esophagogastroduodenoscopy (EGD) Hx of cataract extraction H/O colonoscopy (~11/10/23) Hx of prostatectomy Status post total right knee replacement H/O lumbar discectomy History of bladder suspension procedure Hx of hernia repair Hx of bilateral hip replacements Family History Mother Arthritis Father Hypertension Sister Breast cancer Social History Household Members: Spouse Household Members Other:: , rides a bike 12-14 mile a day, Housing: House Do you presently have visiting nurse or other home services: No Alcohol intake: current Alcohol intake frequency: does not drink Patient Tobacco Use Status: Never used Tobacco e-Cigarette/Vaping Use: Never Used Second Hand Smoke Exposure: No Advance Directives Date on File: 08/15/24 service: No Current occupational status: retired Cognitive needs: No Hearing needs: No Vision needs: Yes Review of Systems Const All systems reviewed & are unremarkable except as noted in HPI and below Physical Exam Vital Signs: Last Vital Signs Temp 98 F 12/28/24 13:17 Pulse 58 12/28/24 13:17 BP 116/72 12/28/24 13:17 Pulse Ox 97 12/28/24 13:17 Oxygen Delivery Method Room Air 12/28/24 13:17 Results AMB Urinalysis, Automated UA Leukoctes 125 Bora/uL Last Edit by Eric Dalton CCM on 12/28/24 13: 43 UA Nitrite Negative Last Edit by Eric Dalton [facility] on 12/28/24 13:43 UA Urobilinogen 0.2 mg/dL Last Edit by Eric Dalton [facility] on 12/28/24 13:43 UA Protein 15 mg/dL Last Edit by Eric Dalton [facility] on 12/28/24 13:43 UA pH 6.0 Last Edit by Eric Dalton [facility] on 12/28/24 13:43 UA Blood 10 [place]/uL Last Edit by Eric Dalton [facility] on 12/28/24 13:43 UA Specific [place] 1.015 Last Edit by Eric Dalton [facility] on 12/28/24 13:43 UA Ketone Positive Last Edit by Eric Dalton [facility] on 12/28/24 13:43 UA Bilirubin 1 mg/dL Last Edit by Eric Dalton [facility] on 12/28/24 13:43 UA Glucose 0 mg/dL Last Edit by Eric Dalton [facility] on 12/28/24 13:43 Assessment & Plan Assessment & Plan (1) UTI (urinary tract infection): Code(s): N39.0 - Urinary tract infection, site not specified Qualifiers: Urinary tract infection type: acute cystitis Hematuria presence: with hematuria Qualified Code(s): N30.01 - Acute cystitis with hematuria Plan: Urinalysis shows 2+ leukocytes, some protein blood and ketones. We will treat for UTI with a cephalosporin as last culture grew E coli which was sensitive to cephalosporins. We will send for culture. If his symptoms continue and do not resolve after the antibiotic, he should follow up with his urologist. Orders: Orders AMB Urinalysis Automated Today Z13.9 - Encounter for screening, unspecified Urine Culture Today N39.0 - Urinary tract infection, site not specified Medications: New cefuroxime axetil 500 mg PO Q12H 10 tabs 0RF Coding Level of Care Code Est Pt Level 3 (99109) Diagnoses Acute cystitis with hematuria N30.01 Urinary tract infection type: acute cystitis Hematuria presence: with hematuria
[2024-12-28 13:17] VITALS: BP 116/72; PULSE 58; TEMP 36.6; O2SAT 97
== END 2024-12-28 13:53 | disposition home or self-care (01) ==
PROVIDERS: PCP Internal Medicine; Visit Provider Physician Assistant
DX: Z13.9 Encounter for screening, unspecified (principal); N30.01 Acute cystitis with hematuria

== ENCOUNTER 2024-12-28 12:58 | Outpatient (REF) | payer MEDICARE, OTHER, SELFPAY | END 2024-12-28 12:59 | disposition home or self-care (01) | LOC: HO.LAB 12:58 | PROVIDERS: PCP Internal Medicine | DX: N30.01 Acute cystitis with hematuria (principal) | CPT/HCPCS: 81003; 99212 ==

== ENCOUNTER 2025-07-05 07:35 | Outpatient (AMB) | payer MEDICARE, OTHER, SELFPAY ==
--- OUTSIDE RECORDS SUMMARY | 2025-07-05 07:38 | XMS_ITS | Clinical Summary ---
Author Organization [facility] [place] [address] Care Team Providers Care Environmental Projects Advisor Name Role Phone Inactive, Pcp External Primary Care Provider Anabella vailable Allergies Active Allergy Reactions Criticality Noted Date Comments Codeine Phosphate Nausea And Vomiting Medium Medications omeprazole (PRILOSEC OTC) 20 mg tablet 20MG = 1 Tablet(s), PO, Every other day 09/10/19 11 Active aspirin 81 mg chewable tablet Take 81 mg by mouth daily. Active acetaminophen (TYLENOL) 500 mg tablet Take 2 tablets by mouth every 8 hours as needed for Pain. 07/09/20 12 Active LEVITRA 20 mg tablet 06/16/20 12 Active UNABLE TO FIND 0.1 mLs by Intracavernosal route as needed (triple p for injections). One dose in 24 hours. No more than three doses in one week. 2.5 mL 6 03/24/20 15 Active Syringe with Needle, Disp, (MONOJECT TB SAFETY SYRINGE) 1 mL 25 x 5/8 Syringe Use with triple p solution 50 Syringe 3 05/12/20 15 Active Syringe with Needle, Disp, (MONOJECT TB SAFETY SYRINGE) 1 mL 25 x 5/8 Syringe Use with triple p solution no more than 3 times week 25 Syringe 3 05/12/20 15 Active Syringe with Needle, Disp, (MONOJECT TB SAFETY SYRINGE) 1 mL 25 gauge x 5/8 Syringe To be used no more than 3 times a week 25 Syringe 3 04/11/20 16 Active Syringe with Needle, Disp, (MONOJECT TB SAFETY SYRINGE) 1 mL 25 gauge x 5/8 Syringe The patient uses with triple p solutio 25 Syringe 11 05/29/20 16 Active Syringe with Needle, Disp, (MONOJECT TB SAFETY SYRINGE) 1 mL 25 gauge x 5/8 Syringe Use no more than 3 times a week 25 Syringe 3 01/09/20 17 Active amLODIPine (NORVASC) 5 mg Tablet Take 10 mg by mouth daily. Active Iron 18 mg Tablet Take 18 mg by mouth three times a week. Activ e atorvastatin (Lipitor) 10 mg Tablet Take 10 mg by mouth daily. Active verapamiL (Calan) 120 mg Tablet Take 120 mg by mouth 2 times daily. Active losartan (Cozaar) 50 mg Tablet Take 50 mg by mouth daily. Active UNABLE TO FINDIndications :Erectile dysfunction, unspecified erectile dysfunction type 0.3 mLs by Intracavernosal route daily as needed (do not exceed more than 1 dose in a 24 hour period). by Intracavernosal route. Papaverine 30mg/ml, Phentolamine 1mg/ml, and Alprostadil 10mcg/ml 5 mL 5 08/08/20 21 Active Active Problems Problem Noted Date Diagnosed Date Malignant neoplasm of prostate 10/14/2012 Urinary incontinence 07/15/2012 Urinary stress incontinence, male 04/22/2012 ED (erectile dysfunction) 04/22/2012 Left anterior total hip arthroplasty 07/08 Miri 04/22/2012 Overview (08/04/2012): Case Date: 07/08/2012 Procedure Performed: left Total Hip Arthroplasty left hip intraoperative radiologic examination (CPT code 72543) Surgeon: Jaycob Chery MD Implants Used: Femoral Stem: DePuy Corail, Size 11 KS Femoral Head: CoCr, Size 36+5 Acetabulum: DePuy [place] Sector II Gription, Size 54mm Adjuvant screw fixation x 1 x 6.5mm (35mm) Liner: Altrx polyethylene, Size 54x36 +4 neutral Healthcare maintenance 04/17/2012 Overview (04/17/2012): Colonoscopy 10/26/04 Immunization History Administered Date(s) Administered H1n1 08/17/2009 Influenza Whole 07/02/2005, 07/05/2007, 06/23/2008 Pneumococcal Polyvalent 23 11/11/2007 Td 04/20/1995, 10/02/2003 Zoster 02/17/2009 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 Rene Easley replaced right hip at [facility] in [place], [place] Prostate cancer 10/01/2011 Overview (05/31/2012): 5/4 [...] Sensorineural hearing loss, asymmetrical 03/27/2011 11/27/2011 Immunizations Immunization Administration Dates Next Due Influenza (Novel G4L7-55) Injectable 08/17/2009 Influenza Trivalent, Preservative Free 3,07/09/2012 [...] Assigned at Male 01/22/2021 1:05 PM EDT Legal Sex Male 7:14 AM EST Gender Identity Not on file Sexual Orientation Not on file Last Filed Vital Signs Vital Sign Reading Time Taken Comments Blood Pressure 124/65 01/26/2021 5:30 PM EDT Pulse 65 01/26/2021 5:20 PM EDT Temperature 36.2 C (97.1 F) 01/26/2021 3:26 PM EDT Respiratory Rate 19 01/26/2021 5:05 PM EDT [...] Tdap) 04/17/2022 04/17/2012, 10/02/2003, 04/20/1995 Covid-19 Vaccine (1 - 2024-2 6 season) 2025 Influenza (Flu) vaccine (1 o f 1 - Influenza standard series) 05/02/2025 06/15/2013, 07/09/2012, 08/17/2009, Additional history exists Colonoscopy Discontinued 01/26/2021, 12/31, 10/26/2004 (Report in eD) Colorectal Cancer Screening Discontinued Sigmoidoscopy (10 year) with FIT yearly Discontinued 01/26/2021, 01/26/2021 CT Colonography Discontinued FIT DNA Discontinued FIT Discontinued Sigmoidoscopy Discontinued Medical Devices Implanted Type Area Rate Manager Device Identifier Shelf Expiration Date Model / Serial / Lot Cup,Actbr,Grpt n,Sector,54mm ([id number]) (Autoreq) - [id number] Implanted:Qty: 1 on 07/08/2012 at [facility] IMPLANTS Left: Hip DO NOT USE Depuy Repair Armature Winder - 3527 05/31/2022 [id number] Screw,Cacls,Pn ncl,6.5x35mm ([id number]) (Autoreq) - [id number] Implanted:Qty: 1 on 07/08/2012 at [facility] IMPLANTS Left: Hip DO NOT USE Depuy Repair Armature Winder - 3527 04/30/2022 0 / / [id number] Liner,Actbr,+4 mm,Ntrl,36x54m m ([id number]) (Autoreq) - [id number] Implanted:Qty: 1 on 07/08/2012 at [facility] IMPLANTS Left: Hip DO NOT USE Depuy Repair Armature Winder - 3527 05/31/2017 4 / / [id number] Stem,Fmrl,Clrd ,11,135deg,145 mm ([id number]) (Autoreq) - [id number] Implanted:Qty: 1 on 07/08/2012 at [facility] IMPLANTS DO NOT USE Depuy Repair Armature Winder - 3527 05/31/2017 [id number] / / [id number] Head,Fmrl,+5mm ,12-14,36mm ([id number]) (Autoreq) - [id number] Implanted:Qty: 1 on 07/08/2012 at [facility] IMPLANTS DO NOT USE Depuy Repair Armature Winder - 3527 05/01/2017 0 / / [id number] Procedures Procedure Name Priority Date/Time Associated Diagnosis Comments COLONOSCOPY Routine 01/26/2021 3:49 PM EDT from Last 3 Months or Most Recently Relevant to Health Maintenance Results * COLONOSCOPY (01/26/2021 3:49 PM EDT) COLONOSCOPY [facility] Endoscopy Procedure Date: 01/26/2021 3:49 PM Patient Name: Reyes Garner Date of : 1940 Age: 80 Order #: [id number] Instrument Name: -[id number] Procedure: Colonoscopy Indications: Iron deficiency anemia Providers: Francisco J Chong, Fortunato Davenport, Citlaly Carson Referring MD: Azar Griffin MD Medicines: Midazolam 2 mg IV, Fentanyl 50 micrograms IV Complications: No immediate complications. Procedure: Pre-Anesthesia Assessment: - Prior to the procedure, a History and Physical was performed, and patient medications and allergies were reviewed. The patient is competent. The risks and benefits of the procedure and the sedation options and risks were discussed with the patient. All questions were answered and informed consent was obtained. Patient identification and proposed procedure were verified by the physician in the pre-procedure area. Mental Status Examination: alert and oriented. Airway Examination: normal oropharyngeal airway and neck mobility. Respiratory Examination: clear to auscultation. CV Examination: normal. Prophylactic Antibiotics: The patient does not require prophylactic antibiotics. Prior Anticoagulants: The patient has taken no previous anticoagulant or antiplatelet agents. ASA Grade Assessment: II - A patient with mild systemic disease. After reviewing the risks and benefits, the patient was deemed in satisfactory condition to undergo the procedure. The anesthesia plan was to use moderate sedation / analgesia (conscious sedation). Immediately prior to administration of medications, the patient was re-assessed for adequacy to receive sedatives. The heart rate, respiratory rate, oxygen saturations, blood pressure, adequacy of pulmonary ventilation, and response to care were monitored throughout the procedure. The physical status of the patient was re-assessed after the procedure. The procedure, indications, benefits, risks and alternatives were explained to the patient. Specifically discussed were potential complications including, but not limited to, bleeding, perforation, infection, missing a cancer, and adverse medication reactions. The patient was placed in the left lateral decubitus position, and a digital rectal exam was performed. The Colonoscope was inserted in the anus and under direct visualization, advanced to the terminal ileum. Careful inspection was made as the colonoscope was withdrawn. The patient tolerated the procedure well. The quality of the bowel preparation was good. Findings: The terminal ileum appeared normal. A 9 mm polyp was found in the cecum. The polyp was flat. The polyp was removed with a cold snare. Resection and retrieval were complete. A 30 mm polyp was found in the proximal ascending colon. The polyp was Tamara classification IIa (superficial, elevated) and granular lateral spreading. Preparations were made for mucosal resection. Orise gel was injected to raise the lesion. Piecemeal mucosal resection using a snare was performed. Resection and retrieval were complete. To prevent bleeding post-intervention, five hemostatic clips were successfully placed. There was no bleeding at the end of the procedure. A few small-mouthed diverticula were found in the sigmoid colon. The retroflexed view of the distal rectum and anal verge was normal and showed no anal or rectal abnormalities. Moderate Sedation: Moderate (conscious) sedation was administered by the endoscopy nurse and supervised by the endoscopist. The following parameters were monitored: oxygen saturation, heart rate, blood pressure, and response to care. Impression: - The examined portion of the ileum was normal. - One 9 mm polyp in the cecum, removed with a cold snare. Resected and retrieved. - One 30 mm polyp in the proximal ascending colon, removed with mucosal resection. Resected and retrieved. Clips were placed. - Diverticulosis in the sigmoid colon. - The distal rectum and anal verge are normal on retroflexion view. Recommendation: - Discharge patient to home. - Resume previous diet. - Await pathology results. - Repeat colonoscopy in 6 months for surveillance based on pathology results. Attending Participation: I personally performed the entire procedure. Francisco J Chong, 01/26/2021 5:07:11 PM Number of Addenda: 0 Note Initiated On: 01/26/2021 3:49 PM PROVATION 01/26/2021 3:49 PM EDT us Azar Griffin MD GENERAL SURGICAL ORDERABLES F inal Result PROVATION from Last 3 Months or Most Recently Relevant to Health Maintenance Insurance MEDICARE [facility] Advance Directives Documents on File Type Date Recorded Patient Billet Straightener Expl 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 Care Teams Environmental Projects Advisor Relationship Specialty Start Date End Date Inactive, Pcp External PCP - General 09/17/24
--- OUTSIDE RECORDS SUMMARY | 2025-07-05 07:38 | XMS_ITS | Clinical Summary ---
Author Organization [facility] Address [address] [place] [address] Phone Care Team Providers Care Pastoral Counselor Name Role Phone Azar Griffin MD Unavailable [phone] Unknown, Unknown Primary Care Provider Unavai lable Allergies Active Allergy Reactions Criticality Noted Date Comments Codeine Nausea and/or Vomiting 12/30/2017 Medications acetaminophen (TYLENOL) 500 MG tablet Take 1,000 mg by mouth. 2 Active omeprazole (PRILOSEC) 20 MG tablet Take by mouth. 1 Active amLODIPine (NORVASC) 10 MG tabletIndicatio ns:Hypertension Take 1 tablet (10 mg total) by mouth daily. 90 tablet 3 3 Active lidocaine (LIDODERM) 5 % APPLY 2 PATCH TOPICALLY DAILY FOR PAIN FOR 30 DAYS 3 Active atorvastatin (LIPITOR) 10 MG tabletIndicatio ns:Hyperlipidem ia TAKE 1 TABLET DAILY 90 tablet 1 3 Active losartan (COZAAR) 50 MG tabletIndicatio ns:Hypertension TAKE 1 TABLET DAILY 90 tablet 1 3 Active verapamiL (VERELAN) 360 MG 24 hr capsule TAKE 1 CAPSULE AT BEDTIME 90 capsule 1 3 Active Active Problems Problem Noted Date Diagnosed Date History of colonic polyps 06/15/2021 Leg cramps 09/16/2019 Obstructive sleep apnea 09/16/2019 Migraine without status migrainosus, not intract able 09/16/2019 Medical orders for life-sust aining treatment (MOLST) form in chart 01/01/2019 Abnormal nuclear cardiac imaging test 12/08/2017 Acromioclavicular joint arthritis 12/08/2017 Anemia associated with nutritional deficiency Aortic stenosis 12/08/2017 Coronary artery disease 12/08/2017 Osteoarthritis of knee 12/08/2017 Disequilibrium 12/08/2017 ED (erectile dysfunction) 12/08/2017 GERD (gastroesophageal reflux disease) 8 Headache 12/08/2017 Hearing loss of both ears 12/08/2017 History of prostate cancer 12/08/2017 History of total right knee replacement 12/09/19 18 Hyperlipidemia 12/08/2017 Hypertension 12/08/2017 Retinal detachment 12/08/2017 Other shoulder lesions, unspecified shoulder 05/2018 Transient cerebral ischemia 12/08/2017 Male urinary stress incontinence 12/08/2017 Urinary incontinence 07/15/2012 Hip pain, left 04/22/2012 Overview (09/16/2019): Overview: Case Date: 07/08/2012 Procedure Performed: left Total Hip Arthroplasty left hip intraoperative radiologic examination (CPT code 74333) Surgeon: Jaycob Chery MD Implants Used: Femoral Stem: DePuy Corail, Size 11 KS Femoral Head: CoCr, Size 36+5 Acetabulum: DePuy Minerva Sector II Gription, Size 54mm Adjuvant screw fixation x 1 x 6.5mm (35mm) Liner: Altrx polyethylene, Size 54x36 +4 neutral Hip pain, left 04/22/2012 Overview (01/18/2021): Case Date: 07/08/2012 Procedure Performed: left Total Hip Arthroplasty left hip intraoperative radiologic examination (CPT code 78662) Surgeon: Jaycob Chery MD Implants Used: Femoral Stem: DePuy Corail, Size 11 KS Femoral Head: CoCr, Size 36+5 Acetabulum: DePuy Minerva Sector II Gription, Size 54mm Adjuvant screw fixation x 1 x 6.5mm (35mm) Liner: Altrx polyethylene, Size 54x36 +4 neutral Healthcare maintenance 04/17/2012 Overview (01/18/2021): Colonoscopy 10/26/04 Immunization History Administered Date(s) Administered H1n1 08/17/2009 Influenza Whole 07/02/2005, 07/05/2007, 06/23/2008 Pneumococcal Polyvalent 23 11/11/2007 Td 04/20/1995, 10/02/2003 Zoster 02/17/2009 S/P hip replacement 11/27/2011 Overview (01/18/2021): 1998, Dr. Rene Easley replaced right hip at [facility] in [place], [place] Elevated PSA 10/01/2011 Impairment of auditory discrimination 03/27/2011 SNHL (sensory-neural hearing loss), asymmetrical 03/27/2011 Arthritis 11/05/2006 Benign essential hypertension 11/05/2006 Benign prostate hyperplasia 11/05/2006 Partial recent retinal detachment with single de fect 09/01/1980 Resolved Problems Problem Noted Date Diagnosed Date Resolved Date Cervicogenic headache 12/08/20172017 Family history of aneurysm 12/08/2017 1 Vertigo 12/08/2017 12/08/2017 Malignant neoplasm of prostate 10/01/2011 09/13/2022 Overview (09/16/2019): Overview: 01/02 S/P LAPAROSCOPIC PROSTATECTOMY, ROBOTICS ASSISTED @LYMPHADENECTOMY, PELVIC, INCLUDING MULTIPLE NODES-MABEL Status post lumbar spine carloz shanelle for decompression of spinal cord 01/24/2010 01/14/2023 Immunizations Immunization Administration Dates Next Due COVID-19 (Pre-06/23) Pfizer Vaccine, mRNA, PF 05/28/2021,09/24/2020,09/06/2020 [id number] FORMULATION 08/17/2009 Hepatitis A, Adult 07/11/1997,01/09/1997 Hepatitis B Adult 06/11/2022, 6,06/16/1995,04/29 INFLUENZA, SPLIT VIRUS, TRIVALENT PF 06/15/2013, 07/09/2012 INFLUENZA, SPLIT VIRUS, TRIV ALENT W/ PRESERVATIVE IM 06/26/2016,06/23/2008,07/05/2007,07/02 IPV 10/08/1989 Influenza High-Dose Quadriva lent Preservative Free IM 05/25/2021,05/23/2020 Influenza High-Dose Trivalen t Preservative Free IM 06/15/2019,06/12/2017,06/20/2015,06/07 Influenza Quadrivalent Prese rvative Free IM 06/12/2018 Influenza, Unspecified Formulation 06/18/2018 Influenza, whole 06/23/2008,07/05/2007, 5 Swedish Encephalitis SC 01/17/2005,12/27/2004,0 12/20/2004 Meningococcal MPSV4 11/27/2004,08/07/1990 Novel [id number], Injectable 08/17/2009 Pneumococcal conjugate PCV13 06/20/2015 Pneumococcal polysaccharide PPSV23 11/11/2007 Td (adult), not adsorbed 10/02/2003,04/20/1995 Td (adult),2 Lf Tetanus Toxo id, PF, Adsorbed 10/02/2003,08/12/1995,07/13/1995,04/20,08/07/1990 Tdap 08/20/2021,10/20/2013,04/17/2012 Typhoid, ViCPs 09/22/1990,08/26/1990 Typhoid,oral 08/12/1995 Yellow Fever 11/27/2004 Zoster live 02/17/2009 Family History Medical History Relation Comments Stroke Father 2 Relation Status Comments Father 1 Father 2 Social History Tobacco Use Types Packs/Day Years Used Date Smoking Tobacco: Never Smokeless Tobacco: Never Tobacco Cessation:Counseling Given: Not Answered Child or Family Care Answer Date Record ed Do you have problems with on e of the following making it difficult for you to work, study, or receive health care? No 01/09/2021 Education Answer Date Recorded Are you interested in more education? Not on peggy e 01/14/2023 Are you concerned about learning? Not on file 01/14/2023 No 01/14/2023 No 01/14/2023 Food Answer Date Recorded Within the past 6 months we worried whether our food would run out before we got money to buy more. Never True 01/09/2021 Within the past 6 months the food we bought just didn't last and we didn't have enough money to get more. Never True Paying for Meds Answer Date Recorded Do you have trouble paying for medicines? No 01/09/2021 Paying Utility Bills Answer Date Record ed Do you have trouble paying your heating or elect ricity bill? No 01/09/2021 Transportation Answer Date Recorded Has the lack of transportati on kept you from medical appointments or from getting medications? No 01/09/2021 Unemployment Answer Date Recorded Are you currently unemployed or working on a part-time or temporary basis, and looking for work? No 01/09/2021 Digital Access Answer Date Recorded No 01/27/2023 No 01/27/2023 Reliable internet access at home? Not on file 01/27/2023 Device with a working camera? Not on file Sex and Gender Information Value Date Recorded Sex Assigned at Male 05/22/2020 8:14 PM EDT Legal Sex Male 10:11 PM EDT Gender Identity Male 05/22/2020 8:14 PM EDT Sexual Orientation Straight 05/22/2020 8: 14 PM EDT Last Filed Vital Signs Vital Sign Reading Time Taken Comments Blood Pressure 122/70 01/14/2023 3:46 PM EDT Pulse 60 01/14/2023 3:46 PM EDT Temperature 36.1 C (96.9 F) 11/16/2021 9:36 AM EDT Respiratory Rate - - Oxygen Saturation 96% 01/14/2023 3:46 PM EDT Inhaled Oxygen Concentration - - Weight 94.8 kg (209 lb) 01/14/2023 3:46 PM EDT Height 184.2 cm (6' 0.52 ) 01/14/2023 3:46 PM ED T Body Mass Index 27.94 01/14/2023 3:46 PM EDT Plan of Treatment Health Maintenance Due Date Last Done Comments COLOGUARD 1987 FIT TEST 1987 FOBT 1987 SIGMOIDOSCOPY 1987 VIRTUAL COLONOSCOPY 1987 ZOSTER VACCINES (2 of 3) 04/14/2009 02/17/2009 RSV VACCINE (1 - 1-dose 75+ series) 2017 COLONOSCOPY 07/29/2021 01/26/2021, 12/31, 07/31/2015 COLORECTAL CANCER SCREENING 07/29/2021 DEPRESSION SCREENING 11/16/2022 11/16/2021 BLOOD PRESSURE 07/17/2023 01/14/2023 CREATININE LEVEL 01/16/2024 01/15/2023, , 01/12/2021, Additional history exists POTASSIUM LEVEL 01/16/2024 01/15/2023, 10/31, 01/12/2021, Additional history exists INFLUENZA VACCINE (#1) 2025 , 05/15/2022, 05/15/2022, Additional history exists COVID-19 VACCINE ( season) 2025 05/04/2024, 11/11/2023, 05/20/2023, Additional history exists LIPID PANEL 06/30/2025 06/30/2024, 06/02, 06/24/2023, Additional history exists Adult Td,Tdap Booster 08/20/2031 08/20/2021 , 10/20/2013, 04/17/2012, Additional history exists HEPATITIS A VACCINES Aged Out 07/11/1997, 01/09/19 97 No longer eligible based on patient's age to complete this topic MENINGOCOCCAL VACCINES (ACWY) Aged Out 11/27/2004, 08/07/1990 No longer eligibl e based on patient's age to complete this topic PNEUMOCOCCAL VACCINES (50+ years) Completed 06/20/2015, 11/11/2007 HIB VACCINES Aged Out No longer eligi ble based on patient's age to complete this topic MENINGOCOCCAL VACCINES (B) Aged Out N o longer eligible based on patient's age to complete this topic Medical Devices Not on file Procedures Procedure Name Priority Date/Time Associated Diagnosis Comments LIPID PANEL Routine 01/15/2023 2:43 PM EDT Mixed hyperlipidemia COMPREHENSIVE METABOLIC PANEL (CMP) Routine 01/15/2023 2:43 PM EDT Hyperlipidemia COLONOSCOPY FOR RESULT ENTRY ONLY Routine 01/26/2021 from Last 3 Months or Most Recently Relevant to Health Maintenance Results * (ABNORMAL) Comprehensive metabolic panel (01/15/2023 2:43 PM EDT) SODIUM 139 133 - 146 mmol/L [facility] POTASSIUM 4.5 3.3 - 5.1 mmol/L [facility] CHLORIDE 101 96 - 108 mmol/L [facility] CO2 27 21 - 35 mmol/L [facility] BUN 26(H) 6 - 19 mg/dL [facility] CREATININE 1.00 0.5 - 1.5 mg/dL [facility] GLUCOSE 97 70 - 99 mg/dL [facility] ALBUMIN 4.3 3.9 - 4.8 g/dL [facility] TOTAL PROTEIN 7.1 6.5 - 8.0 g/dL [facility] CALCIUM 9.5 8.4 - 10.3 mg/dL [facility] ALKALINE PHOSPHATASE 86 39 - 117 U/L [facility] TOTAL BILIRUBIN 0.3 0.0 - 1.2 mg/dL [facility] AST 30 0 - 37 U/L [facility] ALT 24 0 - 40 U/L [facility] GLOBULIN 2.8 1 - 4.8 g/dL [facility] EGFR 76 >59 mL/min/1.7 3m2 [facility] Comment:Estimated glomerular filtration rate calculated using the CKD-EPI refit equation. ANION GAP 16 10 - 20 mmol/L [facility] Blood 01/15/2023 2:43 PM EDT 01/15/2023 2:54 PM EDT us Azar Griffin MD LAB BLOOD BKR ORDERABLES Anastasiia arceo Result Performing Organization Address City/State/[facility] Co de Phone Number [address] [address] * (ABNORMAL) Lipid panel (01/15/2023 2:43 PM EDT) HDL 49 mg/dL [facility] Comment: Interpretation <40 mg/dL: Low HDL cholesterol (major risk factor for CHD) Greater than or equal to 60 mg/dL: High HDL cholesterol ( negative risk factor for CHD) HDL - cholesterol is affected by a number of factors, e.g. smoking, excerise, hormones, sex and age. CHOLESTEROL 134 0 - 240 mg/dL [facility] TRIGLYCERIDES 112 30 - 160 mg/dL [facility] LDL 63 50 - 129 mg/dL [facility] Comment: LDL levels in terms of risk for coronary heart disease: <100 mg/dL: Optimal 100-129 mg/dL: Near or above optimal 130-159 mg/dL: Borderline high 160-189 mg/dL: High >190 mg/dL: Very High CARDIAC RISK RATIO 2.7(L) 3.4 - 5.0 C [facility] Blood 01/15/2023 2:43 PM EDT 01/15/2023 2:54 PM EDT us Azar Griffin MD LAB BLOOD BKR ORDERABLES Anastasiia arceo Result [facility] [address] [place] [address] * COLONOSCOPY FOR RESULT ENTRY ONLY (01/26/2021) Historical Provider HEALTH MAINTENANCE Final Result from Last 3 Months or Most Recently Relevant to Health Maintenance Insurance [place] [id number] [facility] MEDICARE SUPPLEMENT MEDICARE PART A & B [facility] MEDICARE SUPPLEMENT MEDICARE PART A & B [employer] MEDICARE SUPPLEMENT MEDICARE PART A & B [facility] MEDICARE SUPPLEMENT MEDICARE PART A & B 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 It is not the complete legal health record.[facility]
--- OUTSIDE RECORDS SUMMARY | 2025-07-05 07:38 | XMS_ITS | Encounter Summary ---
Author Organization [facility] Address [address] [facility] [address] [place] [address] Phone Care Team Providers Care Financial Agent Name Role Phone Debbie Beltrángabmichel Tiki [employer] Unavailable Gerson Hand MD Unavailable Dennis Vidales Unavailable Marcella Kelsey [facility] Unavailable Will Jacome MD Unavailable Orion Mccray MD Unavailable Azar Griffin MD Unavailable Cely Resendiz PA-C Unavailable Margaret Rivas MD Unavailable Armand Arrieta MD Unavailable Azar Griffin MD Primary Care Provider [phone] Azar Griffin MD Unavailable Unknown, Unknown Primary Care Provider Salvador motley Encounter Details Date Type Department Care Team (Late st Contact Info) Description 05/18/2018 Ancillary Orders Virtual Department [address] [place] [address] [id number] Tonny Everett MD, PhD [address] [facility] [address] [place], [place] [phone] (work) [email or web address] Carotid stenosis, asymptomatic, bilateral; Vascular headache Social History Tobacco Use Types Packs/Day Years Used Date Smoking Tobacco: Never Smokeless Tobacco: Never Sex and Gender Information Value Date Recorded Sex Assigned at Male 05/22/2020 8:14 PM EDT Legal Sex Male 10:11 PM EDT Gender Identity Male 05/22/2020 8:14 PM EDT Sexual Orientation Straight 05/22/2020 8: 14 PM EDT documented as of this encounter Plan of Treatment Not on file documented as of this encounter Results * US Carotid Duplex (Bilateral) (05/20/2018 3:34 PM EDT) Anatomical Region Laterality Modality Heart, Thoracic Vasculature, Neck Ultrasound 05/20/2018 6:07 PM EDT Impressions 05/20/2018 6:09 PM EDT Very minimal plaque in the bulb on the right but no evidence of hemodynamically significant stenosis in either cervical carotid system. CAROTID STENOSIS REFERENCE USING NASCET CRITERIA: % ICA stenosis = (1 - narrowest ICA diameter/diameter of distal cervical ICA) x 100. Mild - < 50% stenosis. Moderate - 50-69% stenosis. Severe - 70-94% stenosis. Near occlusion - 95-99% stenosis. Occluded - 100% stenosis. POS [id number] Narrative 05/20/2018 6:09 PM EDT No comparison The real-time exam shows a very minimal amount of calcified plaque in the bulb on the right without extension into the ICA. No plaque is seen on the left. Doppler analysis shows normal waveforms and velocities in all vessels. Peak systolic flow in the right ICA 72 cm/s. Left ICA 94 cm/s. Normal systolic and diastolic ratios bilaterally. This combination of findings corresponds to less than 50% stenosis relative to distal ICA diameter.. Antegrade flow is seen in both vertebral arteries. Procedure Note Be Guadarrama MD - 05/20/2018 No comparison The real-time exam shows a very minimal amount of calcified plaque in thebulb on the right without extension into the ICA. No plaque is seen on the left. Doppler analysis shows normal waveforms and velocities in all vessels. Peak systolic flow in the right ICA 72 cm/s. Left ICA 94 cm/s. Normal systolic and diastolic ratios bilaterally. This combination of findings corresponds to less than 50% stenosisrelative to distal ICA diameter.. Antegrade flow is seen in both vertebral arteries. IMPRESSION: Very minimal plaque in the bulb on the right but no evidence ofhemodynamically significant stenosis in either cervical carotid system. CAROTID STENOSIS REFERENCE USING NASCET CRITERIA: % ICA stenosis = (1 - narrowest ICA diameter/diameter of distal cervicalICA) x 100. Mild - < 50% stenosis. Moderate - 50-69% stenosis. Severe - 70-94% stenosis. Near occlusion - 95-99% stenosis. Occluded - 100% stenosis. POS [id number] Tonny Everett MD, PhD CV US NEUROVASCULAR Fin al Result documented in this encounter Visit Diagnoses Diagnosis Carotid stenosis, asymptomatic, bilateral Vascular headache Headache Carotid stenosis, asymptomatic, bilateral Vascular headache Headache documented in this encounter Additional Health Concerns Assessment Noted Time PHQ-2 Depression Total Score: 0 12/31/19 18 10:07 AM EDT documented as of this encounter Care Teams Financial Agent Relationship Specialty Start Date End Date Azar Griffin MD [address] [place] [address], [address] [place], [place] [phone] PCP - General 06/19/17 11/26/23 Unknown, Unknown, PCP - General 11/27/23 Geovanna Beltrán NP [address] [place] [address] Historical LMR Provider 06/18/1709/08/21 Gerson Hand MD [address] [facility] [address] [place] [address] Historical LMR Provider 06/18/17 2 Dennis Vidales PA [address] [place] [address] Historical LMR Provider 06/18/17 2 Marcella Kelsey CNP [address] [place] [address], [address] [place] [address] [email or web address] Historical LMR Provider 06/18/17 09/08/21 Will Jacome MD [address] [place] [address] [email or web address] Historical LMR Provider 06/18/17 09/08/21 Orion Mccray MD [address] [place] [address], [address] [place] [address] [email or web address] Historical LMR Provider 06/18/17 09/08/21 Azar Griffin MD [address] [place] [address] 7 [place] [address] Historical LMR Provider 06/18/17 Cely Resendiz PA-C [address] [place] [address] Orthopedics & Sports Medicine, [facility] [place] [address] [email or web address] Historical LMR Provider 06/18/17 09/08/21 Margaret Rivas MD [address] [place] [address] [address] [place] [address] [email or web address] Historical LMR Provider 06/18/17 09/08/21 Armand Arrieta MD [address] [place], [place] [address] [place] [address] [email or web address] Historical LMR Provider 06/18/17 09/08/21 Azar Griffin MD [address] [place] [address] 7 [place] [address] [email or web address] Insurance Assigned Provider 08/02/1712/06/23 documented as of this encounter Additional Source Comments The information contained in this document represents components of the legal health record. It is not the complete legal health record.[facility]
--- OUTSIDE RECORDS SUMMARY | 2025-07-05 07:38 | XMS_ITS | Patient Health Record ---
Author Organization [facility] Address [address] [place] [address] Care Team Providers Care Coal Digger Name Role Phone Azar Griffin MD Primary Care Provider Dania Castañeda Unavailable [phone] Allergies Allergen (clinical drug ingredient) Drug/Non Drug Allergy documented on EMR Reaction Allergy Type Onset Date Status codeine Codeine Sulfate nausea Drug Allergy A ctive Reason For Referral No Information Medications Medication SIG (Take, Route, Frequency, Duration) Notes Start Date End Date Status PriLOSEC OTC 20 MG 1 tablet 30 minutes before morning meal Orally Once a day; Duration: 30 day(s) Active Metoprolol Succinate 25 MG 1 capsule Orally Once a day; Duration: 30 day(s) Not-Alfonso ing Simvastatin 20 MG 1 tablet in the even ing Orally Once a day; Duration: 30 day(s) Not-Taking amLODIPine Besylate 5 MG 1 tablet Orally Once a day; Duration: 30 day(s) Active Aimovig 70 MG/ML as directed Subcutaneous Not-Taking Viagra Active Ciclopirox Olamine 0.77 % 1 application to affected area Externally to feet Twice a day; Duration: 30 days Active Atorvastatin Calcium 10 MG 1 tablet Orally Once a day; Duration: 30 day(s) Active Aspirin 81 MG 1 tablet Orally Once a day; Duration: 30 day(s) Active Verapamil HCl 40 MG 1 tablet Orally Thre e times a day; Duration: 30 day(s) Active Multivitamin Active Losartan Potassium 50 MG 1 tablet Orally Once a day; Duration: 30 day(s) Active Social History Tobacco Use: Social History Observation Description Date Details (start date - stop date) Never Smoker NA - NA Tobacco Use/Smoking Question Answer Notes Are you a: nonsmoker Alcohol Screen Question Answer Notes Did you have a drink contain ing alcohol in the past year? Yes How often did you have a dri nk containing alcohol in the past year? 2 to 3 times a week (3 points) Points 3 Interpretation Negative Tobacco use other than smoking: Question Answer Notes Are you an other tobacco user? No Plan Of Treatment No Information Insurance Providers Payer Name Payer Address Payer Phone Subscriber Number Group Number Insured Name Patient Relationship to Insured Coverage Start Date Coverage End Date Medicare National Govt [email or web address] [facility] [place] [facility] [address] [place] [address] [id number] Reyes Garner Self - patient is the insured [employer] ([employer]) [address] [place] [address] [phone] [id number] Reyes Garner Self - patient is the insured Medical (General) History Medical History History ICD Code Arthritis Back,Hip,and Knee pain Broken bones Cancer Cataracts Headaches/Migraines High blood pressure Reflux ( GERD) Measles Mumps Chicken pox Joint implants/screws Surgical History Surgery Date(Month/Year) right hip replacement 1998 left hip replacement 2011 knee surgery 2013 prostate surgery 2012 hernia 2008 cataract surgery 2009 Hospitalization History Reason Date(Month/Year) [facility] [place] possible [place]IA- diagnosis was michel tristan 06/20
[2025-07-05 07:45] VITALS: BP 132/78; PULSE 60; O2SAT 98
--- NOTE | 2025-07-05 07:45 | AM.OFFWIN_ITS ---
Intake Vital Signs 07/05/25 07:45 Height 6 ft 0.75 in BP 132/78 Blood Pressure Location Rt brachial Position Sitting Pulse 60 Pulse Source Pulse Oximeter Pulse Oximetry (%) 98 Oxygen Delivery Method Room Air Intake Visit Reasons: EP-chest pain & lt arm pain Intake Note: Patient presents with chest pain & left arm pain since last night. Patient Tobacco Use Status: Never used Tobacco Allergies codeine Allergy (Unknown, Verified 07/05/25 07:50) Nausea HPI HPI Comments History of Present Illness Details History of Present Illness - The patient is an 84-year-old male pre senting with chest pain and left arm pain that is now resolved. - The patient experienced flushing and s ignificant shaking at 5:30 p.m., - He does not have diabetes and had eate n a meal at noon the previous day. - The patient reports intermittent pain in the left arm which subsided during the night and was not present at the time of examination. he states that he pressed on the area and it was painful but it is not now. - The patient has a history of high bloo d pressure but denies any history of low blood pressure. - The patient is the primary caregiver f or his , who has ALS, and is concerned about his health to continue providing care. - Denies dizziness, nausea, flushing, vo miting, neck pain, back pain or abd pain now. Denies numbness or tingling in left arm or hand Review of Systems - Cardiovascular: Reports flushing and s haking. Denies chest pain at the time of visit. - Musculoskeletal: Reports intermittent shoulder, arm, and neck pain. Denies current pain on palpation. - Neurological: Denies numbness or tingl ing in the hands. All systems reviewed and are unremarkable except as noted in HPI Physical Exam General: Cooperative, healthy appearing, comfortable, no acute distress and well developed Orientation: Patient oriented x3 Limitations: No limitations Head: Normal to inspection Ears: Hearing grossly normal bilaterally Nose: Normal External nose present Face and sinus: Normal facial exam Eyes: Appearance normal, both eyes and all related structures Neck: Normal visual inspection and Yes full ROM Respiratory: Normal respiratory effort and able to speak in complete sentences. Skin: No rashes or lesions noted Neuro: Patient oriented x3 Extremities: Normal to inspection, full range of motion in left shoulder and elbow, [facility] Medical History (Updated 12/28/24 @ 13:48 by Pamela Rendon PA-C) COVID-19 vaccine series completed HTN (hypertension) Migraine Prostate cancer TIA (transient ischemic attack) Surgical History (Updated 12/14/24 @ 07:43 by Xiomara Stuart) History of esophagogastroduodenoscopy (EGD) Hx of cataract extraction H/O colonoscopy (~11/10/23) Hx of prostatectomy Status post total right knee replacement H/O lumbar discectomy History of bladder suspension procedure Hx of hernia repair Hx of bilateral hip replacements Family History Mother Arthritis Father Hypertension Sister Breast cancer Social History Household Members: Spouse Household Members Other:: , rides a bike 12-14 mile a day, Housing: House Do you presently have visiting nurse or other home services: No Alcohol intake: current Alcohol intake frequency: does not drink Patient Tobacco Use Status: Never used Tobacco e-Cigarette/Vaping Use: Never Used Second Hand Smoke Exposure: No Advance Directives Date on File: 08/15/24 service: No Current occupational status: retired Cognitive needs: No Hearing needs: No Vision needs: Yes Physical Exam Vital Signs: Last Vital Signs Pulse 60 07/05/25 07:45 BP 132/78 07/05/25 07:45 Pulse Ox 98 07/05/25 07:45 Oxygen Delivery Method Room Air 07/05/25 07:45 Office Procedures EKG Details: sinus riccardo with 1st degree AV block, no acute st or t wave changes [id number], Complete Assessment & Plan Assessment & Plan (1) Chest pain: Code(s): R07.9 - Chest pain, unspecified Qualifiers: Chest pain type: unspecified Qualified Code(s): R07.9 - Chest pain, unspecified Plan: Plan Patient was informed and verbally consented to the use of an ambient scribe for clinic note documentation during this visit. Advised cannot rule out cardiac event at the [facility], explained he should ALWAYS go to the ED for chest pain at his age and with his comorbidities. - Advised to go to the emergency room for further evaluation, including cardiac enzyme testing and monitoring. - EKG showed no changes since October, indicating no acute myocardial infarction. - He is currently asympomatic and okay to drive, called [facility] with expect, spoke with LAWRENCE Hoover 8:10AM. Orders: Orders AMB EKG-In Office Today R07.9 - Chest pain, unspecified Coding Level of Care Code Est Pt Level 5 (09228) Diagnoses Chest pain, unspecified type R07.9 Chest pain type: unspecified CPT Codes EKG - CPT: 29701-[id number], Complete ([id number])
== END 2025-07-05 08:49 | disposition home or self-care (01) ==
PROVIDERS: PCP Internal Medicine; Visit Provider Physician Assistant
DX: R07.9 Chest pain, unspecified (principal)

== ENCOUNTER 2025-07-05 08:21 | Emergency (ER) | payer MEDICARE, OTHER, SELFPAY ==
--- NOTE | ~2025-07-05 | XR_ITS ---
EXAMINATION: XR CHEST 2 VIEWS HISTORY: CP COMPARISON: Comparison is made with the prior examination dated 08/14/2024. FINDINGS: PA and lateral views of the chest are submitted. The lungs are expanded and clear. There is no pleural effusion, pneumothorax, or pulmonary vascular congestion. The heart is normal in size. 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 XR/XR chest 2V IMPRESSION: No acute cardiopulmonary abnormality. Electronically signed by: Jacobo Cristina MD 07/05/2025 09:24 AM [facility]
--- NOTE | 2025-07-05 08:24 | ECG_ITS ---
Test Reason : CP Blood Pressure : */* mmHG Vent. Rate : 57 BPM Atrial Rate : 58 BPM P-R Int : 280 ms QRS Dur : 96 ms QT Int : 376 ms P-R-T Axes : * 9 94 degrees QTcB Int : 365 ms Sinus bradycardia with 1st degree A-V block Nonspecific T wave abnormality Abnormal ECG When compared with ECG of 05-Oct-2024 10:43, Nonspecific T wave abnormality, worse in Anterior leads Referred By: Generic ED Physician Electronically Signed By: Anuel Castaneda
--- NOTE | 2025-07-05 08:35 | ED_ITS ---
HPI - Chest Pain General Chief Complaint: Chest Pain Stated Complaint: CP, L arm pain Time Seen by Provider: 07/05/25 08:31 Source: patient and old records reviewed Mode of arrival: ambulatory Limitations: no limitations History of Present Illness ED Provider: Sneha Mueller PA-C HPI narrative: This is a 84-year-old male, with a past medical history of hypertension and prostate cancer in remission, who presents emergency department with concerns of episodic section, shaking, anxiousness which started at 5:30p.m. last night. Patient states that he has had intermittent left arm pain over the last several days without injury patient denies any chest pain, palpitations, abdominal pain, nausea, vomiting or diarrhea. He states that he went to an urgent care this morning due to his symptoms he had yesterday and was told to report to the emergency room for further eval. He states that he is overall feeling well, has no active CP or SOB. No other complaints or concenrs at this time. Timing of current episode: episodic Prior episodes: No Onset: during rest Pain radiation: none Relieving factors: nothing Exacerbating factors: nothing Context: recent travel Treatment prior to arrival: none Risk Factors Coronary artery disease risk factors: hypertension Thoracic aortic dissection risk factors: longstanding hypertension Related Data Home Medications ?Medication ?Instructions ?Recorded ?Confirmed brimonidine 0.2 % eye drops 1 drp ophthalmic (eye) BID 07/08/24 07/08/25 Previous Rx's ?Medication ?Instructions ?Recorded aspirin 81 mg tablet,delayed 81 mg PO DAILY #90 tabs 1 10/16/23 release amlodipine 10 mg tablet 10 mg PO DAILY #90 tabs 02/0 11/23 atorvastatin 10 mg tablet 10 mg PO DAILY #90 tabs 02/0 11/23 olmesartan 40 1 tab PO BEDTIME #90 tabs mg-hydrochlorothiazide 25 mg tablet verapamil 240 mg 24 hr 240 mg PO BEDTIME #90 caps 0 10/04/24 capsule,extended release lorazepam 0.5 mg tablet (Ativan) 0.5 mg PO DAILY PRN a nxiety #10 07/08/25 tabs Allergies Allergy/AdvReac Type Severity Reaction Status Date / Time codeine Allergy Unknown Nausea Verified 07/08/25 12:08 Review of Systems 2 Review of Systems: Constitutional : No Fever, No Chills ENT/Mouth : No sore throat, No Rhinorrhea Eyes: No Eye Pain, No Swelling, No Redness Cardiovascular : No Chest Pain, No SOB Respiratory : No Cough, No Sputum Gastrointestinal : No Nausea, No Vomiting, No Diarrhea, No abdominal Pain Genitourinary : No Dysuria, No Hematuria Musculoskeletal : No joint pain, No Myalgias, No Joint Swelling Skin : No Skin Lesions Neuro : No Weakness, No Numbness, No Headache All other systems reviewed and are negative Yes all other systems are reviewed and are negative Constitutional: Constitutional: Reports as per [facility] Past Medical History Attestation statement: The following information was validated with the patient. Source: old records reviewed Medical History (Updated 07/08/25 @ 12:11 by Radha Everett PA-C) Encounter to establish care Anxiety Caregiver stress Atypical chest pain Chest pain COVID-19 vaccine series completed HTN (hypertension) Migraine Prostate cancer TIA (transient ischemic attack) Surgical History History of esophagogastroduodenoscopy (EGD) Hx of cataract extraction H/O colonoscopy (~11/10/23) Hx of prostatectomy Status post total right knee replacement H/O lumbar discectomy History of bladder suspension procedure Hx of hernia repair Hx of bilateral hip replacements Family History Family History Mother Arthritis Father Hypertension Sister Breast cancer Social History Social History Household Members: Spouse Household Members Other:: , rides a bike 12-14 mile a day, Housing: House Do you presently have visiting nurse or other home services: No Alcohol intake: current Alcohol intake frequency: does not drink Patient Tobacco Use Status: Never used Tobacco e-Cigarette/Vaping Use: Never Used Second Hand Smoke Exposure: No Advance Directives Date on File: 08/15/24 service: No Current occupational status: retired Cognitive needs: No Hearing needs: No Vision needs: Yes Physical Exam 2 Vital Signs: Vital Signs: Last Vital Signs Temp 97.8 F 07/05/25 12:25 Pulse 57 07/05/25 12:25 Resp 16 07/05/25 12:25 BP 131/59 L 07/05/25 12:25 Pulse Ox 97 07/05/25 12:25 O2 Del Method Room Air 07/05/25 12:25 BMI result Body Mass Index 27.7 Const: General: cooperative, comfortable and no acute distress O rientation/consciousness: patient oriented x3 Limitations: no limitations HEENT: Head: Yes normal to inspection, Yes normocephalic and Yes atraumatic Ears: hearing grossly normal bilaterally General nose exam: Normal external nose present Face and sinus: Yes normal facial exam Mouth: Normal oral and palatal mucosa present, oropharynx normal and moist mucous membranes Throat: Yes posterior oropharynx normal Eyes: General: appearance normal, both eyes and all related structures E yelids: Yes eyelids normal Conjunctivae: conjunctivae normal Sclerae: s clerae normal Pupils: Equal, round and reactive pupils present EOM: EOMs intact bilaterally Neck: Neck: Yes normal visual inspection, Yes full ROM and Yes no lymphadenopathy Lymphatic: no lymphadenopathy noted Chest: Chest palpation & inspection: normal inspection of the chest Resp: Effort & Inspection: normal respiratory effort and able to speak in complete sentences Auscultation: clear to auscultation bilaterally, no crackles, no rales, no rhonchi and no wheezes Cardio: Rate: regular rate Rhythm: regular rhythm Heart sounds: S1 normal heart sound present and S2 normal heart sound present GI: Inspection: Yes normal to inspection Skin: General skin exam: no rashes or lesions noted Trauma: no lacerations or abrasions Wounds: no wounds Neuro: General: patient oriented x3 and moves all extremities Cranial nerves: Yes Equal, round and reactive pupils present Extrem: Other: No pedal edema, no calf tenderness General: Yes normal to inspection Right upper extremity: normal to inspection Left upper extremity: normal to inspection Right lower extremity: normal to inspection Left lower extremity: normal to inspection Medical Decision Making Medical Decision Making MDM Narrative: This is a 84-year-old male, with a past medical history of hypertension and prostate cancer in remission, who presents emergency department with concerns of episodic section, shaking, anxiousness which started at 5:30p.m. last night. On arrival, pt is well appearing, under no acute distress. He had an episode last night of these symptoms and was prompted to come to the ED for further evaluation. Vital signs WNL. DDX including ACS, arrythmia, aanxiety, electrolyte deranagemen. EKG revealing no acute abnormalities. Trop x 2 without any delta change. Pt asymptomatic throughout his entire stay in the ED. Unclear what caused patient's symptoms however workup reassuring. Advised to f/u with PCP with possible referral to cardiolgoy as he has not seeen one in many years. Given return precautions. He understands and agrees with plan. Pt stable for d.c. Differential Diagnosis Differential Diagnoses: The differential diagnosis associated with the presentation includes see above Admission/Observation Consideration of admission/observation: Escalation of care including admission/observation considered Lab Data MDM Lab Attestation statement: I reviewed the patient's lab results. No leukocytosis, normocytic anemia with an H&H of 13.2/39.5. Neg delta troponin. D-dimer negative. 07/05/25 09:07 07/05/25 09:07 Labs: Lab Results 07/05/25 07/05/25 07/05/25 Range/Units 09:07 09:55 11:09 WBC 6.3 (4.8-10.8) X10*3/uL RBC 4.36 L (4.60-5.80) X10*6/uL Hgb 13.2 L (14.0-18.0) g/dl Hct 39.5 L (42.0-52.0) % MCV 90.6 (80.0-98.0) fL MCH 30.3 (27.0-33.0) pg MCHC 33.4 (31.0-36.0) g/dl RDW 12.1 (11.0-16.0) % Plt Count 186 (160-400) X10*3/uL MPV 9.9 (9.4-12.4) fL Immature Gran % (Auto) 0.2 (0.0-0.4) % Neut % (Auto) 71.3 (45-73) % Lymph % (Auto) 13.4 L (20-40) % [place] % (Auto) 11.3 H (2-11) % Eos % (Auto) 3.3 (0-4) % Baso % (Auto) 0.5 (0-2) % Lymph # (Auto) 0.8 L (1.2-4.9) X10*3/uL [place] # (Auto) 0.7 (0.1-1.2) X10*3/uL Eos # (Auto) 0.2 (0.0-0.4) X10*3/uL Baso # (Auto) 0.0 (0.0-0.2) X10*3/uL Abs Immat Gran (auto) 0.01 (0.00-0.03) X10*3/uL Absolute Neuts (auto) 4.5 (2.0-8.3) x10*3/uL Absolute Nucleated RBC 0.000 (0.0-0.012) X10*3/uL Nucleated RBC % (auto) 0.0 (0.0-0.2) /100WBC D-Dimer High Sensitivty 229 NG/ML Sodium 141 (135-145) mmol/L Potassium 3.9 (3.3-5.1) mmol/L Chloride 108 (96-108) mmol/L Carbon Dioxide 27 (22-29) mmol/L Anion Gap 10 L (12-20) BUN 28 H (9-16) mg/dL Creatinine 1.37 (0.5-1.4) mg/dL Estim Creat Clear Calc 46.9 Estimated GFR 50 Random Glucose 116 H (60-115) mg/dL Calcium 9.7 (8.4-10.2) mg/dL Magnesium 2.2 (1.6-2.6) mg/dL Total Bilirubin 0.4 (0.0-1.0) mg/dL Direct Bilirubin 0.1 (0.0-0.5) mg/dL AST 36 (5-37) U/L ALT 38 (0-40) U/L Alkaline Phosphatase 81 (39-117) U/L Troponin I High Sens 12.0 11.8 (<3.5-35.0) ng/L NT-Pro-B Natriuret Pep 186.6 (<300) pg/mL Total Protein 7.3 (6.5-8.0) g/dL Albumin 4.4 (3.5-5.0) g/dL 07/05/25 Range/Units 11:09 WBC (4.8-10.8) X10*3/uL RBC (4.60-5.80) X10*6/uL Hgb (14.0-18.0) g/dl Hct (42.0-52.0) % MCV (80.0-98.0) fL MCH (27.0-33.0) pg MCHC (31.0-36.0) g/dl RDW (11.0-16.0) % Plt Count (160-400) X10*3/uL MPV (9.4-12.4) fL Immature Gran % (Auto) (0.0-0.4) % Neut % (Auto) (45-73) % Lymph % (Auto) (20-40) % [place] % (Auto) (2-11) % Eos % (Auto) (0-4) % Baso % (Auto) (0-2) % Lymph # (Auto) (1.2-4.9) X10*3/uL [place] # (Auto) (0.1-1.2) X10*3/uL Eos # (Auto) (0.0-0.4) X10*3/uL Baso # (Auto) (0.0-0.2) X10*3/uL Abs Immat Gran (auto) (0.00-0.03) X10*3/uL Absolute Neuts (auto) (2.0-8.3) x10*3/uL Absolute Nucleated RBC (0.0-0.012) X10*3/uL Nucleated RBC % (auto) (0.0-0.2) /100WBC D-Dimer High Sensitivty NG/ML Sodium (135-145) mmol/L Potassium (3.3-5.1) mmol/L Chloride (96-108) mmol/L Carbon Dioxide (22-29) mmol/L Anion Gap (12-20) BUN (9-16) mg/dL Creatinine (0.5-1.4) mg/dL Estim Creat Clear Calc Estimated GFR Random Glucose (60-115) mg/dL Calcium (8.4-10.2) mg/dL Magnesium (1.6-2.6) mg/dL Total Bilirubin (0.0-1.0) mg/dL Direct Bilirubin (0.0-0.5) mg/dL AST (5-37) U/L ALT (0-40) U/L Alkaline Phosphatase (39-117) U/L Troponin I High Sens 11.4 (<3.5-35.0) ng/L NT-Pro-B Natriuret Pep (<300) pg/mL Total Protein (6.5-8.0) g/dL Albumin (3.5-5.0) g/dL Independent Interpretation I performed an independent interpretation of an: EKG and Plain X-Ray Interpretation: Rate: 57 Rhythm: Sinus bradycardia with first-degree AV block [place]: Normal axis Normal P waves. First-degree AV block Normal QRS complex. ST T wave : Nonspecific ST wave abnormalities in lateral and inferior leads qTC: 365 prior studies: No significant change from prior Radiology Impression Discussion of test interpretation with radiology: I have reviewed the radiologist's reading. Radiologist Impression: FINDINGS: PA and lateral views of the chest are submitted. The lungs are expanded and clear. There is no pleural effusion, pneumothorax, or pulmonary vascular congestion. The heart is normal in size. 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 XR/XR chest 2V IMPRESSION: No acute cardiopulmonary abnormality. Electronically signed by: Jacobo Cristina MD 07/05/2025 09:24 AM [facility] Dictated By: Jacobo Cristina MD External Record Review External record reviewed: Inpatient record, Office record, Outpatient record, Prior outpatient labs, Prior outpatient radiology, Primary care record and Outside ED record Chronic Conditions Patient?s care impacted by: Hypertension Scores Heart Score History: -0- slightly suspicious ECG: -0- normal Age: -2- > or = 65 Risk factory: -1- 1 or 2 risk factors Troponin: -0- < or = normal limit Score: 3 Risk: 1.7% Discharge Plan Discharge Clinical Impression: Chest pain Patient Disposition: Home, Self-Care Instructions: Chest Pain (ED) Additional Instructions: You were seen in the emergency department and your overall workup today was reassuring. Please follow-up with your primary care physician regarding this visit. Drink plenty of fluids get plenty of rest. If any new or worsening symptoms occur including but not limited to severe chest pain, shortness of breath, dizziness, blurred vision, weakness, numbness, tingling, severe headache, please seek emergent care. Prescriptions: No Action aspirin 81 mg Tablet,Delayed Release (Dr/Ec) 81 mg PO DAILY Qty: 90 0RF brimonidine 0.2 % drops 1 drp ophthalmic (eye) BID amlodipine 10 mg tablet 10 mg PO DAILY Qty: 90 3RF atorvastatin 10 mg tablet 10 mg PO DAILY Qty: 90 3RF olmesartan-hydrochlorothiazide 40-25 mg tablet 1 tab PO BEDTIME Qty: 90 3RF verapamil 240 mg capsule,ext rel. pellets 24 hr 240 mg PO BEDTIME Qty: 90 3RF lorazepam [Ativan] 0.5 mg tablet 0.5 mg PO DAILY PRN (Reason: anxiety) Qty: 10 0RF Interventions: ED Discharge Assessment Last Done: 07/05/25 12:25 Discharge Date/Time: 07/05/25 12:26 Print Language: Urdu
--- NOTE | 2025-07-05 08:48 | MHC.EDTECH ---
pt placed on seat maker.
[2025-07-05 08:52] VITALS: BP 126/53; PULSE 60; RESP 16; TEMP 36.4; O2SAT 96; BMI 27.7
--- NOTE | 2025-07-05 08:55 | PC.NURSE ---
Addendum entered by Isa Stone RN 07/05/25 09:02: Pt states Cp last samantha at 530p only Original Note: Pt A&O X4 VSS NAD states CP resolved. Pt ambulated to room without assist. Placed on full monitor. SR no ectopy.
[2025-07-05 09:13] LABS: MANUAL DIFF FLAG NO
[2025-07-05 09:15] LABS: Hematocrit 39.5 % (42.0-52.0); Hemoglobin 13.2 g/dl (14.0-18.0); Imm Gran Abs Auto 0.01 X10*3/uL (0.00-0.03); Imm Gran Pct Auto 0.2 % (0.0-0.4); Lymphocytes Absolute Auto 0.8 X10*3/uL (1.2-4.9); Mean Corpuscular HGB Conc 33.4 g/dl (31.0-36.0); Mean Corpuscular Hemoglobin 30.3 pg (27.0-33.0); Mean Corpuscular Volume 90.6 fL (80.0-98.0); NRBC Abs Auto 0.000 X10*3/uL (0.0-0.012); NRBC Pct Auto 0.0 /100WBC (0.0-0.2); Platelet Count 186 X10*3/uL (160-400); Red Blood Count 4.36 X10*6/uL (4.60-5.80); White Blood Count 6.3 X10*3/uL (4.8-10.8)
[2025-07-05 09:30] LABS: Alanine Aminotransferase 38 U/L (0-40); Albumin Level 4.4 g/dL (3.5-5.0); Alkaline Phosphatase 81 U/L (39-117); Anion Gap 10 (12-20); Aspartate Amino Transferase 36 U/L (5-37); Blood Urea Nitrogen 28 mg/dL (9-16); Calcium 9.7 mg/dL (8.4-10.2); Carbon Dioxide 27 mmol/L (22-29); Chloride 108 mmol/L (96-108); Creatinine Clr Calc Pharmacy 46.9; Estimated Glomerular Filt Rate 50; Magnesium 2.2 mg/dL (1.6-2.6); Potassium 3.9 mmol/L (3.3-5.1); Sodium 141 mmol/L (135-145); Total Protein 7.3 g/dL (6.5-8.0)
[2025-07-05 09:38] LABS: NT Pro B Type Natriuretic Pept 186.6 pg/mL (<300); Troponin-I High Sensitivity 12.0 ng/L (<3.5-35.0)
[2025-07-05 10:17] LABS: D Dimer High Sensitivity 229 NG/ML
[2025-07-05 11:10] VITALS: BP 117/58; PULSE 53; RESP 15; TEMP 36.6; O2SAT 96
[2025-07-05 11:41] LABS: Troponin-I High Sensitivity 11.4 ng/L (<3.5-35.0); Troponin-I High Sensitivity 11.8 ng/L (<3.5-35.0)
[2025-07-05 12:22] VITALS: BP 131/59; PULSE 57; RESP 16; O2SAT 97
[2025-07-05 12:25] VITALS: BP 131/59; PULSE 57; RESP 16; TEMP 36.6; O2SAT 97
== END 2025-07-05 12:26 | disposition home or self-care (01) ==
PROVIDERS: Physician Assistant Medical; Emergency Provider Emergency Medicine; PCP Internal Medicine
DX: R07.89 Other chest pain (principal); I10 Essential (primary) hypertension; F41.9 Anxiety disorder, unspecified; R25.1 Tremor, unspecified; R00.1 Bradycardia, unspecified; I44.0 Atrioventricular block, first degree; Z79.82 Long term (current) use of aspirin; Z79.899 Other long term (current) drug therapy; Z85.46 Personal history of malignant neoplasm of prostate
CPT/HCPCS: 36415; 71046; 80048; 80076; 83735; 83880; 84484; 85025; 85379; 93005; 99212; 99283; 99284

== ENCOUNTER → 2025-07-05 08:24 | Outpatient (BNV) | payer MEDICARE, OTHER, SELFPAY | PROVIDERS: Emergency Provider Emergency Medicine; PCP Internal Medicine; Visit Provider Internal Medicine Cardiovascular Disease | DX: I44.0 Atrioventricular block, first degree (principal); R00.1 Bradycardia, unspecified | CPT/HCPCS: 93010 ==

== ENCOUNTER → 2025-07-05 08:46 | Outpatient (BNV) | payer MEDICARE, OTHER, SELFPAY | PROVIDERS: Emergency Provider Emergency Medicine; PCP Internal Medicine; Visit Provider Radiology Diagnostic Radiology | DX: R07.9 Chest pain, unspecified (principal) | CPT/HCPCS: 71046 ==

== ENCOUNTER 2025-07-07 08:44 | Outpatient (AMB) | payer MEDICARE, OTHER, SELFPAY ==
--- NOTE | 2025-07-07 09:10 | MHC.OFFVIS ---
Intake Visit Reasons: 6m Allergies codeine Allergy (Unknown, Verified 07/07/25 09:14) Nausea Medication List - Last Reconciled 07/07/25 by Raiza Paez CNP amlodipine 10 mg PO DAILY aspirin 81 mg PO DAILY atorvastatin 10 mg PO DAILY brimonidine 0.2% 1 drp ophthalmic (eye) BID olmesartan-hydrochlorothiazide 40-25 mg 1 tab PO BEDTIME verapamil ER 240 mg PO BEDTIME HPI Comments Details: 84 y/o man with hearing impairment, BPPV, HTN, HLD, and migraine with and without aura. He was doing okay. He would get a headache for few days and then could go a few weeks without any symptoms. Headaches were associated with dizziness and feeling off balance. No falls. He was taking Tylenol as needed and it helped some. No recent neck pain. 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 He was under some stress as his was diagnosed with ALS. [facility] Medical History COVID-19 vaccine series completed HTN (hypertension) Migraine Prostate cancer TIA (transient ischemic attack) Surgical History History of esophagogastroduodenoscopy (EGD) Hx of cataract extraction H/O colonoscopy (~11/10/23) Hx of prostatectomy Status post total right knee replacement H/O lumbar discectomy History of bladder suspension procedure Hx of hernia repair Hx of bilateral hip replacements Family History Mother Arthritis Father Hypertension Sister Breast cancer Social History Household Members: Spouse Household Members Other:: , rides a bike 12-14 mile a day, Housing: House Do you presently have visiting nurse or other home services: No Alcohol intake: current Alcohol intake frequency: does not drink Patient Tobacco Use Status: Never used Tobacco e-Cigarette/Vaping Use: Never Used Second Hand Smoke Exposure: No Advance Directives Date on File: 08/15/24 service: No Current occupational status: retired Cognitive needs: No Hearing needs: No Vision needs: Yes Review of Systems Const Denies chills, Denies daytime sleepiness, Denies difficulty sleeping, Denies fatigue, Denies fever(s), Denies frequent falls, Reports headache(s), Denies increased appetite, Denies poor appetite, Denies snoring, Denies weakness, Denies weight gain and Denies weight loss Eyes Denies loss of vision ENT Denies vertigo, Reports dizziness and Reports headache(s) Card Denies chest pain at rest, Denies chest pain with activity, Denies syncope, Denies leg edema and Denies palpitations Resp Denies snoring GI Denies constipation, Denies heartburn, Denies diarrhea and Denies nausea Denies urinary frequency, Denies urinary incontinence and Denies urinary urgency Musc Denies abnormal gait, Denies numbness and Denies tingling Skin/Breast Denies dry skin and Denies rash Neuro Denies abnormal gait, Denies vertigo, Reports dizziness, Denies syncope, Denies frequent falls, Reports headache(s), Denies lack of coordination, Denies loss of vision, Denies memory loss, Denies numbness, Denies restless legs, Denies seizure-like activity, Denies tingling, Denies paresthesias, Denies tremor(s) and Denies weakness Psych Denies anxiety, Denies depression, Denies auditory hallucinations, Denies memory loss, Denies visual hallucinations and Denies suicidal ideation Endo Denies fatigue and Denies palpitations Physical Exam Const Other: General Appearance:? normal, in no acute distress. Skin:? no rashes, no significant birthmarks. Heart:? S1, S2 normal, no murmurs. Lungs:? clear anteriorly and posteriorly. Extremities:? no edema. Psych:? alert, oriented, cognitive function intact, cooperative with exam. Neuro Other: Mental Status:?Normal attention, orientation, memory and affect.? Cranial Nerves:?Pupils are equal, round and reactive to light. External occular muscles are intact. Visual munguia are full. Face is symmetrical. Facial sensations are normal. Tongue is midline. Palate elevates symmetrically. Shoulder shrugging is normal. Hearing to bedside conversation is normal. Sensory Exam:?....? Coordination:?No ataxia,?no titubation.? Gait Exam: Within normal limits. Extrapyramidal System:?No tremor, rigidity with normal facial expressions.? Pronator Drift:?Not present.? Involuntary Movements:?No tremors seen.? Speech:?Normal.? Results Reviewed Results Reviewed: MRI brain WO at [facility] [place] Jun [place]: mild to mod diff atrophy, mild to mod MVD. MRI brain WO at [facility] [place] Jun 2020: mild to mod diff atrophy, mild to mod MVD CTA at [facility] [place] Aug 2024: No acute abnormality MRI at [facility] [place] Aug 2024: No acute abnormality, underlying microvascular disease Assessment & Plan Assessment & Plan (1) Migraine without aura: Code(s): G43.009 - Migraine without aura, not intractable, without status migrainosus Category: Medical Qualifiers: Status migrainosus presence: without status migrainosus Intractability: not intractable Qualified Code(s): G43.009 - Migraine without aura, not intractable, without status migrainosus Plan: Continue verapamil ER 240mg 1 tablet daily. I recommended follow up in 6 months, however he prefers to follow up in 1 year. He was advised to contact the office for any new or worsening symptoms, follow up sooner as needed. (2) Migraine with aura: Code(s): G43.109 - Migraine with aura, not intractable, without status migrainosus Category: Medical Qualifiers: Status migrainosus presence: without status migrainosus Intractability: not intractable Qualified Code(s): G43.109 - Migraine with aura, not intractable, without status migrainosus (3) Cerebral microvascular disease: Code(s): I67.89 - Other cerebrovascular disease Category: Medical (4) Benign paroxysmal positional vertigo: Code(s): H81.10 - Benign paroxysmal vertigo, unspecified ear Category: Medical Qualifiers: Laterality: unspecified laterality Qualified Code(s): H81.10 - Benign paroxysmal vertigo, unspecified ear (5) Neck pain: Code(s): M54.2 - Cervicalgia Category: Medical Plan Meds tried: sumatriptan, butalbital, meloxicam Coding Level of Care Code Est Pt Level 4 (19741) Diagnoses Migraine without aura and without status migrainosus, not intractable G43.009 Status migrainosus presence: without status migrainosus Intractability: not intractable Migraine with aura and without status migrainosus, not intractable G43.109 Status migrainosus presence: without status migrainosus Intractability: not intractable Cerebral microvascular disease I67.89 Benign paroxysmal positional vertigo, unspecified laterality H81.10 Laterality: unspecified laterality Neck pain M54.2
--- OUTSIDE RECORDS SUMMARY | 2025-07-07 09:18 | XMS_ITS | Clinical Summary ---
Author Organization [facility] Address [address] [facility] [address] [place] [address] Phone Care Team Providers Care Supervisor Dumping Name Role Phone Azar Griffin MD Unavailable [phone] Unknown, Unknown Primary Care Provider Unavai lable [...] left hip intraoperative radiologic examination (CPT code 38775) Surgeon: Jaycob Chery MD Implants Used: Femoral Stem: DePuy Corail, Size 11 KS Femoral Head: CoCr, Size 36+5 Acetabulum: DePuy [place] Sector II Gription, Size 54mm Adjuvant screw fixation x 1 x 6.5mm (35mm) Liner: Altrx polyethylene, Size 54x36 +4 neutral Hip pain, left 04/22/2012 Overview (01/18/2021): Case Date: 07/08/2012 Procedure Performed: left Total Hip Arthroplasty left hip intraoperative radiologic examination (CPT code 88336) Surgeon: Jaycob Chery MD Implants Used: Femoral Stem: DePuy Corail, Size 11 KS Femoral Head: CoCr, Size 36+5 Acetabulum: DePuy [place] Sector II Gription, Size 54mm Adjuvant screw fixation x 1 x 6.5mm (35mm) Liner: Altrx polyethylene, Size 54x36 +4 neutral Healthcare maintenance 04/17/2012 Overview (01/18/2021): Colonoscopy 10/26/04 Immunization History Administered Date(s) Administered H1n1 08/17/2009 Influenza Whole 07/02/2005, 07/05/2007, 06/23/2008 Pneumococcal Polyvalent 23 11/11/2007 Td 04/20/1995, 10/02/2003 Zoster 02/17/2009 S/P hip replacement 11/27/2011 Overview (01/18/2021): 1998, Dr. Rene Easley replaced right hip at [facility] in [place], [place] Elevated PSA 10/01/2011 Impairment of auditory [...] COVID-19 (Pre-06/23) Pfizer Vaccine, mRNA, PF 05/28/2021,09/24/2020,09/06/2020 [id number] FORMULATION 08/17/2009 Hepatitis A, Adult 07/11/1997,01/09/1997 Hepatitis B Adult 06/11/2022, 6,06/16/1995,04/29 INFLUENZA, SPLIT VIRUS, TRIVALENT PF 06/15/2013, 07/09/2012 INFLUENZA, SPLIT VIRUS, TRIV ALENT W/ PRESERVATIVE IM 06/26/2016,06/23/2008,07/05/2007,07/02 IPV 10/08/1989 Influenza High-Dose Quadriva lent Preservative Free IM 05/25/2021,05/23/2020 Influenza High-Dose Trivalen t Preservative Free IM 06/15/2019,06/12/2017,06/20/2015,06/07 Influenza Quadrivalent Prese rvative Free IM 06/12/2018 Influenza, Unspecified Formulation 06/18/2018 Influenza, whole 06/23/2008,07/05/2007, 5 Estonian Encephalitis SC 01/17/2005,12/27/2004,0 12/20/2004 Meningococcal MPSV4 11/27/2004,08/07/1990 Novel [id number], Injectable 08/17/2009 Pneumococcal conjugate PCV13 06/20/2015 Pneumococcal [...] EDT) SODIUM 139 133 - 146 mmol/L [facility] POTASSIUM 4.5 3.3 - 5.1 mmol/L [facility] CHLORIDE 101 96 - 108 mmol/L [facility] CO2 27 21 - 35 mmol/L [facility] BUN 26(H) 6 - 19 mg/dL [facility] CREATININE 1.00 0.5 - 1.5 mg/dL [facility] GLUCOSE 97 70 - 99 mg/dL [facility] ALBUMIN 4.3 3.9 - 4.8 g/dL [facility] TOTAL PROTEIN 7.1 6.5 - 8.0 g/dL [facility] CALCIUM 9.5 8.4 - 10.3 mg/dL [facility] ALKALINE PHOSPHATASE 86 39 - 117 U/L [facility] TOTAL BILIRUBIN 0.3 0.0 - 1.2 mg/dL [facility] AST 30 0 - 37 U/L [facility] ALT 24 0 - 40 U/L [facility] GLOBULIN 2.8 1 - 4.8 g/dL [facility] EGFR 76 >59 mL/min/1.7 3m2 [facility] Comment:Estimated glomerular filtration rate calculated using the CKD-EPI refit equation. ANION GAP 16 10 - 20 mmol/L [facility] Blood 01/15/2023 2:43 PM EDT 01/15/2023 2:54 PM EDT us Azar Griffin MD LAB BLOOD BKR ORDERABLES Anastasiia arceo Result Performing Organization Address City/State/[facility] Co de Phone Number [address] [address] * (ABNORMAL) Lipid panel (01/15/2023 2:43 PM EDT) HDL 49 mg/dL [facility] Comment: Interpretation <40 mg/dL: Low HDL cholesterol (major risk factor for CHD) Greater than or equal to 60 mg/dL: High HDL cholesterol ( negative risk factor for CHD) HDL - cholesterol is affected by a number of factors, e.g. smoking, excerise, hormones, sex and age. CHOLESTEROL 134 0 - 240 mg/dL [facility] TRIGLYCERIDES 112 30 - 160 mg/dL [facility] LDL 63 50 - 129 mg/dL [facility] Comment: LDL levels in terms of risk for coronary heart disease: <100 mg/dL: Optimal 100-129 mg/dL: Near or above optimal 130-159 mg/dL: Borderline high 160-189 mg/dL: High >190 mg/dL: Very High CARDIAC RISK RATIO 2.7(L) 3.4 - 5.0 C [facility] Blood 01/15/2023 2:43 PM EDT 01/15/2023 2:54 PM EDT us Azar Griffin MD LAB BLOOD BKR ORDERABLES Anastasiia arceo Result [facility] [address] [place] [address] * COLONOSCOPY FOR RESULT ENTRY ONLY (01/26/2021) Historical Provider HEALTH MAINTENANCE Final Result from Last 3 Months or Most Recently Relevant to Health Maintenance [place] [id number] [facility] MEDICARE SUPPLEMENT MEDICARE PART A & B Member Subscriber Plan / Payer (Ef fective 2007-Present) Name:Reyes Garner Member ID:[id number] Relation to Subscriber:Self Name:Reyes Garner Subscriber ID:[id number] Payer ID:[id number] Group ID:Not on file Type:Medicare Address: [employer] [address] [place] [id number] [employer] MEDICARE SUPPLEMENT MEDICARE PART A & B Member Subscriber Plan / Payer (Ef fective 2007-Present) Name:Reyes Garner Member ID:[id number] Relation to Subscriber:Self Name:Reyes Garner Subscriber ID:[id number] Payer ID:[id number] Group ID:Not on file Type:Medicare Address: [employer] [address] [place] [address] [facility] [employer] MEDICARE SUPPLEMENT MEDICARE PART A & B [facility] MEDICARE SUPPLEMENT MEDICARE PART A & B [facility] MEDICARE SUPPLEMENT MEDICARE PART A & B [facility] EXTENSION MEDICARE SUPPLEMENT MEDICARE PART A & B Member Subscriber Plan / Payer (Ef fective 2007-Present) Name:Reyes Garner Member ID:[id number] Relation to Subscriber:Self Name:Reyes Garner Subscriber ID:[id number] Payer ID:[id number] Group ID:Not on file Type:Medicare Address: [employer] [address] [place] [address] [employer] MEDICARE SUPPLEMENT MEDICARE PART A & B Member Subscriber Plan / Payer (Ef fective 2007-Present) Name:Reyes Garner Member ID:[id number] Relation to Subscriber:Self Name:Reyes Garner Subscriber ID:[id number] Payer ID:[id number] Group ID:Not on file Type:Medicare Address: [employer] 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 It is not the complete legal health record.[facility]
--- OUTSIDE RECORDS SUMMARY | 2025-07-07 09:18 | XMS_ITS | Clinical Summary ---
Author Organization [facility] [place] [address] Care Team Providers Care Healthcare Receptionist Name Role Phone Inactive, Pcp External Primary [...] left hip intraoperative radiologic examination (CPT code 90141) Surgeon: Jaycob Chery MD Implants Used: Femoral Stem: DePuy Corail, Size 11 KS Femoral Head: CoCr, Size 36+5 Acetabulum: DePuy [place] Sector II Gription, Size 54mm Adjuvant screw fixation x 1 x 6.5mm (35mm) Liner: Altrx polyethylene, Size 54x36 +4 neutral Healthcare maintenance 04/17/2012 Overview (04/17/2012): Colonoscopy 10/26/04 Immunization History Administered Date(s) Administered H1n1 08/17/2009 Influenza Whole 07/02/2005, 07/05/2007, 06/23/2008 Pneumococcal Polyvalent 23 11/11/2007 Td 04/20/1995, 10/02/2003 Zoster 02/17/2009 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 Rene Easley replaced right hip at [facility] in [place], [place] Prostate cancer 10/01/2011 Overview (05/31/2012): 5/4 [...] Immunization Administration Dates Next Due Influenza (Novel [id number]) Injectable 08/17/2009 Influenza Trivalent, Preservative Free 3,07/09/2012 [...] Sigmoidoscopy Discontinued Medical Devices Implanted Type Area Asphalt Roller Operator Device Identifier Shelf Expiration Date Model / Serial / Lot Cup,Actbr,Grpt n,Sector,54mm ([id number]) (Autoreq) - [id number] Implanted:Qty: 1 on 07/08/2012 at [facility] IMPLANTS Left: Hip DO NOT USE Depuy [place] Loader - 3527 05/31/2022 [id number] Screw,Cacls,Pn ncl,6.5x35mm ([id number]) (Autoreq) - [id number] Implanted:Qty: 1 on 07/08/2012 at [facility] IMPLANTS Left: Hip DO NOT USE Depuy [place] Loader - 3527 04/30/2022 0 / / [id number] Liner,Actbr,+4 mm,Ntrl,36x54m m ([id number]) (Autoreq) - [id number] Implanted:Qty: 1 on 07/08/2012 at [facility] IMPLANTS Left: Hip DO NOT USE Depuy [place] Loader - 3527 05/31/2017 4 / / [id number] Stem,Fmrl,Clrd ,11,135deg,145 mm ([id number]) (Autoreq) - [id number] Implanted:Qty: 1 on 07/08/2012 at [facility] IMPLANTS DO NOT USE Depuy [place] Loader - 3527 05/31/2017 [id number] / / [id number] Head,Fmrl,+5mm ,12-14,36mm ([id number]) (Autoreq) - [id number] Implanted:Qty: 1 on 07/08/2012 at [facility] IMPLANTS DO NOT USE Depuy [place] Loader - 3527 05/01/2017 0 / / [id number] Procedures Procedure Name Priority Date/Time Associated Diagnosis Comments COLONOSCOPY Routine 01/26/2021 3:49 PM EDT from Last 3 Months or Most Recently Relevant to Health Maintenance Results * COLONOSCOPY (01/26/2021 3:49 PM EDT) COLONOSCOPY [facility] Endoscopy Procedure Date: 01/26/2021 3:49 PM Patient Name: Reyes Garner Date of : 1940 Age: 80 Order #: [id number] Instrument Name: -[id number] Procedure: Colonoscopy Indications: Iron deficiency anemia Providers: [...] Recently Relevant to Health Maintenance Insurance MEDICARE [facility] Advance Directives Documents on File Type Date Recorded 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 Care Teams Healthcare Receptionist Relationship Specialty Start Date End Date Inactive, Pcp External PCP - General 09/17/24
--- OUTSIDE RECORDS SUMMARY | 2025-07-07 09:18 | XMS_ITS | Encounter Summary ---
Author Organization [facility] Address [address] [facility] [address] [place] [address] Phone Care Team Providers Care Correctional Therapy Director Name Role Phone Debbie Beltrángabmichel Tiki DEBURRER STRIP Unavailable [phone] Gerson Hand MD Unavailable Dennis Vidales Unavailable Marcella Kelsey [facility] Unavailable Will Jacome MD Unavailable Orion Mccray MD Unavailable Azar Griffin MD Unavailable Cely Resendiz PA-C Unavailable Margaret Rivas MD Unavailable Armand Arrieta MD Unavailable Azar Griffin MD Primary Care Provider [phone] Azar Griffin MD Unavailable Unknown, Unknown Primary Care Provider Savlador motley Encounter Details Date Type Department Care Team (Late st Contact Info) Description 05/18/2018 Ancillary Orders Virtual Department [address] [place] [address] [phone] Tonny Everett MD, PhD [address] [facility] [address] [place], [place] [phone] (work) [email or web address] Carotid stenosis, asymptomatic, bilateral; Vascular headache Social [...] documented as of this encounter Care Teams Correctional Therapy Director Relationship Specialty Start Date End Date Azar Griffin MD [address] [place] [address], [address] [place], [place] [phone] PCP - General 06/19/17 11/26/23 Unknown, Unknown, PCP - General 11/27/23 Geovanna Beltrán NP [address] [place] [address] Historical LMR Provider 06/18/1709/08/21 Gerson Hand MD [address] [facility] [address] [place] [address] Historical LMR Provider 06/18/17 2 [place] Vidales PA [address] [place] [address] Historical LMR Provider 06/18/17 2 Marcella Kelsey CNP [address] [place] [address], [address] [place] [address] [email or web address] Historical LMR Provider 06/18/17 09/08/21 Will Jacome MD [address] [place] [address] [email or web address] Historical LMR Provider 06/18/17 09/08/21 Orion Mccray MD [address] [place] [address], [address] [place] [address] [email or web address] Historical LMR Provider 06/18/17 09/08/21 Azar Griffin MD [address] [place] [address] [address] [place] [address] Historical LMR Provider 06/18/17 Cely Resendiz PA-C [address] [place] [address] Orthopedics & Sports Medicine, [facility] [place] [address] [email or web address] Historical LMR Provider 06/18/17 09/08/21 Margaret Rivas MD [address] [place] [address] [address] [place] [address] [email or web address] Historical LMR Provider 06/18/17 09/08/21 Armand Arrieta MD [address] [place], [place] [address] [place] [address] [email or web address] Historical LMR Provider 06/18/17 09/08/21 Azar Griffin MD [address] [place] [address] [address] [place] [address] [email or web address] Insurance Assigned Provider 08/02/1712/06/23 documented as of this encounter Additional Source Comments The information contained in this document represents components of the legal health record. It is not the complete legal health record.[facility]
--- OUTSIDE RECORDS SUMMARY | 2025-07-07 09:18 | XMS_ITS | Patient Health Record ---
Author Organization [facility] Address [address] [place] [address] Care Team Providers Care Ice Crusher Name Role Phone Azar Griffin MD Primary Care Provider Dania Castañeda Unavailable [phone] Allergies Allergen (clinical drug ingredient) Drug/Non Drug [...] Date Coverage End Date Medicare National Govt [employer] [facility] [address] [place] [address] [id number] Reyes Garner Self - patient is the insured [employer]) [address] [place] [address] [id number] Reyes Garner Self - patient is [...] cataract surgery 2009 Hospitalization History Reason Date(Month/Year) [facility] [place] possible [place]IA- diagnosis was michel tristan 06/20
== END 2025-07-07 09:25 | disposition home or self-care (01) ==
LOC: HO.HSM 08:45
PROVIDERS: PCP Internal Medicine; Referring Provider Family Medicine; Visit Provider Registered Nurse
DX: G43.009 Migraine without aura, not intractable, without status migrainosus (principal); G43.109 Migraine with aura, not intractable, without status migrainosus; I67.89 Other cerebrovascular disease; H81.10 Benign paroxysmal vertigo, unspecified ear; M54.2 Cervicalgia
CPT/HCPCS: 99214

== ENCOUNTER → 2025-07-07 08:44 | Outpatient (BNVA) | payer MEDICARE, OTHER, SELFPAY | PROVIDERS: PCP Internal Medicine; Referring Provider Family Medicine; Visit Provider Registered Nurse | DX: G43.009 Migraine without aura, not intractable, without status migrainosus (principal); G43.109 Migraine with aura, not intractable, without status migrainosus; H81.10 Benign paroxysmal vertigo, unspecified ear; I10 Essential (primary) hypertension; Z79.82 Long term (current) use of aspirin | CPT/HCPCS: 99212 ==

== ENCOUNTER 2025-07-08 10:24 | Outpatient (AMB) | payer MEDICARE, OTHER, SELFPAY ==
[2025-07-08 10:28] VITALS: BP 117/58; PULSE 66; RESP 14; TEMP 36.8; O2SAT 98; BMI 28.4
--- NOTE | 2025-07-08 10:28 | MHC.PC.OV ---
Vital Signs 07/08/25 10:28 Height 6 ft 0.75 in Weight 214 lb BMI 28.4 BP 117/58 L Blood Pressure Location Rt brachial Position Sitting Respiration 14 Pulse 66 Pulse Source Pulse Oximeter Temp 98.2 F Temp Source Temporal Artery Scan Pulse Oximetry (%) 98 Oxygen Delivery Method Room Air Intake Visit Reasons: ER Follow up Sports Development Officer Required: No Accompanied by: Self / Same As Patient Allergies codeine Allergy (Unknown, Verified 07/08/25 12:08) Nausea Medication List - Last Reconciled 07/08/25 by Radha Everett PA-C amlodipine 10 mg PO DAILY aspirin 81 mg PO DAILY atorvastatin 10 mg PO DAILY brimonidine 0.2% 1 drp ophthalmic (eye) BID lorazepam (Ativan) 0.5 mg PO DAILY PRN olmesartan-hydrochlorothiazide 40-25 mg 1 tab PO BEDTIME verapamil ER 240 mg PO BEDTIME Tobacco use date assessed: 10/04/24 Dental Screening Dental Screen Date: 10/04/24 HPI ER Follow up HPI Details The patient is an 84-year-old male presenting for follow-up after an Emergency Department visit for chest pain. The night before his hospital visit, while sitting and checking emails, he experienced a sudden episode of flushing and shaking that lasted for about 30 minutes. This was associated with sharp chest pains, which he attributes to his known arthritis, and a new pain in his left arm between the bicep and tricep. During the night, the arm pain recurred along with some chest pain, prompting him to go to the ER for evaluation. In the ER, his troponin levels were noted to be chronically elevated but stable on three checks (12.0, 11.8, 11.4), suggesting a chronic cardiac injury rather than an acute event. His cardiac history is significant for a lifelong heart murmur. An echocardiogram from 2022 revealed an ejection fraction of 70%, moderate left ventricular wall thickening, moderate calcification of the aortic valve, and moderate dilation of the ascending aorta to 4.5 cm. He also has a history of generalized arthritis, two hip replacements, a knee replacement, and migraines. The patient is the sole caregiver for his , who has worsening Amyotrophic Lateral Sclerosis (ALS), which he acknowledges is a significant stressor. He remains physically active, walking over 10,000 steps daily and biking 3,000 miles this year without exertional chest pain or shortness of breath. Social History - Marital Status: The patient is and is the sole caregiver for his , who has Amyotrophic Lateral Sclerosis (ALS). - Social Support: He has arranged with neighbors to provide assistance for his if she falls when he is not home. - Exercise: The patient is very active, reporting that he walks over 10,000 steps daily and has biked 3,000 miles this year. 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 - Stressors: He is under significant stress due to his role as his 's primary caregiver. [facility] Medical History (Updated 07/08/25 @ 12:11 by Radha Everett PA-C) Encounter to establish care Anxiety Caregiver stress Atypical chest pain Chest pain COVID-19 vaccine series completed HTN (hypertension) Migraine Prostate cancer TIA (transient ischemic attack) Surgical History History of esophagogastroduodenoscopy (EGD) Hx of cataract extraction H/O colonoscopy (~11/10/23) Hx of prostatectomy Status post total right knee replacement H/O lumbar discectomy History of bladder suspension procedure Hx of hernia repair Hx of bilateral hip replacements Family History Mother Arthritis Father Hypertension Sister Breast cancer Social History Household Members: Spouse Household Members Other:: , rides a bike 12-14 mile a day, Housing: House Do you presently have visiting nurse or other home services: No Alcohol intake: current Alcohol intake frequency: does not drink Patient Tobacco Use Status: Never used Tobacco e-Cigarette/Vaping Use: Never Used Second Hand Smoke Exposure: No Advance Directives Date on File: 08/15/24 service: No Current occupational status: retired Cognitive needs: No Hearing needs: No Vision needs: Yes Questionnaire PHQ-9 Over the last 2 weeks, how often have you been bothered by any of the following problems? 1. Little interest or pleasure in doing things: not at all 2. Feeling down, depressed, or hopeless: not at all 3. Trouble falling or staying asleep, or sleeping too much: not at all 4. Feeling tired or having little energy: not at all 5. Poor appetite or overeating: not at all 6. Feeling bad about yourself - or that you are a failure or have let yourself or your family down: not at all 7. Trouble concentrating on things, such as reading the newspaper or watching television: not at all 8. Moving or speaking so slowly that other people could have noticed. Or the opposite - being so fidgety or restless that you have been moving around a lot more than usual: not at all 9. Thoughts that you would be better off or of hurting yourself in some way: not at all Total score: 0 Depression Screening Interpretation: Negative Depression Screening Done: Yes 97228 - PHQ-9 Billing: Yes Source: Developed by Drs. Jacobo Rene, Annabelle Fierro, Luigi Fonseca and colleagues, with an educational lindsay from [employer]. Thrive Questionnaire Date Thrive assessed: 10/04/24 I am a: Patient What is your living situation today?: I have a steady place to live Within the past 12 months, did the food you bought not last and you didn't have the money to get more?: Never true Within the past 12 months, did you worry whether your food would run out before you got money to buy more?: Never true Do you have trouble paying for medicines?: No Do you have trouble getting transportation to medical appointments?: No Do you have trouble paying your heating and electricity bill?: No Do you have trouble taking care of your child, family member or friend?: No Do you have trouble with day-to-day activities such as bathing, preparing meals, shopping, managing finances, etc.?: No Are you currently unemployed and looking for a job?: No Are you interested in more education?: No Please select the resources that you would like help with: None Currently or been in a relationship where the following occur: No concerns reported THRIVE Score: 0 AUDIT C Alcohol Use Questionnaire (AUDIT-C) 1. How often do you have a drink containing alcohol?: 2-4 times a month 2. How many drinks containing alcohol do you have on a typical day when you are drinking?: 1 or 2 3. How often do you have six or more drinks on one occasion?: Never Total Score: 2 Score Reviewed/Action Taken: No AKASH-7 AMB Questionnaire AKASH-7 Date AKASH - 7 assessed: 10/04/24 Feeling nervous, anxious, or on edge: 0 = Not at all Not being able to stop or control worryin = Not at all Worrying too much about different things: 0 = Not at all Trouble relaxin = Not at all Being so restless that it is hard to sit still: 0 = Not at all Becoming easily annoyed or irritable: 0 = Not at all Feeling afraid as if something awful might happen: 0 = Not at all Total AKASH-7 score (0-4 normal; 5-9 mild; 10-14 moderate; 15-21 severe): 0 Source: Developed by Drs. Jacobo Rene, Annabelle Fierro, Luigi Fonseca and colleagues, with an educational lindsay from [employer]. AKASH-7 Assessment Billing AKASH-7 Assessment Tool: AKASH-7 Assessment 81411 Review of Systems Const Details: - Constitutional: Reports a recent episode of flushing and shaking. - Cardiovascular: Reports intermittent chest pain, which he believes is musculoskeletal as it is tender to palpation. - Denies shortness of breath on exertion or when lying flat, and denies needing extra pillows to sleep. - Musculoskeletal: Reports generalized arthritis. - Reports a recent episode of left arm pain. - Neurological: Reports a history of migraines, which he notes are becoming less frequent and are not debilitating. All systems reviewed & are unremarkable except as noted in HPI and below Physical exam (Primary Care) Vital Signs: Last Vital Signs Temp 98.2 F 07/08/25 10:28 Pulse 66 07/08/25 10:28 Resp 14 07/08/25 10:28 BP 117/58 L 07/08/25 10:28 Pulse Ox 98 07/08/25 10:28 Oxygen Delivery Method Room Air 07/08/25 10:28 Care Plan Goal for BP management: <140/90 at Goal BMI result Body Mass Index 28.4 BMI Assessment/Plan discussion: High BMI High, discussed plan: lifestyle, weight reduction, dietary, physical activity, alcohol moderation and other Tobacco/Smoking Status: Tobacco use Status Tobacco use date assessed 10/04/24 07/08/25 10:28 Patient Tobacco Use Status Never used Tobacco 07/08/25 10:28 e-Cigarette/Vaping Use Never Used 07/08/25 10:28 PHQ-9: PHQ-9 Score PHQ-9: Total score 0 07/08/25 10:40 Depression Screening Interpretation: Negative Thrive Assessment: Date of Thrive Assessment Date Thrive assessed 10/04/24 07/08/25 10:28 Currently or been in a relationship where the following occur: No concerns reported Const Other: Appearance: Alert. Oriented X3. No acute distress. Head: Normal external exam. Normocephalic. Atraumatic. Eyes: Pupils are equal, round, and reactive to light. Extraocular movements intact. Conjunctiva and sclera normal. Eyelids normal. Throat: Pharynx normal. Uvula midline. Moist mucous membranes. Neck: Normal inspection. Neck supple. Full range of motion. Cardiovascular: Normal heart rate and rhythm. Heart sound normal. Murmur noted. Pulses normal throughout. Respiratory: No respiratory distress. Painless inspiration. Breath sounds normal. No wheezes/rales/rhonchi noted. No accessory muscle usage noted or decreased air movement noted. Abdomen: Soft and nontender. No distention noted. No organomegaly noted. Back: Full range of motion noted. Skin: Skin warm and dry. Normal skin color. Normal skin turgor. No rashes/lesions/lacerations noted. Extremities: Extremities exhibit normal range of motion. Slight swelling noted, possibly due to being on feet frequently. Neuro: Oriented X 3. No motor deficit. No sensory deficit. Reflexes normal. Results Reviewed Results Reviewed: - Labs - Troponin (from recent ED visit): Chronically elevated and stable on serial draws at 12.0, 11.8, and 11.4 (reference range <3.5), indicative of chronic myocardial injury. - Tests and Diagnostics - Echocardiogram (2023): Reported findings include an ejection fraction of 70%, moderate left ventricular wall thickening, moderate calcification of the aortic valve, and moderate dilation of the ascending aorta measuring 4.5 cm. Coding Level of Care Code New Pt Level 4 (47979) Complex EM visit Add On G2211 Diagnoses Atypical chest pain R07.89 Caregiver stress Z63.6 Anxiety F41.9 Encounter to establish care Z76.89 Additional Codes AKASH-7 Assessment Billing - AKASH-7 Assessment Tool: AKASH-7 Assessment 00879 ([id number]) PHQ-9 - 67336 - PHQ-9 Billing: Yes ([id number]) Time Spent (min) 65 Assessment & Plan Assessment & Plan (1) Atypical chest pain: Code(s): R07.89 - Other chest pain Category: Medical Plan: The patient presented to the ED with symptoms of flushing, shaking, and arm pain, with ER workup showing chronically elevated but stable troponins, suggesting chronic myocardial injury rather than an acute event. While symptoms could be stress-related, his underlying cardiac history, including left ventricular hypertrophy, aortic valve calcification, and a dilated ascending aorta, warrants further investigation. A stress test and a repeat echocardiogram will be ordered. A referral will be placed to re-establish care with cardiology for ongoing management. (2) Caregiver stress: Code(s): Z63.6 - Dependent relative needing care at home Category: Medical Plan: The patient is the sole caregiver for his with progressing ALS and is under significant stress. To manage acute anxiety, Ativan 0.5 mg, 10 tablets, was prescribed for as-needed use, with education provided on its sedative effects and addictive potential. A referral to a social insurance specialist will be initiated to explore additional home support options. (3) Anxiety: Code(s): F41.9 - Anxiety disorder, unspecified Category: Medical Plan: The patient is the sole caregiver for his with progressing ALS and is under significant stress. To manage acute anxiety, Ativan 0.5 mg, 10 tablets, was prescribed for as-needed use, with education provided on its sedative effects and addictive potential. A referral to a social insurance specialist will be initiated to explore additional home support options. (4) Encounter to establish care: Code(s): Z76.89 - Persons encountering health services in other specified circumstances Category: Medical Plan: The patient is establishing primary care with this practice. A follow-up appointment is scheduled for his annual physical in September, and his previous appointment with another provider will be canceled. He will be instructed to call for lab orders two weeks prior to his appointment. Plan Plan Patient was informed and verbally consented to the use of an ambient scribe for clinic note documentation during this visit. 1. Atypical Chest Pain And Chronic Myocardial Injury The patient presented to the ED with symptoms of flushing, shaking, and arm pain, with ER workup showing chronically elevated but stable troponins, suggesting chronic myocardial injury rather than an acute event. While symptoms could be stress-related, his underlying cardiac history, including left ventricular hypertrophy, aortic valve calcification, and a dilated ascending aorta, warrants further investigation. A stress test and a repeat echocardiogram will be ordered. A referral will be placed to re-establish care with cardiology for ongoing management. 2. Caregiver Stress/Anxiety The patient is the sole caregiver for his with progressing ALS and is under significant stress. To manage acute anxiety, Ativan 0.5 mg, 10 tablets, was prescribed for as-needed use, with education provided on its sedative effects and addictive potential. A referral to a social insurance specialist will be initiated to explore additional home support options. 3. Establishment Of Care The patient is establishing primary care with this practice. A follow-up appointment is scheduled for his annual physical in September, and his previous appointment with another provider will be canceled. He will be instructed to call for lab orders two weeks prior to his appointment. I discussed with the patient that his recent ER visit showed chronically elevated, but stable, troponin levels, which suggests a past injury to the heart rather than an acute heart attack. I explained that while his symptoms could be related to stress, I did not want to ignore his underlying cardiac conditions, which include a heart murmur, left ventricular hypertrophy, aortic valve calcification, and a dilated aorta found on last year's echocardiogram. I recommended a new stress test, a repeat echocardiogram, and a referral to re-establish care with cardiology for further evaluation. We also discussed the significant stress he is under as the sole caregiver for his with ALS. I offered and prescribed a small quantity of Ativan 0.5 mg for as-needed use during times of high stress, explaining that it can be addictive and cause sleepiness. I informed him that our social insurance specialist would contact him to discuss options for additional support at home. I strongly advised him to go to the hospital for any new or recurrent chest pain, regardless of the frequency. Finally, we confirmed his transfer of care to this practice and scheduled his annual wellness visit for September, at which point we will review the results of his cardiac workup. Orders: Orders CA stress test Today R07.9 - Chest pain, unspecified NM cardiolite stress test Today E78.5 - Hyperlipidemia, unspecified, I10 - Essential (primary) hypertension, I34.0 - Nonrheumatic mitral (valve) insufficiency, R01.1 - Cardiac murmur, unspecified, R07.9 - Chest pain, unspecified CA echo transthoracic complete Today E78.5 - Hyperlipidemia, unspecified, I10 - Essential (primary) hypertension, I34.0 - Nonrheumatic mitral (valve) insufficiency, R01.1 - Cardiac murmur, unspecified, R07.9 - Chest pain, unspecified Referrals Cardiology Referral I10 - Essential (primary) hypertension, I34.0 - Nonrheumatic mitral (valve) insufficiency, R01.1 - Cardiac murmur, unspecified, R07.9 - Chest pain, unspecified Medications: New lorazepam (Ativan) 0.5 mg PO DAILY PRN 10 tabs 0RF anxiety Patient Instructions: - Go to the hospital immediately if you experience any more chest pain, arm pain, or similar symptoms. - You will be called to schedule a stress test and an ultrasound of your heart (echocardiogram). - We have placed a referral for you to see a it training specialist (hostess host). Please follow up with them for an appointment. - A social insurance specialist or nurse from our office may call you to discuss options for getting more help at home. - A prescription for Ativan (lorazepam) 0.5 mg was sent to your pharmacy. - Take one tablet only when you are feeling extremely stressed. - This medication can make you sleepy, so do not drive or drink alcohol after taking it. - Your next appointment will be for your annual physical in September. - Please call our office about two weeks before your September appointment to get the orders for your blood work.
--- OUTSIDE RECORDS SUMMARY | 2025-07-08 12:18 | XMS_ITS | Clinical Summary ---
Author Organization [facility] Address [address] [place] [id number] Phone Care Team Providers Care Burn Table Operator Name Role Phone Azar Griffin MD Unavailable [phone] Unknown, Unknown Primary Care Provider Unavai lable [...] left hip intraoperative radiologic examination (CPT code 66466) Surgeon: Jaycob Chery MD Implants Used: Femoral Stem: DePuy Corail, Size 11 KS Femoral Head: CoCr, Size 36+5 Acetabulum: DePuy Shepherd Sector II Gription, Size 54mm Adjuvant screw fixation x 1 x 6.5mm (35mm) Liner: Altrx polyethylene, Size 54x36 +4 neutral Hip pain, left 04/22/2012 Overview (01/18/2021): Case Date: 07/08/2012 Procedure Performed: left Total Hip Arthroplasty left hip intraoperative radiologic examination (CPT code 26724) Surgeon: Jaycob Chery MD Implants Used: Femoral Stem: DePuy Corail, Size 11 KS Femoral Head: CoCr, Size 36+5 Acetabulum: DePuy Shepherd Sector II Gription, Size 54mm Adjuvant screw fixation x 1 x 6.5mm (35mm) Liner: Altrx polyethylene, Size 54x36 +4 neutral Healthcare maintenance 04/17/2012 Overview (01/18/2021): Colonoscopy 10/26/04 Immunization History Administered Date(s) Administered H1n1 08/17/2009 Influenza Whole 07/02/2005, 07/05/2007, 06/23/2008 Pneumococcal Polyvalent 23 11/11/2007 Td 04/20/1995, 10/02/2003 Zoster 02/17/2009 S/P hip replacement 11/27/2011 Overview (01/18/2021): 1998, Dr. Rene Easley replaced right hip at [facility] in [place], [place] Elevated PSA 10/01/2011 Impairment of auditory [...] COVID-19 (Pre-06/23) Pfizer Vaccine, mRNA, PF 05/28/2021,09/24/2020,09/06/2020 [id number] FORMULATION 08/17/2009 Hepatitis A, Adult 07/11/1997,01/09/1997 Hepatitis B Adult 06/11/2022, 6,06/16/1995,04/29 INFLUENZA, SPLIT VIRUS, TRIVALENT PF 06/15/2013, 07/09/2012 INFLUENZA, SPLIT VIRUS, TRIV ALENT W/ PRESERVATIVE IM 06/26/2016,06/23/2008,07/05/2007,07/02 IPV 10/08/1989 Influenza High-Dose Quadriva lent Preservative Free IM 05/25/2021,05/23/2020 Influenza High-Dose Trivalen t Preservative Free IM 06/15/2019,06/12/2017,06/20/2015,06/07 Influenza Quadrivalent Prese rvative Free IM 06/12/2018 Influenza, Unspecified Formulation 06/18/2018 Influenza, whole 06/23/2008,07/05/2007, 5 Latvian Encephalitis SC 01/17/2005,12/27/2004,0 12/20/2004 Meningococcal MPSV4 11/27/2004,08/07/1990 Novel [id number], Injectable 08/17/2009 Pneumococcal conjugate PCV13 06/20/2015 Pneumococcal [...] EDT) SODIUM 139 133 - 146 mmol/L [facility] POTASSIUM 4.5 3.3 - 5.1 mmol/L [facility] CHLORIDE 101 96 - 108 mmol/L [facility] CO2 27 21 - 35 mmol/L [facility] BUN 26(H) 6 - 19 mg/dL [facility] CREATININE 1.00 0.5 - 1.5 mg/dL [facility] GLUCOSE 97 70 - 99 mg/dL [facility] ALBUMIN 4.3 3.9 - 4.8 g/dL [facility] TOTAL PROTEIN 7.1 6.5 - 8.0 g/dL [facility] CALCIUM 9.5 8.4 - 10.3 mg/dL [facility] ALKALINE PHOSPHATASE 86 39 - 117 U/L [facility] TOTAL BILIRUBIN 0.3 0.0 - 1.2 mg/dL [facility] AST 30 0 - 37 U/L [facility] ALT 24 0 - 40 U/L [facility] GLOBULIN 2.8 1 - 4.8 g/dL [facility] EGFR 76 >59 mL/min/1.7 3m2 [facility] Comment:Estimated glomerular filtration rate calculated using the CKD-EPI refit equation. ANION GAP 16 10 - 20 mmol/L [facility] Blood 01/15/2023 2:43 PM EDT 01/15/2023 2:54 PM EDT us Azar Griffin MD LAB BLOOD BKR ORDERABLES Anastasiia arceo Result Performing Organization Address City/State/[facility] Co de Phone Number [address] [address] * (ABNORMAL) Lipid panel (01/15/2023 2:43 PM EDT) HDL 49 mg/dL [facility] Comment: Interpretation <40 mg/dL: Low HDL cholesterol (major risk factor for CHD) Greater than or equal to 60 mg/dL: High HDL cholesterol ( negative risk factor for CHD) HDL - cholesterol is affected by a number of factors, e.g. smoking, excerise, hormones, sex and age. CHOLESTEROL 134 0 - 240 mg/dL [facility] TRIGLYCERIDES 112 30 - 160 mg/dL [facility] LDL 63 50 - 129 mg/dL [facility] Comment: LDL levels in terms of risk for coronary heart disease: <100 mg/dL: Optimal 100-129 mg/dL: Near or above optimal 130-159 mg/dL: Borderline high 160-189 mg/dL: High >190 mg/dL: Very High CARDIAC RISK RATIO 2.7(L) 3.4 - 5.0 C [facility] Blood 01/15/2023 2:43 PM EDT 01/15/2023 2:54 PM EDT us Azar Griffin MD LAB BLOOD BKR ORDERABLES Anastasiia arceo Result [facility] [address] [place] [address] * COLONOSCOPY FOR RESULT ENTRY ONLY (01/26/2021) Historical Provider HEALTH MAINTENANCE Final Result from Last 3 Months or Most Recently Relevant to Health Maintenance Insurance [place] [id number] [facility] MEDICARE SUPPLEMENT MEDICARE PART A & B [employer] MEDICARE SUPPLEMENT MEDICARE PART A & B [employer] MEDICARE SUPPLEMENT MEDICARE PART A & B [facility] MEDICARE SUPPLEMENT MEDICARE PART A & B [facility] MEDICARE SUPPLEMENT MEDICARE PART A & B [facility] [employer] MEDICARE SUPPLEMENT MEDICARE PART A & B [employer] MEDICARE SUPPLEMENT MEDICARE PART A & B [employer] MEDICARE SUPPLEMENT MEDICARE PART A & B [id number] [facility] [employer] MEDICARE SUPPLEMENT Advance Directives For more information, please contact: [phone] (9AM - 5PM [facility], Friday-Friday) Documents on File Type Date Recorded Patient Snow Removal/Plowing Expl david AGUERO 01/01/2019 2:21 PM Mailed back to pt Care Teams Burn Table Operator Relationship Specialty Start Date End Date Unknown, Unknown, PCP - General 11/27/23 Azar Griffin MD [address] [place] [address], [address] [place] [id number] [email or web address] Historical LMR Provider 06/18/17 Additional Source Comments The information contained in this document represents components of the legal health record. It is not the complete legal health record.[facility]
--- OUTSIDE RECORDS SUMMARY | 2025-07-08 12:18 | XMS_ITS | Encounter Summary ---
Author Organization [facility] Address [address] [facility] [address] [place] [address] Phone Care Team Providers Care Line Producer Name Role Phone Debbie Beltrángabmichel Tiki BPM SOLUTION ARCHITECT Unavailable [phone] Gerson Hand MD Unavailable Dennis Vidales Unavailable Marcella Kelsey [facility] Unavailable Will Jacome MD Unavailable Orion Mccray MD Unavailable Azar Griffin MD Unavailable Cely Resendiz PA-C Unavailable Margaret Rivas MD Unavailable Armand Arrieta MD Unavailable Azar Griffin MD Primary Care Provider [phone] Azar Griffin MD Unavailable Unknown, Unknown Primary Care Provider Salvador motley Encounter Details Date Type Department Care Team (Late st Contact Info) Description 05/18/2018 Ancillary Orders Virtual Department [address] [place] [address] [phone] Tonny Everett MD, PhD [address] [facility] [address] [place], [place] [phone] (work) [email or web address] Carotid stenosis, asymptomatic, bilateral; Vascular headache Social [...] documented as of this encounter Care Teams Line Producer Relationship Specialty Start Date End Date Azar Griffin MD [address] [place] [address], [address] [place], [place] [phone] PCP - General 06/19/17 11/26/23 Unknown, Unknown, PCP - General 11/27/23 Geovanna Beltrán NP [address] [place] [address] Historical LMR Provider 06/18/1709/08/21 Gerson Hand MD [address] [facility] [address] [place] [address] Historical LMR Provider 06/18/17 2 Dennis Vidales PA [address] [place] [address] Historical LMR Provider 06/18/17 2 Marcella Kelsey CNP [address] [place] [address], [address] [place] [address] [email or web address] Historical LMR Provider 06/18/17 09/08/21 Will Jacome MD [address] [place] [address] [email or web address] Historical LMR Provider 06/18/17 09/08/21 Orion Mccray MD [address] [place] [address], [address] [place] [address] [email or web address] Historical LMR Provider 06/18/17 09/08/21 Azar Griffin MD [address] [place] [address] [address] [place] [address] Historical LMR Provider 06/18/17 Cely Resendiz PA-C [address] [place] [address] Orthopedics & Sports Medicine, [facility] [place] [address] [email or web address] Historical LMR Provider 06/18/17 09/08/21 Margaret Rivas MD [address] [place] [address] [address] [place] [address] [email or web address] Historical LMR Provider 06/18/17 09/08/21 Armand Arrieta MD [address] [place], [place] [address] [place] [address] [email or web address] Historical LMR Provider 06/18/17 09/08/21 Azar Griffin MD [address] [place] [address] 7 [place] [address] [email or web address] Insurance Assigned Provider 08/02/1712/06/23 documented as of this encounter Additional Source Comments The information contained in this document represents components of the legal health record. It is not the complete legal health record.[facility]
--- OUTSIDE RECORDS SUMMARY | 2025-07-08 12:18 | XMS_ITS | Patient Health Record ---
Author Organization [facility] Address [address] [place] [address] Care Team Providers Care Ticket Worker Name Role Phone Azar Griffin MD Primary Care Provider Dania Castañeda Unavailable [phone] Allergies Allergen (clinical drug ingredient) Drug/Non Drug [...] Date Coverage End Date Medicare National Govt [employer] [facility] [address] [place] [address] [id number] Reyes Garner Self - patient is the insured [employer] ([employer]) [address] [place] [address] [id number] Reyes Garner Self - patient is [...] cataract surgery 2009 Hospitalization History Reason Date(Month/Year) [facility] [place]- For possible TIA- diagnosis was michel tristan 06/20
--- OUTSIDE RECORDS SUMMARY | 2025-07-08 12:18 | XMS_ITS | Clinical Summary ---
Author Organization [place] [address] Care Team Providers Care Hose Seamer Name Role Phone Inactive, Pcp External Primary [...] left hip intraoperative radiologic examination (CPT code 82887) Surgeon: Jaycob Chery MD Implants Used: Femoral Stem: DePuy Corail, Size 11 KS Femoral Head: CoCr, Size 36+5 Acetabulum: DePuy [place] Sector II Gription, Size 54mm Adjuvant screw fixation x 1 x 6.5mm (35mm) Liner: Altrx polyethylene, Size 54x36 +4 neutral Healthcare maintenance 04/17/2012 Overview (04/17/2012): Colonoscopy 10/26/04 Immunization History Administered Date(s) Administered H1n1 08/17/2009 Influenza Whole 07/02/2005, 07/05/2007, 06/23/2008 Pneumococcal Polyvalent 23 11/11/2007 Td 04/20/1995, 10/02/2003 Zoster 02/17/2009 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 Rene Easley replaced right hip at [facility] in [place], [place] Prostate cancer 10/01/2011 Overview (05/31/2012): 5/4 [...] Immunization Administration Dates Next Due Influenza (Novel L1J8-07) Injectable 08/17/2009 Influenza Trivalent, Preservative Free 3,07/09/2012 [...] Sigmoidoscopy Discontinued Medical Devices Implanted Type Area Staffing Specialist Device Identifier Shelf Expiration Date Model / Serial / Lot Cup,Actbr,Grpt n,Sector,54mm ([id number]) (Autoreq) - [id number] Implanted:Qty: 1 on 07/08/[address] [facility] IMPLANTS Left: Hip DO NOT USE Depuy Senior Analyst Programmer - 3527 05/31/2022 [id number] Screw,Cacls,Pn ncl,6.5x35mm ([id number]) (Autoreq) - [id number] Implanted:Qty: 1 on 07/08/[address] [facility] IMPLANTS Left: Hip DO NOT USE Depuy Senior Analyst Programmer - 3527 04/30/2022 0 / / [id number] Liner,Actbr,+4 mm,Ntrl,36x54m m ([id number]) (Autoreq) - [id number] Implanted:Qty: 1 on 07/08/[address] [facility] IMPLANTS Left: Hip DO NOT USE Depuy Senior Analyst Programmer - 3527 05/31/2017 4 / / [id number] Stem,Fmrl,Clrd ,11,135deg,145 mm ([id number]) (Autoreq) - [id number] Implanted:Qty: 1 on 07/08/[address] [facility] IMPLANTS DO NOT USE Depuy Senior Analyst Programmer - 3527 05/31/2017 [id number] / / [id number] Head,Fmrl,+5mm ,12-14,36mm ([id number]) (Autoreq) - [id number] Implanted:Qty: 1 on 07/08/[address] [facility] IMPLANTS DO NOT USE Depuy Senior Analyst Programmer - 3527 05/01/2017 0 / / [id number] Procedures Procedure Name Priority Date/Time Associated Diagnosis Comments COLONOSCOPY Routine 01/26/2021 3:49 PM EDT from Last 3 Months or Most Recently Relevant to Health Maintenance Results * COLONOSCOPY (01/26/2021 3:49 PM EDT) COLONOSCOPY [facility] Endoscopy Procedure Date: 01/26/2021 3:49 PM Patient Name: Reyes Garner Date of : 1940 Age: 80 Order #: [id number] Instrument Name: -[id number] Procedure: Colonoscopy Indications: Iron deficiency anemia Providers: [...] Recently Relevant to Health Maintenance Insurance MEDICARE [facility] [employer] Advance Directives Documents on File Type Date Recorded 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 Care Teams Hose Seamer Relationship Specialty Start Date End Date Inactive, Pcp External PCP - General 09/17/24
== END 2025-07-08 11:08 | disposition home or self-care (01) ==
LOC: HO.HMCSH 10:24
PROVIDERS: PCP Physician Assistant Medical; Visit Provider Physician Assistant Medical
DX: R07.89 Other chest pain (principal); Z63.6 Dependent relative needing care at home; F41.9 Anxiety disorder, unspecified; Z76.89 Persons encountering health services in other specified circumstances

== ENCOUNTER → 2025-07-08 10:24 | Outpatient (BNVA) | payer MEDICARE, OTHER, SELFPAY | PROVIDERS: PCP Physician Assistant Medical; Visit Provider Physician Assistant Medical | DX: R07.89 Other chest pain (principal); F41.9 Anxiety disorder, unspecified; Z76.89 Persons encountering health services in other specified circumstances; Z63.6 Dependent relative needing care at home | CPT/HCPCS: 96127; 99202 ==

== ENCOUNTER 2025-08-12 10:13 | Outpatient (AMB) | payer MEDICARE, OTHER, SELFPAY ==
--- NOTE | 2025-08-12 10:26 | A.OFFPC_ITS ---
Vital Signs 08/12/25 10:34 Height 6 ft 0.75 in Weight 214 lb 2 oz BMI 28.4 BP 105/53 L Blood Pressure Location Rt brachial Position Sitting Respiration 18 Pulse 59 Pulse Source Pulse Oximeter Temp 97.2 F Temp Source Temporal Artery Scan Pulse Oximetry (%) 99 Oxygen Delivery Method Room Air Intake Visit Reasons: 1 Month follow up Consulting Database Administrator Required: No Accompanied by: Self / Same As Patient Allergies codeine Allergy (Unknown, Verified 08/12/25 10:37) Nausea Medication List - Last Reconciled 08/12/25 by Radha Everett PA-C amlodipine 10 mg PO DAILY aspirin 81 mg PO DAILY atorvastatin 10 mg PO DAILY brimonidine 0.2% 1 drp ophthalmic (eye) BID lorazepam (Ativan) 0.5 mg PO DAILY PRN olmesartan-hydrochlorothiazide 40-25 mg 1 tab PO BEDTIME verapamil ER 240 mg PO BEDTIME Tobacco use date assessed: 10/04/24 Dental Screening Dental Screen Date: 10/04/24 HPI HPI Comments History of Present Illness Details History of Present Illness The patient is an 84 year old male presenting for a one-month follow-up visit. About a month ago, he presented to the ER with chest pain, which has not recurred; he believes it was likely related to arthritis. He was previously prescribed Ativan due to a stressful life event but has not taken any. The patient has a history of chronic headaches for years. The headaches are intermittent, sometimes being severe for a week or two, followed by a couple of weeks without any headaches. The location of the headache varies, occurring in the back of the head, behind the eyes, or in the forehead. He follows with a neurologist, who has not found an effective treatment. He previously tried a m edication for headaches many years ago that made him feel loopy and was given sumatriptan in the past. He has a history of a heart murmur that has been present his entire life. He has a cardiology follow-up scheduled after , which will include an echocardiogram and a stress test. The patient has a history of mild anemia and takes iron supplements about three times a week. His labs from July 05, 2025, showed a hemoglobin of 13.2 g/dL. He has a history of chronic kidney disease, stage G3a, with a GFR of 50 in July. His glucose has been slightly elevated. Current medications include amlodipine 10 mg, aspirin 81 mg, atorvastatin 10 mg, olmesartan- hydrochlorothiazide 40-25 mg, and verapamil extended release. 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 - He exercises by biking almost every da y. 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 [facility] Medical History (Updated 08/12/25 @ 14:19 by Radha Everett PA-C) Healthcare maintenance Encounter to establish care Anxiety Caregiver stress Atypical chest pain Chest pain COVID-19 vaccine series completed HTN (hypertension) Migraine Prostate cancer TIA (transient ischemic attack) Surgical History History of esophagogastroduodenoscopy (EGD) Hx of cataract extraction H/O colonoscopy (~11/10/23) Hx of prostatectomy Status post total right knee replacement H/O lumbar discectomy History of bladder suspension procedure Hx of hernia repair Hx of bilateral hip replacements Family History Mother Arthritis Father Hypertension Sister Breast cancer Social History Household Members: Spouse Household Members Other:: , rides a bike 12-14 mile a day, Housing: House Do you presently have visiting nurse or other home services: No Alcohol intake: current Alcohol intake frequency: does not drink Patient Tobacco Use Status: Never used Tobacco e-Cigarette/Vaping Use: Never Used Second Hand Smoke Exposure: No Advance Directives Date on File: 08/15/24 service: No Current occupational status: retired Cognitive needs: No Hearing needs: No Vision needs: Yes Questionnaire PHQ-9 Over the last 2 weeks, how often have you been bothered by any of the following problems? 1. Little interest or pleasure in doing things: not at all 2. Feeling down, depressed, or hopeless: not at all 3. Trouble falling or staying asleep, or sleeping too much: not at all 4. Feeling tired or having little energy: not at all 5. Poor appetite or overeating: not at all 6. Feeling bad about yourself - or that you are a failure or have let yourself or your family down: not at all 7. Trouble concentrating on things, such as reading the newspaper or watching television: not at all 8. Moving or speaking so slowly that other people could have noticed. Or the opposite - being so fidgety or restless that you have been moving around a lot more than usual: not at all 9. Thoughts that you would be better off or of hurting yourself in some way: not at all Total score: 0 Depression Screening Interpretation: Negative Depression Screening Done: Yes 83824 - PHQ-9 Billing: Yes Source: Developed by Drs. Jacobo Rene, Annabelle Fierro, Luigi Fonseca and colleagues, with an educational lindsay from [employer]. Thrive Questionnaire Date Thrive assessed: 10/04/24 I am a: Patient What is your living situation today?: I have a steady place to live Within the past 12 months, did the food you bought not last and you didn't have the money to get more?: Never true Within the past 12 months, did you worry whether your food would run out before you got money to buy more?: Never true Do you have trouble paying for medicines?: No Do you have trouble getting transportation to medical appointments?: No Do you have trouble paying your heating and electricity bill?: No Do you have trouble taking care of your child, family member or friend?: No Do you have trouble with day-to-day activities such as bathing, preparing meals, shopping, managing finances, etc.?: No Are you currently unemployed and looking for a job?: No Are you interested in more education?: No Please select the resources that you would like help with: None Currently or been in a relationship where the following occur: No concerns reported THRIVE Score: 0 AUDIT C Alcohol Use Questionnaire (AUDIT-C) 1. How often do you have a drink containing alcohol?: 2-4 times a month 2. How many drinks containing alcohol do you have on a typical day when you are drinking?: 1 or 2 3. How often do you have six or more drinks on one occasion?: Never Total Score: 2 Score Reviewed/Action Taken: No AKASH-7 AMB Questionnaire AKASH-7 Date AKASH - 7 assessed: 10/04/24 Feeling nervous, anxious, or on edge: 0 = Not at all Not being able to stop or control worryin = Not at all Worrying too much about different things: 0 = Not at all Trouble relaxin = Not at all Being so restless that it is hard to sit still: 0 = Not at all Becoming easily annoyed or irritable: 0 = Not at all Feeling afraid as if something awful might happen: 0 = Not at all Total AKASH-7 score (0-4 normal; 5-9 mild; 10-14 moderate; 15-21 severe): 0 Source: Developed by Drs. Jacobo Rene, Annabelle Fierro, Luigi Fonseca and colleagues, with an educational lindsay from [employer]. AKASH-7 Assessment Billing AKASH-7 Assessment Tool: AKASH-7 Assessment 43940 Review of Systems Narrative Review of Systems - General: Reports feeling pretty good. - Neurological: Reports persistent, intermittent headaches. - Reports occasional lightheadedness upon standing after bending down. - Denies dizziness or weakness. - Cardiovascular: Denies chest pain since his last visit. - Respiratory: Denies dyspnea and feeling winded during activity. - Extremities: Reports some leg swelling. Const All systems reviewed & are unremarkable except as noted in HPI and below Physical exam (Primary Care) Vital Signs: Last Vital Signs Temp 97.2 F 08/12/25 10:34 Pulse 59 08/12/25 10:34 Resp 18 08/12/25 10:34 BP 105/53 L 08/12/25 10:34 Pulse Ox 99 08/12/25 10:34 Oxygen Delivery Method Room Air 08/12/25 10:34 Care Plan Goal for BP management: <140/90 at Goal BMI result Body Mass Index 28.4 BMI Assessment/Plan discussion: High BMI High, discussed plan: lifestyle, weight reduction, dietary, physical activity, alcohol moderation and other Tobacco/Smoking Status: Tobacco use Status Tobacco use date assessed 10/04/24 08/12/25 10:31 Patient Tobacco Use Status Never used Tobacco 08/12/25 10:31 e-Cigarette/Vaping Use Never Used 08/12/25 10:31 PHQ-9: PHQ-9 Score PHQ-9: Total score 0 08/12/25 11:01 Depression Screening Interpretation: Negative Thrive Assessment: Date of Thrive Assessment Date Thrive assessed 10/04/24 08/12/25 10:31 Currently or been in a relationship where the following occur: No concerns re ported Narrative Physical Exam Appearance: Alert. Oriented X3. No acute distress. Head: Normal external exam. Normocephalic. Atraumatic. Eyes: Pupils are equal, round, and reactive to light. Extraocular movements intact. Conjunctiva and sclera normal. Eyelids normal. Throat: Pharynx normal. Uvula midline. Moist mucous membranes. Neck: Normal inspection. Neck supple. Full range of motion. No adenopathy. Thyroid Normal. No meningeal signs. No neck mass noted. Cardiovascular: Normal heart rate and rhythm. Heart sound normal. No murmurs noted. Pulses normal throughout. A murmur is present but sounds the same as last time. Respiratory: No respiratory distress. Painless inspiration. Breath sounds normal. No wheezes/rales/rhonchi noted. Chest nontender. No accessory muscle usage noted or decreased air movement noted. Back: Full range of motion noted. Skin: Skin warm and dry. Normal skin color. Normal skin turgor. No rashes/lesions/lacerations noted. Extremities: Mild leg swelling noted. Extremities exhibit normal range of motion. Neuro: Oriented X 3. No motor deficit. No sensory deficit. Reflexes normal. Results Reviewed Results Reviewed: - Laboratory studies from July 05, 2025: - CBC: Showed mild anemia with a hemoglobin of 13.2 g/dL. - BMP: Creatinine was normal, with a GFR of 50 mL/min/1.73 m?. - Glucose: Slightly elevated. - Liver enzymes: Normal. Coding Level of Care Code Est Pt Level 4 (46644) Add On Problem Visit Only Diagnoses Migraine G43.909 HTN (hypertension) I10 Anxiety F41.9 Healthcare maintenance Z00.00 Additional Codes AKASH-7 Assessment Billing - AKASH-7 Assessment Tool: AKASH-7 Assessment 86504 ([id number]) PHQ-9 - 99758 - PHQ-9 Billing: Yes ([id number]) Time Spent (min) 60 Assessment & Plan Assessment & Plan (1) Migraine: Comment: f/u Dr. Hammond, on Verapamil prophylaxis Code(s): G43.909 - Migraine, unspecified, not intractable, without status migrainosus Category: Medical Plan: The patient reports chronic, intermittent headaches that vary in location. He declined a trial of Fioricet due to concerns about side effects like feeling intoxicated, which he may have experienced with a previous headache medication. He was advised to increase his current magnesium supplement to a daily dose of 400-600 mg for headache prevention, and a prescription for 600 mg daily was sent. A prescription for riboflavin 400 mg daily was also sent for headache prevention. He was instructed on non-pharmacological management, including placing ice packs on the front of his head and the back of his neck simultaneously during a headache. (2) HTN (hypertension): Code(s): I10 - Essential (primary) hypertension Category: Medical Plan: The patient's blood pressure was 105/53 mmHg. No changes were made to his antihypertensive medications (amlodipine, olmesartan-HCTZ, verapamil), but he was advised to monitor for symptoms of hypotension, such as dizziness or weakness, given the low reading. (3) Anxiety: Code(s): F41.9 - Anxiety disorder, unspecified Category: Medical Plan: The patient was previously prescribed Ativan for anxiety related to his 's illness but reports not needing to take it. He was advised to keep the medication on hand in case it is needed in the future. (4) Healthcare maintenance: Code(s): Z00.00 - Encounter for general adult medical examination without abnormal findings Category: Medical Plan: The patient is scheduled for a follow-up with cardiology after [place], which will include an echocardiogram and a stress test to evaluate his cardiac history and murmur. He will have lab work completed about a week before his next one- month follow-up appointment. Labs ordered include a CBC, CMP, magnesium, inflammatory markers, lipid panel, urinalysis, thyroid panel, vitamin B12, folate, vitamin D, and a PSA. The A1c will also be checked to evaluate his hyperglycemia. Plan Plan Patient was informed and verbally consented to the use of an ambient scribe for clinic note documentation during this visit. 1. Chronic Headache The patient reports chronic, intermittent headaches that vary in location. He declined a trial of Fioricet due to concerns about side effects like feeling intoxicated, which he may have experienced with a previous headache medication. He was advised to increase his current magnesium supplement to a daily dose of 400-600 mg for headache prevention, and a prescription for 600 mg daily was sent. A prescription for riboflavin 400 mg daily was also sent for headache prevention. He was instructed on non-pharmacological management, including placing ice packs on the front of his head and the back of his neck simultaneously during a headache. 2. Hypertension The patient's blood pressure was 105/53 mmHg. No changes were made to his antihypertensive medications (amlodipine, olmesartan-HCTZ, verapamil), but he was advised to monitor for symptoms of hypotension, such as dizziness or weakness, given the low reading. 3. Health Maintenance The patient is scheduled for a follow-up with cardiology after [place], which will include an echocardiogram and a stress test to evaluate his cardiac history and murmur. He will have lab work completed about a week before his next one- month follow-up appointment. Labs ordered include a CBC, CMP, magnesium, inflammatory markers, lipid panel, urinalysis, thyroid panel, vitamin B12, folate, vitamin D, and a PSA. The A1c will also be checked to evaluate his hyperglycemia. 4. Anxiety The patient was previously prescribed Ativan for anxiety related to his 's illness but reports not needing to take it. He was advised to keep the medication on hand in case it is needed in the future. Discussion Notes I conducted a one-month follow-up with the patient, who reports feeling generally well. His chest pain from a month ago has resolved. We discussed his chronic intermittent headaches, for which his neurologist has not found an effective treatment. I prescribed daily magnesium 600 mg and riboflavin 400 mg for headache prevention. We discussed other options, including Fioricet, but he declined due to concerns about side effects such as drowsiness, dizziness, and a feeling of intoxication, which he may have experienced with a past medication. I also instructed him on using ice packs on his head and neck for acute relief. His blood pressure was 105/53 mmHg, and I advised him to monitor for symptoms of hypotension but made no changes to his regimen. I ordered a comprehensive set of labs to be done one week before his next appointment, including CBC, CMP, A1c, lipids, urine studies, and a PSA. We confirmed his upcoming cardiology follow- up, which will include an echocardiogram and stress test. We also discussed the significant stressor of his 's worsening ALS, and I confirmed he has his PRN Ativan if needed. The patient will follow up in one month to review lab results and his response to the new headache prevention therapies.Patient Instructions Orders: Orders Comprehensive [place]. Panel Fast Today Z00.00 - Encounter for general adult medical examination without abnormal findings Hemoglobin A1c Today Z00.00 - Encounter for general adult medical examination without abnormal findings Lipid Panel Today Z00.00 - Encounter for general adult medical examination without abnormal findings C Reactive Protein Today Z00.00 - Encounter for general adult medical examination without abnormal findings Complete Blood Count Auto Diff Today Z00.00 - Encounter for general adult medical examination without abnormal findings Erythrocyte Sedimentation Rate Today Z00.00 - Encounter for general adult medical examination without abnormal findings Magnesium Today Z00.00 - Encounter for general adult medical examination without abnormal findings Microalbumin, Random (w Creat) Today E11.9 - Type 2 diabetes mellitus without complications Vitamin B12 and Folate Today Z00.00 - Encounter for general adult medical examination without abnormal findings Vitamin D 25-OH Total Today Z00.00 - Encounter for general adult medical examination without abnormal findings TSH reflex Free T4 Today Z00.00 - Encounter for general adult medical examination without abnormal findings UA CC w/rflx Micro + Cult Today Z00.00 - Encounter for general adult medical examination without abnormal findings PSA,Total (Free>4and<10) Today Z00.00 - Encounter for general adult medical examination without abnormal findings Medications: New magnesium glycinate 600 mg (6 x 100 mg magnesium) PO DAILY 90 caps 3RF riboflavin (vitamin B2) 400 mg PO DAILY 90 tabs 3RF Patient Instructions: Patient Instructions - Take magnesium 600 mg by mouth once daily to help prevent headaches. - Take riboflavin 400 mg by mouth once daily to help prevent headaches. - For headache relief, you can place an ice pack on the front of your head and another on the back of your neck at the same time. - Keep your current blood pressure medications the same, but watch for any new dizziness or lightheadedness, as your blood pressure was low today. - You may keep the Ativan prescription on hand in case you feel you need it for anxiety. - Please go for blood work about one week before your next appointment. - Keep your appointment with the chemistry specialist (cardiology). - Follow up here in the office in one month.
[2025-08-12 10:34] VITALS: BP 105/53; PULSE 59; RESP 18; TEMP 36.2; O2SAT 99; BMI 28.4
== END 2025-08-12 10:59 | disposition home or self-care (01) ==
LOC: HO.HMCSH 10:14
PROVIDERS: PCP Physician Assistant Medical; Visit Provider Physician Assistant Medical
DX: G43.909 Migraine, unspecified, not intractable, without status migrainosus (principal); I10 Essential (primary) hypertension; F41.9 Anxiety disorder, unspecified; Z00.00 Encounter for general adult medical examination without abnormal findings

== ENCOUNTER → 2025-08-12 10:13 | Outpatient (BNVA) | payer MEDICARE, OTHER, SELFPAY | PROVIDERS: PCP Physician Assistant Medical; Visit Provider Physician Assistant Medical | DX: I10 Essential (primary) hypertension (principal); G43.909 Migraine, unspecified, not intractable, without status migrainosus; F41.9 Anxiety disorder, unspecified; Z13.31 Encounter for screening for depression | CPT/HCPCS: 96127; 99212 ==

== ENCOUNTER 2025-08-20 13:03 | Outpatient (REF) | payer MEDICARE, OTHER, SELFPAY ==
--- NOTE | ~2025-08-20 | XR_ITS ---
EXAMINATION: XR HIP, RIGHT CLINICAL INFORMATION: M25.551 - Pain in right hip COMPARISON: None available. TECHNIQUE: Two views of the right hip. Pelvis 1 view FINDINGS: Status post right total hip arthroplasty. Expected position and alignment of the arthroplastic components. Hardware is intact without evidence of hardware failure. Cerclage wire in the proximal femur. No acute periprosthetic fracture. Pelvis: Left total hip arthroplasty. Intact hardware. No suspicious perihardware lucency. Mild symphysis pubis degeneration. SI joints are intact. No acute pelvic fracture seen. XR/XR hip RT w PEL1V IMPRESSION: Right hip arthroplasty, intact hardware without evidence of hardware failure. No acute fracture. Additional findings and details as above. Electronically signed by: Polo Garcia MD 08/22/2025 07:13 AM [facility]
--- OUTSIDE RECORDS SUMMARY | 2025-08-20 13:07 | XMS_ITS | Encounter Summary ---
Author Organization [facility] Address [address] [place] [phone] Phone Care Team Providers Care Attraction Attendant Name Role Phone Debbie Beltrángabmichel Tiki MEDICAL SALES CONSULTANT Unavailable Gerson Hand MD Unavailable Dennis Vidales Unavailable Marcella Kelsey [facility] Unavailable Will Jacome MD Unavailable Orion Mccray MD Unavailable Azar Griffin MD Unavailable Cely Resendiz PA-C Unavailable Margaret Rivas MD Unavailable Armand Arrieta MD Unavailable Azar Griffin MD Primary Care Provider [phone] Azar Griffin MD Unavailable Unknown, Unknown Primary Care Provider Salvador motley Encounter Details Date Type Department Care Team (Late st Contact Info) Description 05/18/2018 Ancillary Orders Virtual Department [address] [place] [address] [id number] Tonny Everett MD, PhD [address] [place], [place] [phone] (work) [email or web address] Carotid stenosis, asymptomatic, bilateral; Vascular headache Social [...] documented as of this encounter Care Teams Attraction Attendant Relationship Specialty Start Date End Date Azar Griffin MD [address] [place] [address], [address] [place], [place] [phone] [email or web address] PCP - General 06/19/17 11/26/23 Unknown, Unknown, PCP - General 11/27/23 Geovanna Beltrán NP [address] [place] [address] Historical LMR Provider 06/18/1709/08/21 Gerson Hand MD [address] [place] [address] Historical LMR Provider 06/18/17 2 Dennis Vidales PA [address] [place] [address] Historical LMR Provider 06/18/17 2 Marcella Kelsey CNP [address] [place] [address], [address] [place] [address] [email or web address] Historical LMR Provider 06/18/17 09/08/21 Will Jacome MD [address] [place] [id number] [email or web address] Historical LMR Provider 06/18/17 09/08/21 Orion Mccray MD [address] [place] [address], [address] [place] [address] [email or web address] Historical LMR Provider 06/18/17 09/08/21 Azar Griffin MD [address] [place] [address] 7 [place] [address] Historical LMR Provider 06/18/17 Cely Resendiz PA-C [address] [place] [address] Orthopedics & Sports Medicine, [facility] [place] [address] [email or web address] Historical LMR Provider 06/18/17 09/08/21 Margaret Rivas MD [address] [place] [address] [address] [place] [address] [email or web address] Historical LMR Provider 06/18/17 09/08/21 Armand Arrieta MD [address] [place], [place] [address] [place] [phone] [email or web address] Historical LMR Provider 06/18/17 09/08/21 Azar Griffin MD [address] [place] [address] 7 [place] [address] [email or web address] Insurance Assigned Provider 08/02/1712/06/23 documented as of this encounter Additional Source Comments The information contained in this document represents components of the legal health record. It is not the complete legal health record.[facility]
--- OUTSIDE RECORDS SUMMARY | 2025-08-20 13:07 | XMS_ITS | Clinical Summary ---
Author Organization [facility] Address [address] [place] [address] Phone Care Team Providers Care Rubber Block Layer Name Role Phone Azar Griffin MD Unavailable [phone] Unknown, Unknown Primary Care Provider Unavai lable [...] left hip intraoperative radiologic examination (CPT code 54738) Surgeon: Jaycob Chery MD Implants Used: Femoral Stem: DePuy Cor[place], Size 11 KS Femoral Head: CoCr, Size 36+5 Acetabulum: DePuy [place] Sector II Gription, Size 54mm Adjuvant screw fixation x 1 x 6.5mm (35mm) Liner: Altrx polyethylene, Size 54x36 +4 neutral Hip pain, left 04/22/2012 Overview (01/18/2021): Case Date: 07/08/2012 Procedure Performed: left Total Hip Arthroplasty left hip intraoperative radiologic examination (CPT code 53319) Surgeon: Jaycob Chery MD Implants Used: Femoral Stem: DePuy Cor[place], Size 11 KS Femoral Head: CoCr, Size 36+5 Acetabulum: DePuy [place] Sector II Gription, Size 54mm Adjuvant screw fixation x 1 x 6.5mm (35mm) Liner: Altrx polyethylene, Size 54x36 +4 neutral Healthcare maintenance 04/17/2012 Overview (01/18/2021): Colonoscopy 10/26/04 Immunization History Administered Date(s) Administered H1n1 08/17/2009 Influenza Whole 07/02/2005, 07/05/2007, 06/23/2008 Pneumococcal Polyvalent 23 11/11/2007 Td 04/20/1995, 10/02/2003 Zoster 02/17/2009 S/P hip replacement 11/27/2011 Overview (01/18/2021): 1998, Dr. Rene Easley replaced right hip at [facility] in [place], [place] Elevated PSA 10/01/2011 Impairment of auditory [...] COVID-19 (Pre-06/23) Pfizer Vaccine, mRNA, PF 05/28/2021,09/24/2020,09/06/2020 [id number] FORMULATION 08/17/2009 Hepatitis A, Adult 07/11/1997,01/09/1997 Hepatitis B Adult 06/11/2022, 6,06/16/1995,04/29 INFLUENZA, SPLIT VIRUS, TRIVALENT PF 06/15/2013, 07/09/2012 INFLUENZA, SPLIT VIRUS, TRIV ALENT W/ PRESERVATIVE IM 06/26/2016,06/23/2008,07/05/2007,07/02 IPV 10/08/1989 Influenza High-Dose Quadriva lent Preservative Free IM 05/25/2021,05/23/2020 Influenza High-Dose Trivalen t Preservative Free IM 06/15/2019,06/12/2017,06/20/2015,06/07 Influenza Quadrivalent Prese rvative Free IM 06/12/2018 Influenza, Unspecified Formulation 06/18/2018 Influenza, whole 06/23/2008,07/05/2007, 5 Indonesian Encephalitis SC 01/17/2005,12/27/2004,0 12/20/2004 Meningococcal MPSV4 11/27/2004,08/07/1990 Novel [id number], Injectable 08/17/2009 Pneumococcal conjugate PCV13 06/20/2015 Pneumococcal [...] EDT) SODIUM 139 133 - 146 mmol/L [facility] POTASSIUM 4.5 3.3 - 5.1 mmol/L [facility] CHLORIDE 101 96 - 108 mmol/L [facility] CO2 27 21 - 35 mmol/L [facility] BUN 26(H) 6 - 19 mg/dL [facility] CREATININE 1.00 0.5 - 1.5 mg/dL [facility] GLUCOSE 97 70 - 99 mg/dL [facility] ALBUMIN 4.3 3.9 - 4.8 g/dL [facility] TOTAL PROTEIN 7.1 6.5 - 8.0 g/dL [facility] CALCIUM 9.5 8.4 - 10.3 mg/dL [facility] ALKALINE PHOSPHATASE 86 39 - 117 U/L [facility] TOTAL BILIRUBIN 0.3 0.0 - 1.2 mg/dL [facility] AST 30 0 - 37 U/L [facility] ALT 24 0 - 40 U/L [facility] GLOBULIN 2.8 1 - 4.8 g/dL [facility] EGFR 76 >59 mL/min/1.7 3m2 [facility] Comment:Estimated glomerular filtration rate calculated using the CKD-EPI refit equation. ANION GAP 16 10 - 20 mmol/L [facility] Blood 01/15/2023 2:43 PM EDT 01/15/2023 2:54 PM EDT us Azar Griffin MD LAB BLOOD BKR ORDERABLES Anastasiia arceo Result Performing Organization Address City/State/[facility] Co de Phone Number [address] [address] * (ABNORMAL) Lipid panel (01/15/2023 2:43 PM EDT) HDL 49 mg/dL [facility] Comment: Interpretation <40 mg/dL: Low HDL cholesterol (major risk factor for CHD) Greater than or equal to 60 mg/dL: High HDL cholesterol ( negative risk factor for CHD) HDL - cholesterol is affected by a number of factors, e.g. smoking, excerise, hormones, sex and age. CHOLESTEROL 134 0 - 240 mg/dL [facility] TRIGLYCERIDES 112 30 - 160 mg/dL [facility] LDL 63 50 - 129 mg/dL [facility] Comment: LDL levels in terms of risk for coronary heart disease: <100 mg/dL: Optimal 100-129 mg/dL: Near or above optimal 130-159 mg/dL: Borderline high 160-189 mg/dL: High >190 mg/dL: Very High CARDIAC RISK RATIO 2.7(L) 3.4 - 5.0 C [facility] Blood 01/15/2023 2:43 PM EDT 01/15/2023 2:54 PM EDT us Azar Griffin MD LAB BLOOD BKR ORDERABLES Anastasiia arceo Result [facility] [address] [place] [address] * COLONOSCOPY FOR RESULT ENTRY ONLY (01/26/2021) Historical Provider HEALTH MAINTENANCE Final Result from Last 3 Months or Most Recently Relevant to Health Maintenance Insurance [place] [id number] [facility] MEDICARE SUPPLEMENT MEDICARE PART A & B [employer] MEDICARE SUPPLEMENT MEDICARE PART A & B [facility] MEDICARE SUPPLEMENT MEDICARE PART A & B [facility] MEDICARE SUPPLEMENT MEDICARE PART A & B [facility] MEDICARE SUPPLEMENT MEDICARE PART A & B [facility] EXTENSION MEDICARE SUPPLEMENT MEDICARE PART A & B [employer] MEDICARE SUPPLEMENT MEDICARE PART A & B [employer] MEDICARE SUPPLEMENT MEDICARE PART A & B [employer] [facility] MEDICARE SUPPLEMENT Advance Directives For more information, please contact: [phone] (9AM - 5PM [facility]/[place], Friday-Friday) Documents on File Type Date Recorded Patient Billet Shearer Expl david AGUERO 01/01/2019 2:21 PM Mailed back to pt Care Teams Rubber Block Layer Relationship Specialty Start Date End Date Unknown, Unknown, PCP - General 11/27/23 Azar Griffin MD [address] [place] [address], [address] [place] [address] [email or web address] Historical LMR Provider 06/18/17 Additional Source Comments The information contained in this document represents components of the legal health record. It is not the complete legal health record.[facility]
--- OUTSIDE RECORDS SUMMARY | 2025-08-20 13:07 | XMS_ITS | Clinical Summary ---
Author Organization [facility] [place] [address] Care Team Providers Care Distillery Worker Name Role Phone Inactive, Pcp External Primary [...] left hip intraoperative radiologic examination (CPT code 26219) Surgeon: Jaycob Chery MD Implants Used: Femoral Stem: DePuy Corail, Size 11 KS Femoral Head: CoCr, Size 36+5 Acetabulum: DePuy [place] Sector II Gription, Size 54mm Adjuvant screw fixation x 1 x 6.5mm (35mm) Liner: Altrx polyethylene, Size 54x36 +4 neutral Healthcare maintenance 04/17/2012 Overview (04/17/2012): Colonoscopy 10/26/04 Immunization History Administered Date(s) Administered H1n1 08/17/2009 Influenza Whole 07/02/2005, 07/05/2007, 06/23/2008 Pneumococcal Polyvalent 23 11/11/2007 Td 04/20/1995, 10/02/2003 Zoster 02/17/2009 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 Rene Easley replaced right hip at in [place], [place] Prostate cancer 10/01/2011 Overview (05/31/2012): 5/4 [...] Immunization Administration Dates Next Due Influenza (Novel H1D3-79) Injectable 08/17/2009 Influenza Trivalent, Preservative Free 3,07/09/2012 [...] Sigmoidoscopy Discontinued Medical Devices Implanted Type Area Hazmat Truck Driver Device Identifier Shelf Expiration Date Model / Serial / Lot Cup,Actbr,Grpt n,Sector,54mm ([id number]) (Autoreq) - [id number] Implanted:Qty: 1 on 07/08/2012 at [facility] IMPLANTS Left: Hip DO NOT USE Depuy Final Installer Inspector - 3527 05/31/2022 [id number] Screw,Cacls,Pn ncl,6.5x35mm ([id number]) (Autoreq) - [id number] Implanted:Qty: 1 on 07/08/2012 at [facility] IMPLANTS Left: Hip DO NOT USE Depuy Final Installer Inspector - 3527 04/30/2022 0 / / [id number] Liner,Actbr,+4 mm,Ntrl,36x54m m ([id number]) (Autoreq) - [id number] Implanted:Qty: 1 on 07/08/2012 at [facility] IMPLANTS Left: Hip DO NOT USE Depuy Final Installer Inspector - 3527 05/31/2017 4 / / [id number] Stem,Fmrl,Clrd ,11,135deg,145 mm ([id number]) (Autoreq) - [id number] Implanted:Qty: 1 on 07/08/2012 at [facility] IMPLANTS DO NOT USE Depuy Final Installer Inspector - 3527 05/31/2017 [id number] / / [id number] Head,Fmrl,+5mm ,12-14,36mm ([id number]) (Autoreq) - [id number] Implanted:Qty: 1 on 07/08/2012 at [facility] IMPLANTS DO NOT USE Depuy Final Installer Inspector - 3527 05/01/2017 0 / / [id number] Procedures Procedure Name Priority Date/Time Associated Diagnosis Comments COLONOSCOPY Routine 01/26/2021 3:49 PM EDT from Last 3 Months or Most Recently Relevant to Health Maintenance Results * COLONOSCOPY (01/26/2021 3:49 PM EDT) COLONOSCOPY [facility] Endoscopy Procedure Date: 01/26/2021 3:49 PM Patient Name: Reyes Garner Date of : 1940 Age: 80 Order #: [id number] Instrument Name: [id number] Procedure: Colonoscopy Indications: Iron deficiency anemia Providers: [...] Recently Relevant to Health Maintenance Insurance MEDICARE [facility] Advance Directives Documents on File Type Date Recorded Patient Sustainability Officer Expl 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 Care Teams Distillery Worker Relationship Specialty Start Date End Date Inactive, Pcp External PCP - General 09/17/24
--- OUTSIDE RECORDS SUMMARY | 2025-08-20 13:07 | XMS_ITS | Patient Health Record ---
Author Organization [facility] Address [address] [place] [address] Care Team Providers Care Dietitian Therapeutic Name Role Phone Azar Griffin MD Primary Care Provider Dania Castañeda Unavailable [phone] Allergies Allergen (clinical drug ingredient) Drug/Non Drug [...] Date Coverage End Date Medicare National Govt Quote [facility] [address] [place] [address] [id number] Reyes Garner Self - patient is the insured [employer] [address] [place] [address] [phone] [id number] Reyes Garner Self - patient is [...] cataract surgery 2009 Hospitalization History Reason Date(Month/Year[place] [facility] [place]- diagnosis was michel tristan 06/20
== END 2025-08-20 13:04 | disposition home or self-care (01) ==
LOC: HO.HMGCX 13:03
PROVIDERS: PCP Physician Assistant Medical; Visit Provider Physician Assistant Medical
DX: M25.551 Pain in right hip (principal)
CPT/HCPCS: 73502

== ENCOUNTER → 2025-08-20 13:06 | Outpatient (BNV) | payer MEDICARE, OTHER, SELFPAY | PROVIDERS: PCP Physician Assistant Medical; Visit Provider Radiology Diagnostic Ultrasound | DX: M25.511 Pain in right shoulder (principal); Z96.641 Presence of right artificial hip joint | CPT/HCPCS: 73502 ==

== ENCOUNTER 2025-08-23 13:53 | Outpatient (AMB) | payer MEDICARE, OTHER, SELFPAY ==
[2025-08-23 13:55] VITALS: BP 121/56; PULSE 68; RESP 14; TEMP 36.7; O2SAT 98; BMI 28.8
--- NOTE | 2025-08-23 13:55 | A.OFFPC_ITS ---
Vital Signs 08/23/25 13:55 Height 6 ft 0.75 in Weight 217 lb BMI 28.8 BP 121/56 L Blood Pressure Location Rt brachial Position Sitting Respiration 14 Pulse 68 Pulse Source Pulse Oximeter Temp 98.0 F Temp Source Temporal Artery Scan Pulse Oximetry (%) 98 Oxygen Delivery Method Room Air Intake Visit Reasons: Review result of hip Budget Director Required: No Accompanied by: Spouse Allergies codeine Allergy (Unknown, Verified 08/23/25 13:56) Nausea Tobacco use date assessed: 10/04/24 Dental Screening Dental Screen Date: 10/04/24 HPI HPI Comments History of Present Illness Details History of Present Illness - The patient is an 84 year old male pre senting for follow-up for right hip pain. - He has a history of bilateral total hi p arthroplasties; the right hip was replaced 26 years ago and the left was replaced at a later date. - He reports experiencing significant ri ght hip pain for the last month or two, particularly with certain positions in bed. - About two weeks ago, he had an acute e pisode where he could hardly walk, al though this occurred after he had already ridden a bicycle without issue. - The pain subsided but recurred two nig hts prior to the visit, causing difficulty sleeping. - Recent x-rays of both hips were negati ve for acute findings, and there is no associated bruising or discoloration. - The patient had a severe episode of ve rtigo in October, which has since improved, although he still feels unsteady on his feet at times. - He has a history of chronic headaches for years, for which he has seen a neurologist without satisfaction and uses Tylenol frequently. - Past medical history is also notable f or a heart murmur, with a cardiology follow-up scheduled, and an ER visit for chest pain that was attributed to arthritis. - He has a history of anxiety related to a stressful event, for which Ativan was prescribed but not taken. - He was noted to have chronic kidney di sease based on a slightly elevated creatinine level on blood work, which is monitored every 6 months and is not considered concerning. Social History - The patient is active, participating i n activities such as walking his dog and riding a bicycle. Results - Imaging: Recent X-rays of the hips yinka wed no abnormalities. - Labs: Past blood work showed a slightl y elevated creatinine, leading to a diagnosis of chronic kidney disease. [facility] Medical History (Updated 08/23/25 @ 14:24 by Darrel Jennings MD) Bursitis of right hip Right hip pain Healthcare maintenance Encounter to establish care Anxiety Caregiver stress Atypical chest pain Chest pain COVID-19 vaccine series completed HTN (hypertension) Migraine Prostate cancer TIA (transient ischemic attack) Surgical History History of esophagogastroduodenoscopy (EGD) Hx of cataract extraction H/O colonoscopy (~11/10/23) Hx of prostatectomy Status post total right knee replacement H/O lumbar discectomy History of bladder suspension procedure Hx of hernia repair Hx of bilateral hip replacements Family History Mother Arthritis Father Hypertension Sister Breast cancer Social History Household Members: Spouse Household Members Other:: , rides a bike 12-14 mile a day, Housing: House Do you presently have visiting nurse or other home services: No Alcohol intake: current Alcohol intake frequency: does not drink Patient Tobacco Use Status: Never used Tobacco e-Cigarette/Vaping Use: Never Used Second Hand Smoke Exposure: No Advance Directives Date on File: 08/15/24 service: No Current occupational status: retired Cognitive needs: No Hearing needs: No Vision needs: Yes Questionnaire PHQ-9 Over the last 2 weeks, how often have you been bothered by any of the following problems? 1. Little interest or pleasure in doing things: not at all 2. Feeling down, depressed, or hopeless: not at all 3. Trouble falling or staying asleep, or sleeping too much: not at all 4. Feeling tired or having little energy: not at all 5. Poor appetite or overeating: not at all 6. Feeling bad about yourself - or that you are a failure or have let yourself or your family down: not at all 7. Trouble concentrating on things, such as reading the newspaper or watching television: not at all 8. Moving or speaking so slowly that other people could have noticed. Or the opposite - being so fidgety or restless that you have been moving around a lot more than usual: not at all 9. Thoughts that you would be better off or of hurting yourself in some way: not at all Total score: 0 Depression Screening Interpretation: Negative Depression Screening Done: Yes 61407 - PHQ-9 Billing: Yes Source: Developed by Drs. Jacobo Rene, Annabelle Fierro, Luigi Fonseca and colleagues, with an educational lindsay from [email or web address]. Thrive Questionnaire Date Thrive assessed: 10/04/24 I am a: Patient What is your living situation today?: I have a steady place to live Within the past 12 months, did the food you bought not last and you didn't have the money to get more?: Never true Within the past 12 months, did you worry whether your food would run out before you got money to buy more?: Never true Do you have trouble paying for medicines?: No Do you have trouble getting transportation to medical appointments?: No Do you have trouble paying your heating and electricity bill?: No Do you have trouble taking care of your child, family member or friend?: No Do you have trouble with day-to-day activities such as bathing, preparing meals, shopping, managing finances, etc.?: No Are you currently unemployed and looking for a job?: No Are you interested in more education?: No Please select the resources that you would like help with: None Currently or been in a relationship where the following occur: No concerns reported THRIVE Score: 0 AUDIT C Alcohol Use Questionnaire (AUDIT-C) 1. How often do you have a drink containing alcohol?: 2-4 times a month 2. How many drinks containing alcohol do you have on a typical day when you are drinking?: 1 or 2 3. How often do you have six or more drinks on one occasion?: Never Total Score: 2 Score Reviewed/Action Taken: No AKASH-7 AMB Questionnaire AKASH-7 Date AKASH - 7 assessed: 10/04/24 Feeling nervous, anxious, or on edge: 0 = Not at all Not being able to stop or control worryin = Not at all Worrying too much about different things: 0 = Not at all Trouble relaxin = Not at all Being so restless that it is hard to sit still: 0 = Not at all Becoming easily annoyed or irritable: 0 = Not at all Feeling afraid as if something awful might happen: 0 = Not at all Total AKASH-7 score (0-4 normal; 5-9 mild; 10-14 moderate; 15-21 severe): 0 Source: Developed by Drs. Jacobo Rene, Annabelle Fierro, Luigi Fonseca and colleagues, with an educational lindsay from [email or web address]. AKASH-7 Assessment Billing AKASH-7 Assessment Tool: AKASH-7 Assessment 11419 Review of Systems Narrative Review of Systems - Musculoskeletal: Reports intermittent right hip pain, which can be severe, p ainful in bed, and has impacted his ability to walk. - Neurological: Reports feeling not 'totally solid on his feet' but denies severe bouts of vertigo recently. - Reports chronic headaches for many years. - Integumentary: Denies bruising or discoloration on the affected hip. Physical exam (Primary Care) Vital Signs: Last Vital Signs Temp 98.0 F 08/23/25 13:55 Pulse 68 08/23/25 13:55 Resp 14 08/23/25 13:55 BP 121/56 L 08/23/25 13:55 Pulse Ox 98 08/23/25 13:55 Oxygen Delivery Method Room Air 08/23/25 13:55 BMI result Body Mass Index 28.8 Tobacco/Smoking Status: Tobacco use Status Tobacco use date assessed 10/04/24 08/23/25 14:03 Patient Tobacco Use Status Never used Tobacco 08/23/25 14:03 e-Cigarette/Vaping Use Never Used 08/23/25 14:03 PHQ-9: PHQ-9 Score PHQ-9: Total score 0 08/23/25 14:03 Depression Screening Interpretation: Negative Thrive Assessment: Date of Thrive Assessment Date Thrive assessed 10/04/24 08/23/25 14:03 Currently or been in a relationship where the following occur: No concerns reported Narrative Physical Exam General: Cooperative and healthy appearing Nutritional Appearance: Well nourished Orientation/consciousness: Patient oriented x3 Limitations: No limitations Head: Normal to inspection General: Appearance normal, both eyes and all related structures Neck: Normal visual inspection Chest: Normal palpation of entire chest wall Respiratory: Normal respiratory effort Neurology: Patient oriented x3 Office Procedures Flu Questionnaire Does the patient have a severe egg allergy?: No Does the patient have severe life threatening allergies?: No Does the patient have a fever or illness today?: No Has the patient ever had Guillain-Wallingford Syndrome?: No Has the patient ever had any past reaction to a flu shot?: No Immunizations Fluarix [id number] (PF) 45 mcg (15 mcg x 3)/0.5 mL IM syringe Performing Provider: Darrel Jennings MD [facility] Documented (not given) by: MINE Greer on 08/23/25 14:04 Reason Not Given: Received Previously Coding Level of Care Code Est Pt Level 4 (00937) Add On Problem Visit Only Diagnoses Bursitis of right hip M70.71 Additional Codes AKASH-7 Assessment Billing - AKASH-7 Assessment Tool: AKASH-7 Assessment 06121 ([id number]) PHQ-9 - 64334 - PHQ-9 Billing: Yes ([id number]) Assessment & Plan Assessment & Plan (1) Bursitis of right hip: Code(s): M70.71 - Other bursitis of hip, right hip Category: Medical Plan Plan - The working diagnosis for the patient's right hip pain is greater trochanteric bursitis. - Prescribed a trial of an oral NSAID to be taken once daily with food for a week to 10 days. - If there is no improvement after the trial of NSAIDs, the plan is to proceed with a steroid injection in the right hip. - The patient was advised to inform his content checker of the bursitis diagnosis at his upcoming appointment, particularly if a stress test is planned. - He can continue with his scheduled cardiology follow-up for his heart murmur. - Reassured the patient that his chronic kidney disease is not currently concerning and will continue to be monitored. Discussion Notes I discussed with the patient and his that the likely cause of his right hip pain is greater trochanteric bursitis, which is inflammation in the space near his hip joint. I explained that the initial treatment will be a trial of an anti-inflammatory medication for 7 to 10 days, to be taken once daily with food. We reviewed that if the pain does not improve, the next step would be a steroid injection. I advised him to inform the cardiology team about his bursitis diagnosis before any potential stress testing at his upcoming appointment. I also reassured him that his chronic kidney disease is not a cause for worry at this time. Patient Instructions - For your right hip pain, take the prescribed anti-inflammatory medication once daily with food for the next 7 to 10 days. - If the medication does not help your pain after 10 days, please contact the office to discuss a steroid injection. - Make sure to tell your heart doctor about your hip bursitis at your appointment this week, especially if they plan to do a stress test that involves walking. - You can continue with your scheduled cardiology appointment. - There is no need to worry about your kidney disease diagnosis; it is mild and we will continue to monitor it. Orders: Orders Influenza [id number] Immunization Today Z23 - Encounter for immunization
--- OUTSIDE RECORDS SUMMARY | 2025-08-23 15:05 | XMS_ITS | Clinical Summary ---
Author Organization [facility] Address [address] [place] [address] Phone Care Team Providers Care Motor Home Electrical Foreman Name Role Phone Azar Griffin MD Unavailable [phone] Unknown, Unknown Primary Care Provider Unavai lable [...] left hip intraoperative radiologic examination (CPT code 52922) Surgeon: Jaycob Chery MD Implants Used: Femoral Stem: DePuy [place], Size 11 [place] Femoral Head: CoCr, Size 36+5 Acetabulum: DePuy [place] Sector II Gription, Size 54mm Adjuvant screw fixation x 1 x 6.5mm (35mm) Liner: Altrx polyethylene, Size 54x36 +4 neutral Hip pain, left 04/22/2012 Overview (01/18/2021): Case Date: 07/08/2012 Procedure Performed: left Total Hip Arthroplasty left hip intraoperative radiologic examination (CPT code 81747) Surgeon: Jaycob Chery MD Implants Used: Femoral Stem: DePuy [place], Size 11 KS Femoral Head: CoCr, Size 36+5 Acetabulum: DePuy [place] Sector II Gription, Size 54mm Adjuvant screw [...] Easley replaced right hip at [facility] in [place], [place] Elevated PSA 10/01/2011 Impairment of auditory [...] COVID-19 (Pre-06/23) Pfizer Vaccine, mRNA, PF 05/28/2021,09/24/2020,09/06/2020 [id number] FORMULATION 08/17/2009 Hepatitis A, Adult 07/11/1997,01/09/1997 Hepatitis B Adult 06/11/2022, 6,06/16/1995,04/29 INFLUENZA, SPLIT VIRUS, TRIVALENT PF 06/15/2013, 07/09/2012 INFLUENZA, SPLIT VIRUS, TRIV ALENT W/ PRESERVATIVE IM 06/26/2016,06/23/2008,07/05/2007,07/02 IPV 10/08/1989 Influenza High-Dose Quadriva lent Preservative Free IM 05/25/2021,05/23/2020 Influenza High-Dose Trivalen t Preservative Free IM 06/15/2019,06/12/2017,06/20/2015,06/07 Influenza Quadrivalent Prese rvative Free IM 06/12/2018 Influenza, Unspecified Formulation 06/18/2018 Influenza, whole 06/23/2008,07/05/2007, 5 Maori Encephalitis SC 01/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,12/27/2004,0 12/20/2004 Meningococcal MPSV4 11/27/2004,08/07/1990 Novel Iwczkrmxd-[id number], Injectable 08/17/2009 Pneumococcal conjugate PCV13 06/20/2015 Pneumococcal [...] EDT) SODIUM 139 133 - 146 mmol/L [facility] POTASSIUM 4.5 3.3 - 5.1 mmol/L [facility] CHLORIDE 101 96 - 108 mmol/L [facility] CO2 27 21 - 35 mmol/L [facility] BUN 26(H) 6 - 19 mg/dL [facility] CREATININE 1.00 0.5 - 1.5 mg/dL [facility] GLUCOSE 97 70 - 99 mg/dL [facility] ALBUMIN 4.3 3.9 - 4.8 g/dL [facility] TOTAL PROTEIN 7.1 6.5 - 8.0 g/dL [facility] CALCIUM 9.5 8.4 - 10.3 mg/dL [facility] ALKALINE PHOSPHATASE 86 39 - 117 U/L [facility] TOTAL BILIRUBIN 0.3 0.0 - 1.2 mg/dL [facility] AST 30 0 - 37 U/L [facility] ALT 24 0 - 40 U/L [facility] GLOBULIN 2.8 1 - 4.8 g/dL [facility] EGFR 76 >59 mL/min/1.7 3m2 [facility] Comment:Estimated glomerular filtration rate calculated using the CKD-EPI refit equation. ANION GAP 16 10 - 20 mmol/L [facility] Blood 01/15/2023 2:43 PM EDT 01/15/2023 2:54 PM EDT us Azar Griffin MD LAB BLOOD BKR ORDERABLES Anastasiia arceo Result Performing Organization Address City/State/[facility] Co de Phone Number [address] [address] * (ABNORMAL) Lipid panel (01/15/2023 2:43 PM EDT) HDL 49 mg/dL [facility] Comment: Interpretation <40 mg/dL: Low HDL cholesterol (major risk factor for CHD) Greater than or equal to 60 mg/dL: High HDL cholesterol ( negative risk factor for CHD) HDL - cholesterol is affected by a number of factors, e.g. smoking, excerise, hormones, sex and age. CHOLESTEROL 134 0 - 240 mg/dL [facility] TRIGLYCERIDES 112 30 - 160 mg/dL [facility] LDL 63 50 - 129 mg/dL [facility] Comment: LDL levels in terms of risk for coronary heart disease: <100 mg/dL: Optimal 100-129 mg/dL: Near or above optimal 130-159 mg/dL: Borderline high 160-189 mg/dL: High >190 mg/dL: Very High CARDIAC RISK RATIO 2.7(L) 3.4 - 5.0 [facility] Blood 01/15/2023 2:43 PM EDT 01/15/2023 2:54 PM EDT us Azar Griffin MD LAB BLOOD BKR ORDERABLES Anastasiia arceo Result [facility] [address] [place] [address] * COLONOSCOPY FOR RESULT ENTRY ONLY (01/26/2021) Historical Provider HEALTH MAINTENANCE Final Result from Last 3 Months or Most Recently Relevant to Health Maintenance Insurance MED[place] PART [place] [id number] [facility] MEDICARE SUPPLEMENT MEDICARE PART A & B [employer] MEDICARE SUPPLEMENT MEDICARE PART A & B [employer] MEDICARE SUPPLEMENT MEDICARE PART A & B [facility] MEDICARE SUPPLEMENT MEDICARE PART A & B [facility] MEDICARE SUPPLEMENT MEDICARE PART A & B [facility] EXTENSION MEDICARE SUPPLEMENT MEDICARE PART A & B [employer] EXTENSION MEDICARE SUPPLEMENT MEDICARE PART A & B [employer] EXTENSION MEDICARE SUPPLEMENT MEDICARE PART A & B [employer] [facility] EXTENSION MEDICARE SUPPLEMENT Advance Directives For more information, please contact: [phone] (9AM - 5PM [facility], Friday-Friday) Documents on File Type Date Recorded Patient Spinning Frame 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 It is not the complete legal health record.[facility]
--- OUTSIDE RECORDS SUMMARY | 2025-08-23 15:06 | XMS_ITS | Clinical Summary ---
Author Organization [facility] [place] [address] Care Team Providers Care Carbon Brush Maker Name Role Phone Inactive, Pcp External Primary [...] left hip intraoperative radiologic examination (CPT code 66548) Surgeon: Jaycob Chery MD Implants Used: Femoral Stem: DePuy [place], Size 11 KS Femoral Head: CoCr, Size 36+5 Acetabulum: DePuy [place] Sector II Gription, Size 54mm Adjuvant screw fixation x 1 x 6.5mm (35mm) Liner: Altrx polyethylene, Size 54x36 +4 neutral Healthcare maintenance 04/17/2012 Overview (04/17/2012): Colonoscopy 10/26/04 Immunization History Administered Date(s) Administered H1n1 08/17/2009 Influenza Whole 07/02/2005, 07/05/2007, 06/23/2008 Pneumococcal Polyvalent 23 11/11/2007 Td 04/20/1995, 10/02/2003 Zoster 02/17/2009 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 Rene Easley replaced right hip at [facility] in [place], [place] Prostate cancer 10/01/2011 Overview (05/31/2012): 5/4 [...] Immunization Administration Dates Next Due Influenza (Novel Z7I5-50) Injectable 08/17/2009 Influenza Trivalent, Preservative Free 3,07/09/2012 [...] Sigmoidoscopy Discontinued Medical Devices Implanted Type Area Commercial Pest Control Representative Device Identifier Shelf Expiration Date Model / Serial / Lot Cup,Actbr,Grpt n,Sector,54mm ([id number]) (Autoreq) - [id number] Implanted:Qty: 1 on 07/08/[address] [facility] IMPLANTS Left: Hip DO NOT USE Depuy [employer] Assembler - 3527 05/31/2022 [id number] Screw,Cacls,Pn ncl,6.5x35mm ([id number]) (Autoreq) - [id number] Implanted:Qty: 1 on 07/08/[address] [facility] IMPLANTS Left: Hip DO NOT USE Depuy [employer] Hospital Products Assembler - 3527 04/30/2022 0 / / [id number] Liner,Actbr,+4 mm,Ntrl,36x54m m ([id number]) (Autoreq) - [id number] Implanted:Qty: 1 on 07/08/[address] [facility] IMPLANTS Left: Hip DO NOT USE Depuy [employer] Hospital Products Assembler - 3527 05/31/2017 4 / / [id number] Stem,Fmrl,Clrd ,11,135deg,145 mm ([id number]) (Autoreq) - [id number] Implanted:Qty: 1 on 07/08/[address] [facility] IMPLANTS DO NOT USE Depuy [employer] Hospital Products Assembler - 3527 05/31/2017 [id number] / / [id number] Head,Fmrl,+5mm ,12-14,36mm ([id number]) (Autoreq) - [id number] Implanted:Qty: 1 on 07/08/[address] [facility] IMPLANTS DO NOT USE Depuy [employer] Hospital Products Assembler - 3527 05/01/2017 0 / / [id number] Procedures Procedure Name Priority Date/Time Associated Diagnosis Comments COLONOSCOPY Routine 01/26/2021 3:49 PM EDT from Last 3 Months or Most Recently Relevant to Health Maintenance Results * COLONOSCOPY (01/26/2021 3:49 PM EDT) COLONOSCOPY [facility] Endoscopy Procedure Date: 01/26/2021 3:49 PM Patient Name: Reyes Garner Date of : 1940 Age: 80 Order #: [id number] Instrument Name: -[id number] Procedure: Colonoscopy Indications: Iron deficiency anemia Providers: [...] Recently Relevant to Health Maintenance Insurance MEDICARE [facility] Advance Directives Documents on File Type Date Recorded Patient Staffing Rn Expl 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 Care Teams Carbon Brush Maker Relationship Specialty Start Date End Date Inactive, Pcp External PCP - General 09/17/24
--- OUTSIDE RECORDS SUMMARY | 2025-08-23 15:06 | XMS_ITS | Patient Health Record ---
Author Organization [facility] Address [address] [place] [address] Care Team Providers Care Med Specialist Name Role Phone Azar Griffin MD Primary Care Provider Dania Castañeda Unavailable [phone] Allergies Allergen (clinical drug ingredient) Drug/Non Drug [...] Date Coverage End Date Medicare National Govt [facility] [address] [place] [address] [id number] Reyes Garner Self - patient is the insured [employer] [address] [place] [address] [id number] Reyes Garner Self - patient is [...] cataract surgery 2009 Hospitalization History Reason Date(Month/Year) [facility]- For possible TIA- diagnosis was michel tristan 06/20
--- OUTSIDE RECORDS SUMMARY | 2025-08-23 15:06 | XMS_ITS | Encounter Summary ---
Author Organization [facility] Address [address] [facility] [address] [place] [address] Phone Care Team Providers Care Dot Compliance Manager Name Role Phone Debbie Beltrángabmichel Tiki MILITARY TECHNOLOGY MANAGER Unavailable Gerson Hand MD Unavailable Dennis Vidales Unavailable Marcella Kelsey [facility] Unavailable Will Jacoem MD Unavailable Orion Mccray MD Unavailable Azar Griffin MD Unavailable Cely Resendiz PA-C Unavailable Margaret Rivas MD Unavailable Armand Arrieta MD Unavailable Azar Griffin MD Primary Care Provider [phone] Azar Griffin MD Unavailable Unknown, Unknown Primary Care Provider Salvador motley Encounter Details Date Type Department Care Team (Late st Contact Info) Description 05/18/2018 Ancillary Orders Virtual Department [address] [place] [phone] Tonny Everett MD, PhD [address] [facility] [address] [place], [place] [phone] (work) [email or web address] Carotid stenosis, asymptomatic, bilateral; Vascular [...] documented as of this encounter Care Teams Dot Compliance Manager Relationship Specialty Start Date End Date Azar Griffin MD [address] [place] [address], [address] [place], [place] [phone] PCP - General 06/19/17 11/26/23 Unknown, Unknown, PCP - General 11/27/23 Geovanna Beltrán NP [address] [place] [address] Historical LMR Provider 06/18/1709/08/21 Gerson Hand MD [address] [facility] [address] [place] [address] Historical LMR Provider 06/18/17 2 Dennis Vidales PA [address] [place] [address] Historical LMR Provider 06/18/17 2 Marcella Kelsey CNP [address] [place] [address], 2[address] [place] [address] [email or web address] Historical LMR Provider 06/18/17 09/08/21 Will Jacome MD [address] [place] [address] [email or web address] Historical LMR Provider 06/18/17 09/08/21 Orion Mccray MD [address] [place] [address], [address] [place] [address] [email or web address] Historical LMR Provider 06/18/17 09/08/21 Azar Griffin MD [address] [place] [address] 7 [place] [address] Historical LMR Provider 06/18/17 Cely Resendiz PA-C [address] [place] [address] Orthopedics & Sports Medicine, [place] [address] [email or web address] Historical LMR Provider 06/18/17 09/08/21 Margaret Rivas MD [address] [place] [address] [address] [place] [address] [email or web address] Historical LMR Provider 06/18/17 09/08/21 Armand Arrieta MD [address] [place], [place] [address] [place] [phone] [email or web address] Historical LMR Provider 06/18/17 09/08/21 Azar Griffin MD [address] [place] [address] 7 [place] [address] [email or web address] Insurance Assigned Provider 08/02/1712/06/23 documented as of this encounter Additional Source Comments The information contained in this document represents components of the legal health record. It is not the complete legal health record.[facility]
== END 2025-08-23 14:22 | disposition home or self-care (01) ==
LOC: HO.HMCSH 13:53
PROVIDERS: PCP Physician Assistant Medical; Visit Provider Internal Medicine
DX: M70.71 Other bursitis of hip, right hip (principal); Z23 Encounter for immunization

== ENCOUNTER → 2025-08-23 13:53 | Outpatient (BNVA) | payer MEDICARE, OTHER, SELFPAY | PROVIDERS: PCP Physician Assistant Medical; Visit Provider Internal Medicine | DX: Z71.2 Person consulting for explanation of examination or test findings (principal); M25.551 Pain in right hip; M70.71 Other bursitis of hip, right hip; Z13.31 Encounter for screening for depression | CPT/HCPCS: 90471; 96127; 99212 ==

== ENCOUNTER → 2025-08-26 08:47 | Outpatient (REF) | payer MEDICARE, OTHER, SELFPAY ==
--- OUTSIDE RECORDS SUMMARY | 2025-08-26 08:50 | XMS_ITS | Clinical Summary ---
Author Organization [facility] Address [address] [place] [address] Phone Care Team Providers Care Roof Fitter Name Role Phone Azar Griffin MD Unavailable [phone] Unknown, Unknown Primary Care Provider Unavai lable [...] left hip intraoperative radiologic examination (CPT code 58345) Surgeon: Jaycob Chery MD Implants Used: Femoral Stem: DePuy [place], Size 11 KS Femoral Head: CoCr, Size 36+5 Acetabulum: DePuy [place] Sector II Gription, Size 54mm Adjuvant screw fixation x 1 x 6.5mm (35mm) Liner: Altrx polyethylene, Size 54x36 +4 neutral Hip pain, left 04/22/2012 Overview (01/18/2021): Case Date: 07/08/2012 Procedure Performed: left Total Hip Arthroplasty left hip intraoperative radiologic examination (CPT code 85854) Surgeon: Jaycob Chery MD Implants Used: Femoral Stem: DePuy [place], Size 11 KS Femoral Head: CoCr, Size 36+5 Acetabulum: DePuy [place] Sector II Gription, Size 54mm Adjuvant screw fixation x 1 x 6.5mm (35mm) Liner: Altrx polyethylene, Size 54x36 +4 neutral Healthcare maintenance 04/17/2012 Overview (01/18/2021): Colonoscopy 10/26/04 Immunization History Administered Date(s) Administered H1n1 08/17/2009 Influenza Whole 07/02/2005, 07/05/2007, 06/23/2008 Pneumococcal Polyvalent 23 11/11/2007 Td 04/20/1995, 10/02/2003 Zoster 02/17/2009 S/P hip replacement 11/27/2011 Overview (01/18/2021): 1998, Dr. Rene Easley replaced right hip at [facility] in [place], [place] Elevated PSA 10/01/2011 Impairment of auditory [...] COVID-19 (Pre-06/23) Pfizer Vaccine, mRNA, PF 05/28/2021,09/24/2020,09/06/2020 [id number] FORMULATION 08/17/2009 Hepatitis A, Adult 07/11/1997,01/09/1997 Hepatitis B Adult 06/11/2022, 6,06/16/1995,04/29 INFLUENZA, SPLIT VIRUS, TRIVALENT PF 06/15/2013, 07/09/2012 INFLUENZA, SPLIT VIRUS, TRIV ALENT W/ PRESERVATIVE IM 06/26/2016,06/23/2008,07/05/2007,07/02 IPV 10/08/1989 Influenza High-Dose Quadriva lent Preservative Free IM 05/25/2021,05/23/2020 Influenza High-Dose Trivalen t Preservative Free IM 06/15/2019,06/12/2017,06/20/2015,06/07 Influenza Quadrivalent Prese rvative Free IM 06/12/2018 Influenza, Unspecified Formulation 06/18/2018 Influenza, whole 06/23/2008,07/05/2007, 5 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0 g/dL [facility] CALCIUM 9.5 8.4 - 10.3 mg/dL [facility] ALKALINE PHOSPHATASE 86 39 - 117 U/L [facility] TOTAL BILIRUBIN 0.3 0.0 - 1.2 mg/dL [facility] AST 30 0 - 37 U/L [facility] ALT 24 0 - 40 U/L [facility] GLOBULIN 2.8 1 - 4.8 g/dL [facility] EGFR 76 >59 mL/min/1.7 3m2 [facility] Comment:Estimated glomerular filtration rate calculated using the CKD-EPI refit equation. ANION GAP 16 10 - 20 mmol/L [facility] Blood 01/15/2023 2:43 PM EDT 01/15/2023 2:54 PM EDT us Azar Griffin MD LAB BLOOD BKR ORDERABLES Anastasiia arceo Result Performing Organization Address City/State/[facility] Co de Phone Number [address] [address] * (ABNORMAL) Lipid panel (01/15/2023 2:43 PM EDT) HDL 49 mg/dL [facility] Comment: Interpretation <40 mg/dL: Low HDL cholesterol (major risk factor for CHD) Greater than or equal to 60 mg/dL: High HDL cholesterol ( negative risk factor for CHD) HDL - cholesterol is affected by a number of factors, e.g. smoking, excerise, hormones, sex and age. CHOLESTEROL 134 0 - 240 mg/dL [facility] TRIGLYCERIDES 112 30 - 160 mg/dL [facility] LDL 63 50 - 129 mg/dL [facility] Comment: LDL levels in terms of [...] BLOOD BKR ORDERABLES Anastasiia arceo Result [facility] [address] [place] [address] * COLONOSCOPY FOR RESULT ENTRY ONLY (01/26/2021) Historical Provider HEALTH MAINTENANCE Final Result from Last 3 Months or Most Recently Relevant to Health Maintenance Insurance MED[place] PART A [place] [id number] [facility] MEDICARE SUPPLEMENT MEDICARE PART A & B [employer] MEDICARE SUPPLEMENT MEDICARE PART A & B [employer] MEDICARE SUPPLEMENT MEDICARE PART A & B [facility] MEDICARE SUPPLEMENT MEDICARE PART A & B [facility] MEDICARE SUPPLEMENT MEDICARE PART A & B [facility] EXTENSION MEDICARE SUPPLEMENT MEDICARE PART A & B [employer] MEDICARE SUPPLEMENT MEDICARE PART A & B [employer] MEDICARE SUPPLEMENT MEDICARE PART A & B [employer] [facility] EXTENSION MEDICARE SUPPLEMENT Advance Directives For more information, please contact: [phone] (9AM - 5PM [facility], Friday[facility]Friday) Documents on File Type Date Recorded Patient Derrick Worker Well Service Expl david AGUERO 01/01/2019 2:21 PM Mailed back to pt Care Teams Roof Fitter Relationship Specialty Start Date End Date Unknown, Unknown, PCP - General 11/27/23 Azar Griffin MD [address] [place] [address], [address] [place] [address] [email or web address] Historical LMR Provider 06/18/17 Additional Source Comments The information contained in this document represents components of the legal health record. It is not the complete legal health record.[facility]
--- OUTSIDE RECORDS SUMMARY | 2025-08-26 08:50 | XMS_ITS | Patient Health Record ---
Author Organization [facility] Address [address] [place] [address] Care Team Providers Care Core Drill Operator Helper Name Role Phone Azar Griffin MD Primary Care Provider Dania Castañeda Unavailable [phone] Allergies Allergen (clinical drug ingredient) Drug/Non Drug [...] Date Coverage End Date Medicare National Govt [facility] [address] [place] [address] [id number] Reyes Garner Self - patient is the insured [employer] [address] [place] [address] [phone] [id number] Reyes Garner Self - patient is [...] cataract surgery 2009 Hospitalization History Reason Date(Month/Year) [facility] For possible TIA- diagnosis was michel tristan 06/20
--- OUTSIDE RECORDS SUMMARY | 2025-08-26 08:50 | XMS_ITS | Clinical Summary ---
Author Organization [place] [address] Care Team Providers Care Investment Banker Name Role Phone Inactive, Pcp External Primary [...] left hip intraoperative radiologic examination (CPT code 38643) Surgeon: Jaycob Chery MD Implants Used: Femoral Stem: DePuy Corail, Size 11 [place] Femoral Head: CoCr, Size 36+5 Acetabulum: DePuy [place] Sector II Gription, Size 54mm Adjuvant screw fixation x 1 x 6.5mm (35mm) Liner: Altrx polyethylene, Size 54x36 +4 neutral Healthcare maintenance 04/17/2012 Overview (04/17/2012): Colonoscopy 10/26/04 Immunization History Administered Date(s) Administered H1n1 08/17/2009 Influenza Whole 07/02/2005, 07/05/2007, 06/23/2008 Pneumococcal Polyvalent 23 11/11/2007 Td 04/20/1995, 10/02/2003 Zoster 02/17/2009 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 Rene Easley replaced right hip at [facility] in [place], [place] Prostate cancer 10/01/2011 Overview (05/31/2012): 5/4 [...] Immunization Administration Dates Next Due Influenza (Novel [id number]) Injectable 08/17/2009 Influenza Trivalent, Preservative Free 3,07/09/2012 [...] Sigmoidoscopy Discontinued Medical Devices Implanted Type Area Transmission And Coordination Engineer Device Identifier Shelf Expiration Date Model / Serial / Lot Cup,Actbr,Grpt n,Sector,54mm ([id number]) ([employer]oreq) - [id number] Implanted:Qty: 1 on 07/08/2012 at [facility] IMPLANTS Left: Hip DO NOT USE Depuy Performance Test Engineer - 3527 05/31/2022 [id number] Screw,Cacls,Pn ncl,6.5x35mm ([id number]) ([employer]) - [id number] Implanted:Qty: 1 on 07/08/2012 at [facility] IMPLANTS Left: Hip DO NOT USE Depuy Performance Test Engineer - 3527 04/30/2022 0 / / [id number] Liner,Actbr,+4 mm,Ntrl,36x54m m ([id number]) ([employer]) - [id number] Implanted:Qty: 1 on 07/08/2012 at [facility] IMPLANTS Left: Hip DO NOT USE Depuy Performance Test Engineer - 3527 05/31/2017 4 / / [id number] Stem,Fmrl,Clrd ,11,135deg,145 mm ([id number]) ([employer]) - [id number] Implanted:Qty: 1 on 07/08/2012 at [facility] IMPLANTS DO NOT USE Depuy Performance Test Engineer - 3527 05/31/2017 [id number] / / [id number] Head,Fmrl,+5mm ,12-14,36mm ([id number]) ([employer]) - [id number] Implanted:Qty: 1 on 07/08/2012 at [facility] IMPLANTS DO NOT USE Depuy Performance Test Engineer - 3527 05/01/2017 0 / / [id number] Procedures Procedure Name Priority Date/Time Associated Diagnosis Comments COLONOSCOPY Routine 01/26/2021 3:49 PM EDT from Last 3 Months or Most Recently Relevant to Health Maintenance Results * COLONOSCOPY (01/26/2021 3:49 PM EDT) COLONOSCOPY [facility] Endoscopy Procedure Date: 01/26/2021 3:49 PM Patient Name: Reyes Garner Date of : 1940 Age: 80 Order #: [id number] Instrument Name: -[id number] Procedure: Colonoscopy Indications: Iron deficiency anemia Providers: [...] Recently Relevant to Health Maintenance Insurance MEDICARE [facility] Advance Directives Documents on File Type Date Recorded Patient Lens Cleaner Expl 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 Care Teams Investment Banker Relationship Specialty Start Date End Date Inactive, Pcp External PCP - General 09/17/24
--- OUTSIDE RECORDS SUMMARY | 2025-08-26 08:50 | XMS_ITS | Encounter Summary ---
Author Organization [facility] Address [address] [facility] [address] [place] [id number] Phone Care Team Providers Care Sign Artist Name Role Phone Debbie Beltrángabmichel Tiki [employer] Unavailable Gerson Hand MD Unavailable Dennis Vidales Unavailable Marcella Kelsey [facility] Unavailable Will Jacome MD Unavailable Orion Mccray MD Unavailable Azar Griffin MD Unavailable Cely Resendiz PA-C Unavailable Margaret Rivas MD Unavailable Armand Arrieta MD Unavailable Azar Griffin MD Primary Care Provider [phone] Azar Griffin MD Unavailable Unknown, Unknown Primary Care Provider Salvador motley Encounter Details Date Type Department Care Team (Late st Contact Info) Description 05/18/2018 Ancillary Orders Virtual Department [address] [place] [address] [phone] Tonny Everett MD, PhD [address] [facility] [address] [place], [place] [phone] (work) [email or web address] Carotid stenosis, asymptomatic, bilateral; Vascular headache [...] documented as of this encounter Care Teams Sign Artist Relationship Specialty Start Date End Date Azar Griffin MD [address] [place] [address], [address] [place], [place] [phone] PCP - General 06/19/17 11/26/23 Unknown, Unknown, PCP - General 11/27/23 Geovanna Beltrán NP [address] [place] [address] Historical LMR Provider 06/18/1709/08/21 Gerson Hand MD [address] [facility] [address] [place] [address] Historical LMR Provider 06/18/17 2 Dennis Vidales PA [address] [place] [address] Historical LMR Provider 06/18/17 2 Marcella Kelsey CNP [address] [place] [address], 2[address] [place] [address] [email or web address] Historical LMR Provider 06/18/17 09/08/21 Will Jacome MD [address] [place] [id number] [email or web address] Historical LMR Provider 06/18/17 09/08/21 Orion Mccray MD [address] [place] [address], [address] [place] [address] [email or web address] Historical LMR Provider 06/18/17 09/08/21 Azar Griffin MD [address] [place] [address] 7 [place] [address] Historical LMR Provider 06/18/17 Cely Resendiz PA-C [address] [place] [address] Orthopedics & Sports Medicine, [facility] [place] [address] [email or web address] Historical LMR Provider 06/18/17 09/08/21 Margaret Rivas MD [address] [place] [address] 7 [place] [address] [email or web address] Historical LMR Provider 06/18/17 09/08/21 Armand Arrieta MD [address] [place], [place] [address] [place] [phone] [email or web address] Historical LMR Provider 06/18/17 09/08/21 Azar Griffin MD [address] [place] [address] 7 [place] [address] [email or web address] Insurance Assigned Provider 08/02/1712/06/23 documented as of this encounter Additional Source Comments The information contained in this document represents components of the legal health record. It is not the complete legal health record.[facility]
--- NOTE | 2025-08-26 08:52 | CA_ITS ---
Acquisition Time: 2025-08-26 09:44:42 Total Exercise Time: 00:06:40 Test Indications: ELEVATED TROPONIN CP Medications: AMLODIPINE ASA ATORVASTATIN LORAZAPAM PRN OLMESARTAN/HCTZ VERAPAMIL Protocol: CHARLINE Max HR: 123 BPM 89% of Pred: 138 BPM Max BP: 180/48 mmHG Max Work Load: 8.0 METS Exercise stress test with exercise 6 mins 40 secs of Charline Protocol, achieving 87% MPHR, with reports of SOB, no chest pain, with frequent PVCs, with normotensive response to exercise. Without any EKG changes meeting criteria for ischemia. In recovery, brething improved and pt feeling back to baseline. Nuclear images pending. Test reviewed with Dr. Polanco. Referred By: Radha Everett Electronically Signed By: Ozzie Harris
--- NOTE | 2025-08-26 08:52 | CA_ITS ---
Transthoracic Echocardiogram Amended Patient (Last, First, Middle): Reyes Garner R Gender: Male Date of : 1940 Age: 84 Procedure Date: 08/26/2025 Procedure Type: Transthoracic Echocardiogram Location: OP Height: 182.88 cm Weight: 98.43 kg BSA: 2.21 m2 Heart Rate: 69 bpm BP: 120 / 56 mmHg [employer] Person: TO Referring MD: Radha Everett PA-C Director Of Distance Learning: Jorge L Polanco MD Symptoms: R07.9 - Chest pain, unspecified Study Quality: Adequate ECG Rhythm: Sinus Conclusions: - 1. Normal LV ejection fraction of 60 65% with pseudonormal filling pattern 2. Mild biatrial enlargement 3. Calcific mild aortic stenosis and regurgitation 4. Moderately dilated ascending aorta at 4.5 cm 5. No gross pericardial effusion Findings Left Ventricle Normal left ventricular size, thickness, and systolic function. The visually estimated ejection fraction is between 60-65%. Spectral Doppler is indicative of a pseudonormal filling pattern.Peak GLS is -18.1%, within normal limites Right Ventricle Mildly increased right ventricular cavity size. There is normal right ventricular systolic function. Atria Mild biatrial enlargement. There is no evidence of interatrial shunt. Aortic Valve There is a doming trileaflet aortic valve. There is mild calcification of the aortic valve. There is mild thickening of the aortic valve. There is mild aortic valve stenosis. The peak aortic gradient is 27 mmHg.The mean gradient is 16 mmHg. There is mild aortic valve regurgitation. Mitral Valve There is mild anterior and posterior mitral leaflet thickening. There is mild mitral annular calcification. There is mild mitral valve regurgitation. There is no mitral valve stenosis. Pulmonic Valve The pulmonic valve is likely normal. Tricuspid Valve Normal tricuspid valve structure. There is trace tricuspid valve regurgitation. The right ventricular systolic pressure is normal. The right ventricular systolic pressure is 21 mmHg. Normal right atrial pressure. There is no evidence of pulmonary hypertension. Great Vessels The pulmonary artery was not well visualized. 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 Venous The inferior vena cava is normal in size and collapses greater than 50% with inspiration. Pericardium/Pleural There is no evidence of pericardial effusion. Measurements 2D Linear Measurements IVSd: 1.08 0.6-0.9/0.6-1.0 cm LVIDd: 5.58 3.9-5.3/4.2-5.9 cm LVIDd Index: 2.52 2.4-3.2/2.2-3.1 cm/m2 LVIDs: 3.42 2.0-3.6 cm LVPWd: 0.94 0.7-1.1 cm LA Diam: 4.40 2.7-3.8/3.0-4.0 cm LAIDs Index: 1.99 1.5-2.3 cm/m2 LV Mass: 276.39 67-162/88-224 g LV Mass Index: 125.06 43-95/49-115 g/m2 LVOT Diam: 2.50 3.0+(-)1.3 cm 2D Volumes LA Vol: 41.50 2D Systolic Function EF 4C: 59.70 >55% EF 2C: 60.80 >55% EF BiP: 59.80 >55% Aortic Valve AoV Pk Shreyas: 2.62 AoV Mn Shreyas: 1.91 AoV VTI: 0.56 AoV Pk Grad: 27.00 Aov Mn Grad: 16.00 CHARLY Cont.VTI: 2.42 AI Pk Shreyas: 3.68 AI [place]: 1.61 LVOT LVOT Pk Shreyas: 1.27 LVOT Mn Shreyas: 0.86 LVOT VTI: 0.28 LVOT Pk Grad: 6.00 LVOT Mn Grad: 3.00 LVOT Diam: 2.50 LVOT Area: 4.91 Right Ventricle TAPSE (mm): 18.70 TVS' Shreyas: 12.90 Tricuspid Valve TR Pk Shreyas: 2.13 TR Pk Grad: 18.00 RA Press: 3.00 RVSP: 21.00 Great Vessels Aorta Sinus of Valsalva: 4.00 2.0-3.5 cm Ao Asc: 4.50 2.1-3.4 cm Ao Arch: 3.80 Updated in Other Vendor System with Status of Final Jorge L Polanco MD electronically signed on 08/27/2025 12:59:03 PM with status of Final
== END ==
LOC: HO.CARD 08:47
PROVIDERS: PCP Physician Assistant Medical; Visit Provider Physician Assistant Medical
DX: I34.0 Nonrheumatic mitral (valve) insufficiency (principal); R07.89 Other chest pain; R01.1 Cardiac murmur, unspecified; I10 Essential (primary) hypertension; E78.5 Hyperlipidemia, unspecified
CPT/HCPCS: 93017; 93306

== ENCOUNTER → 2025-08-26 08:52 | Outpatient (BNV) | payer MEDICARE, OTHER, SELFPAY | PROVIDERS: PCP Physician Assistant Medical | DX: I77.810 Thoracic aortic ectasia (principal); I51.7 Cardiomegaly; I35.0 Nonrheumatic aortic (valve) stenosis; I35.1 Nonrheumatic aortic (valve) insufficiency | CPT/HCPCS: 93306 ==